=== PATIENT | female | born 1945 | race Two or more races ===

== ENCOUNTER → 2020-08-14 13:11 | Outpatient (BNVA) | payer MEDICARE, SELFPAY | PROVIDERS: PCP Internal Medicine; Referring Provider Internal Medicine; Visit Provider Internal Medicine | DX: I25.10 Atherosclerotic heart disease of native coronary artery without angina pectoris (principal); I10 Essential (primary) hypertension; E78.5 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, unspecified; E11.9 Type 2 diabetes mellitus without complications; Z79.4 Long term (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 | CPT/HCPCS: 99214 ==

== ENCOUNTER → 2020-09-05 10:57 | Outpatient (BNVA) | payer MEDICARE, SELFPAY | PROVIDERS: PCP Internal Medicine; Referring Provider Internal Medicine; Visit Provider Nurse Practitioner Gerontology | DX: E11.42 Type 2 diabetes mellitus with diabetic polyneuropathy (principal); I10 Essential (primary) hypertension; E78.5 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, unspecified; E66.09 Other obesity due to excess calories; Z68.32 Body mass index [BMI] 32.0-32.9, adult; Z71.3 Dietary counseling and surveillance; Z79.4 Long term (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 | CPT/HCPCS: 82947; 99213 ==

== ENCOUNTER 2020-09-21 09:35 | Outpatient (REF) | payer MEDICARE, SELFPAY | END 2020-09-21 09:36 | disposition home or self-care (01) | LOC: HO.LAB 09:35 | PROVIDERS: Visit Provider Internal Medicine | DX: Z20.828 Contact with and (suspected) exposure to other viral communicable diseases (principal) | CPT/HCPCS: C9803; U0003 ==

== ENCOUNTER 2020-09-27 12:44 | Outpatient (REF) | payer MEDICARE, SELFPAY ==
[2020-09-27 14:21] LABS: Estimated Average Glucose 157 mg/dL; Hemoglobin 11.4 g/dl (12.0-16.0); Hemoglobin A1c % 7.1 %
[2020-09-27 14:28] LABS: Anion Gap 11 (12-20); Blood Urea Nitrogen 17 mg/dL (9-16); Calcium 9.3 mg/dL (8.4-10.2); Carbon Dioxide 31 mmol/L (22-29); Chloride 102 mmol/L (96-108); Estimated Glomerular Filt Rate 54; Glucose Random 95 mg/dL (60-115); Potassium 4.5 mmol/l (3.3-5.1); Sodium 139 mmol/L (135-145)
[2020-09-28 08:56] LABS: LDL Cholesterol Direct 64 mg/dL (<100)
== END 2020-09-27 12:45 | disposition home or self-care (01) ==
LOC: HO.HMGCLDS 12:44
PROVIDERS: PCP Internal Medicine; Visit Provider Internal Medicine
DX: E11.42 Type 2 diabetes mellitus with diabetic polyneuropathy (principal); E78.5 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, unspecified; I10 Essential (primary) hypertension; I25.10 Atherosclerotic heart disease of native coronary artery without angina pectoris; Z79.4 Long term (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
CPT/HCPCS: 36415; 80048; 83036; 83721; 85018

== ENCOUNTER → 2020-11-22 13:25 | Outpatient (BNVA) | payer MEDICARE, SELFPAY | PROVIDERS: PCP Internal Medicine; Referring Provider Internal Medicine; Visit Provider Nurse Practitioner Gerontology | DX: E11.42 Type 2 diabetes mellitus with diabetic polyneuropathy (principal); Z79.4 Long term (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; I10 Essential (primary) hypertension; E78.5 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, unspecified | CPT/HCPCS: Q3014 ==

== ENCOUNTER → 2021-02-20 12:37 | Outpatient (BNVA) | payer MEDICARE, MEDICAID, SELFPAY | PROVIDERS: PCP Internal Medicine; Visit Provider Nurse Practitioner Gerontology | DX: E11.65 Type 2 diabetes mellitus with hyperglycemia (principal); Z79.4 Long term (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; E78.5 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, unspecified; I10 Essential (primary) hypertension | CPT/HCPCS: 82947; 99212 ==

== ENCOUNTER → 2021-07-11 07:48 | Outpatient (BNVA) | payer MEDICARE, MEDICAID, SELFPAY | PROVIDERS: PCP Internal Medicine; Visit Provider Nurse Practitioner Gerontology | DX: E11.65 Type 2 diabetes mellitus with hyperglycemia (principal); E78.5 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, unspecified; I10 Essential (primary) hypertension; Z79.4 Long term (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 | CPT/HCPCS: 82947; 99212 ==

== ENCOUNTER 2021-07-13 12:29 | Outpatient (REF) | payer MEDICARE, MEDICAID, SELFPAY ==
[2021-07-13 14:02] LABS: Glucose Urine UA 250 MG/DL (NEG); Leukocyte Esterase Urine NEG (NEG); Nitrite Urine NEG (NEG); PH 5.5 (5.0-8.0); Specific Gravity - Urine >= 1.030 (1.005-1.025); Urine Blood NEG (NEG); Urine Ketones NEG (NEG); Urine Protein NEG (NEG-TRACE)
[2021-07-13 14:03] LABS: Appearance Urine CLEAR; Color Urine YELLOW
[2021-07-13 14:18] LABS: MANUAL DIFF FLAG NO
[2021-07-13 14:24] LABS: Basophils Percent Auto 0.4 % (0-2); Eosinophils Absolute Auto 0.2 X10*3/uL (0.0-0.4); Eosinophils Percent Auto 2.2 % (0-4); Hematocrit 37.5 % (37-47); Hemoglobin 11.1 g/dl (12.0-16.0); Imm Gran Abs Auto 0.03 X10*3/uL (0.00-0.03); Imm Gran Pct Auto 0.4 % (0.0-0.4); Lymphocytes Absolute Auto 1.2 X10*3/uL (1.2-4.9); Mean Corpuscular HGB Conc 29.6 g/dl (31.0-35.0); Mean Corpuscular Hemoglobin 23.9 pg (27.0-33.0); Mean Corpuscular Volume 80.6 fL (80-98); Mean Platelet Volume 11.6 fL (9.4-12.3); Monocytes Absolute Auto 0.4 X10*3/uL (0.1-1.2); Monocytes Percent Auto 5.3 % (2-11); Neutrophils Absolute Auto 5.5 X10*3/uL (2.0-8.3); Neutrophils Percent Auto 75.7 % (45-73); Platelet Count 256 X10*3/uL (160-400); Red Blood Count 4.65 X10*6/uL (4.20-5.50); Red Cell Distribution Width 14.6 % (11.0-16.0); White Blood Count 7.3 X10*3/uL (4.8-10.8)
[2021-07-13 14:35] LABS: Estimated Average Glucose 189 mg/dL; Hemoglobin A1c % 8.2 %
[2021-07-13 14:43] LABS: Creatinine Urine 121.74 mg/dL; Microalbum/Creatinine Ratio Ur 54.2 ug/mg cr
[2021-07-13 14:46] LABS: Alanine Aminotransferase 11 U/L (0-31); Albumin Level 3.8 g/dL (3.5-5.0); Alkaline Phosphatase 104 U/L (39-117); Anion Gap 11 (12-20); Aspartate Amino Transferase 15 U/L (5-31); Bilirubin Total 0.3 mg/dL (0.0-1.0); Blood Urea Nitrogen 16 mg/dL (9-16); Calcium 9.7 mg/dL (8.4-10.2); Carbon Dioxide 30 mmol/L (22-29); Chloride 101 mmol/L (96-108); Cholesterol 140 mg/dL; Estimated Glomerular Filt Rate 56; Glucose Fasting 251 mg/dL (60-99); HDL Cholesterol 50 mg/dL; LDL Cholesterol Calculated 67 mg/dl; Potassium 4.4 mmol/L (3.3-5.1); Sodium 138 mmol/L (135-145); Total Protein 6.4 g/dL (6.5-8.0); Triglycerides 118 mg/dL
[2021-07-14 20:25] LABS: LDL Cholesterol Direct 69 mg/dL (<100)
== END 2021-07-13 12:30 | disposition home or self-care (01) ==
LOC: HO.HMGCLDS 12:29
PROVIDERS: Nurse Practitioner Gerontology; PCP Internal Medicine; Visit Provider Internal Medicine
DX: E11.42 Type 2 diabetes mellitus with diabetic polyneuropathy (principal); E11.65 Type 2 diabetes mellitus with hyperglycemia; I10 Essential (primary) hypertension; E78.5 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, unspecified; R29.6 Repeated falls; R41.3 Other amnesia; R10.2 Pelvic and perineal pain; Z79.4 Long term (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
CPT/HCPCS: 36415; 80053; 80061; 81003; 82043; 83036; 83721; 85025

== ENCOUNTER → 2021-07-23 10:20 | Outpatient (BNVA) | payer MEDICARE, MEDICAID, SELFPAY | PROVIDERS: PCP Internal Medicine; Referring Provider Internal Medicine; Visit Provider Internal Medicine | DX: I25.10 Atherosclerotic heart disease of native coronary artery without angina pectoris (principal); I10 Essential (primary) hypertension; E78.5 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, unspecified; E11.8 Type 2 diabetes mellitus with unspecified complications; Z79.4 Long term (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 | CPT/HCPCS: 93005; 99212 ==

== ENCOUNTER → 2021-08-14 13:31 | Outpatient (BNVA) | payer MEDICARE, MEDICAID, SELFPAY | PROVIDERS: PCP Internal Medicine; Referring Provider Internal Medicine; Visit Provider Nurse Practitioner Family | DX: I25.10 Atherosclerotic heart disease of native coronary artery without angina pectoris (principal); I10 Essential (primary) hypertension; E78.5 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, unspecified; E11.8 Type 2 diabetes mellitus with unspecified complications | CPT/HCPCS: 99212 ==

== ENCOUNTER → 2021-08-22 10:36 | Outpatient (BNVA) | payer MEDICARE, MEDICAID, SELFPAY | PROVIDERS: PCP Internal Medicine; Visit Provider Nurse Practitioner Gerontology | DX: E11.65 Type 2 diabetes mellitus with hyperglycemia (principal); E78.5 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, unspecified; I10 Essential (primary) hypertension; Z79.4 Long term (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 | CPT/HCPCS: Q3014 ==

== ENCOUNTER → 2021-12-17 13:12 | Outpatient (BNVA) | payer MEDICARE, MEDICAID, SELFPAY | PROVIDERS: PCP Internal Medicine; Visit Provider Nurse Practitioner Gerontology | DX: E11.65 Type 2 diabetes mellitus with hyperglycemia (principal); E78.5 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, unspecified; I10 Essential (primary) hypertension; Z79.4 Long term (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 | CPT/HCPCS: Q3014 ==

== ENCOUNTER 2021-12-21 19:34 | Emergency (ER) | payer MEDICARE, MEDICAID, SELFPAY ==
[2021-12-21 19:44] VITALS: BP 142/50; PULSE 92; RESP 20; TEMP 36.5; O2SAT 99; BMI 32.7
[2021-12-21 20:09] LABS: MANUAL DIFF FLAG NO
[2021-12-21 20:12] LABS: Basophils Percent Auto 0.2 % (0-2); Eosinophils Absolute Auto 0.1 X10*3/uL (0.0-0.4); Hematocrit 39.6 % (37.0-47.0); Hemoglobin 12.2 g/dl (12.0-16.0); Imm Gran Abs Auto 0.05 X10*3/uL (0.00-0.03); Imm Gran Pct Auto 0.5 % (0.0-0.4); Lymphocytes Absolute Auto 1.5 X10*3/uL (1.2-4.9); Lymphocytes Percent Auto 14.8 % (20-40); Mean Corpuscular HGB Conc 30.8 g/dl (31.0-35.0); Mean Corpuscular Hemoglobin 24.6 pg (27.0-33.0); Mean Corpuscular Volume 79.8 fL (80.0-98.0); Mean Platelet Volume 10.6 fL (9.4-12.3); Monocytes Absolute Auto 0.5 X10*3/uL (0.1-1.2); Monocytes Percent Auto 5.3 % (2-11); Neutrophils Percent Auto 78.2 % (45-73); Platelet Count 285 X10*3/uL (160-400); Red Blood Count 4.96 X10*6/uL (4.20-5.50); White Blood Count 10.2 X10*3/uL (4.8-10.8)
[2021-12-21 20:25] LABS: Alanine Aminotransferase 11 U/L (0-31); Albumin Level 3.9 g/dL (3.5-5.0); Alkaline Phosphatase 114 U/L (39-117); Anion Gap 17 (12-20); Aspartate Amino Transferase 22 U/L (5-31); Bilirubin Direct 0.2 mg/dL (0.0-0.5); Bilirubin Total 0.3 mg/dL (0.0-1.0); Blood Urea Nitrogen 17 mg/dL (9-16); Calcium 9.8 mg/dL (8.4-10.2); Carbon Dioxide 23 mmol/L (22-29); Chloride 101 mmol/L (96-108); Creatinine Clr Calc Pharmacy 42.3; Estimated Glomerular Filt Rate 46; Glucose Random 296 mg/dL (60-115); Lipase 69 U/L (8-78); Sodium 137 mmol/L (135-145); Total Protein 7.1 g/dL (6.5-8.0)
[2021-12-21 20:26] LABS: COVID-19 Test Negative (Negative); IDNOW Serial# 9DD0AD1C
== END 2021-12-21 22:20 | disposition left against medical advice (07) ==
PROVIDERS: Emergency Provider Emergency Medicine
DX: R11.2 Nausea with vomiting, unspecified (principal); Z20.822 Contact with and (suspected) exposure to COVID-19; I10 Essential (primary) hypertension; E11.9 Type 2 diabetes mellitus without complications; E78.5 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, unspecified; Z79.4 Long term (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
CPT/HCPCS: 80053; 82248; 83690; 85025; 87635; 99282; 99283

== ENCOUNTER 2021-12-22 09:07 | Inpatient (IN) | payer MEDICARE, OTHER, SELFPAY ==
[2021-12-22] VITALS (10 sets, daily range): BP systolic 160–200; BP diastolic 60–82; PULSE 81–100; RESP 16–19; TEMP 36.3–37.4; O2SAT 96–100; BMI 34.0
--- NOTE | ~2021-12-22 | CT_ITS ---
EXAMINATION: CT ABDOMEN AND PELVIS WITH CONTRAST CLINICAL INFORMATION: Abdominal pain. GI bleed. COMPARISON: CT scan of the abdomen and pelvis dated 06/15/2018. TECHNIQUE: Multidetector CT volumetric acquisition of the abdomen and pelvis was performed after the administration of 85 and mL of intravenous Omnipaque 350. The data set was reformatted in the sagittal and coronal planes and reviewed on an independent workstation. This CT examination was performed using dose optimization techniques as appropriate, variously including the following: *Automated exposure control *Adjustment of mA and/or kV according to patient size (this includes techniques or standardized protocols for targeted exams where dose is matched to indication/reason for exam; i.e. extremities or head) *Use of iterative reconstruction technique DLP: 587 mGy-cm. FINDINGS: LOWER CHEST: Included lung bases unremarkable. Moderate atherosclerotic coronary artery calcifications partially included. LIVER, GALLBLADDER, BILIARY TREE: Liver normal size and diffusely mildly lower in attenuation compared to the spleen, consistent with hepatic steatosis. No focal cystic or solid mass. Hepatic and portal veins patent. Gallbladder is surgically absent. There is resultant mild dilatation of the extrahepatic common bile duct, which measures 1.1 cm proximally and tapers to 0.5 cm in the pancreatic head. No obstructing stone or mass is seen. Minimal central intrahepatic ductal dilatation is noted. These findings are similar to the previous exam.. PANCREAS: Diffusely atrophic. No ductal dilatation, mass, or surrounding stranding. SPLEEN: Normal size and appearance. 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 The splenic vein is patent. ADRENAL GLANDS AND KIDNEYS: Adrenal glands normal. Kidneys bilaterally symmetric in size and function. There is a 0.6 cm upper pole right renal low-attenuation mass, too small to characterize but statistically most likely a cyst. This had previously measured 0.4 cm (06/15/2018). No other suspicious focal mass, hydronephrosis, nephrolithiasis or perinephric stranding. URETERS AND BLADDER: Ureters decompressed and within normal limits. Bladder completely decompressed and not adequately assessed. PELVIC ORGANS: The patient is status post hysterectomy and presumably oophorectomy. Several soumya are seen in the pelvis. GASTROINTESTINAL TRACT: The patient is status post sigmoid colon resection with the bowel anastomotic suture line appearing intact and unremarkable. There is bilateral long segment of mid and distal transverse colon, splenic flexure, and proximal descending colon, which is abnormal in appearance, demonstrating marked submucosal edema and mucosal hyperenhancement and prominent surrounding fat infiltration and edema. No pneumatosis is seen and no significant diverticula are noted. The remainder of the colon is decompressed and unremarkable. Small bowel loops are decompressed and unremarkable. The appendix is not visualized but no inflammatory process seen in the right lower quadrant to suspect acute appendicitis LYMPHOVASCULAR STRUCTURES: Abdominal aorta normal in caliber. There is moderate atherosclerotic calcification of the abdominal aorta, including at the origins of the SMA and VADIM. However, all the mesenteric vessels are patent with normal enhancement demonstrated. No thrombus is noted within the mesenteric vessels. No periaortic collections. No abdominal or pelvic adenopathy or free fluid collection. BONES: There is moderate vertebral spondylosis in the lower thoracic spine and in the mid lumbar spine CT/CT abdomen pelvis w con IMPRESSION: 1. Markedly abnormal appearance of the mid and distal transverse colon, splenic flexure and proximal descending colon. As discussed above, these findings are in a watershed region and raise the suspicion of ischemic colitis. No evidence of pneumatosis intestinalis, bowel obstruction or perforation is seen. Other etiologies, including inflammatory bowel disease or less likely infectious colitis can be considered. C. difficile colitis may have a similar appearance but usually extends down to the rectum. Close clinical correlation and follow-up is recommended. Recommend surgical consult. 2. Hepatic steatosis. 3. Chronic mild intrahepatic and moderate extrahepatic ductal dilatation, consistent with the patient's cholecystectomy state and age. 4. Multiple perisplenic varices noted. 5. Probable cyst in the upper pole of the right kidney. 6. Moderate atherosclerotic vascular calcifications. This critical result was discussed with Dr. Fabiola Duke 12/22/2021, 2:12 PM and it was ascertained that the content and urgency of this report was understood at the time of direct communication.
--- NOTE | 2021-12-22 11:01 | ED_ITS ---
HPI - GI Bleed General Chief complaint: GI Bleed Stated complaint: FLU LIKE SX X'S 1 DAY, N/V/D Time Seen by Provider: 12/22/21 10:21 History of Present Illness HPI Narrative: Patient is 76-year-old female presents today with having bright red blood per rectum that is been ongoing for the last 24 hours. Patient not on blood thinners. No history of NSAID use. No history of alcohol. No coughing no congestion respiratory symptoms. Patient from home. No chest pain or shortness of breath. Feels very weak and tired. Has multiple surgery to the abdomen in the past question polyps. Patient claims she had benign tumors that were removed. It was all done in [place]. no diaphoresis. No focal weakness. Patient from home. No history of similar episodes in the past. Unsure she has history of diverticulitis. Related Data Home Medications Medication Instructions Recorded Confirmed aspirin 81 mg tablet,delayed 81 mg PO DAILY 08/14/20 08/22/21 release venlafaxine 150 mg 150 mg PO DAILY 08/14/20 08/22/21 capsule,extended release 24 hr venlafaxine 37.5 mg 37.5 mg PO DAILY 11/22/20 08/22/21 capsule,extended release 24 hr atenolol 100 mg tablet 100 mg PO DAILY 08/15/21 12/17/21 insulin lispro 100 unit/mL See Rx Instructions SUBCUT TID ml 12/17/21 12/17/21 subcutaneous pen Previous Rx's Medication Instructions Recorded nitroglycerin 0.4 mg sublingual 0.4 mg SUBLINGUAL Q5M PRN #30 tab 08/14/20 tablet albuterol sulfate 90 mcg/actuation 2 puff INHALATION Q4H PRN 30 Days 09/19/20 aerosol inhaler (ProAir HFA) #18 g fluticasone propionate 110 1 puff PO BID 30 Days #12 g 10/18/20 mcg/actuation HFA aerosol inhaler (Flovent HFA) montelukast 10 mg tablet 10 mg PO DAILY #90 tab 11/29/20 lancets 33 gauge (TRUEplus Lancets) #400 ea 02/20/21 lisinopril 40 mg tablet 40 mg PO DAILY #90 tab 03/12/21 blood sugar diagnostic (Accu-Chek 1 strip MISCELLANEOUS QID #400 06/08/21 Guide test strips) strip amlodipine 5 mg tablet 5 mg PO DAILY #90 tab 07/23/21 pantoprazole 20 mg tablet,delayed 40 mg PO DAILY #180 tab 08/31/21 release linagliptin 2.5 mg-metformin 1,000 1 tab PO BID #180 tab 09/18/21 mg tablet (Jentadueto) atorvastatin 80 mg tablet 80 mg PO DAILY #90 tab 12/17/21 insulin degludec 200 unit/mL (3 32 unit (0.16 mL) SUBCUT BEDTIME 12/17/21 mL) subcutaneous pen (Tresiba 90 Days #14.4 ml FlexTouch U-200 insulin) Allergies Allergy/AdvReac Type Severity Reaction Status Date / Time Penicillins [PENICILLINS] Allergy Severe ANAPHYLAXIS Verified 12/21/21 19:42 Sulfa (Sulfonamide Allergy Intermediate ANAPHYLAXIS Verified 12/21/21 19:42 Antibiotics) [SULFA (SULFONAMIDE ANTIBIOTICS)] Codeine Allergy Unknown headaches, Uncoded 12/17/21 14:25 mood changes latanoprost Allergy Unknown Eye redness Uncoded 12/17/21 14:25 Trulicity Allergy Unknown nausea, Uncoded 12/17/21 14:25 vomiting Review of Systems Review of Systems: Positive bright red blood per rectum No fever no chills no cough no congestion or upper respiratory symptoms Yes all other systems are reviewed and are negative [facility] Past Medical History Attestation statement: The following information was validated with the patient. 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 Memory change Myocardial infarction Neuropathy Obesity due to excess calories Seizures Type 2 diabetes mellitus with diabetic polyneuropathy Type 2 diabetes mellitus with hyperglycemia Type 2 diabetes mellitus with unspecified complications Surgical History History of bladder surgery History of intestinal surgery History of liver biopsy Hx of cholecystectomy Hx of hysterectomy Family History Family History Father Cardiovascular disease Mother Cardiovascular disease Sister Diabetes Brother Diabetes Other Mental health disorder Social History Social History Household Members: None Housing: Apartment Alcohol intake: never Patient Tobacco Use Status: Never used Tobacco Second Hand Smoke Exposure: No Use of substances other than those prescribed or required for medical reasons: No Advance Directives: No Advance Directives Information Provided: No Current occupational status: retired Physical Exam Vital Signs: Vital Signs: Last Vital Signs Temp 98 F 12/22/21 09:14 Pulse 90 12/22/21 14:40 Resp 16 12/22/21 14:40 BP 160/61 H 12/22/21 14:40 Pulse Ox 99 12/22/21 14:40 BMI result Body Mass Index 34.0 Appearance: Alert. Oriented X3. No acute distress. Eyes: Pupils equal, round and reactive to light. ENT: Pharynx normal. Neck: Normal inspection. Neck supple. No lymph nodes noted. No crepitus CVS: Normal heart rate and rhythm. Pulses normal. Normal S1 and S2 Respiratory: No respiratory distress. Breath sounds normal. No Wheezing. No rales Abdomen: Soft and nontender. No rigidity. No distention. good BS x4 Skin: Skin warm and dry. Normal skin color. Normal skin turgor. Rectal exam done with nurse have any present. Bloody mucus noted. Extremities: No lower extremity edema. Neurovascular intact to all extremities. No Lacerations. No Rash Neuro: Oriented X 3. No motor deficit. No sensory deficit. Moving all extermities. No slurred speech MDM - GI Bleed MDM Narrative Medical decision making narrative: Patient has abdominal pain in the lower abdomen. White count was 16.2. No fever. CT positive for colitis. Will start patient on Levaquin. Will admit for further evaluation and monitoring. Case will be discussed with GI and the hospitalist team. Hemoglobin is 12.8 approximately stable. Rectal exam showed gross blood Lab Data Result diagrams: 12/22/21 11:02 12/22/21 11:02 Labs: Lab Results 12/22/21 12/22/21 12/22/21 Range/Units 11:02 11:02 11:12 WBC 16.2 H (4.8-10.8) X10*3/uL RBC 5.24 (4.20-5.50) X10*6/uL Hgb 12.8 (12.0-16.0) g/dl Hct 41.2 (37.0-47.0) % MCV 78.6 L (80.0-98.0) fL MCH 24.4 L (27.0-33.0) pg MCHC 31.1 (31.0-35.0) g/dl RDW 14.1 (11.0-16.0) % Plt Count 291 (160-400) X10*3/uL MPV 10.3 (9.4-12.3) fL Immature Gran % (Auto) 0.4 (0.0-0.4) % Neut % (Auto) 88.4 H (45-73) % Lymph % (Auto) 6.0 L (20-40) % Emanuel % (Auto) 5.1 (2-11) % Eos % (Auto) 0.0 (0-4) % Baso % (Auto) 0.1 (0-2) % Lymph # (Auto) 1.0 L (1.2-4.9) X10*3/uL Emanuel # (Auto) 0.8 (0.1-1.2) X10*3/uL Eos # (Auto) 0.0 (0.0-0.4) X10*3/uL Baso # (Auto) 0.0 (0.0-0.2) X10*3/uL Abs Immat Gran (auto) 0.07 H (0.00-0.03) X10*3/uL Absolute Neuts (auto) 14.3 H (2.0-8.3) x10*3/uL Absolute Nucleated RBC 0.000 (0.0-0.012) X10*3/uL Nucleated RBC % (auto) 0.0 (0.0-0.2) /100WBC Sodium 135 (135-145) mmol/L Potassium 4.0 (3.3-5.1) mmol/L Chloride 99 (96-108) mmol/L Carbon Dioxide 26 (22-29) mmol/L Anion Gap 14 (12-20) BUN 15 (9-16) mg/dL Creatinine 0.99 (0.5-1.4) mg/dL Estim Creat Clear Calc 44.2 Estimated GFR 54 Random Glucose 288 H (60-115) mg/dL Calcium 9.6 (8.4-10.2) mg/dL Total Bilirubin 0.8 (0.0-1.0) mg/dL AST 19 (5-31) U/L ALT 12 (0-31) U/L Alkaline Phosphatase 115 (39-117) U/L Total Protein 7.1 (6.5-8.0) g/dL Albumin 3.9 (3.5-5.0) g/dL Lipase 37 (8-78) U/L Stool Occult Blood POSITIVE (NEGATIVE) Discharge Plan Discharge Clinical Impression: Colitis Patient Disposition: Admitted As Inpatient
[2021-12-22 11:05] LABS: MANUAL DIFF FLAG NO
[2021-12-22] MEDS: HYDROmorphone HCl 0.5 MG/0.5 ML SYRINGE IVPUSH (11:06)
[2021-12-22] MEDS: 0.9 % Sodium Chloride 1,000 ML 999 ML IV (11:07)
[2021-12-22 11:09] LABS: Basophils Percent Auto 0.1 % (0-2); Hematocrit 41.2 % (37.0-47.0); Hemoglobin 12.8 g/dl (12.0-16.0); Imm Gran Abs Auto 0.07 X10*3/uL (0.00-0.03); Imm Gran Pct Auto 0.4 % (0.0-0.4); Mean Corpuscular HGB Conc 31.1 g/dl (31.0-35.0); Mean Corpuscular Hemoglobin 24.4 pg (27.0-33.0); Mean Corpuscular Volume 78.6 fL (80.0-98.0); Mean Platelet Volume 10.3 fL (9.4-12.3); Monocytes Absolute Auto 0.8 X10*3/uL (0.1-1.2); Monocytes Percent Auto 5.1 % (2-11); Neutrophils Absolute Auto 14.3 x10*3/uL (2.0-8.3); Neutrophils Percent Auto 88.4 % (45-73); Platelet Count 291 X10*3/uL (160-400); Red Blood Count 5.24 X10*6/uL (4.20-5.50); Red Cell Distribution Width 14.1 % (11.0-16.0); White Blood Count 16.2 X10*3/uL (4.8-10.8)
[2021-12-22 11:19] LABS: OBS Int Ctl Valid YES; OBS1 POSITIVE (NEGATIVE)
[2021-12-22 11:28] LABS: Alanine Aminotransferase 12 U/L (0-31); Albumin Level 3.9 g/dL (3.5-5.0); Alkaline Phosphatase 115 U/L (39-117); Anion Gap 14 (12-20); Aspartate Amino Transferase 19 U/L (5-31); Bilirubin Total 0.8 mg/dL (0.0-1.0); Blood Urea Nitrogen 15 mg/dL (9-16); Calcium 9.6 mg/dL (8.4-10.2); Carbon Dioxide 26 mmol/L (22-29); Chloride 99 mmol/L (96-108); Creatinine Clr Calc Pharmacy 44.2; Estimated Glomerular Filt Rate 54; Glucose Random 288 mg/dL (60-115); Lipase 37 U/L (8-78); Sodium 135 mmol/L (135-145); Total Protein 7.1 g/dL (6.5-8.0)
[2021-12-22] MEDS: iohexoL 350 MG/ML 100 ML INFUS..BTL 85 ML IV (12:59)
[2021-12-22] MEDS: 0.9 % Sodium Chloride 500 ML 999 ML IV (14:21)
[2021-12-22 15:21] LABS: Lactic Acid 1.4 mmol/L (0.5-2.0)
[2021-12-22 15:28] LABS: COVID-19 Test Negative (Negative)
[2021-12-22] MEDS: levoFLOXacin/D5W 500 MG/100 ML PIGGYBACK 100 MG IV (15:30)
--- NOTE | 2021-12-22 15:52 | PM.EVENT ---
Event Note Date of Service: 12/23/21 Event Note: patient has on and off funny feeling in stomach form 1-2 weeks, she says that she has intermittent constipation/diarrhea, last night she ate from the restaurant and afterwards she started stomach arm got upset as per the patient and started to having abdominal pain, initially had nausea vomiting then started to having diarrhea, she came to the ED but then decided to leave and when she went home she has noticed to have significant increase in diarrhea and having blood per rectum, and she was also continued to vomit. so decided to come to the hospital. she has pain in the abdomen but most is on the left lower quadrant area. She has history of multiple surgeries: Surgery, bladder surgery, hysterectomy, cholecystectomy she denies any shortness of breath or chest pain or fever or chills or cough or phlegm lab imaging reviewed: CT abdomen shows possible extensive colitis versus ischemic colitis WBC count 16.2 bun: 15, cr: 0.99 lactic acid : 1.4 fobt positive h/h stable physical exam: Appearance: Alert.? Oriented X3.? general weak cvs: rrr, [id number] , no murmur res: clear to auscultation ,no rhonchii or wheezing abd:soft , mutiple scar in abd due to past surgeries, no rebound or guarding ,llq abd pain, bs present. ext pulses present , no cyanosis. neuro: axo3 , nonfocal. Assessment and plan: 1. Possible infectious versus ischemic colitis lactic acid normal patient is not septic stool studies will add Levaquin and Flagyl Gi eval , 2. she has history of seizure disorder: She had self stopped her medications last seizure were on month and a half . she agrees to see the neurologist here so will place Neuro consult meanwhile add IV Ativan p.r.n. for seizure
--- NOTE | 2021-12-22 16:04 | PM.IMHP ---
History of Present Illness Date of Service: 12/22/21 Attending physician on admission: Sid Hess Chief Complaint: abdominal pain, rectal bleeding This is a 76 year old female with history of multiple abdominal surgeries who presents to the ED with abdominal pain and rectal bleeding. Last night she went out to dinner around 6pm She had spinach and artichoke dip and chicken. Following that she went to [facility] where she began feeling ill. She began having episodes of nausea and non-bloody vomiting followed by lower abdominal pain. She was brought to the ED by ambulance. She had diarrhea followed by rectal bleeding the the waiting room but elected to return home when the wait was too long. Overnight she reports persistant lower abdominal pain, vomiting and multiple episodes of rectal bleeding. This morning she returned to the ED with ongoing symptoms. Lab work was significant for leukocytosis of 16.2. H/H was stable, lactive acid within normal limits. Heme occult was positive. CT scan of the abdomen showed markedly abnormal appearance of the colon. She was started on IV levaquin and flagyl and the decision was made to admit her for further management. Review of Systems Review of Systems: Yes all other systems are reviewed and are negative Constitutional: Constitutional: Reports chills and Denies fever(s) Cardiovascular: Cardiovascular: Denies palpitations and Denies dyspnea Respiratory: Respiratory: Denies dyspnea Gastrointestinal: Gastrointestinal: Reports abdominal pain, Reports hematochezia, Reports diarrhea and Reports vomiting Endocrine: Endocrine: Denies palpitations [facility] Medical History (Updated 12/22/21 @ 16:15 by WISAM Coon) Acid reflux Atherosclerotic cardiovascular disease BMI 34.0-34.9,adult Essential hypertension Glaucoma 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 LDL goal <70 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, unspecified 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 Memory change Myocardial infarction Neuropathy Obesity due to excess calories Seizures Stroke Type 2 diabetes mellitus with diabetic polyneuropathy Type 2 diabetes mellitus with hyperglycemia Type 2 diabetes mellitus with unspecified complications Functional capacity: independent ambulation Family History Father Cardiovascular disease Mother Cardiovascular disease Sister Diabetes Brother Diabetes Other Mental health disorder Surgical History (Updated 12/22/21 @ 16:20 by WISAM Coon) History of appendectomy History of bladder surgery History of colon resection History of intestinal surgery History of kidney surgery History of liver biopsy Hx of cholecystectomy Hx of hysterectomy Social History (Updated 12/22/21 @ 16:20 by WISAM Coon) Household Members: None Housing: Apartment Alcohol intake: current Alcohol intake frequency: holidays/special occasions only Patient Tobacco Use Status: Never used Tobacco Second Hand Smoke Exposure: No Use of substances other than those prescribed or required for medical reasons: No Advance Directives: No Advance Directives Information Provided: No Current occupational status: retired Meds Allergies Allergy/AdvReac Type Severity Reaction Status Date / Time Penicillins [PENICILLINS] Allergy Severe ANAPHYLAXIS Verified 12/21/21 19:42 Sulfa (Sulfonamide Allergy Intermediate ANAPHYLAXIS Verified 12/21/21 19:42 Antibiotics) [SULFA (SULFONAMIDE ANTIBIOTICS)] Codeine Allergy Unknown headaches, Uncoded 12/17/21 14:25 mood changes latanoprost Allergy Unknown Eye redness Uncoded 12/17/21 14:25 Trulicity Allergy Unknown nausea, Uncoded 12/17/21 14:25 vomiting Active Medications: Current Medications Acetaminophen (Acetaminophen 325 Mg Tablet) 650 mg PO Q6H PRN PRN Reason: Pain, Mild (Pain Scale 1-3) Dextrose (Dextrose 50 % 25 Gm/50 Ml Syringe) 25 gm IVPUSH Q15M PRN; Protocol PRN Reason: per Hypoglycemia Standing Ord. Docusate Sodium (Docusate Sodium 100 Mg Capsule) 100 mg PO DAILY PRN PRN Reason: Constipation Glucose (Glucose Gel 15 Gm Gel..Gram.) 15 gm PO Q15M PRN; Protocol PRN Reason: per Hypoglycemia Standing Ord. Metronidazole (Flagyl) 500 mg in 100 mls @ 100 mls/hr IV Q8H SUMA Lactated Ringer's (Lr) 1,000 mls @ 125 mls/hr IVCONT .Q8H SUMA Levofloxacin (Levaquin) 500 mg in 100 mls @ 100 mls/hr IV Q24H SUMA Insulin Human Lispro (Insulin Lispro 100 Unit/Ml 3 Ml Vial) 0 unit SUBCUT QIDACHS SUMA; Protocol Ondansetron HCl (Ondansetron Hcl 4 Mg/2 Ml Vial) 4 mg IVPUSH Q8H PRN PRN Reason: Nausea and Vomiting Pharmacy Consult (Consult Rx Perform Med Rec) 1 each MISCELLANE ONCE PRN PRN Reason: Consult order Home Medications Medication Instructions Recorded Confirmed Last Taken Type aspirin 81 mg tablet,delayed 81 mg PO DAILY 08/14/20 12/22/21 12/21/21 History release venlafaxine 150 mg 150 mg PO DAILY 08/14/20 12/22/21 12/21/21 History capsule,extended release 24 hr venlafaxine 37.5 mg 37.5 mg PO DAILY 11/22/20 12/22/21 12/21/21 History capsule,extended release 24 hr atenolol 100 mg tablet 100 mg PO DAILY 08/15/21 12/22/21 12/21/21 History insulin lispro 100 unit/mL See Rx Instructions SUBCUT TID ml 12/17/21 12/22/21 12/21/21 History subcutaneous pen linagliptin 2.5 mg-metformin 1,000 1 tab PO BIDWM 12/22/21 12/22/21 12/21/21 History mg tablet (Jentadueto) venlafaxine 37.5 mg 1 cap PO DAILY 12/22/21 12/22/21 12/21/21 History capsule,extended release 24 hr (Effexor XR) Physical Exam Vital Signs and Narrative: Vital Signs: Last Vital Signs Temp 98.2 F 12/22/21 15:52 Pulse 90 12/22/21 15:52 Resp 16 12/22/21 15:52 BP 170/60 H 12/22/21 15:52 Pulse Ox 98 12/22/21 15:52 BMI result Body Mass Index 34.0 Const: General: cooperative, comfortable, no acute distress, alert and awake Nutritional Appearance: overweight Orientation/consciousness: patient oriented x3 Eyes: Pupils: Equal, round and reactive pupils present Resp: Effort & Inspection: normal respiratory effort and able to speak in complete sentences Cardio: Rate: regular rate Heart sounds: S1 normal heart sound present and S2 normal heart sound present GI: Other: abdomen soft, tender primarily b/l lower quadrants; non-distended; +BS Neuro: General: patient oriented x3 Cranial nerves: Yes Equal, round and reactive pupils present Extrem: Other: no lower extremity edema Results Labs CBC and Chem 7: 12/22/21 11:02 12/22/21 11:02 Labs: Laboratory Results - last 24 hr 12/22/21 12/22/21 12/22/21 11:02 11:02 11:12 MCV 78.6 L MCH 24.4 L MCHC 31.1 RDW 14.1 Plt Count 291 MPV 10.3 Immature Gran % (Auto) 0.4 Neut % (Auto) 88.4 H Lymph % (Auto) 6.0 L Barton % (Auto) 5.1 Eos % (Auto) 0.0 Baso % (Auto) 0.1 Lymph # (Auto) 1.0 L Barton # (Auto) 0.8 Eos # (Auto) 0.0 Baso # (Auto) 0.0 Abs Immat Gran (auto) 0.07 H Absolute Neuts (auto) 14.3 H Absolute Nucleated RBC 0.000 Nucleated RBC % (auto) 0.0 Anion Gap 14 Estim Creat Clear Calc 44.2 Estimated GFR 54 Random Glucose 288 H Lactic Acid Calcium 9.6 Total Bilirubin 0.8 AST 19 ALT 12 Alkaline Phosphatase 115 Total Protein 7.1 Albumin 3.9 Lipase 37 Stool Occult Blood POSITIVE COVID-19 ([facility]) COVID-19 [employer] 12/22/21 12/22/21 15:00 15:00 MCV MCH MCHC RDW Plt Count MPV Immature Gran % (Auto) Neut % (Auto) Lymph % (Auto) Barton % (Auto) Eos % (Auto) Baso % (Auto) Lymph # (Auto) Barton # (Auto) Eos # (Auto) Baso # (Auto) Abs Immat Gran (auto) Absolute Neuts (auto) Absolute Nucleated RBC Nucleated RBC % (auto) Anion Gap Estim Creat Clear Calc Estimated GFR Random Glucose Lactic Acid 1.4 Calcium Total Bilirubin AST ALT Alkaline Phosphatase Total Protein Albumin Lipase Stool Occult Blood COVID-19 ([facility]) Negative COVID-19 Clin Com See Note Imaging Radiologist's Impressions: Impressions Abdomen/Pelvis CT 12/22/21 13:01 IMPRESSION: 1. Markedly abnormal appearance of the mid and distal transverse colon, splenic flexure and proximal descending colon. As discussed above, these findings are in a watershed region and raise the suspicion of ischemic colitis. No evidence of pneumatosis intestinalis, bowel obstruction or perforation is seen. Other etiologies, including inflammatory bowel disease or less likely infectious colitis can be considered. C. difficile colitis may have a similar appearance but usually extends down to the rectum. Close clinical correlation and follow-up is recommended. Recommend surgical consult. 2. Hepatic steatosis. 3. Chronic mild intrahepatic and moderate extrahepatic ductal dilatation, consistent with the patient's cholecystectomy state and age. 4. Multiple perisplenic varices noted. 5. Probable cyst in the upper pole of the right kidney. 6. Moderate atherosclerotic vascular calcifications. This critical result was discussed with Dr. Fabiola Duke 12/22/2021, 2:12 PM and it was ascertained that the content and urgency of this report was understood at the time of direct communication. Assessment and Plan (1) Colitis: Status: Acute Plan This is a 76 year old female with history of DM, CVA, CAD, HTN, HLD, seizures, numerous abdominal surgeries who presents to the ED with abdominal pain, diarrhea and rectal bleeding Colitis Probable infectious vs ischemic lactic acid wnl IV levaquin, flagyl GI consult NPO, IVF pain control Rectal bleeding secondary to above NPO hold asa, avoid AC follow CBC Seizure disorder no longer on meds due to lack of follow up last seizure 6 weeks ago seizure precautions prn ativan neurology consult Mood continue effexor DM Hold home meds SSI, POCs HTN given rectal bleeding will hold norvasc and lisinopril continue atenolol resume other meds as bp allows dvt ppx - chemoprophylaxis contraindicated due to GI bleeding; SCD boots ordered HCP - daughter and niece code status - full code Attending - Dr. Hess Quality Stroke Does the patient have a stroke diagnosis?: No VTE Prior VTE?: No VTE Risk Level:: Medical - moderate - high VTE Device Contraindication: N/A - Device Ordered VTE Drug Contraindication: Treatment Not Indicated
[2021-12-22] MEDS: metroNIDAZOLE/NS 500 MG/100 ML PIGGYBACK 100 MG IV (16:32)
[2021-12-22 16:53] LABS: Glucose, Whole Blood 197 mg/dL (60-115)
[2021-12-22] MEDS: Lactated Ringers 1,000 ML 125 ML IVCONT (17:14)
--- NOTE | 2021-12-22 17:21 | PC.NURSE ---
Pt being admitted and aware/agreeable. Had approx 3-4 episodes of colette blood in toilet, pt continues to feel generally weak but able to ambulate independently but encouraged to ask for help. POC 190s however pt NPO, will hold insulin at this time.
--- NOTE | 2021-12-22 18:20 | PC.NURSE ---
PATIENT WAS ASSISTED TO THE BATHROOM BY THIS PCT .
[2021-12-22] MEDS: Morphine Sulfate 2 MG/ML CARTRIDGE IVPUSH ×2 (18:36→22:26)
[2021-12-22] MEDS: ondansetron HCL 4 MG/2 ML VIAL IVPUSH (18:36)
[2021-12-22 20:52] LABS: Glucose, Whole Blood 201 mg/dL (60-115)
[2021-12-22] MEDS: Insulin Lispro 100 UNIT/ML 3 ML VIAL SUBCUT (21:36)
--- NOTE | 2021-12-22 21:47 | PC.NURSE ---
pt ambulates to restroom w/o difficulty and returns to room. pt denies complaints at this time. pt states the pain is starting to come back after ambulating. BS obtained and covered with insulin as per emar. Pt remains NPO. pt aware.
[2021-12-22 22:47] LABS: Glucose, Whole Blood 185 mg/dL (60-115)
[2021-12-23] VITALS (13 sets, daily range): BP systolic 123–192; BP diastolic 45–63; PULSE 57–99; RESP 16–19; TEMP 36.7–37.3; O2SAT 93–100; BMI 33.6
[2021-12-23] MEDS: metroNIDAZOLE/NS 500 MG/100 ML PIGGYBACK 100 MG IV ×3 (02:11→17:26)
[2021-12-23] MEDS: ondansetron HCL 4 MG/2 ML VIAL IVPUSH (02:22)
[2021-12-23] MEDS: Lactated Ringers 1,000 ML 125 ML IVCONT ×2 (02:23→09:45)
[2021-12-23] MEDS: Morphine Sulfate 2 MG/ML CARTRIDGE IVPUSH ×3 (02:26→23:15)
--- NOTE | 2021-12-23 02:30 | PC.NURSE ---
pt up to restroom and blood dripped to toilet on floor. pt cleaned up and returned to bed w/o incident. pt medicated for pain and nausea along with antibiotics.
--- NOTE | 2021-12-23 06:35 | PC.NURSE ---
pt up to restroom, c/o pain abd and nausea. pt awaiting further orders. pt's rectal bleeding has lessened as per pt. pt remains alert, respirations easy, n/l. LR up and running on pump without difficulty. site intact. will continue to monitor pt.
--- NOTE | 2021-12-23 06:53 | PC.NURSE ---
pt medicated for pain and 6am labs.
[2021-12-23 07:15] LABS: Hematocrit 37.9 % (37.0-47.0); Hemoglobin 11.4 g/dl (12.0-16.0); Mean Corpuscular HGB Conc 30.1 g/dl (31.0-35.0); Mean Corpuscular Hemoglobin 24.2 pg (27.0-33.0); Mean Corpuscular Volume 80.3 fL (80.0-98.0); Platelet Count 266 X10*3/uL (160-400); Red Blood Count 4.72 X10*6/uL (4.20-5.50); Red Cell Distribution Width 14.3 % (11.0-16.0); White Blood Count 16.8 X10*3/uL (4.8-10.8)
[2021-12-23 07:22] LABS: Glucose, Whole Blood 184 mg/dL (60-115)
[2021-12-23] MEDS: Omeprazole 20 MG CAPSULE.DR PO (07:25)
[2021-12-23 07:54] LABS: Anion Gap 11 (12-20); Blood Urea Nitrogen 8 mg/dL (9-16); Calcium 8.8 mg/dL (8.4-10.2); Carbon Dioxide 27 mmol/L (22-29); Chloride 104 mmol/L (96-108); Estimated Glomerular Filt Rate > 60; Glucose Random 196 mg/dL (60-115); Potassium 4.1 mmol/L (3.3-5.1); Sodium 138 mmol/L (135-145)
[2021-12-23] MEDS: Montelukast Sodium 10 MG TABLET PO (09:44)
[2021-12-23] MEDS: Venlafaxine HCl ER 37.5 MG CAP.ER.24H PO (09:44)
[2021-12-23] MEDS: atenoloL 100 MG TABLET PO (09:45)
[2021-12-23] MEDS: Venlafaxine HCl ER 150 MG CAP.ER.24H PO (09:56)
[2021-12-23 12:02] LABS: Glucose, Whole Blood 153 mg/dL (60-115)
--- NOTE | 2021-12-23 12:03 | P.PNIM_ITS ---
Subjective Subjective Date of Service: 12/23/21 Interval History: seen and examined this morning still having some rectal bleeding overnight; no diarrhea, just blood nausea and dry heaving but no vomiting persistent lower abdominal pain, primarily left side Review of Systems Review of Systems: Yes all other systems are reviewed and are negative Constitutional Constitutional: Denies chills and Denies fever(s) Cardiovascular Cardiovascular: Denies palpitations and Denies dyspnea Respiratory Respiratory: Denies dyspnea Gastrointestinal Gastrointestinal: Reports abdominal pain and Reports nausea Endocrine Endocrine: Denies palpitations Physical Exam Vital Signs: Vital Signs: Last Vital Signs Temp 98.1 F 12/23/21 11:58 Pulse 70 12/23/21 11:44 Resp 18 12/23/21 11:44 BP 123/63 12/23/21 11:44 Pulse Ox 96 12/23/21 11:44 BMI result Body Mass Index 34.0 Const: General: cooperative, comfortable, no acute distress, alert and awake Nutritional Appearance: overweight Orientation/consciousness: patient oriented x3 Eyes: Pupils: Equal, round and reactive pupils present Resp: Effort & Inspection: normal respiratory effort and able to speak in complete sentences Cardio: Rate: regular rate Heart sounds: S1 normal heart sound present and S2 normal heart sound present GI: Other: abdomen soft, tender primarily left lower quadrant; non-distended; +BS Neuro: General: patient oriented x3 Cranial nerves: Yes Equal, round and reactive pupils present Extrem: Other: no lower extremity edema Objective Data Active Medications Acetaminophen (Acetaminophen 325 Mg Tablet) 650 mg PO Q6H PRN PRN Reason: Pain, Mild (Pain Scale 1-3) Albuterol Sulfate (Albuterol Sulfate 90 Mcg 8 Gm Inhaler) 2 puff INHALE Q4H PRN PRN Reason: bronchospasm Atenolol (Atenolol 100 Mg Tablet) 100 mg PO DAILY [facility]; Protocol Last Admin: 12/23/21 09:45 Dose: 100 mg Documented by: COOPEB Dextrose (Dextrose 50 % 25 Gm/50 Ml Syringe) 25 gm IVPUSH Q15M PRN; Protocol PRN Reason: per Hypoglycemia Standing Ord. Docusate Sodium (Docusate Sodium 100 Mg Capsule) 100 mg PO DAILY PRN PRN Reason: Constipation Fluticasone Propionate (Fluticasone Propionate 100 Mcg Blst.W.Dev) 1 puff INHALE RBID [facility] Last Admin: 12/23/21 08:37 Dose: Not Given Documented by: LYNETTE Non-Admin Reason: Med Not Available Glucose (Glucose Gel 15 Gm Gel..Gram.) 15 gm PO Q15M PRN; Protocol PRN Reason: per Hypoglycemia Standing Ord. Metronidazole (Flagyl) 500 mg in 100 mls @ 100 mls/hr IV Q8H [facility] Last Infusion: 12/23/21 10:46 Dose: 0 mls/hr Documented by: LYNETTE Lactated Ringer's (Lr) 1,000 mls @ 125 mls/hr IVCONT .Q8H [facility] Last Admin: 12/23/21 09:45 Dose: 125 mls/hr Documented by: LYNETTE Levofloxacin (Levaquin) 500 mg in 100 mls @ 100 mls/hr IV Q24H [facility] Insulin Human Lispro (Insulin Lispro 100 Unit/Ml 3 Ml Vial) 0 unit SUBCUT QIDACHS [facility]; Protocol Last Admin: 12/23/21 07:25 Dose: Not Given Documented by: LYNETTE Non-Admin Reason: NPO Lorazepam (Lorazepam 2 Mg/Ml Vial) 1 mg IVPUSH Q2H PRN PRN Reason: Seizures Montelukast Sodium (Montelukast Sodium 10 Mg Tablet) 10 mg PO DAILY [facility] Last Admin: 12/23/21 09:44 Dose: 10 mg Documented by: LYNETTE Morphine Sulfate (Morphine Sulfate 2 Mg/Ml Cartridge) 2 mg IVPUSH Q4H PRN; Protocol PRN Reason: Pain, Severe (Pain Scale 7-10) Last Admin: 12/23/21 06:47 Dose: 2 mg Documented by: JUAN A Omeprazole (Omeprazole 20 Mg Capsule.) 20 mg PO DAILY@0630 [facility] Last Admin: 12/23/21 07:25 Dose: 20 mg Documented by: LYNETTE Comments: given by previous RN Ondansetron HCl (Ondansetron Hcl 4 Mg/2 Ml Vial) 4 mg IVPUSH Q8H PRN PRN Reason: Nausea and Vomiting Last Admin: 12/23/21 02:22 Dose: 4 mg Documented by: JUAN A Pharmacy Consult (Consult Rx Perform Med Rec) 1 each MISCELLANE ONCE PRN PRN Reason: Consult order Venlafaxine HCl (Venlafaxine Hcl Er 150 Mg Cap.Er.24h) 150 mg PO DAILY [facility] Last Admin: 12/23/21 09:56 Dose: 150 mg Documented by: LYNETTE Venlafaxine HCl (Venlafaxine Hcl Er 37.5 Mg Cap.Er.24h) 37.5 mg PO DAILY [facility] Last Admin: 12/23/21 09:44 Dose: 37.5 mg Documented by: LYNETTE Labs CBC & Chem 7: 12/23/21 06:48 12/23/21 06:48 Labs: Laboratory Results - last 24 hr 12/22/21 12/22/21 12/22/21 15:00 15:00 16:48 MCV MCH MCHC RDW Plt Count MPV Absolute Nucleated RBC Nucleated RBC % (auto) Anion Gap Estim Creat Clear Calc Estimated GFR POC Glucose 197 H Random Glucose Lactic Acid 1.4 Calcium COVID-19 ([facility]) Negative COVID-19 Clin Com See Note 12/22/21 12/22/21 12/23/21 20:46 22:43 06:48 MCV 80.3 MCH 24.2 L MCHC 30.1 L RDW 14.3 Plt Count 266 MPV 11.0 Absolute Nucleated RBC 0.000 Nucleated RBC % (auto) 0.0 Anion Gap Estim Creat Clear Calc Estimated GFR POC Glucose 201 H 185 H Random Glucose Lactic Acid Calcium COVID-19 ([facility]) COVID-19 Clin Com 12/23/21 12/23/21 12/23/21 06:48 07:13 11:43 MCV MCH MCHC RDW Plt Count MPV Absolute Nucleated RBC Nucleated RBC % (auto) Anion Gap 11 L Estim Creat Clear Calc 54.0 Estimated GFR > 60 POC Glucose 184 H 153 H Random Glucose 196 H Lactic Acid Calcium 8.8 D COVID-19 ([facility]) COVID-19 Clin Com Assessment and Plan (1) Colitis: Status: Acute Plan This is a 76 year old female with history of DM, CVA, CAD, HTN, HLD, seizures, numerous abdominal surgeries who presents to the ED with abdominal pain, diarrhea and rectal bleeding Colitis. persistent leukocytosis, and pain Probable infectious vs ischemic lactic acid wnl Continue IV levaquin, flagyl GI consult pending cdif pending NPO, IVF pain control Rectal bleeding secondary to above NPO hold asa, avoid AC H/H stable, follow CBC Seizure disorder no longer on meds due to lack of follow up last seizure 6 weeks ago seizure precautions prn ativan neurology consult to assist in resuming home meds previously on zonegram which is non-formulary Mood continue effexor DM Hold home meds SSI, POCs HTN given rectal bleeding will hold norvasc and lisinopril continue atenolol resume other meds as bp allows CAD with ostial dz being management medically due to anatomy no chest pain asa, statin on hold dvt ppx - chemoprophylaxis contraindicated due to GI bleeding; SCD boots ordered HCP - daughter and niece code status - full code Attending - Dr. Garcia Quality Stroke Does the patient have a stroke diagnosis?: No VTE Prior VTE?: No VTE Risk Level:: Medical - moderate - high VTE Device Contraindication: N/A - Device Ordered VTE Drug Contraindication: Treatment Not Indicated
--- NOTE | 2021-12-23 14:41 | MHC.CM.PN ---
IMM 12/23/21, EMR REVIEWED, PT ADMITTED W/COLITIS/RECTAL BLEEDING, CM MET W/PT WHO IS A&OX4, PT REPORTS SHE LIVES ALONE, DENIES USE OF DME, PT REPORTS HER NIECE ASSISTS HER W/GROCERY SHOPPING AND APPTS, PT REPORTS SHE HAD A [facility] [place] BUYING FROM [facility] HOWEVER SHE STOPPED COMING WHEN PT WENT TO VISIT FAMILY DURING THANKSGIVING, PT WOULD LIKE [facility] [employer] BUYING HRS TO RESUME AND REFERRAL WILL BE PLACED FOR [facility]. PT VERIFIES PCP IS WEST[facility] BEAULIEU, HCP IS [facility] [phone] AND COPY IS ON FILE FROM PREVIOUS ADMIT. D/C PLAN: HOME W/NEW VNA VS HOME W/RESUMP OF FAMILY ASSISTANCE, NIECE FOR TRANSPORT NIECE: [facility] [phone] COVID VACCINE: [employer] W/MODERNA BOOSTER, PT UNSURE OF DATES.
[2021-12-23 15:18] LABS: Glucose, Whole Blood 172 mg/dL (60-115)
[2021-12-23] MEDS: levoFLOXacin/D5W 500 MG/100 ML PIGGYBACK 100 MG IV (15:20)
[2021-12-23 17:13] LABS: Glucose, Whole Blood 160 mg/dL (60-115)
[2021-12-23] MEDS: Acetaminophen 325 MG TABLET 650 MG PO (17:41)
[2021-12-23 20:00] LABS: Glucose, Whole Blood 159 mg/dL (60-115)
[2021-12-23] MEDS: Insulin Lispro 100 UNIT/ML 3 ML VIAL SUBCUT (21:45)
[2021-12-24] VITALS (7 sets, daily range): BP systolic 109–157; BP diastolic 53–67; PULSE 57–63; RESP 16–19; TEMP 36.7–37.2; O2SAT 95–98
[2021-12-24] MEDS: Lactated Ringers 1,000 ML 125 ML IVCONT ×3 (01:21→18:13)
[2021-12-24] MEDS: metroNIDAZOLE/NS 500 MG/100 ML PIGGYBACK 100 MG IV ×2 (01:22→10:03)
--- NOTE | 2021-12-24 06:56 | PM.GICN ---
History of Present Illness Data of Consult Service Date: 12/24/21 Requesting physician: Maryana Al Primary Care Provider: Martine Ding MD HPI Reason for consult: colitis 76 year old female with history of appendectomy, cholecystectomy, hysterectomy, partial colon resection for ?large polyps, cva, cad, DM and obesity who I am seeing for assessment for colitis. Patient had sudden onset lower abdominal pain for last few days with nausea and non bloody emesis. She then developed bloody diarrhea. On day he sx had commenced she had dinner spinach and artichoke dip and chicken, and symptoms seem to have started shortly after eating this. Labs revealed leukocytosis of 16.2. H/H was stable, lactive acid normal. Heme occult was positive. Imaging: CT scan of the abdomen/pelvis with inflammed bowel descending and transverse possibly suggestive of ischemic or infectious/inflammatory colitis, perisplenic varices and atrophic pancreas (never been a heavy drinker) She was started on IV levaquin and flagyl today she feels better and has had no diarrhea Review of Systems Review of Systems: Positive bright red blood per rectum No fever no chills no cough no congestion or upper respiratory symptoms Yes all other systems are reviewed and are negative Constitutional: Constitutional: Denies chills and Denies fever(s) Cardiovascular: Cardiovascular: Denies palpitations and Denies dyspnea Respiratory: Respiratory: Denies dyspnea Gastrointestinal: Gastrointestinal: Reports abdominal pain, Reports hematochezia, Reports diarrhea, Reports nausea and Reports vomiting Neurologic: Reports system reviewed and no additional complaints, except as documented Psychiatric: Psychiatric: Reports no additional psychiatric complaints Endocrine: Endocrine: Denies palpitations Hematologic/Lymphatic: Hematologic/Lymphatic: Reports no additional hematologic/lymphatic complaints Allergic/Immunologic: Allergic/Immunologic: Reports no additional allergic/immunologic complaints [facility] Past Medical History Medical History (Updated 12/22/21 @ 16:15 by WISAM Coon) Acid reflux Atherosclerotic cardiovascular disease BMI 34.0-34.9,adult Essential hypertension Glaucoma 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 LDL goal <70 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, unspecified snf (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 Memory change Myocardial infarction Neuropathy Obesity due to excess calories Seizures Stroke Type 2 diabetes mellitus with diabetic polyneuropathy Type 2 diabetes mellitus with hyperglycemia Type 2 diabetes mellitus with unspecified complications Functional capacity: independent ambulation Family History Family History Father Cardiovascular disease Mother Cardiovascular disease Sister Diabetes Brother Diabetes Other Mental health disorder Surgical History Surgical History (Updated 12/22/21 @ 16:20 by WISAM Coon) History of appendectomy History of bladder surgery History of colon resection History of intestinal surgery History of kidney surgery History of liver biopsy Hx of cholecystectomy Hx of hysterectomy Social History Social History (Updated 12/22/21 @ 16:20 by WISAM Coon) Household Members: None Housing: Apartment Do you presently have visiting nurse or other home services: No Alcohol intake: current Alcohol intake frequency: holidays/special occasions only Patient Tobacco Use Status: Never used Tobacco Second Hand Smoke Exposure: No service: No Current occupational status: retired [employer] Allergies Allergy/AdvReac Type Severity Reaction Status Date / Time Penicillins [PENICILLINS] Allergy Severe ANAPHYLAXIS Verified 12/21/21 19:42 Sulfa (Sulfonamide Allergy Intermediate ANAPHYLAXIS Verified 12/21/21 19:42 Antibiotics) [SULFA (SULFONAMIDE ANTIBIOTICS)] Codeine Allergy Unknown headaches, Uncoded 12/17/21 14:25 mood changes latanoprost Allergy Unknown Eye redness Uncoded 12/17/21 14:25 Trulicity Allergy Unknown nausea, Uncoded 12/17/21 14:25 vomiting Active Medications: Current Medications Acetaminophen (Acetaminophen 325 Mg Tablet) 650 mg PO Q6H PRN PRN Reason: Pain, Mild (Pain Scale 1-3) Last Admin: 12/23/21 17:41 Dose: 650 mg Documented by: Albuterol Sulfate (Albuterol Sulfate 90 Mcg 8 Gm Inhaler) 2 puff INHALE Q4H PRN PRN Reason: bronchospasm Atenolol (Atenolol 100 Mg Tablet) 100 mg PO DAILY [facility]; Protocol Last Admin: 12/23/21 09:45 Dose: 100 mg Documented by: Dextrose (Dextrose 50 % 25 Gm/50 Ml Syringe) 25 gm IVPUSH Q15M PRN; Protocol PRN Reason: per Hypoglycemia Standing Ord. Docusate Sodium (Docusate Sodium 100 Mg Capsule) 100 mg PO DAILY PRN PRN Reason: Constipation Fluticasone Propionate (Fluticasone Propionate 100 Mcg Blst.W.Dev) 1 puff INHALE RBID [facility] Last Admin: 12/23/21 20:25 Dose: Not Given Documented by: Glucose (Glucose Gel 15 Gm Gel..Gram.) 15 gm PO Q15M PRN; Protocol PRN Reason: per Hypoglycemia Standing Ord. Metronidazole (Flagyl) 500 mg in 100 mls @ 100 mls/hr IV Q8H [facility] Last Infusion: 12/24/21 03:05 Dose: Infused Documented by: Lactated Ringer's (Lr) 1,000 mls @ 125 mls/hr IVCONT .Q8H [facility] Last Admin: 12/24/21 01:21 Dose: 125 mls/hr Documented by: Levofloxacin (Levaquin) 500 mg in 100 mls @ 100 mls/hr IV Q24H [facility] Last Infusion: 12/23/21 16:21 Dose: Infused Documented by: Insulin Human Lispro (Insulin Lispro 100 Unit/Ml 3 Ml Vial) 0 unit SUBCUT QIDACHS [facility]; Protocol Last Admin: 12/23/21 21:45 Dose: 2 unit Documented by: Lorazepam (Lorazepam 2 Mg/Ml Vial) 1 mg IVPUSH Q2H PRN PRN Reason: Seizures Montelukast Sodium (Montelukast Sodium 10 Mg Tablet) 10 mg PO DAILY [facility] Last Admin: 12/23/21 09:44 Dose: 10 mg Documented by: Morphine Sulfate (Morphine Sulfate 2 Mg/Ml Cartridge) 2 mg IVPUSH Q4H PRN; Protocol PRN Reason: Pain, Severe (Pain Scale 7-10) Last Admin: 12/23/21 23:15 Dose: 2 mg Documented by: Omeprazole (Omeprazole 20 Mg Capsule.Dr) 20 mg PO DAILY@0630 [facility] Last Admin: 12/24/21 06:01 Dose: Not Given Documented by: Ondansetron HCl (Ondansetron Hcl 4 Mg/2 Ml Vial) 4 mg IVPUSH Q8H PRN PRN Reason: Nausea and Vomiting Last Admin: 12/23/21 02:22 Dose: 4 mg Documented by: Pharmacy Consult (Consult Rx Perform Med Rec) 1 each MISCELLANE ONCE PRN PRN Reason: Consult order Venlafaxine HCl (Venlafaxine Hcl Er 150 Mg Cap.Er.24h) 150 mg PO DAILY [facility] Last Admin: 12/23/21 09:56 Dose: 150 mg Documented by: Venlafaxine HCl (Venlafaxine Hcl Er 37.5 Mg Cap.Er.24h) 37.5 mg PO DAILY [facility] Last Admin: 12/23/21 09:44 Dose: 37.5 mg Documented by: Home Medications Medication Instructions Recorded Confirmed Last Taken Type aspirin 81 mg tablet,delayed 81 mg PO DAILY 08/14/20 12/22/21 12/21/21 History release venlafaxine 150 mg 150 mg PO DAILY 08/14/20 12/22/21 12/21/21 History capsule,extended release 24 hr venlafaxine 37.5 mg 37.5 mg PO DAILY 11/22/20 12/22/21 12/21/21 History capsule,extended release 24 hr atenolol 100 mg tablet 100 mg PO DAILY 08/15/21 12/22/21 12/21/21 History insulin lispro 100 unit/mL See Rx Instructions SUBCUT TID ml 12/17/21 12/22/21 12/21/21 History subcutaneous pen linagliptin 2.5 mg-metformin 1,000 1 tab PO BIDWM 12/22/21 12/22/21 12/21/21 History mg tablet (Jentadueto) venlafaxine 37.5 mg 1 cap PO DAILY 12/22/21 12/22/21 12/21/21 History capsule,extended release 24 hr (Effexor XR) Physical Exam Vital Signs: Vital Signs: Last Vital Signs Temp 99.0 F 12/24/21 03:42 Pulse 61 12/24/21 03:42 Resp 19 12/24/21 03:42 BP 109/53 L 12/24/21 03:42 Pulse Ox 95 12/24/21 03:42 BMI result Body Mass Index 33.6 Const: General: cooperative, comfortable, no acute distress, alert and awake Nutritional Appearance: overweight Orientation/consciousness: patient oriented x3 Eyes: Pupils: Equal, round and reactive pupils present Resp: Effort & Inspection: normal respiratory effort and able to speak in complete sentences Cardio: Jugular venous distension: no JVD Rate: regular rate Heart sounds: S1 normal heart sound present and S2 normal heart sound present GI: Other: abdomen soft, tender primarily left lower quadrant; non-distended; +BS Inspection: Yes incision and Yes obesity Skin: General skin exam: no rashes or lesions noted Neuro: General: patient oriented x3 Cranial nerves: Yes Equal, round and reactive pupils present Extrem: Other: no lower extremity edema General: Yes normal to inspection Psych: Appearance: grossly normal Results Labs CBC & Chem 7: 12/24/21 05:53 12/24/21 05:53 Labs: Short CBC 12/23/21 Range/Units 06:48 WBC 16.8 H (4.8-10.8) X10*3/uL Hgb 11.4 L (12.0-16.0) g/dl Hct 37.9 (37.0-47.0) % Plt Count 266 (160-400) X10*3/uL BMP 12/23/21 06:48 Sodium 138 Potassium 4.1 Chloride 104 Carbon Dioxide 27 BUN 8 L Creatinine 0.81 Calcium 8.8 D Microbiology Microbiology Results: Microbiology 12/22/21 15:06 Blood - Venous Blood Culture - Preliminary No growth after 24 hours. 12/22/21 15:00 Blood - Venous Blood Culture - Preliminary No growth after [address] scan - abdomen: Attestation: I personally reviewed and interpreted this imaging study as follows: My impression: perisplenic varices, atrophic pancrea,s colitis in transverse and descending colon Assessment and Plan (1) Colitis: Status: Acute Plan 1/ Colitis, given temporal relation to food, probably infectious. 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
[2021-12-24 07:00] LABS: Hematocrit 32.1 % (37.0-47.0); Hemoglobin 9.5 g/dl (12.0-16.0); Mean Corpuscular HGB Conc 29.6 g/dl (31.0-35.0); Mean Corpuscular Hemoglobin 24.5 pg (27.0-33.0); Mean Corpuscular Volume 82.7 fL (80.0-98.0); Mean Platelet Volume 11.6 fL (9.4-12.3); Platelet Count 191 X10*3/uL (160-400); Red Blood Count 3.88 X10*6/uL (4.20-5.50); Red Cell Distribution Width 14.4 % (11.0-16.0); White Blood Count 11.5 X10*3/uL (4.8-10.8)
[2021-12-24 07:13] LABS: Anion Gap 9 (12-20); Blood Urea Nitrogen 8 mg/dL (9-16); Calcium 8.3 mg/dL (8.4-10.2); Carbon Dioxide 27 mmol/L (22-29); Chloride 106 mmol/L (96-108); Creatinine Clr Calc Pharmacy 55.8; Estimated Glomerular Filt Rate > 60; Glucose Random 123 mg/dL (60-115); Potassium 3.8 mmol/L (3.3-5.1); Sodium 138 mmol/L (135-145)
[2021-12-24 07:43] LABS: Glucose, Whole Blood 111 mg/dL (60-115)
[2021-12-24] MEDS: Fluticasone Propionate 100 MCG BLST.W.DEV 1 PUFF INHALE (07:48)
[2021-12-24] MEDS: Montelukast Sodium 10 MG TABLET PO (10:05)
[2021-12-24] MEDS: atenoloL 100 MG TABLET PO (10:06)
[2021-12-24] MEDS: Venlafaxine HCl ER 37.5 MG CAP.ER.24H PO (10:06)
[2021-12-24] MEDS: Venlafaxine HCl ER 150 MG CAP.ER.24H PO (10:06)
--- NOTE | 2021-12-24 10:37 | PM.NEUROCN ---
History of Present Illness Data of Consult Service Date: 12/24/21 Primary Care Provider: Martine Ding MD HPI Reason for consult: History of Sz on no meds. last Sz 6 wks ago This is a 76 year old female with history of multiple abdominal surgeries who presented to the ED with lower abdominal pain and rectal bleeding, episodes of nausea and non-bloody vomiting She had diarrhea followed by rectal bleeding the the waiting room but elected to return home when the wait was too long. Overnight she reports persistant lower abdominal pain, vomiting and multiple episodes of rectal bleeding. I Was asked to see her because she has a history of seizure disorder the details of which are not available. She is currently on no seizure medicines because of lack of neural followup. 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 Seizures have always happen in the night when she wakes up on the floor disoriented and incontinent with generalized shaking and involuntary movements. She was initially treated with Dilantin which he took for many years and then stopped it because of side effects and was changed to Keppra 12/30/13 and subsequently to Zonegran she last saw Dr. Meehan in February 2018 at which time she was on Zonegran 100 mg once a day Review of Systems Review of Systems: Positive bright red blood per rectum No fever no chills no cough no congestion or upper respiratory symptoms Yes all other systems are reviewed and are negative Constitutional: Constitutional: Denies chills and Denies fever(s) Cardiovascular: Cardiovascular: Denies palpitations and Denies dyspnea Respiratory: Respiratory: Denies dyspnea Gastrointestinal: Gastrointestinal: Reports abdominal pain, Reports hematochezia, Reports diarrhea, Reports nausea and Reports vomiting Neurologic: Reports system reviewed and no additional complaints, except as documented Psychiatric: Psychiatric: Reports no additional psychiatric complaints Endocrine: Endocrine: Denies palpitations Hematologic/Lymphatic: Hematologic/Lymphatic: Reports no additional hematologic/lymphatic complaints Allergic/Immunologic: Allergic/Immunologic: Reports no additional allergic/immunologic complaints [facility] Past Medical History Medical History (Updated 12/24/21 @ 10:43 by Nan Santillan MD) Acid reflux Atherosclerotic cardiovascular disease BMI 34.0-34.9,adult Essential hypertension Glaucoma 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 LDL goal <70 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, unspecified longterm (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 Memory change Myocardial infarction Neuropathy Obesity due to excess calories Seizures Stroke Type 2 diabetes mellitus with diabetic polyneuropathy Type 2 diabetes mellitus with hyperglycemia Type 2 diabetes mellitus with unspecified complications Functional capacity: independent ambulation Family History Family History Father Cardiovascular disease Mother Cardiovascular disease Sister Diabetes Brother Diabetes Other Mental health disorder Surgical History Surgical History (Updated 12/22/21 @ 16:20 by WISAM Coon) History of appendectomy History of bladder surgery History of colon resection History of intestinal surgery History of kidney surgery History of liver biopsy Hx of cholecystectomy Hx of hysterectomy Social History Social History (Updated 12/22/21 @ 16:20 by WISAM Coon) Household Members: None Housing: Apartment Do you presently have visiting nurse or other home services: No Alcohol intake: current Alcohol intake frequency: holidays/special occasions only Patient Tobacco Use Status: Never used Tobacco Second Hand Smoke Exposure: No service: No Current occupational status: retired [employer] Allergies Allergy/AdvReac Type Severity Reaction Status Date / Time Penicillins [PENICILLINS] Allergy Severe ANAPHYLAXIS Verified 12/21/21 19:42 Sulfa (Sulfonamide Allergy Intermediate ANAPHYLAXIS Verified 12/21/21 19:42 Antibiotics) [SULFA (SULFONAMIDE ANTIBIOTICS)] Codeine Allergy Unknown headaches, Uncoded 12/17/21 14:25 mood changes latanoprost Allergy Unknown Eye redness Uncoded 12/17/21 14:25 Trulicity Allergy Unknown nausea, Uncoded 12/17/21 14:25 vomiting Active Medications: Current Medications Acetaminophen (Acetaminophen 325 Mg Tablet) 650 mg PO Q6H PRN PRN Reason: Pain, Mild (Pain Scale 1-3) Last Admin: 12/23/21 17:41 Dose: 650 mg Documented by: Albuterol Sulfate (Albuterol Sulfate 90 Mcg 8 Gm Inhaler) 2 puff INHALE Q4H PRN PRN Reason: bronchospasm Atenolol (Atenolol 100 Mg Tablet) 100 mg PO DAILY [facility]; Protocol Last Admin: 12/24/21 10:06 Dose: 100 mg Documented by: Dextrose (Dextrose 50 % 25 Gm/50 Ml Syringe) 25 gm IVPUSH Q15M PRN; Protocol PRN Reason: per Hypoglycemia Standing Ord. Docusate Sodium (Docusate Sodium 100 Mg Capsule) 100 mg PO DAILY PRN PRN Reason: Constipation Fluticasone Propionate (Fluticasone Propionate 100 Mcg Blst.W.Dev) 1 puff INHALE RBID [facility] Last Admin: 12/24/21 07:48 Dose: 1 puff Documented by: Glucose (Glucose Gel 15 Gm Gel..Gram.) 15 gm PO Q15M PRN; Protocol PRN Reason: per Hypoglycemia Standing Ord. Metronidazole (Flagyl) 500 mg in 100 mls @ 100 mls/hr IV Q8H [facility] Last Admin: 12/24/21 10:03 Dose: 100 mls/hr Documented by: Lactated Ringer's (Lr) 1,000 mls @ 125 mls/hr IVCONT .Q8H [facility] Last Admin: 12/24/21 10:02 Dose: 125 mls/hr Documented by: Levofloxacin (Levaquin) 500 mg in 100 mls @ 100 mls/hr IV Q24H [facility] Last Infusion: 12/23/21 16:21 Dose: Infused Documented by: Insulin Human Lispro (Insulin Lispro 100 Unit/Ml 3 Ml Vial) 0 unit SUBCUT QIDACHS [facility]; Protocol Last Admin: 12/24/21 09:46 Dose: Not Given Documented by: Lorazepam (Lorazepam 2 Mg/Ml Vial) 1 mg IVPUSH Q2H PRN PRN Reason: Seizures Montelukast Sodium (Montelukast Sodium 10 Mg Tablet) 10 mg PO DAILY [facility] Last Admin: 12/24/21 10:05 Dose: 10 mg Documented by: Morphine Sulfate (Morphine Sulfate 2 Mg/Ml Cartridge) 2 mg IVPUSH Q4H PRN; Protocol PRN Reason: Pain, Severe (Pain Scale 7-10) Last Admin: 12/23/21 23:15 Dose: 2 mg Documented by: Omeprazole (Omeprazole 20 Mg Capsule.Dr) 20 mg PO DAILY@0630 [facility] Last Admin: 12/24/21 06:01 Dose: Not Given Documented by: Ondansetron HCl (Ondansetron Hcl 4 Mg/2 Ml Vial) 4 mg IVPUSH Q8H PRN PRN Reason: Nausea and Vomiting Last Admin: 12/23/21 02:22 Dose: 4 mg Documented by: Pharmacy Consult (Consult Rx Perform Med Rec) 1 each MISCELLANE ONCE PRN PRN Reason: Consult order Venlafaxine HCl (Venlafaxine Hcl Er 150 Mg Cap.Er.24h) 150 mg PO DAILY [facility] Last Admin: 12/24/21 10:06 Dose: 150 mg Documented by: Venlafaxine HCl (Venlafaxine Hcl Er 37.5 Mg Cap.Er.24h) 37.5 mg PO DAILY [facility] Last Admin: 12/24/21 10:06 Dose: 37.5 mg Documented by: Home Medications Medication Instructions Recorded Confirmed Last Taken Type aspirin 81 mg tablet,delayed 81 mg PO DAILY 08/14/20 12/22/21 12/21/21 History release venlafaxine 150 mg 150 mg PO DAILY 08/14/20 12/22/21 12/21/21 History capsule,extended release 24 hr venlafaxine 37.5 mg 37.5 mg PO DAILY 11/22/20 12/22/21 12/21/21 History capsule,extended release 24 hr atenolol 100 mg tablet 100 mg PO DAILY 08/15/21 12/22/21 12/21/21 History insulin lispro 100 unit/mL See Rx Instructions SUBCUT TID ml 12/17/21 12/22/21 12/21/21 History subcutaneous pen linagliptin 2.5 mg-metformin 1,000 1 tab PO BIDWM 12/22/21 12/22/21 12/21/21 History mg tablet (Jentadueto) venlafaxine 37.5 mg 1 cap PO DAILY 12/22/21 12/22/21 12/21/21 History capsule,extended release 24 hr (Effexor XR) Physical Exam Vital Signs: Vital Signs: Last Vital Signs Temp 98.9 F 12/24/21 07:29 Pulse 63 12/24/21 07:53 Resp 18 12/24/21 07:53 BP 157/63 H 12/24/21 07:29 Pulse Ox 96 12/24/21 07:29 BMI result Body Mass Index 33.6 Const: General: cooperative, comfortable, no acute distress, alert and awake Nutritional Appearance: overweight Orientation/consciousness: patient oriented x3 Eyes: Pupils: Equal, round and reactive pupils present Resp: Effort & Inspection: normal respiratory effort and able to speak in complete sentences Cardio: Jugular venous distension: no JVD Rate: regular rate Heart sounds: S1 normal heart sound present and S2 normal heart sound present GI: Other: abdomen soft, tender primarily left lower quadrant; non-distended; +BS Inspection: Yes incision and Yes obesity Skin: General skin exam: no rashes or lesions noted Neuro: Other: Nonffocal examination General: patient oriented x3 Cranial nerves: Yes Equal, round and reactive pupils present Extrem: Other: no lower extremity edema General: Yes normal to inspection Psych: Appearance: grossly normal Results Labs CBC & Chem 7: 12/24/21 05:53 12/24/21 05:53 Labs: Short CBC 12/24/21 Range/Units 05:53 WBC 11.5 H (4.8-10.8) X10*3/uL Hgb 9.5 L (12.0-16.0) g/dl Hct 32.1 L (37.0-47.0) % Plt Count 191 D (160-400) X10*3/uL BMP 12/24/21 05:53 Sodium 138 Potassium 3.8 Chloride 106 Carbon Dioxide 27 BUN 8 L Creatinine 0.78 Calcium 8.3 L Microbiology Microbiology Results: Microbiology 12/22/21 15:06 Blood - Venous Blood Culture - Preliminary No growth after 24 hours. 12/22/21 15:00 Blood - Venous Blood Culture - Preliminary No growth after 24 hours. Assessment and Plan (1) Colitis: Status: Acute (2) Epilepsy: Status: Acute Recommended EEG. Start Zonegran 100 mg daily which was the last seizure medicine she was taking without side effects and with good control. She has previously had side effects with Dilantin and Keppra (3) Major depression, recurrent: Qualifiers: Active/Remission status: in partial remission Qualified Code(s): F33.41 - Major depressive disorder, recurrent, in partial remission Status: Acute Plan 1/ Colitis, given temporal relation to food, probably infectious. 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
[2021-12-24 11:43] LABS: Glucose, Whole Blood 113 mg/dL (60-115)
--- NOTE | 2021-12-24 12:21 | HO.PM.IMPN ---
Subjective Subjective Date of Service: 12/24/21 Review of Systems seen and examined this morning no further rectal bleeding. no diarrhea feeling better today Physical Exam Vital Signs: Vital Signs: Last Vital Signs Temp 98.4 F 12/24/21 11:24 Pulse 60 12/24/21 11:24 Resp 18 12/24/21 11:24 BP 134/61 12/24/21 11:24 Pulse Ox 98 12/24/21 11:24 BMI result Body Mass Index 33.6 Appearing in no acute distress lung sounds are clear to auscultation heart regular rate rhythm, clear S1, S2 positive bowel sounds, abdomen is soft, nontender neuro patient is alert x3, no focal deficits Objective Data Active Medications Acetaminophen (Acetaminophen 325 Mg Tablet) 650 mg PO Q6H PRN PRN Reason: Pain, Mild (Pain Scale 1-3) Last Admin: 12/23/21 17:41 Dose: 650 mg Documented by: GUERRERO Albuterol Sulfate (Albuterol Sulfate 90 Mcg 8 Gm Inhaler) 2 puff INHALE Q4H PRN PRN Reason: bronchospasm Atenolol (Atenolol 100 Mg Tablet) 100 mg PO DAILY [facility]; Protocol Last Admin: 12/24/21 10:06 Dose: 100 mg Documented by: KALPESH Dextrose (Dextrose 50 % 25 Gm/50 Ml Syringe) 25 gm IVPUSH Q15M PRN; Protocol PRN Reason: per Hypoglycemia Standing Ord. Docusate Sodium (Docusate Sodium 100 Mg Capsule) 100 mg PO DAILY PRN PRN Reason: Constipation Fluticasone Propionate (Fluticasone Propionate 100 Mcg Blst.W.Dev) 1 puff INHALE RBID [facility] Last Admin: 12/24/21 07:48 Dose: 1 puff Documented by: BHARTI Glucose (Glucose Gel 15 Gm Gel..Gram.) 15 gm PO Q15M PRN; Protocol PRN Reason: per Hypoglycemia Standing Ord. Lactated Ringer's (Lr) 1,000 mls @ 125 mls/hr IVCONT .Q8H [facility] Last Admin: 12/24/21 10:02 Dose: 125 mls/hr Documented by: KALPESH Levofloxacin (Levaquin) 500 mg in 100 mls @ 100 mls/hr IV Q24H [facility] Last Infusion: 12/23/21 16:21 Dose: 0 mls/hr Documented by: CLIFFORD Insulin Human Lispro (Insulin Lispro 100 Unit/Ml 3 Ml Vial) 0 unit SUBCUT QIDACHS [facility]; Protocol Last Admin: 12/24/21 12:05 Dose: Not Given Documented by: KALPESH Non-Admin Reason: No Insulin Coverage Lorazepam (Lorazepam 2 Mg/Ml Vial) 1 mg IVPUSH Q2H PRN PRN Reason: Seizures Metronidazole (Metronidazole 500 Mg Tablet) 500 mg PO Q8H [facility] Montelukast Sodium (Montelukast Sodium 10 Mg Tablet) 10 mg PO DAILY [facility] Last Admin: 12/24/21 10:05 Dose: 10 mg Documented by: KALPESH Morphine Sulfate (Morphine Sulfate 2 Mg/Ml Cartridge) 2 mg IVPUSH Q4H PRN; Protocol PRN Reason: Pain, Severe (Pain Scale 7-10) Last Admin: 12/23/21 23:15 Dose: 2 mg Documented by: CLARY Omeprazole (Omeprazole 20 Mg Capsule.Dr) 20 mg PO DAILY@0630 [facility] Last Admin: 12/24/21 06:01 Dose: Not Given Documented by: CLARY Non-Admin Reason: NPO Ondansetron HCl (Ondansetron Hcl 4 Mg/2 Ml Vial) 4 mg IVPUSH Q8H PRN PRN Reason: Nausea and Vomiting Last Admin: 12/23/21 02:22 Dose: 4 mg Documented by: JUAN A Pharmacy Consult (Consult Rx Perform Med Rec) 1 each MISCELLANE ONCE PRN PRN Reason: Consult order Venlafaxine HCl (Venlafaxine Hcl Er 150 Mg Cap.Er.24h) 150 mg PO DAILY [facility] Last Admin: 12/24/21 10:06 Dose: 150 mg Documented by: KALPESH Venlafaxine HCl (Venlafaxine Hcl Er 37.5 Mg Cap.Er.24h) 37.5 mg PO DAILY [facility] Last Admin: 12/24/21 10:06 Dose: 37.5 mg Documented by: KALPESH Labs CBC & Chem 7: 12/24/21 05:53 12/24/21 05:53 Labs: Laboratory Results - last 24 hr 12/23/21 12/23/21 12/23/21 15:04 17:10 19:14 MCV MCH MCHC RDW Plt Count MPV Absolute Nucleated RBC Nucleated RBC % (auto) Anion Gap Estim Creat Clear Calc Estimated GFR POC Glucose 172 H 160 H 159 H Random Glucose Calcium 12/24/21 12/24/21 12/24/21 05:53 05:53 07:28 MCV 82.7 MCH 24.5 L MCHC 29.6 L RDW 14.4 Plt Count 191 D MPV 11.6 Absolute Nucleated RBC 0.000 Nucleated RBC % (auto) 0.0 Anion Gap 9 L Estim Creat Clear Calc 55.8 Estimated GFR > 60 POC Glucose 111 Random Glucose 123 H Calcium 8.3 L 12/24/21 11:25 MCV MCH MCHC RDW Plt Count MPV Absolute Nucleated RBC Nucleated RBC % (auto) Anion Gap Estim Creat Clear Calc Estimated GFR POC Glucose 113 Random Glucose Calcium Microbiology Microbiology Results: Microbiology 12/22/21 15:06 Blood Culture - Preliminary Blood - Venous No growth after 24 hours. 12/22/21 15:00 Blood Culture - Preliminary Blood - Venous No growth after 24 hours. Assessment and Plan (1) Colitis: Status: Acute Plan This is a 76 year old female with history of DM, CVA, CAD, HTN, HLD, seizures, numerous abdominal surgeries who presents to the ED with abdominal pain, diarrhea and rectal bleeding Colitis. persistent leukocytosis, and pain, improving Likely infectious vs ischemic lactic acid wnl Continue IV levaquin, flagyl GI following cdiff pending clear liquid diet, advance as tolerated pain control Rectal bleeding. Resolved secondary to above hold asa, avoid AC H/H stable, follow CBC Seizure disorder no longer on meds due to lack of follow up last seizure 6 weeks ago seizure precautions prn ativan neurology consult to assist in resuming home meds Mood continue effexor DM Hold home meds SSI, POCs HTN given rectal bleeding will hold norvasc and lisinopril continue atenolol resume other meds as bp allows CAD with ostial dz being management medically due to anatomy no chest pain asa, statin on hold dvt ppx - chemoprophylaxis contraindicated due to GI bleeding; SCD boots ordered HCP - daughter and niece code status - full code Attending - Dr. Garcia Quality Stroke Does the patient have a stroke diagnosis?: No VTE Prior VTE?: No VTE Risk Level:: Medical - moderate - high VTE Device Contraindication: N/A - Device Ordered VTE Drug Contraindication: Treatment Not Indicated
[2021-12-24] MEDS: levoFLOXacin/D5W 500 MG/100 ML PIGGYBACK 100 MG IV (13:51)
[2021-12-24 16:13] LABS: Glucose, Whole Blood 142 mg/dL (60-115)
[2021-12-24] MEDS: metroNIDAZOLE 500 MG TABLET PO (18:13)
[2021-12-24 20:18] LABS: Glucose, Whole Blood 201 mg/dL (60-115)
[2021-12-24] MEDS: Insulin Lispro 100 UNIT/ML 3 ML VIAL SUBCUT (20:23)
[2021-12-24] MEDS: Acetaminophen 325 MG TABLET 650 MG PO (20:25)
[2021-12-24] MEDS: ondansetron HCL 4 MG/2 ML VIAL IVPUSH (23:41)
[2021-12-25] VITALS (8 sets, daily range): BP systolic 140–166; BP diastolic 62–71; PULSE 55–86; RESP 16–20; TEMP 36.4–37.1; O2SAT 93–98
[2021-12-25] MEDS: Lactated Ringers 1,000 ML 125 ML IVCONT ×2 (00:47→07:36)
[2021-12-25] MEDS: Omeprazole 20 MG CAPSULE.DR PO (05:09)
[2021-12-25] MEDS: metroNIDAZOLE 500 MG TABLET PO ×3 (05:09→17:58)
[2021-12-25] MEDS: Montelukast Sodium 10 MG TABLET PO (07:39)
[2021-12-25] MEDS: Venlafaxine HCl ER 150 MG CAP.ER.24H PO (07:39)
[2021-12-25] MEDS: Venlafaxine HCl ER 37.5 MG CAP.ER.24H PO (07:39)
[2021-12-25] MEDS: atenoloL 100 MG TABLET PO (07:39)
[2021-12-25 07:49] LABS: Glucose, Whole Blood 131 mg/dL (60-115)
--- NOTE | 2021-12-25 08:52 | HO.PM.IMPN ---
Subjective Subjective Date of Service: 12/25/21 Review of Systems seen and examined this morning no further rectal bleeding. no diarrhea feeling better today abd feels bloated but passing gas Physical Exam Vital Signs: Vital Signs: Last Vital Signs Temp 97.5 F 12/25/21 07:35 Pulse 60 12/25/21 07:35 Resp 18 12/25/21 07:35 BP 165/71 H 12/25/21 07:35 Pulse Ox 98 12/25/21 07:35 BMI result Body Mass Index 33.6 Appearing in no acute distress lung sounds are clear to auscultation heart regular rate rhythm, clear S1, S2 positive bowel sounds, abdomen is soft, nontender neuro patient is alert x3, no focal deficits Objective Data Active Medications Acetaminophen (Acetaminophen 325 Mg Tablet) 650 mg PO Q6H PRN PRN Reason: Pain, Mild (Pain Scale 1-3) Last Admin: 12/24/21 20:25 Dose: 650 mg Documented by: CLIFFORD Albuterol Sulfate (Albuterol Sulfate 90 Mcg 8 Gm Inhaler) 2 puff INHALE Q4H PRN PRN Reason: bronchospasm Atenolol (Atenolol 100 Mg Tablet) 100 mg PO DAILY [facility]; Protocol Last Admin: 12/25/21 07:39 Dose: 100 mg Documented by: DEL Dextrose (Dextrose 50 % 25 Gm/50 Ml Syringe) 25 gm IVPUSH Q15M PRN; Protocol PRN Reason: per Hypoglycemia Standing Ord. Docusate Sodium (Docusate Sodium 100 Mg Capsule) 100 mg PO DAILY PRN PRN Reason: Constipation Fluticasone Propionate (Fluticasone Propionate 100 Mcg Blst.W.Dev) 1 puff INHALE RBID [facility] Last Admin: 12/25/21 07:40 Dose: Not Given Documented by: DEL Non-Admin Reason: Patient Refused Glucose (Glucose Gel 15 Gm Gel..Gram.) 15 gm PO Q15M PRN; Protocol PRN Reason: per Hypoglycemia Standing Ord. Lactated Ringer's (Lr) 1,000 mls @ 125 mls/hr IVCONT .Q8H [facility] Last Admin: 12/25/21 07:36 Dose: 125 mls/hr Documented by: DEL Levofloxacin (Levaquin) 500 mg in 100 mls @ 100 mls/hr IV Q24H [facility] Last Infusion: 12/24/21 14:55 Dose: 0 mls/hr Documented by: KALPESH Insulin Human Lispro (Insulin Lispro 100 Unit/Ml 3 Ml Vial) 0 unit SUBCUT QIDACHS [facility]; Protocol Last Admin: 12/25/21 07:39 Dose: Not Given Documented by: DEL Non-Admin Reason: No Insulin Coverage Lorazepam (Lorazepam 2 Mg/Ml Vial) 1 mg IVPUSH Q2H PRN PRN Reason: Seizures Metronidazole (Metronidazole 500 Mg Tablet) 500 mg PO Q8H [facility] Last Admin: 12/25/21 05:09 Dose: 500 mg Documented by: CLIFFORD Montelukast Sodium (Montelukast Sodium 10 Mg Tablet) 10 mg PO DAILY [facility] Last Admin: 12/25/21 07:39 Dose: 10 mg Documented by: DEL Morphine Sulfate (Morphine Sulfate 2 Mg/Ml Cartridge) 2 mg IVPUSH Q4H PRN; Protocol PRN Reason: Pain, Severe (Pain Scale 7-10) Last Admin: 12/23/21 23:15 Dose: 2 mg Documented by: CLARY Omeprazole (Omeprazole 20 Mg Capsule.Dr) 20 mg PO DAILY@0630 [facility] Last Admin: 12/25/21 05:09 Dose: 20 mg Documented by: CLIFFORD Ondansetron HCl (Ondansetron Hcl 4 Mg/2 Ml Vial) 4 mg IVPUSH Q8H PRN PRN Reason: Nausea and Vomiting Last Admin: 12/24/21 23:41 Dose: 4 mg Documented by: CLIFFORD Pharmacy Consult (Consult Rx Perform Med Rec) 1 each MISCELLANE ONCE PRN PRN Reason: Consult order Venlafaxine HCl (Venlafaxine Hcl Er 150 Mg Cap.Er.24h) 150 mg PO DAILY [facility] Last Admin: 12/25/21 07:39 Dose: 150 mg Documented by: DEL Venlafaxine HCl (Venlafaxine Hcl Er 37.5 Mg Cap.Er.24h) 37.5 mg PO DAILY [facility] Last Admin: 12/25/21 07:39 Dose: 37.5 mg Documented by: DEL Labs CBC & Chem 7: 12/24/21 05:53 12/24/21 05:53 Labs: Laboratory Results - last 24 hr 12/24/21 12/24/21 12/24/21 11:25 16:08 20:14 POC Glucose 113 142 H 201 H 12/25/21 07:39 POC Glucose 131 H Microbiology Microbiology Results: Microbiology 12/22/21 15:06 Blood Culture - Preliminary Blood - Venous No growth after 48 hours. 12/22/21 15:00 Blood Culture - Preliminary Blood - Venous No growth after 48 hours. Assessment and Plan (1) Colitis: Status: Acute Plan This is a 76 year old female with history of DM, CVA, CAD, HTN, HLD, seizures, numerous abdominal surgeries who presents to the ED with abdominal pain, diarrhea and rectal bleeding Colitis. persistent leukocytosis, and pain, improving Likely infectious vs ischemic lactic acid wnl Continue IV levaquin, flagyl GI following cdiff pending advance diet to full liquid Add simethicone for bloating pain control Rectal bleeding. Resolved secondary to above hold asa, avoid AC H/H stable, follow CBC Seizure disorder no longer on meds due to lack of follow up last seizure 6 weeks ago seizure precautions prn ativan neurology consult to assist in resuming home meds Mood continue effexor DM Hold home meds SSI, POCs HTN given rectal bleeding will hold norvasc and lisinopril continue atenolol resume other meds as bp allows CAD with ostial dz being management medically due to anatomy no chest pain asa, statin on hold dvt ppx - chemoprophylaxis contraindicated due to GI bleeding; SCD boots ordered HCP - daughter and niece code status - full code Attending - Dr. Garcia Quality Stroke Does the patient have a stroke diagnosis?: No VTE Prior VTE?: No VTE Risk Level:: Medical - moderate - high VTE Device Contraindication: N/A - Device Ordered VTE Drug Contraindication: Treatment Not Indicated
[2021-12-25 11:22] LABS: Glucose, Whole Blood 218 mg/dL (60-115)
[2021-12-25] MEDS: Insulin Lispro 100 UNIT/ML 3 ML VIAL SUBCUT ×3 (12:12→20:39)
[2021-12-25] MEDS: levoFLOXacin/D5W 500 MG/100 ML PIGGYBACK 100 MG IV (15:09)
[2021-12-25 17:03] LABS: Glucose, Whole Blood 160 mg/dL (60-115)
[2021-12-25] MEDS: Fluticasone Propionate 100 MCG BLST.W.DEV 1 PUFF INHALE (19:25)
[2021-12-25 20:04] LABS: Glucose, Whole Blood 187 mg/dL (60-115)
[2021-12-25] MEDS: Acetaminophen 325 MG TABLET 650 MG PO (23:55)
[2021-12-26 03:27] VITALS: BP 151/66; PULSE 59; RESP 18; TEMP 36.1; O2SAT 97
[2021-12-26] MEDS: metroNIDAZOLE 500 MG TABLET PO ×2 (03:58→12:09)
[2021-12-26] MEDS: ondansetron HCL 4 MG/2 ML VIAL IVPUSH (05:32)
[2021-12-26 07:08] LABS: Anion Gap 9 (12-20); Blood Urea Nitrogen 5 mg/dL (9-16); Calcium 8.3 mg/dL (8.4-10.2); Carbon Dioxide 29 mmol/L (22-29); Chloride 104 mmol/L (96-108); Creatinine Clr Calc Pharmacy 55.8; Estimated Glomerular Filt Rate > 60; Glucose Random 183 mg/dL (60-115); Potassium 3.1 mmol/L (3.3-5.1); Sodium 139 mmol/L (135-145)
[2021-12-26 07:22] VITALS: BP 178/76; PULSE 62; RESP 20; TEMP 36.9; O2SAT 96
[2021-12-26 07:24] LABS: Glucose, Whole Blood 171 mg/dL (60-115)
[2021-12-26] MEDS: Fluticasone Propionate 100 MCG BLST.W.DEV 1 PUFF INHALE (07:31)
[2021-12-26 07:33] VITALS: PULSE 62; RESP 20; O2SAT 96
[2021-12-26] MEDS: Montelukast Sodium 10 MG TABLET PO (08:06)
[2021-12-26] MEDS: Venlafaxine HCl ER 150 MG CAP.ER.24H PO (08:06)
[2021-12-26] MEDS: Venlafaxine HCl ER 37.5 MG CAP.ER.24H PO (08:06)
[2021-12-26] MEDS: Insulin Lispro 100 UNIT/ML 3 ML VIAL SUBCUT ×2 (08:06→12:09)
[2021-12-26] MEDS: atenoloL 100 MG TABLET PO (08:06)
[2021-12-26] MEDS: Potassium Chloride ER 20 MEQ TAB.ER.PRT 40 MEQ PO (09:15)
[2021-12-26 10:49] LABS: Hematocrit 35.2 % (37.0-47.0); Hemoglobin 10.7 g/dl (12.0-16.0)
--- NOTE | 2021-12-26 11:24 | P.PNIM_ITS ---
Subjective Subjective Date of Service: 12/29/21 Physical Exam Vital Signs: Vital Signs: Last Vital Signs Temp 98.5 F 12/26/21 07:22 Pulse 62 12/26/21 07:33 Resp 20 12/26/21 07:33 BP 178/76 H 12/26/21 07:22 Pulse Ox 96 12/26/21 07:22 BMI result Body Mass Index 33.6 Objective Data Active Medications Acetaminophen (Acetaminophen 325 Mg Tablet) 650 mg PO Q6H PRN PRN Reason: Pain, Mild (Pain Scale 1-3) Last Admin: 12/25/21 23:55 Dose: 650 mg Documented by: FABIOLA Albuterol Sulfate (Albuterol Sulfate 90 Mcg 8 Gm Inhaler) 2 puff INHALE Q4H PRN PRN Reason: bronchospasm Atenolol (Atenolol 100 Mg Tablet) 100 mg PO DAILY [facility]; Protocol Last Admin: 12/26/21 08:06 Dose: 100 mg Documented by: DEL Dextrose (Dextrose 50 % 25 Gm/50 Ml Syringe) 25 gm IVPUSH Q15M PRN; Protocol PRN Reason: per Hypoglycemia Standing Ord. Docusate Sodium (Docusate Sodium 100 Mg Capsule) 100 mg PO DAILY PRN PRN Reason: Constipation Fluticasone Propionate (Fluticasone Propionate 100 Mcg Blst.W.Dev) 1 puff INHALE RBID [facility] Last Admin: 12/26/21 07:31 Dose: 1 puff Documented by: LEOLA Glucose (Glucose Gel 15 Gm Gel..Gram.) 15 gm PO Q15M PRN; Protocol PRN Reason: per Hypoglycemia Standing Ord. Levofloxacin (Levaquin) 500 mg in 100 mls @ 100 mls/hr IV Q24H [facility] Last Infusion: 12/25/21 16:24 Dose: 0 mls/hr Documented by: DEL Insulin Human Lispro (Insulin Lispro 100 Unit/Ml 3 Ml Vial) 0 unit SUBCUT QIDACHS [facility]; Protocol Last Admin: 12/26/21 08:06 Dose: 2 unit Documented by: DEL Lorazepam (Lorazepam 2 Mg/Ml Vial) 1 mg IVPUSH Q2H PRN PRN Reason: Seizures Metronidazole (Metronidazole 500 Mg Tablet) 500 mg PO Q8H [facility] Last Admin: 12/26/21 03:58 Dose: 500 mg Documented by: FABIOLA Montelukast Sodium (Montelukast Sodium 10 Mg Tablet) 10 mg PO DAILY [facility] Last Admin: 12/26/21 08:06 Dose: 10 mg Documented by: DEL Morphine Sulfate (Morphine Sulfate 2 Mg/Ml Cartridge) 2 mg IVPUSH Q4H PRN; Protocol PRN Reason: Pain, Severe (Pain Scale 7-10) Last Admin: 12/23/21 23:15 Dose: 2 mg Documented by: CLARY Omeprazole (Omeprazole 20 Mg Capsule.Dr) 20 mg PO DAILY@0630 [facility] Last Admin: 12/26/21 05:33 Dose: Not Given Documented by: FABIOLA Non-Admin Reason: Nausea Ondansetron HCl (Ondansetron Hcl 4 Mg/2 Ml Vial) 4 mg IVPUSH Q8H PRN PRN Reason: Nausea and Vomiting Last Admin: 12/26/21 05:32 Dose: 4 mg Documented by: FABIOLA Pharmacy Consult (Consult Rx Perform Med Rec) 1 each MISCELLANE ONCE PRN PRN Reason: Consult order Venlafaxine HCl (Venlafaxine Hcl Er 150 Mg Cap.Er.24h) 150 mg PO DAILY [facility] Last Admin: 12/26/21 08:06 Dose: 150 mg Documented by: DEL Venlafaxine HCl (Venlafaxine Hcl Er 37.5 Mg Cap.Er.24h) 37.5 mg PO DAILY [facility] Last Admin: 12/26/21 08:06 Dose: 37.5 mg Documented by: DEL Labs CBC & Chem 7: 12/26/21 10:37 12/26/21 06:12 Labs: Laboratory Results - last 24 hr 12/25/21 12/25/21 12/26/21 16:45 19:55 06:12 Anion Gap 9 L Estim Creat Clear Calc 55.8 Estimated GFR > 60 POC Glucose 160 H 187 H Random Glucose 183 H Calcium 8.3 L 12/26/21 07:20 Anion Gap Estim Creat Clear Calc Estimated GFR POC Glucose 171 H Random Glucose Calcium Assessment and Plan (1) Epilepsy: Plan This is a 76 year old female with history of DM, CVA, CAD, HTN, HLD, seizures, numerous abdominal surgeries who presents to the ED with abdominal pain, diarrhea and rectal bleeding Colitis. persistent leukocytosis, and pain, improving Likely infectious vs ischemic lactic acid wnl Continue IV levaquin, flagyl GI following cdiff pending advance diet to full liquid Add simethicone for bloating pain control Rectal bleeding. Resolved secondary to above hold asa, avoid AC H/H stable, follow CBC Seizure disorder no longer on meds due to lack of follow up last seizure 6 weeks ago seizure precautions prn ativan neurology rec EEG and starting of zonegran 100mg daily (last medication she was taking without side effects) Mood continue effexor DM Hold home meds SSI, POCs HTN given rectal bleeding will hold norvasc and lisinopril continue atenolol resume other meds as bp allows CAD with ostial dz being management medically due to anatomy no chest pain asa, statin on hold dvt ppx - chemoprophylaxis contraindicated due to GI bleeding; SCD boots ordered HCP - daughter and niece code status - full code Attending - Dr. Garcia Quality Stroke Does the patient have a stroke diagnosis?: No VTE Prior VTE?: No VTE Risk Level:: Medical - moderate - high VTE Device Contraindication: N/A - Device Ordered VTE Drug Contraindication: Treatment Not Indicated
[2021-12-26 11:36] VITALS: BP 158/70; PULSE 57; RESP 18; TEMP 36.6; O2SAT 97
[2021-12-26 11:37] LABS: Glucose, Whole Blood 202 mg/dL (60-115)
--- NOTE | 2021-12-26 12:00 | PM.DS ---
DS: Providers Provider Date of Service: 12/26/21 Date of admission: 12/22/21 15:48 Primary care physician: Martine Ding MD Consults: 12/22/21 15:53 Consult to Gastroenterology Routine Consulting Provider: Noemi Posey Reason for consultation: colitis Has provider been notified: No Consult to Neurology Routine Consulting Provider: [facility] Reason for consultation: h/o seizure; not currently on meds; ?resume antiepileptics Has provider been notified: No DS: Diagnosis Discharge Diagnosis (1) Infectious colitis: Status: Acute (2) Acute blood loss anemia: Status: Acute (3) Lower GI bleed: Status: Acute (4) Epilepsy: Status: Acute (5) Type 2 diabetes mellitus with hyperglycemia: Status: Acute DS: Summary Hospital Course Hospital Course: HPI From Admission H&P: This is a 76 year old female with history of multiple abdominal surgeries who presents to the ED with abdominal pain and rectal bleeding. Last night she went out to dinner around 6pm She had spinach and artichoke dip and chicken. Following that she went to [facility] where she began feeling ill. She began having episodes of nausea and non-bloody vomiting followed by lower abdominal pain. She was brought to the ED by ambulance. She had diarrhea followed by rectal bleeding the the waiting room but elected to return home when the wait was too long. Overnight she reports persistant lower abdominal pain, vomiting and multiple episodes of rectal bleeding. This morning she returned to the ED with ongoing symptoms. Lab work was significant for leukocytosis of 16.2. H/H was stable, lactive acid within normal limits. Heme occult was positive. CT scan of the abdomen showed markedly abnormal appearance of the colon. She was started on IV levaquin and flagyl and the decision was made to admit her for further management. Hosiptal Course: Patient presented with abdominal pain and rectal bleeding. CT scan showed coliits. SHe was started on IV Levaquin and Flagyl. She was evalauted by GI who felt her symptoms likely secondary to infectious colitis and recommended completion of antibiotic course. With these measures, her rectal bleeding and abdominal pain resolved. She is tolerating solids at the time of d/c. Her course was complicated by Acute blood loss anemia due to lower GI bleed from her colitis. H/H Dropped from 12.2/39.6 to 9.5/32.1. It has stablized to 10.7/35.2. She was treated with IVF for this. Her BP meds were initially held but now her BP has rebounded and they will be resumed. She is to hold her aspirin and may restart in 1 week after check repeat CBC. Furthermore, the patient has a history of epilepsy. She took herself off her own meds. She did not have any seizures while in the hospital. Neurology was consulted and recommended restart Zonegran (the last seizure med she was able to tolerate). She will have oupatient EEG and has been advised to call Dr. Meehan's office -- whom she was following, but has not seen in the clinic since 2018. Time Spent with Patient Time attestation: Total time spent providing and/or coordinating discharge services: Discharge coordination time: Greater than 30 minutes Quality: Stroke Does the patient have a stroke diagnosis?: No Physical Exam Vital Signs: Vital Signs: Last Vital Signs Temp 97.9 F 12/26/21 11:36 Pulse 57 12/26/21 11:36 Resp 18 12/26/21 11:36 BP 158/70 H 12/26/21 11:36 Pulse Ox 97 12/26/21 11:36 BMI result Body Mass Index 33.6 Const: Other: General - no acute distress, appears comfortable Cardiovascular - regular rate and rhythm, S1-S2 Lungs - normal respiratory effort, clear to auscultation bilaterally, no wheezing Abdomen - soft, nontender, no rebound or guarding Extremities - no edema bilaterally Neuro - awake and alert, no focal deficits DS: Data Data Completed and Pending Labs on day of discharge: Laboratory Results - last 24 hr 12/25/21 12/25/21 12/26/21 16:45 19:55 06:12 Hgb Hct Sodium 139 Potassium 3.1 L Chloride 104 Carbon Dioxide 29 Anion Gap 9 L BUN 5 L Creatinine 0.78 Estim Creat Clear Calc 55.8 Estimated GFR > 60 POC Glucose 160 H 187 H Random Glucose 183 H Calcium 8.3 L 12/26/21 12/26/21 12/26/21 07:20 10:37 11:34 Hgb 10.7 L Hct 35.2 L Sodium Potassium Chloride Carbon Dioxide Anion Gap BUN Creatinine Estim Creat Clear Calc Estimated GFR POC Glucose 171 H 202 H Random Glucose Calcium Preliminary micro results at discharge 12/22/21 15:06 Blood Culture - Preliminary Blood - Venous No growth after 48 hours. 12/22/21 15:00 Blood Culture - Preliminary Blood - Venous No growth after 48 hours. Discharge Plan Discharge Patient Disposition: Home Health Service Discharge Diagnosis: Colitis Referrals: Jaylen Meehan MD [Physician] - 1 Month Martine Davila MD [Primary Care Provider] - 1 Week Discharge Medications: New zonisamide 100 mg Capsule 100 mg PO DAILY Qty: 30 0RF levofloxacin 500 mg tablet 500 mg PO DAILY Qty: 3 0RF metronidazole 500 mg tablet 500 mg PO Q8H Qty: 9 0RF Continued albuterol sulfate [ProAir HFA] 90 mcg/actuation HFA aerosol inhaler 2 puff inhalation Q4H PRN (Reason: bronchospasm) 30 Days Qty: 18 0RF fluticasone propionate [Flovent HFA] 110 mcg/actuation HFA aerosol inhaler 1 puff PO BID 30 Days Qty: 12 5RF montelukast 10 mg tablet 10 mg PO DAILY Qty: 90 3RF lisinopril 40 mg tablet 40 mg PO DAILY Qty: 90 3RF Accu-Chek Guide test strips Strip 1 strip miscellaneous QID Qty: 400 3RF pantoprazole 20 mg tablet,delayed release (DR/EC) 40 mg PO DAILY Qty: 180 0RF venlafaxine [Effexor XR] 37.5 mg capsule,extended release 24hr 1 cap PO DAILY 0RF Jentadueto 2.5-1,000 mg tablet 1 tab PO BIDWM 0RF venlafaxine 150 mg capsule,extended release 24hr 150 mg PO DAILY 0RF nitroglycerin 0.4 mg tablet, sublingual 0.4 mg sublingual Q5M PRN (Reason: chest pain) Qty: 30 6RF Rx Instructions: do not exceed 3 doses per episode venlafaxine 37.5 mg capsule,extended release 24hr 37.5 mg PO DAILY 0RF (DME) lancets [TRUEplus Lancets] 33 gauge misc See Rx Instructions .ROUTE .MEDSUPPLY Qty: 400 3RF Rx Instructions: four times a day amlodipine 5 mg tablet 5 mg PO DAILY Qty: 90 4RF atenolol 100 mg tablet 100 mg PO DAILY 0RF insulin lispro 100 unit/mL insulin pen See Rx Instructions subcut TID 0RF Rx Instructions: 10 units am, 12 units afternoon, 10 units night subcut 3 times a day; Tresiba FlexTouch U-200 200 unit/mL (3 mL) insulin pen 32 unit subcut BEDTIME 90 Days Qty: 14.4 3RF atorvastatin 80 mg tablet 80 mg PO DAILY Qty: 90 4RF Held aspirin 81 mg tablet,delayed release (DR/EC) 81 mg PO DAILY 0RF Hold Instructions: Resume on 01/02/22. restart after repeating blood work in 1 week Discharge Orders: Discharge Order (Routine); Ordered 12/26/21 Ordered By: Frankie Norris Diet: advance to usual diet Activity on Discharge: As tolerated Stand Alone Forms: Patient Portal Discharge page Other Ambulatory Orders: Complete Blood Count no Diff (Routine) Timeframe: 1 Week Facility: [facility] - Location: Laboratory Ordered By: Frankie Norris Care Plan Goals: To stay healthy and out of the hospital. Health Concerns: Colitis Take Levaquin and Flagyl for 2 more days Check your blood counts in 1 week Seizures Restart taking Zonegran Complete EEG as an outpatient -- you must call Dr. Pollard office to schedule appointment. F/u with your neurologist Plan of Treatment: See health concerns Assessment: see d/c summary
--- NOTE | 2021-12-26 13:12 | MHC.CM.PN ---
Patient has been medically cleared for dc to home today, self care. Patient's initial visit with her PCP is not until February of this year so VNA is not an option at this time. MD has been made aware.IMM addressed with Patient at bedside and original has been given to her and a copy has been placed on the chart.Patient is very pleased to be going home today.
[2021-12-26] MEDS: levoFLOXacin/D5W 500 MG/100 ML PIGGYBACK 100 MG IV (14:13)
== END 2021-12-26 16:30 | disposition home or self-care (01) | DRG 392 ==
LOC: HO.ED 14:24 → HO.EDOVER 16:04 → HO.IMC 12-23 15:20
PROVIDERS: Family Medicine; Admitting Provider Physician Assistant Medical; Emergency Provider Emergency Medicine Emergency Medical Services; PCP Internal Medicine; Visit Provider Nurse Practitioner Acute Care
DX: A09 Infectious gastroenteritis and colitis, unspecified (principal); K62.5 Hemorrhage of anus and rectum; D62 Acute posthemorrhagic anemia; E11.42 Type 2 diabetes mellitus with diabetic polyneuropathy; Z20.822 Contact with and (suspected) exposure to COVID-19; I10 Essential (primary) hypertension; D72.829 Elevated white blood cell count, unspecified; I25.10 Atherosclerotic heart disease of native coronary artery without angina pectoris; Z91.14 Patient's other noncompliance with medication regimen; Z88.0 Allergy status to penicillin; Z88.2 Allergy status to sulfonamides; Z88.5 Allergy status to narcotic agent; Z79.4 Long term (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; Z79.51 Long term (current) use of inhaled steroids; Z79.82 Long term (current) use of aspirin; Z79.899 Other long term (current) drug therapy
CPT/HCPCS: 36415; 74177; 80048; 80053; 82248; 82272; 82947; 83605; 83690; 85014; 85018; 85025; 85027; 87040; 87635; 94640; 96361; 96365; 96375; 99283; 99285; J1170; J1956; J2270; J2405; Q9967

== ENCOUNTER 2022-01-02 10:43 | Outpatient (REF) | payer MEDICARE, MEDICAID, SELFPAY ==
[2022-01-02 11:18] LABS: MANUAL DIFF FLAG NO
[2022-01-02 11:46] LABS: Basophils Percent Auto 0.4 % (0-2); Eosinophils Absolute Auto 0.1 X10*3/uL (0.0-0.4); Hematocrit 34.3 % (37.0-47.0); Hemoglobin 10.4 g/dl (12.0-16.0); Imm Gran Abs Auto 0.02 X10*3/uL (0.00-0.03); Imm Gran Pct Auto 0.3 % (0.0-0.4); Lymphocytes Percent Auto 14.1 % (20-40); Mean Corpuscular HGB Conc 30.3 g/dl (31.0-35.0); Mean Corpuscular Hemoglobin 24.4 pg (27.0-33.0); Mean Corpuscular Volume 80.3 fL (80.0-98.0); Mean Platelet Volume 10.4 fL (9.4-12.3); Monocytes Absolute Auto 0.4 X10*3/uL (0.1-1.2); Monocytes Percent Auto 5.3 % (2-11); Neutrophils Absolute Auto 5.5 x10*3/uL (2.0-8.3); Neutrophils Percent Auto 77.9 % (45-73); Platelet Count 321 X10*3/uL (160-400); Red Blood Count 4.27 X10*6/uL (4.20-5.50); Red Cell Distribution Width 14.6 % (11.0-16.0)
[2022-01-02 12:14] LABS: Estimated Average Glucose 209 mg/dL; Hemoglobin A1c % 8.9 %
[2022-01-02 12:22] LABS: Alanine Aminotransferase 9 U/L (0-31); Albumin Level 3.3 g/dL (3.5-5.0); Alkaline Phosphatase 74 U/L (39-117); Anion Gap 11 (12-20); Aspartate Amino Transferase 19 U/L (5-31); Bilirubin Total 0.4 mg/dL (0.0-1.0); Blood Urea Nitrogen 8 mg/dL (9-16); Calcium 8.7 mg/dL (8.4-10.2); Carbon Dioxide 29 mmol/L (22-29); Chloride 103 mmol/L (96-108); Cholesterol 143 mg/dL; Estimated Glomerular Filt Rate > 60; Glucose Random 172 mg/dL (60-115); HDL Cholesterol 43 mg/dL; Iron 35 mcg/dL (30-160); LDL Cholesterol Calculated 83 mg/dl; Potassium 3.4 mmol/L (3.3-5.1); Sodium 140 mmol/L (135-145); Total Protein 5.7 g/dL (6.5-8.0); Triglycerides 89 mg/dL
[2022-01-02 12:22] LABS: Creatinine Urine 267.56 mg/dL; Microalbum/Creatinine Ratio Ur 32.8 ug/mg cr
[2022-01-02 12:27] LABS: Ferritin 45 ng/mL (10-250)
[2022-01-02 12:37] LABS: Percent Iron Saturation 15 % (15-50); Total Iron Binding Capacity 240 mcg/dL (228-428); Unsaturated Iron Binding 205 ug/dL
== END 2022-01-02 10:44 | disposition home or self-care (01) ==
LOC: HO.LAB 10:43
PROVIDERS: Absent Provider Internal Medicine Gastroenterology; PCP Internal Medicine; Referring Provider Family Medicine; Visit Provider Nurse Practitioner Gerontology
DX: D62 Acute posthemorrhagic anemia (principal); K75.81 Nonalcoholic steatohepatitis (NASH); K92.2 Gastrointestinal hemorrhage, unspecified; E11.65 Type 2 diabetes mellitus with hyperglycemia; Z79.4 Long term (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
CPT/HCPCS: 36415; 80053; 80061; 82043; 82728; 83036; 83540; 85025

== ENCOUNTER 2022-01-07 06:08 | Outpatient (REF) | payer MEDICARE, MEDICAID, SELFPAY ==
--- NOTE | ~2022-01-07 | CT_ITS ---
EXAMINATION: CT ABDOMEN AND PELVIS WITH CONTRAST CLINICAL INFORMATION: Infectious gastroenteritis and colitis, nonspecified COMPARISON: CT abdomen 12/22/2021 TECHNIQUE: Multidetector volumetric images were obtained from the superior aspect of the liver through the pubic symphysis following administration 85 mL of Omnipaque 350 intravenous contrast. Oral contrast used. Sagittal and coronal reformatted images were obtained on the technologist's workstation. This CT examination was performed using dose optimization techniques as appropriate, variously including the following: *Automated exposure control *Adjustment of mA and/or kV according to patient size (this includes techniques or standardized protocols for targeted exams where dose is matched to indication/reason for exam; i.e. extremities or head) *Use of iterative reconstruction technique DLP: 661 mGy-cm FINDINGS: LUNG BASES: The visualized lung bases are unremarkable. Atherosclerotic coronary artery calcifications, partially imaged. LIVER, GALLBLADDER, AND BILIARY TREE: The liver is normal in size, shape . In today's study, the liver attenuation is similar to the spleen.. No focal hepatic lesion or biliary ductal dilatation is present. Status postcholecystectomy. Mild dilatation of the extrahepatic bile duct, proximally measuring 1.1 cm, distally tapering to 0.5 cm. No radiodense stone or mass is seen. Findings similar to previous. PANCREAS: Diffusely atrophic. No acute inflammatory changes. No ductal dilatation present. SPLEEN: Unremarkable. ADRENAL GLANDS: Unremarkable. KIDNEYS AND URETERS: Stable right renal upper pole 0.6 cm hypodense lesion, statistically likely to be a cyst. No suspicious masses otherwise seen. No renal or ureteral calculi. No hydronephrosis.. BLADDER: Nondistended, and evaluated. GASTROINTESTINAL TRACT: Redemonstrated is evidence of surgery in the sigmoid colon region, with bowel anastomotic suture line appearing intact. There is moderate to large stool diffusely in the large colon. There is oral contrast extending into the large colon to the level of the splenic flexure. The previously seen submucosal edema and wall thickening of the transverse colon, splenic flexure, descending colon is no longer visualized. In today's study, no definite colonic wall thickening is identified. The rectum is nondistended.. No significant pericolonic inflammatory changes seen. The stomach is nondistended. No dilated small bowel loops is seen. The appendix is not visualized but no inflammatory process is identified in the pericecal region or right lower quadrant. No free fluid. No free air. ABDOMINAL WALL: No significant hernia is appreciated. Postsurgical changes/soumya along the anterior abdominal wall redemonstrated. LYMPH NODES: No adenopathy is identified in the abdomen or pelvis. VASCULAR: Moderate to severe atherosclerotic vascular calcification. Celiac, SMA, VADIM are enhancing. No aneurysmal dilatation is seen of the abdominal aorta. Perisplenic varices seen. PELVIC VISCERA: Uterus is not visualized. No adnexal masses seen. OSSEOUS STRUCTURES: Multilevel degeneration in the spine. CT/CT abdomen pelvis w con IMPRESSION: 1. Interval improvement/resolution of the previously noted abnormality of the transverse and descending colon. In today's study, no definite colonic wall thickening or pericolonic inflammatory changes are evident. Moderate to large volume stool diffusely in the large colon. Close clinical correlation and follow-up is recommended. Follow-up CT for reassessment as clinically warranted. 2. Status postcholecystectomy. Stable prominence of the extra hepatic bile duct, probably related to prior cholecystectomy. 3. Redemonstrated multiple perisplenic varices noted. 4. Additional findings and details as above. Fleischner guidelines were followed.
[2022-01-07] MEDS: iohexoL 350 MG/ML 100 ML INFUS..BTL 85 ML IV (09:20)
== END 2022-01-07 06:09 | disposition home or self-care (01) ==
LOC: HO.CT 06:08
PROVIDERS: Visit Provider Internal Medicine Gastroenterology
DX: A09 Infectious gastroenteritis and colitis, unspecified (principal)
CPT/HCPCS: 74177; Q9967

== ENCOUNTER 2022-01-14 12:07 | Outpatient (REF) | payer MEDICARE, MEDICAID, SELFPAY ==
[2022-01-14 13:22] LABS: Basophils Percent Auto 0.5 % (0-2); Eosinophils Absolute Auto 0.1 X10*3/uL (0.0-0.4); Eosinophils Percent Auto 1.4 % (0-4); Hematocrit 33.9 % (37.0-47.0); Hemoglobin 10.2 g/dl (12.0-16.0); Imm Gran Abs Auto 0.01 X10*3/uL (0.00-0.03); Imm Gran Pct Auto 0.2 % (0.0-0.4); Lymphocytes Absolute Auto 1.3 X10*3/uL (1.2-4.9); Lymphocytes Percent Auto 20.6 % (20-40); MANUAL DIFF FLAG NO; Mean Corpuscular HGB Conc 30.1 g/dl (31.0-35.0); Mean Corpuscular Volume 79.8 fL (80.0-98.0); Mean Platelet Volume 10.6 fL (9.4-12.3); Monocytes Absolute Auto 0.5 X10*3/uL (0.1-1.2); Monocytes Percent Auto 7.5 % (2-11); Neutrophils Absolute Auto 4.4 x10*3/uL (2.0-8.3); Neutrophils Percent Auto 69.8 % (45-73); Platelet Count 281 X10*3/uL (160-400); Red Blood Count 4.25 X10*6/uL (4.20-5.50); Red Cell Distribution Width 14.4 % (11.0-16.0); White Blood Count 6.3 X10*3/uL (4.8-10.8)
[2022-01-14 14:28] LABS: Alanine Aminotransferase 10 U/L (0-31); Albumin Level 3.6 g/dL (3.5-5.0); Alkaline Phosphatase 79 U/L (39-117); Anion Gap 10 (12-20); Aspartate Amino Transferase 17 U/L (5-31); Bilirubin Total 0.3 mg/dL (0.0-1.0); Blood Urea Nitrogen 13 mg/dL (9-16); C Reactive Protein 0.16 mg/dL (< or = 0.50); Calcium 9.5 mg/dL (8.4-10.2); Carbon Dioxide 26 mmol/L (22-29); Chloride 104 mmol/L (96-108); Estimated Glomerular Filt Rate 53; Glucose Random 141 mg/dL (60-115); Potassium 4.4 mmol/L (3.3-5.1); Sodium 136 mmol/L (135-145); Total Protein 6.3 g/dL (6.5-8.0)
[2022-01-14 14:49] LABS: Vitamin D 25-OH Total 32.1 ng/mL (>30)
[2022-01-14 15:21] LABS: Folate 13.4 ng/mL (> or = 4.0); Vitamin B12 195 pg/mL (200-900)
[2022-01-15 05:26] LABS: HBc Num1 0.15 S/CO (0.00-0.79); Hepatitis B Core Antibody Nonreactive (Nonreactive); ~HepC Num1 0.12 S/CO (0.00-0.79); ~Hepatitis B Surface Antibody NONREACTIVE (Nonreactive); ~Hepatitis C Antibody Nonreactive (Nonreactive)
[2022-01-15 05:38] LABS: Hepatitis B Surface Antigen Negative (Negative)
[2022-01-15 21:52] LABS: IgA 280 mg/dL (70-320); IgG 1054 mg/dL (600-1540); IgM 109 mg/dL (50-300)
[2022-01-16 14:46] LABS: Immunoglobulin G Subclass 1 582 mg/dL (382-929); Immunoglobulin G Subclass 2 269 mg/dL (241-700); Immunoglobulin G Subclass 3 35 mg/dL (22-178); Immunoglobulin G Subclass 4 43.8 mg/dL (4-86); Immunoglobulin G Total 995 mg/dL (600-1540)
[2022-01-16 20:37] LABS: Gliadin Deamidated IgA Ab <1.0 U/mL; Gliadin Deamidated IgG Ab <1.0 U/mL; Transglutaminase Ab IgG <1.0 U/mL; Transglutaminase IgA <1.0 U/mL
[2022-01-17 03:52] LABS: Zinc 77 mcg/dL (60-130)
[2022-01-17 11:28] LABS: Vitamin C 0.7 mg/dL (0.3-2.7)
[2022-01-18 08:59] LABS: Hepatitis A Antibody IgM 0.19 Index (0-0.79); ~Hepatitis A Antibody IgM Nonreactive (Nonreactive)
[2022-01-18 11:17] LABS: Vitamin B6 6.1 ng/mL (2.1-21.7)
[2022-01-18 19:07] LABS: Vitamin B5 (Pantothenic Acid) <40 ng/mL (<275)
[2022-01-18 19:57] LABS: Trypsin 466.1 ng/mL (180.5-885.3)
[2022-01-19 18:06] LABS: Nicotinamide <20 ng/mL; Vit B3 - Nicotinic Acid <20 ng/mL
[2022-01-19 21:13] LABS: Vitamin A 46 mcg/dL (38-98)
[2022-01-19 21:21] LABS: Alpha-Tocopherol 13.8 mg/L (5.7-19.9)
== END 2022-01-14 12:08 | disposition home or self-care (01) ==
LOC: HO.LAB 12:07
PROVIDERS: Absent Provider Nurse Practitioner Family; PCP Internal Medicine; Visit Provider Internal Medicine Gastroenterology
DX: A09 Infectious gastroenteritis and colitis, unspecified (principal); K86.1 Other chronic pancreatitis; K75.81 Nonalcoholic steatohepatitis (NASH); G89.29 Other chronic pain; R10.33 Periumbilical pain
CPT/HCPCS: 36415; 80053; 82180; 82306; 82607; 82746; 82784; 83519; 84207; 84446; 84590; 84591; 84630; 85025; 86140; 86258; 86364; 86704; 86706; 86709; 86803; 87340; 99212

== ENCOUNTER 2022-01-21 08:53 | Outpatient (REF) | payer MEDICARE, MEDICAID, SELFPAY ==
[2022-01-21 10:22] LABS: Cholesterol 145 mg/dL; HDL Cholesterol 50 mg/dL; LDL Cholesterol Calculated 73 mg/dl; Triglycerides 111 mg/dL
[2022-01-21 11:47] LABS: CDiff Gene PCR NEGATIVE (Negative)
[2022-01-26 11:27] LABS: Fecal Fat Qualitative NORMAL (NORMAL)
[2022-01-26 21:32] LABS: Calprotectin, Fecal 187 mcg/g
[2022-01-28 23:11] LABS: Pancreatic Elastase-1 >500 mcg/g
== END 2022-01-21 08:54 | disposition home or self-care (01) ==
LOC: HO.LAB 08:53
PROVIDERS: Absent Provider Nurse Practitioner Family; PCP Internal Medicine; Visit Provider Internal Medicine Gastroenterology
DX: A09 Infectious gastroenteritis and colitis, unspecified (principal); K86.1 Other chronic pancreatitis; D62 Acute posthemorrhagic anemia; K92.2 Gastrointestinal hemorrhage, unspecified
CPT/HCPCS: 36415; 80061; 82656; 82705; 83993; 87493

== ENCOUNTER → 2022-02-20 12:31 | Outpatient (BNVA) | payer MEDICARE, MEDICAID, SELFPAY | PROVIDERS: PCP Internal Medicine; Referring Provider Internal Medicine; Visit Provider Internal Medicine | DX: I25.10 Atherosclerotic heart disease of native coronary artery without angina pectoris (principal); E11.9 Type 2 diabetes mellitus without complications; I10 Essential (primary) hypertension; E78.5 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, unspecified; Z79.82 Long term (current) use of aspirin; Z79.899 Other long term (current) drug therapy | CPT/HCPCS: 99212 ==

== ENCOUNTER 2022-02-21 08:22 | Outpatient (REF) | payer MEDICARE, MEDICAID, SELFPAY ==
[2022-02-21 09:23] LABS: Hematocrit 39.4 % (37.0-47.0); Hemoglobin 11.7 g/dl (12.0-16.0); Mean Corpuscular HGB Conc 29.7 g/dl (31.0-35.0); Mean Corpuscular Hemoglobin 23.9 pg (27.0-33.0); Mean Corpuscular Volume 80.6 fL (80.0-98.0); Mean Platelet Volume 10.7 fL (9.4-12.3); Platelet Count 356 X10*3/uL (160-400); Red Blood Count 4.89 X10*6/uL (4.20-5.50); Red Cell Distribution Width 14.6 % (11.0-16.0); White Blood Count 9.6 X10*3/uL (4.8-10.8)
[2022-02-21 09:55] LABS: Alanine Aminotransferase 10 U/L (0-31); Albumin Level 4.1 g/dL (3.5-5.0); Alkaline Phosphatase 108 U/L (39-117); Anion Gap 10 (12-20); Aspartate Amino Transferase 15 U/L (5-31); Bilirubin Total 0.6 mg/dL (0.0-1.0); Blood Urea Nitrogen 18 mg/dL (9-16); Calcium 10.1 mg/dL (8.4-10.2); Carbon Dioxide 27 mmol/L (22-29); Chloride 107 mmol/L (96-108); Estimated Glomerular Filt Rate 58; Glucose Random 113 mg/dL (60-115); Potassium 4.4 mmol/L (3.3-5.1); Sodium 140 mmol/L (135-145); Total Protein 7.4 g/dL (6.5-8.0)
[2022-02-21 10:23] LABS: Folate 8.5 ng/mL (> or = 4.0); Vitamin B12 379 pg/mL (200-900)
[2022-02-26 14:35] LABS: Intrinsic Factor Antibodies Negative (Negative)
[2022-02-28 23:56] LABS: Parietal Cell Antibody <=20.0 Unit (<=20.0)
== END 2022-02-21 08:23 | disposition home or self-care (01) ==
LOC: HO.LAB 08:22
PROVIDERS: Internal Medicine; Nurse Practitioner Family; PCP Internal Medicine; Visit Provider Internal Medicine Gastroenterology
DX: D51.9 Vitamin B12 deficiency anemia, unspecified (principal); E78.5 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, unspecified; I10 Essential (primary) hypertension; D62 Acute posthemorrhagic anemia; K92.2 Gastrointestinal hemorrhage, unspecified; E11.42 Type 2 diabetes mellitus with diabetic polyneuropathy
CPT/HCPCS: 36415; 80053; 82607; 82746; 83516; 85027; 86340

== ENCOUNTER → 2022-02-26 14:57 | Outpatient (BNVA) | payer MEDICARE, MEDICAID, SELFPAY | PROVIDERS: PCP Internal Medicine; Visit Provider Internal Medicine Endocrinology, Diabetes & Metabolism | DX: E11.42 Type 2 diabetes mellitus with diabetic polyneuropathy (principal); Z79.4 Long term (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 | CPT/HCPCS: 82947; 99212 ==

== ENCOUNTER → 2022-03-28 12:15 | Day surgery (SDC) | payer MEDICARE, MEDICAID, SELFPAY ==
[2022-03-25 11:39] VITALS: BMI 31.4
--- NOTE | 2022-03-27 09:42 | P.CONAN_ITS ---
HPI - Anesthesia Eval Consult details Narrative: CX'd DOS for poor prep 77yo F for Upper Endoscopy and Colonoscopy Stable at 02/2022 routine cardiology office visit [facility] Active Problems Active Problems: All Active Problems (Updated 02/21/22 @ 08:12 by Martine Ding MD) Dizziness (Acute) B12 deficiency anemia (Acute) Chronic pancreatitis (Acute) Mild recurrent major depression (Acute) Hospital discharge follow-up (Acute) Rash (Acute) Left shoulder pain (Acute) Epilepsy (Acute) Lower GI bleed (Acute) Acute blood loss anemia (Acute) Infectious colitis (Acute) Pelvic pain (Acute) Uncontrolled hypertension (Acute) Memory change (Acute) Type 2 diabetes mellitus with diabetic polyneuropathy (Acute) Type 2 diabetes mellitus with hyperglycemia (Acute) Essential hypertension (Acute) 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 LDL goal <70 (Acute) BMI 34.0-34.9,adult (Acute) Falls frequently (Acute) 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, unspecified (Acute) 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) Type 2 diabetes mellitus with unspecified complications (Acute) Atherosclerotic cardiovascular disease (Acute) Past Medical History Medical History (Updated 02/21/22 @ 08:12 by Martine Ding MD) Acid reflux Atherosclerotic cardiovascular disease BMI 34.0-34.9,adult Colitis Dizziness Epilepsy Essential hypertension Glaucoma 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 LDL goal <70 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, unspecified 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 Major depression, recurrent Memory change Mild recurrent major depression Myocardial infarction Neuropathy Obesity due to excess calories Seizures Stroke Type 2 diabetes mellitus with diabetic polyneuropathy Type 2 diabetes mellitus with hyperglycemia Type 2 diabetes mellitus with unspecified complications Family History Family History Father Cardiovascular disease Mother Cardiovascular disease Sister Diabetes Brother Diabetes Other Mental health disorder Surgical History Surgical History History of appendectomy History of bladder surgery History of colon resection History of intestinal surgery History of kidney surgery History of liver biopsy Hx of cholecystectomy Hx of hysterectomy Social History Social History Household Members: None Housing: Apartment Do you presently have visiting nurse or other home services: No Alcohol intake: current Alcohol intake frequency: holidays/special occasions only Patient Tobacco Use Status: Never used Tobacco e-Cigarette/Vaping Use: Never Used Second Hand Smoke Exposure: No service: No Current occupational status: retired Cognitive needs: Yes Hearing needs: No Vision needs: Yes Meds Allergies Allergy/AdvReac Type Severity Reaction Status Date / Time Penicillins [PENICILLINS] Allergy Severe ANAPHYLAXIS Verified 02/26/22 15:10 Sulfa (Sulfonamide Allergy Severe ANAPHYLAXIS Verified 03/25/22 11:29 Antibiotics) [SULFA (SULFONAMIDE ANTIBIOTICS)] Codeine Allergy Intermediate headaches, Uncoded 03/25/22 11:29 mood changes latanoprost Allergy Intermediate Eye redness Uncoded 03/25/22 11:29 Trulicity Allergy Intermediate nausea, Uncoded 03/25/22 11:29 vomiting Home Medications Medication Instructions Recorded Confirmed Last Taken Type aspirin 81 mg tablet,delayed 81 mg PO DAILY 08/14/20 03/25/22 12/21/21 History release venlafaxine 150 mg 150 mg PO DAILY 08/14/20 02/26/22 12/21/21 History capsule,extended release 24 hr venlafaxine 37.5 mg 1 cap PO DAILY 12/22/21 03/25/22 12/21/21 History capsule,extended release 24 hr (Effexor XR) insulin degludec 200 unit/mL (3 32 unit SUBCUT BEDTIME 03/25/22 03/25/22 Unknown History mL) subcutaneous pen (Tresiba FlexTouch U-200 insulin) Exam Exam Date and Time: March 27, 2022 0942 Height,Weight and Vital Signs: Height 5 ft Weight 73.028 kg Pertinent Lab Results Pertinent Lab Results: Laboratory Tests 02/21/22 02/21/22 08:44 08:44 WBC 9.6 Hgb 11.7 L Hct 39.4 Plt Count 356 D Sodium 140 Potassium 4.4 Chloride 107 Carbon Dioxide 27 BUN 18 H Creatinine 0.94 Narrative Narrative: EKG 07/2021 sinus rhythm at 68/Min; mild ST depression in inferior and lateral leads; changed from prior EKG Echocardiogram with LVEF>70%; mild diastolic dysfunction; no significant valvular pathology. ? Myocardial perfusion imaging study from 2018 shows small area of mild intensity distal anterolateral ischemia.? Cardiac catheterization in 2013 from [place] shows 65% ostial diagonal disease but mild disease elsewhere. Assessment and Plan Assessment Anesthesia Assessment: Chart Reviewed
--- NOTE | 2022-03-28 12:29 | PC.NURSE ---
Patient arrived and stated prep returns where liquid, brown with solid feces, followed colon prep instructions with inadequate results. Discussed this with Dr Posey. Patient prefers to have upper endoscopy at the same time as colonoscopy so both procedures have been cancelled for today. Patient will call the MD office to reschedule with 2 day prep. I will call office to explain the cancellation and plans for rescheduling with a 2 day prep.
--- NOTE | 2022-03-28 13:01 | PC.NURSE ---
I spoke with Maia in Dr Posey's office about rescheduling patient with a 2 day colon prep. She will contact patient tomorrow and hopes to reschedule her for next week ( Friday).
== END ==
PROVIDERS: PCP Internal Medicine; Visit Provider Internal Medicine Gastroenterology
DX: A09 Infectious gastroenteritis and colitis, unspecified (principal); Z53.8 Procedure and treatment not carried out for other reasons; K86.1 Other chronic pancreatitis; E11.42 Type 2 diabetes mellitus with diabetic polyneuropathy; Z79.4 Long term (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

== ENCOUNTER → 2022-05-28 10:27 | Outpatient (BNVA) | payer MEDICARE, OTHER, SELFPAY | PROVIDERS: PCP Internal Medicine; Visit Provider Internal Medicine Endocrinology, Diabetes & Metabolism | DX: E11.42 Type 2 diabetes mellitus with diabetic polyneuropathy (principal); Z79.4 Long term (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 | CPT/HCPCS: 82947; 99212 ==

== ENCOUNTER → 2022-06-03 15:56 | Outpatient (REF) | payer MEDICARE, SELFPAY | LOC: HO.SL 15:56 | PROVIDERS: PCP Internal Medicine; Visit Provider Psychiatry & Neurology Neurology | DX: Z13.89 Encounter for screening for other disorder (principal) ==

== ENCOUNTER → 2022-06-19 13:05 | Outpatient (BNVA) | payer MEDICARE, MEDICAID, SELFPAY | PROVIDERS: PCP Internal Medicine; Visit Provider Registered Nurse Diabetes Educator | DX: E11.42 Type 2 diabetes mellitus with diabetic polyneuropathy (principal); Z79.4 Long term (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 | CPT/HCPCS: 99211 ==

== ENCOUNTER 2022-06-27 10:40 | Outpatient (REF) | payer MEDICARE, SELFPAY ==
[2022-06-27 12:12] LABS: Alanine Aminotransferase 10 U/L (0-31); Albumin Level 3.8 g/dL (3.5-5.0); Alkaline Phosphatase 107 U/L (39-117); Anion Gap 14 (12-20); Aspartate Amino Transferase 13 U/L (5-31); Bilirubin Total < 0.2 mg/dL (0.0-1.0); Blood Urea Nitrogen 19 mg/dL (9-16); Calcium 9.3 mg/dL (8.4-10.2); Carbon Dioxide 26 mmol/L (22-29); Chloride 105 mmol/L (96-108); Cholesterol 159 mg/dL; Estimated Glomerular Filt Rate 46; Glucose Fasting 162 mg/dL (60-99); HDL Cholesterol 56 mg/dL; LDL Cholesterol Calculated 82 mg/dl; Potassium 4.5 mmol/L (3.3-5.1); Sodium 140 mmol/L (135-145); Total Protein 6.8 g/dL (6.5-8.0); Triglycerides 106 mg/dL
[2022-06-27 12:31] LABS: Thyroid Stimulating Hormone 2.78 uIU/mL (0.32-4.0)
[2022-06-27 14:08] LABS: Microalbum/Creatinine Ratio Ur 13.4 ug/mg cr
== END 2022-06-27 10:41 | disposition home or self-care (01) ==
LOC: HO.LAB 10:40
PROVIDERS: PCP Internal Medicine; Visit Provider Internal Medicine
DX: E11.42 Type 2 diabetes mellitus with diabetic polyneuropathy (principal); R41.3 Other amnesia; E78.5 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, unspecified; Z79.4 Long term (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
CPT/HCPCS: 36415; 80053; 80061; 82043; 84443

== ENCOUNTER → 2022-07-04 14:00 | Outpatient (REF) | payer MEDICARE, SELFPAY | LOC: HO.SL 14:00 | PROVIDERS: PCP Internal Medicine; Visit Provider Psychiatry & Neurology Neurology | DX: G47.33 Obstructive sleep apnea (adult) (pediatric) (principal) | CPT/HCPCS: 95806 ==

== ENCOUNTER → 2022-07-17 13:59 | Outpatient (BNVA) | payer MEDICARE, SELFPAY | PROVIDERS: PCP Internal Medicine; Visit Provider Registered Nurse Diabetes Educator | DX: E11.42 Type 2 diabetes mellitus with diabetic polyneuropathy (principal); Z79.4 Long term (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 | CPT/HCPCS: 99211 ==

== ENCOUNTER → 2022-08-26 11:56 | Outpatient (BNVA) | payer MEDICARE, SELFPAY | PROVIDERS: PCP Internal Medicine; Referring Provider Internal Medicine; Visit Provider Internal Medicine Gastroenterology | DX: R13.19 Other dysphagia (principal); K63.89 Other specified diseases of intestine | CPT/HCPCS: 99212 ==

== ENCOUNTER → 2022-10-23 12:38 | Outpatient (BNVA) | payer MEDICARE, SELFPAY | PROVIDERS: PCP Internal Medicine; Visit Provider Internal Medicine Endocrinology, Diabetes & Metabolism | DX: E11.42 Type 2 diabetes mellitus with diabetic polyneuropathy (principal); Z79.4 Long term (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 | CPT/HCPCS: 82947; 83036; 99212 ==

== ENCOUNTER 2022-11-13 12:48 | Outpatient (REF) | payer MEDICARE, SELFPAY ==
--- NOTE | ~2022-11-13 | MM_ITS ---
EXAMINATION: BONE DENSITOMETRY CLINICAL INDICATION: Unspecified menopausal and perimenopausal disorder. COMPARISON: None (current study represents initial baseline exam). TECHNIQUE: Using a [employer] DXA System (software version: 13.1) manufactured by [email or web address], dual-energy x-ray absorptiometry was performed of the lumbar spine and left hip. The images are of good technical quality. Summary results are attached. FINDINGS: AP SPINE L1-L4: BMD 1.280 g/cm2, Z-score 2.3, T-score 0.8, normal. LEFT FEMUR, NECK: BMD 0.791 g/cm2, Z-score 0.1, T-score -1.8, osteopenia. LEFT FEMUR, TOTAL: BMD 0.995 g/cm2, Z-score 1.6, T-score -0.1, normal. IDENTIFIED RISK FACTORS: Recurrent falls. Secondary osteoporosis (type 1 diabetes, early menopause). Anticonvulsants. Hysterectomy. Bilateral oophorectomy. HISTORY OF FRACTURE: None listed. MEDICATIONS: Vitamin D. MM/XR DEXA axial skeleton IMPRESSION: 1. DIAGNOSIS: Osteopenia based on the lowest T-score value of -1.8 in the femoral neck applying World Health Organization criteria. 2. 10-YEAR FRACTURE RISK PREDICTION, FRAX: Major osteoporotic fracture (clinical spine, forearm, hip or shoulder) 7.9%. Hip fracture 1.9%. 3. Treatment Recommendations: NOF guidelines recommend consideration for treatment in postmenopausal women and men age 50 and older presenting with the following: -A hip or vertebral (clinical or morphometric) fracture. -T-score less than or equal to -2.5 at the femoral neck or spine after appropriate evaluation to exclude secondary causes. -Low bone mass at the hip or spine and a 10-year fracture probability by FRAX of greater than or equal to 3% for hip fracture or greater than or equal to 20% for major osteoporotic fracture based on the [place] adapted WHO algorithm. 4. Other Recommendations: All treatment decisions require clinical judgment and consideration of individual patient factors, including patient preferences, comorbidities, previous drug use, risk factors not captured in the FRAX model (e.g. frailty, falls, vitamin D deficiency, increased bone turnover, interval significant decline in bone density) and possible under or overestimation of fracture risk by FRAX. Additional medical evaluation for secondary cause of low bone mineral density may be appropriate. FUTURE SCAN RECOMMENDATION: People with diagnosed cases of osteoporosis or at high risk for fracture should have regular bone mineral density tests. For patients eligible for Medicare, routine testing is allowed once every 2 years. The testing frequency can be increased to one year for patients who have rapidly progressing disease, those who are receiving or discontinuing medical therapy to restore bone mass, or have additional risk factors.
== END 2022-11-13 12:49 | disposition home or self-care (01) ==
LOC: HO.MAMMO 12:48
PROVIDERS: PCP Internal Medicine; Visit Provider Internal Medicine
DX: Z13.820 Encounter for screening for osteoporosis (principal); Z78.0 Asymptomatic menopausal state
CPT/HCPCS: 77080

== ENCOUNTER 2022-11-14 10:28 | Outpatient (REF) | payer MEDICARE, SELFPAY ==
--- NOTE | ~2022-11-14 | MM_ITS ---
EXAMINATION: MM DIAGNOSTIC DIGITAL BREAST TOMOSYNTHESIS, BILATERAL US DIAGNOSTIC ULTRASOUND BREAST, LEFT CLINICAL INFORMATION: 77-year-old with left-sided breast pain for several weeks. No palpable mass or discharge. Prior remote outside mammography from [place] over 10 years ago and no longer available. No known family history breast cancer. The lifetime risk of breast cancer based on the Tyrer-Cuzick Model is 2%. COMPARISON: None (current study represents new baseline exam). TECHNIQUE: Digital breast tomosynthesis is performed in both the craniocaudal and mediolateral oblique views along with computer-aided detection (CAD). Synthesized 2D images are generated from the tomosynthesis. Ultrasound left breast is targeted to the areas of clinical concern using grayscale imaging and color Doppler without and with harmonics. Patient is able to point to area at time of imaging. FINDINGS: There are scattered areas of fibroglandular density (ACR BI-RADS breast composition Category b). There is no significant mass or architectural abnormality. Scattered fibroglandular densities appear normal. There is no skin thickening or coarsening of the Gaetano's ligaments. Scattered bilateral benign round and rim and some grouped coarse benign calcifications are present on each side. The axilla are unremarkable. Ultrasound demonstrates no cystic or solid mass or architectural abnormality. No focal duct ectasia. No skin thickening or edema tracking in soft tissue planes. No hyperemia on color Doppler. Results are discussed with the patient at time of visit. MM/MM tomosynthesis diagnostic BI IMPRESSION: 1. No mammographic evidence of malignancy or inflammatory changes. 2. Unremarkable targeted left breast ultrasound. ASSESSMENT: BI-RADS 2: Benign RECOMMENDATION: 1. Patient's left mastodynia should be managed based on the clinical impression. 2. Otherwise, routine annual screening mammography. This patient's information was entered into a reminder system with a target due date for their next mammogram.
== END 2022-11-14 10:29 | disposition home or self-care (01) ==
LOC: HO.MAMMO 10:28
PROVIDERS: PCP Internal Medicine; Visit Provider Internal Medicine
DX: N64.4 Mastodynia (principal)
CPT/HCPCS: 76641; 77062; 77066

== ENCOUNTER 2022-12-10 09:20 | Day surgery (SDC) | payer MEDICARE, SELFPAY ==
[2022-12-03 15:45] VITALS: BMI 31.9
[2022-12-10 09:59] VITALS: BP 92/46; PULSE 74; RESP 17; TEMP 36.4; O2SAT 95
[2022-12-10 09:59] LABS: Glucose, Whole Blood 121 mg/dL (60-115)
[2022-12-10] MEDS: Lactated Ringers 1,000 ML 50 ML IVCONT (10:10)
--- NOTE | 2022-12-10 10:24 | MHC.SHP ---
Pre-Procedural Eval Section A Date of Service: 12/10/22 Section B Chief Complaint: Other chronic pancreatitis,infectious gastroenteri Relevant Family History (Specify if Yes): No Relevant Social History: None Present Medications: see Short Stay Collaborative assessment Medical History: Significant History (Acid reflux Atherosclerotic cardiovascular disease BMI 34.0-34.9,adult Colitis Dizziness Epilepsy Essential hypertension Glaucoma 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 LDL goal <70 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, unspecified assisted (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 Major depression, recurrent Memory change Mild recurrent major depression Myoca) History of Previous Operations: Relevant previous surgery/procedure and date(s) (History of appendectomy History of bladder surgery History of colon resection History of intestinal surgery History of kidney surgery History of liver biopsy Hx of cholecystectomy Hx of hysterectomy) Allergies: Allergies Allergy/AdvReac Type Severity Reaction Status Date / Time Penicillins [PENICILLINS] Allergy Severe ANAPHYLAXIS Verified 12/10/22 09:43 Sulfa (Sulfonamide Allergy Severe ANAPHYLAXIS Verified 12/10/22 09:43 Antibiotics) [SULFA (SULFONAMIDE ANTIBIOTICS)] codeine Allergy Intermediate headache/mood Verified 12/10/22 09:43 changes dulaglutide [From Trulicity] Allergy Intermediate Nausea and Verified 12/10/22 09:43 Vomiting latanoprost AdvReac Intermediate eye redness Verified 12/10/22 09:43 Review of Systems Sugical H&P ROS: Negative: Constitution, Cardiovascular, Respiratory, Neurological, Psychiatric, Hem-Onc, Allergic/Immunologic, Gastrointestinal, Genitourinary, Musculoskeletal, Integumentary, Endocrine and Eyes/Ears/Nose/Throat Exam Surgical H&P Exam: Normal: HEENT, Normal: Heart, Normal: Lungs, Normal: Extremities, Normal: Abdomen, Normal: Skin and Normal: Neurological Plan Diagnosis/Plan: Unchanged I have reviewed the history and physical and performed a pertinent physical examination on my patient. No changes have occurred unless specified. Time Spent With Patient Time: Total time managing care of this patient today ____ minutes.
--- NOTE | 2022-12-10 10:25 | W.PM.OPN ---
Operative Note Operative Note Date of Service: 12/10/22 Narrative: Operative Information Procedure Description: EGD, Colonoscopy Indication: dysphagia, altered bowel habits Anesthesia: MAC FLEXIBLE TRANSORAL UPPER GASTROINTESTINAL ENDOSCOPY AND COLONOSCOPY PROCEDURE NOTE UPPER ENDOSCOPY Consent: Indications for the procedure and potential complications of bleeding, perforation, reaction to medications and missed diagnosis were discussed with the patient and informed consent was obtained. Instrument: Olympus GIF H 190 J mid size upper endoscope Monitoring: Vital signs and clinical assessment, continuous EKG monitoring, Pulse oximetry, Carbon Dioxide monitoring and blood pressure monitoring were done throughout the procedure. Procedure: The patient was placed in the left lateral decubitis position and pre-procedure medications were administered and a bite block was placed. The endoscope was inserted into the mouth and advanced under direct vision to the third part of duodenum. A careful inspection was made as the upper endoscope was withdrawn including a retroflexed examination of the proximal stomach; Findings and interventions are described below. Findings: Larynx:normal Esophagus: GE junction at 34 cm, diaphragm hiatus at 34 cm, furrowing and ridging of esophagus noted, bx taken from proximal, distal esophagus and GEJ. Dilation doen with balloon to 20 mm at LES and UES, small tear seen at GEJ. Stomach: Patchy erythema. Biopsies were obtained. Grade 2 flap valve on retroflexed examination of the cardia. Reduced gastric motility. Duodenum: Normal bulb and descending duodenum, Intervention: Biopsies as noted above COLONOSCOPY Instrument: Olympus variable stiffness pediatric scope 190L Colonoscopy Monitoring: Vital signs and clinical assessment, continuous EKG monitoring, Pulse oximetry, Carbon Dioxide monitoring and blood pressure monitoring were done throughout the procedure. Colon withdrawal time was 12 minutes. Procedure: The patient was placed in the left lateral decubitis position and pre-procedure medications were administered. After a digital rectal examination of the ano-rectum, the video colonoscope was inserted into the rectum and advanced through the colon to the cecum/TI. The colonoscope was slowly withdrawn in a retrograde panoramic fashion and the colon mucosa was carefully examined including a retroflexed view of the rectum. Findings and interventions are described below. Procedure Difficulty:moderate due to tortuous colon Findings: Terminal Ileum-normal, bx taken random colon bx taken Cecum:normal Ascending Colon: normal Transverse Colon -normal Descending Colon:normal Sigmoid Colon:mild diverticulosis Rectum: Retroflexion with small internal hemorrhoids, grade I Anorectum - normal Colon preparation: [place] Bowel Preparation Scale Right colon; 2 Transverse colon: 2 Left colon; 2 (0 = Unprepared colon segment with mucosa not seen due to solid stool that cannot be cleared. 1 = Portion of mucosa of the colon segment seen, but other areas of the colon segment not well seen due to staining, residual stool and/or opaque liquid. 2 = Minor amount of residual staining, small fragments of stool and/or opaque liquid, but mucosa of colon segment seen well. 3 = Entire mucosa of colon segment seen well with no residual staining, small fragments of stool or opaque liquid) Impression and Post Procedure Diagnosis: Endoscopy Findings: gastritis Colonoscopy Findings: internal hemorrhoids diverticular disease Plan: Await Pathology results Repeat Colonoscopy in 10 years if health allows for screening or earlier if clinically indicated High fiber diet leaflet avoid straining at stool, epsom salts and sitz bath, anusol supps or cream if sx persist after dilation then GES to r/o gastroparesis, ensure compliance with PPI Above findings were reviewed with the patient and relevant handouts were provided if indicated.
--- NOTE | 2022-12-10 11:21 | P.CONAN_ITS ---
HPI - Anesthesia Eval Consult details Narrative: 77 yo female patient for EGD, Colonoscopy [facility] Active Problems Active Problems: All Active Problems (Updated 12/04/22 @ 11:11 by Tjea Lyn MD) Low back pain (Acute) Falls frequently (Acute) Uncontrolled hypertension (Acute) Pelvic pain (Acute) Infectious colitis (Acute) Acute blood loss anemia (Acute) Lower GI bleed (Acute) Left shoulder pain (Acute) Rash (Acute) Hospital discharge follow-up (Acute) Chronic pancreatitis (Acute) B12 deficiency anemia (Acute) Physical exam (Acute) Breast pain, left (Acute) Dizziness (Acute) Mild recurrent major depression (Acute) Epilepsy (Acute) Memory change (Acute) Type 2 diabetes mellitus with diabetic polyneuropathy (Acute) Type 2 diabetes mellitus with hyperglycemia (Acute) Essential hypertension (Acute) 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 LDL goal <70 (Acute) BMI 34.0-34.9,adult (Acute) 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, unspecified (Acute) supervisor 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 (Acute) Type 2 diabetes mellitus with unspecified complications (Acute) Atherosclerotic cardiovascular disease (Acute) Past Medical History Medical History Acid reflux Atherosclerotic cardiovascular disease BMI 34.0-34.9,adult Colitis Dizziness Epilepsy Essential hypertension Glaucoma 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 LDL goal <70 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, unspecified supervisor 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 Major depression, recurrent Memory change Mild recurrent major depression Myocardial infarction Neuropathy Obesity due to excess calories Seizures Stroke Type 2 diabetes mellitus with diabetic polyneuropathy Type 2 diabetes mellitus with hyperglycemia Type 2 diabetes mellitus with unspecified complications Family History Family History Father Cardiovascular disease Mother Cardiovascular disease Sister Diabetes Brother Diabetes Other Mental health disorder Family history of problems with anesthesia: No Surgical History Surgical History History of appendectomy History of bladder surgery History of colon resection History of intestinal surgery History of kidney surgery History of liver biopsy Hx of cholecystectomy Hx of hysterectomy History of Problems with Anesthesia: No Social History Social History Household Members: None Housing: Apartment Are you a primary youth career specialist to a significant other at home: No Do you presently have visiting nurse or other home services: No Alcohol intake: current Alcohol intake frequency: does not drink Patient Tobacco Use Status: Never used Tobacco e-Cigarette/Vaping Use: Never Used Second Hand Smoke Exposure: No Use of substances other than those prescribed or required for medical reasons: No Have you been hit, kicked, punched, or otherwise hurt by someone within the past year? If so, by whom?: No Are you DNR?: No Advance Directives: No Advance Directives Information Provided: Yes (brochure mailed) Advance Directives on File: No Recently lost weight without trying: No Eating poorly because of decreased appetite: No Nutrition Risks: Surgical patient >75years Poor oral hygiene: Yes (missing & broken teeth) service: No Current occupational status: retired Cognitive needs: Yes Hearing needs: No Vision needs: Yes Meds Allergies Allergy/AdvReac Type Severity Reaction Status Date / Time Penicillins [PENICILLINS] Allergy Severe ANAPHYLAXIS Verified 12/10/22 09:43 Sulfa (Sulfonamide Allergy Severe ANAPHYLAXIS Verified 12/10/22 09:43 Antibiotics) [SULFA (SULFONAMIDE ANTIBIOTICS)] codeine Allergy Intermediate headache/mood Verified 12/10/22 09:43 changes dulaglutide [From Trulicity] Allergy Intermediate Nausea and Verified 12/10/22 09:43 Vomiting latanoprost AdvReac Intermediate eye redness Verified 12/10/22 09:43 Active Medications: Current Medications Lactated Ringer's (Lr) 1,000 mls @ 50 mls/hr IVCONT .Q20H SUMA Last Admin: 12/10/22 10:10 Dose: 50 mls/hr Home Medications Medication Instructions Recorded Confirmed Last Taken Type aspirin 81 mg tablet,delayed 81 mg PO DAILY 08/14/20 12/03/22 12/21/21 History release venlafaxine 150 mg 150 mg PO BEDTIME 08/14/20 12/03/22 12/21/21 History capsule,extended release 24 hr venlafaxine 37.5 mg 37.5 mg PO BEDTIME 12/22/21 12/03/22 12/21/21 History capsule,extended release 24 hr (Effexor XR) mecobalamin (vitamin B12) 1,000 1,000 mcg sublingual DAILY 04/26/22 12/03/22 Unknown History mcg disintegrating tablet,sublingual cholecalciferol (vitamin D3) 50 50 mcg PO DAILY 05/28/22 12/03/22 Unknown History mcg (2,000 unit) capsule zonisamide 100 mg capsule 100 mg PO BEDTIME 08/26/22 12/03/22 Unknown History insulin degludec 200 unit/mL (3 26 unit subcut BEDTIME 10/28/22 12/03/22 Unknown History mL) subcutaneous pen (Tresiba FlexTouch U-200 insulin) insulin lispro 100 unit/mL 12 unit subcut TID 12/03/22 12/03/22 Unknown History subcutaneous pen (Humalog KwikPen (U-100) Insulin) Exam Exam Date and Time: December 10, 2022 1121 Height,Weight and Vital Signs: Height 5 ft Weight 74.162 kg Last Vital Signs Temp 97.6 F 12/10/22 09:59 Pulse 74 12/10/22 09:59 Resp 17 12/10/22 09:59 BP 92/46 L 12/10/22 09:59 Pulse Ox 95 12/10/22 09:59 O2 Del Method 12/10/22 09:59 Pertinent Lab Results Pertinent Lab Results: Laboratory Tests 12/10/22 09:50 POC Glucose 121 H Airway Mallampati Class: II TM Dist: >3cm Neck ROM: Full Loose/Missing/Broken Teeth: Yes (Many missing. Denies loose) Heart: RRR Lungs: CTAB Assessment and Plan Assessment Anesthesia Assessment: Anesthesia Plan Discussed and Chart Reviewed Final Anesthetic Review Family History of Problems with Anesthesia: No History of Problems with Anesthesia: No NPO: Yes ASA Class: III Final Preanesthetic Review: No Changes in Pt Med Stat, Meds/Allgs Chart Reviewed, Consent Obtained/Reviewed and Anes Risks/Benef Reviewed Patient Risk: Intermediate Procedure Risk: Low Assessment/Block/Sedation in SS: Assess/Block/Sedation-SS Anesthetic Plan Anesthetic Plan: MAC: Disposition: Standard PACU
[2022-12-10 11:28] VITALS: BP 108/35; PULSE 74; RESP 16; TEMP 36.5; O2SAT 98
[2022-12-10 11:43] VITALS: BP 124/44; PULSE 70; RESP 16; TEMP 36.5; O2SAT 98
== END 2022-12-10 12:47 | disposition home or self-care (01) ==
PROVIDERS: PCP Internal Medicine; Visit Provider Internal Medicine Gastroenterology
PROC: (CPT 45380; principal; 2022-12-10 11:10)
DX: R19.4 Change in bowel habit (principal); K57.30 Diverticulosis of large intestine without perforation or abscess without bleeding; K64.0 First degree hemorrhoids; K56.2 Volvulus; K86.1 Other chronic pancreatitis; A09 Infectious gastroenteritis and colitis, unspecified; R13.10 Dysphagia, unspecified; K29.50 Unspecified chronic gastritis without bleeding; K21.9 Gastro-esophageal reflux disease without esophagitis; K44.9 Diaphragmatic hernia without obstruction or gangrene; G40.909 Epilepsy, unspecified, not intractable, without status epilepticus; F33.0 Major depressive disorder, recurrent, mild; I10 Essential (primary) hypertension; E78.5 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, unspecified; E11.42 Type 2 diabetes mellitus with diabetic polyneuropathy; E11.65 Type 2 diabetes mellitus with hyperglycemia; Z79.4 Long term (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; Z79.82 Long term (current) use of aspirin; Z79.899 Other long term (current) drug therapy; Z88.0 Allergy status to penicillin; Z88.2 Allergy status to sulfonamides; Z88.8 Allergy status to other drugs, medicaments and biological substances; Z90.49 Acquired absence of other specified parts of digestive tract
CPT/HCPCS: 45380; 43249; 43239; 82947; 88305; 88342; C1726

== ENCOUNTER 2022-12-19 11:35 | Outpatient (REF) | payer MEDICARE, SELFPAY ==
--- NOTE | ~2022-12-19 | XR_ITS ---
EXAMINATION: XR HIP, RIGHT CLINICAL INFORMATION: Pain. COMPARISON: None TECHNIQUE: AP and frog-leg lateral views of the right hip. FINDINGS: Bony alignment and mineralization are normal. The right acetabular joint space is well-maintained. There is mild irregularity of the upper articular surface of the right acetabulum. The right femoral head appears smooth. There is no fracture or dislocation. No foreign body is seen. Pelvic surgical clips and anastomotic staple lines are noted. XR/XR hip RT min 2V IMPRESSION: There is very mild osteoarthritic change of the right hip. No fracture or dislocation is seen. EXAMINATION: XR HIP, LEFT CLINICAL INFORMATION: Pain. COMPARISON: None TECHNIQUE: AP and frog-leg lateral views of the left hip. FINDINGS: Bones and soft tissues are normal. No fracture. Alignment is anatomic. Hip joint space is maintained. A small osteophyte arises from the greater trochanter of the proximal left femur. Pelvic surgical clips and anastomotic soumya are noted, as above. IMPRESSION: Normal left hip.
--- NOTE | ~2022-12-19 | XR_ITS ---
EXAMINATION: XR LUMBOSACRAL SPINE CLINICAL INFORMATION: Lower back pain. COMPARISON: None TECHNIQUE: AP and lateral views of the lumbar spine and lateral view of the lumbosacral junction. FINDINGS: There is bony demineralization. Vertebral body heights and alignment are normal. The lumbar disc spaces are well-maintained. No acute fracture or spondylolisthesis is seen. There is multi-level mild lumbar spondylosis. The posterior elements are intact. There is facet arthropathy at L5-S1. The paravertebral soft tissues are unremarkable. Abdominal and pelvic surgical clips are seen. There are aortoiliac atherosclerotic calcifications. XR/XR lumbar spine 2-3V IMPRESSION: 1. No acute fracture or spondylolisthesis is seen. 2. The lumbar disc spaces are well-maintained. 3. There is multi-level lumbar spondylosis. 4. There is facet arthropathy at L5-S1.
--- NOTE | ~2022-12-19 | XR_ITS ---
EXAMINATION: XR HIP, RIGHT CLINICAL INFORMATION: Pain. COMPARISON: None TECHNIQUE: AP and frog-leg lateral views of the right hip. FINDINGS: Bony alignment and mineralization are normal. The right acetabular joint space is well-maintained. There is mild irregularity of the upper articular surface of the right acetabulum. The right femoral head appears smooth. There is no fracture or dislocation. No foreign body is seen. Pelvic surgical clips and anastomotic staple lines are noted. XR/XR hip LT min 2V IMPRESSION: There is very mild osteoarthritic change of the right hip. No fracture or dislocation is seen. EXAMINATION: XR HIP, LEFT CLINICAL INFORMATION: Pain. COMPARISON: None TECHNIQUE: AP and frog-leg lateral views of the left hip. FINDINGS: Bones and soft tissues are normal. No fracture. Alignment is anatomic. Hip joint space is maintained. A small osteophyte arises from the greater trochanter of the proximal left femur. Pelvic surgical clips and anastomotic soumya are noted, as above. IMPRESSION: Normal left hip.
== END 2022-12-19 11:36 | disposition home or self-care (01) ==
LOC: HO.XRAY 11:35
PROVIDERS: PCP Internal Medicine; Visit Provider Internal Medicine
DX: M54.50 Low back pain, unspecified (principal); M25.551 Pain in right hip; M25.552 Pain in left hip; E53.8 Deficiency of other specified B group vitamins
CPT/HCPCS: 72100; 73502

== ENCOUNTER → 2022-12-23 11:25 | Outpatient (BNVA) | payer MEDICARE, SELFPAY | PROVIDERS: PCP Internal Medicine; Visit Provider Internal Medicine Gastroenterology | DX: A09 Infectious gastroenteritis and colitis, unspecified (principal) | CPT/HCPCS: 99212 ==

== ENCOUNTER → 2023-01-22 12:33 | Outpatient (BNVA) | payer MEDICARE, OTHER, SELFPAY | PROVIDERS: PCP Internal Medicine; Visit Provider Internal Medicine Endocrinology, Diabetes & Metabolism | DX: E11.42 Type 2 diabetes mellitus with diabetic polyneuropathy (principal); Z79.4 Long term (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 | CPT/HCPCS: 82947; 83036; 99212 ==

== ENCOUNTER → 2023-02-20 12:04 | Outpatient (BNVA) | payer MEDICARE, SELFPAY | PROVIDERS: PCP Internal Medicine; Referring Provider Internal Medicine; Visit Provider Internal Medicine | DX: I25.10 Atherosclerotic heart disease of native coronary artery without angina pectoris (principal); I10 Essential (primary) hypertension; E11.65 Type 2 diabetes mellitus with hyperglycemia; E11.40 Type 2 diabetes mellitus with diabetic neuropathy, unspecified; E78.5 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, unspecified; Z79.4 Long term (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 | CPT/HCPCS: 93005; 99212 ==

== ENCOUNTER → 2023-03-18 10:11 | Outpatient (BNVA) | payer MEDICARE, SELFPAY | PROVIDERS: PCP Internal Medicine; Visit Provider Registered Nurse Diabetes Educator | DX: E11.65 Type 2 diabetes mellitus with hyperglycemia (principal); Z79.4 Long term (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 | CPT/HCPCS: 99211 ==

== ENCOUNTER 2023-05-05 11:10 | Outpatient (REF) | payer MEDICARE, SELFPAY ==
[2023-05-05 11:33] LABS: MANUAL DIFF FLAG NO
[2023-05-05 11:51] LABS: Basophils Percent Auto 0.5 % (0-2); Eosinophils Absolute Auto 0.2 X10*3/uL (0.0-0.4); Eosinophils Percent Auto 2.6 % (0-4); Hematocrit 35.5 % (37.0-47.0); Hemoglobin 10.6 g/dl (12.0-16.0); Imm Gran Abs Auto 0.02 X10*3/uL (0.00-0.03); Imm Gran Pct Auto 0.3 % (0.0-0.4); Lymphocytes Absolute Auto 1.6 X10*3/uL (1.2-4.9); Lymphocytes Percent Auto 21.9 % (20-40); Mean Corpuscular HGB Conc 29.9 g/dl (31.0-35.0); Mean Corpuscular Volume 80.5 fL (80.0-98.0); Mean Platelet Volume 10.5 fL (9.4-12.3); Monocytes Absolute Auto 0.5 X10*3/uL (0.1-1.2); Neutrophils Percent Auto 67.7 % (45-73); Platelet Count 288 X10*3/uL (160-400); Red Blood Count 4.41 X10*6/uL (4.20-5.50); White Blood Count 7.4 X10*3/uL (4.8-10.8)
[2023-05-05 12:51] LABS: Alanine Aminotransferase 13 U/L (0-31); Albumin Level 3.7 g/dL (3.5-5.0); Alkaline Phosphatase 78 U/L (39-117); Anion Gap 13 (12-20); Aspartate Amino Transferase 16 U/L (5-31); Bilirubin Total 0.3 mg/dL (0.0-1.0); Blood Urea Nitrogen 15 mg/dL (9-16); Calcium 9.7 mg/dL (8.4-10.2); Carbon Dioxide 24 mmol/L (22-29); Chloride 109 mmol/L (96-108); Cholesterol 117 mg/dL; Estimated Glomerular Filt Rate > 60; Glucose Fasting 151 mg/dL (60-99); HDL Cholesterol 54 mg/dL; LDL Cholesterol Calculated 47 mg/dl; Potassium 4.5 mmol/L (3.3-5.1); Sodium 141 mmol/L (135-145); Total Protein 6.7 g/dL (6.5-8.0); Triglycerides 81 mg/dL
[2023-05-05 13:07] LABS: Thyroid Stimulating Hormone 2.54 uIU/mL (0.32-4.0); Vitamin D 25-OH Total 49.6 ng/mL (>30)
[2023-05-05 13:13] LABS: Creatinine Urine 171.98 mg/dL; Microalbum/Creatinine Ratio Ur 26.7 ug/mg cr
[2023-05-05 13:36] LABS: Folate 14.4 ng/mL (> or = 4.0); Vitamin B12 603 pg/mL (200-900)
== END 2023-05-05 11:11 | disposition home or self-care (01) ==
LOC: HO.LAB 11:10
PROVIDERS: PCP Internal Medicine; Visit Provider Internal Medicine
DX: D51.9 Vitamin B12 deficiency anemia, unspecified (principal); E55.9 Vitamin D deficiency, unspecified; L65.9 Nonscarring hair loss, unspecified; E78.5 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, unspecified; E11.42 Type 2 diabetes mellitus with diabetic polyneuropathy; Z79.4 Long term (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
CPT/HCPCS: 36415; 80053; 80061; 82043; 82306; 82607; 82746; 84443; 85025

== ENCOUNTER 2023-05-26 10:49 | Outpatient (AMB) | payer MEDICARE, SELFPAY ==
--- NOTE | 2023-05-26 10:50 | MHC.OFFVIS ---
Intake Vital Signs 05/26/23 10:52 Height 5 ft Weight 158 lb 11.725 oz BMI 31.0 BP 147/67 H Blood Pressure Location Lt brachial Position Sitting Pulse 63 Intake Visit Reasons: 4-6 month fu Intake Note: Jennifer presents in the office as a 4-6 month follow up. CC: She states that she is depressed. She cannot leave her house because of the diarrhea. It comes and goes but having diarrhea 15 times takes a lot out of her. The medication was working before but now it is happening alot and there is a lot of things that she is unable to eat because she has diarrhea. She is losing weight because everything she eats makes her sick. She feels like she is worried it will become into cancer. She also has nausea and sometimes she has vomiting at times. Pals Specialist Required: No Allergies Penicillins [PENICILLINS] Allergy (Severe, Verified 05/26/23 10:59) ANAPHYLAXIS Sulfa (Sulfonamide Antibiotics) [SULFA (SULFONAMIDE ANTIBIOTICS)] Allergy (Severe, Verified 05/26/23 10:59) ANAPHYLAXIS codeine Allergy (Intermediate, Verified 05/26/23 10:59) headache/mood changes dulaglutide [From Trulicity] Allergy (Intermediate, Verified 05/26/23 10:59) Nausea and Vomiting latanoprost Adverse Reaction (Intermediate, Verified 05/26/23 10:59) eye redness HPI 4-6 month fu HPI Details 78 yr old f here for follow up RECAP: seen initially as in patient 12/2021 Patient had sudden onset lower abdominal pain for few days with nausea and non bloody emesis. She then developed bloody diarrhea. On day he sx had commenced she had dinner spinach and artichoke dip and chicken, and symptoms seem to have started shortly after eating this. she has never been a heavy drinker ?Labs revealed leukocytosis of 16.2. H/H was stable, lactive acid normal. Heme occult was positive. Imaging: CT scan of the abdomen/pelvis with inflammed bowel descending and transverse possibly suggestive of ischemic or infectious/inflammatory colitis, perisplenic varices and atrophic pancreas (never been a heavy drinker) ?She was started on IV levaquin and flagyl and symptoms improved I ordered repeat CT due to some ongoing sx 01/07/22 Multiple tyshawn splenic varices large vol stool in the large post cholecystectomy LABS: 2021--- neg celiac, neg intrinsic and parietal Ab EGD/colo: 11/2022 Endoscopy Findings: gastritis had dilation of esophagus as well Colonoscopy Findings: internal hemorrhoids diverticular disease bx with focal colitis and gastritis INTERIM: She has issues with unexpected diarrhea anything she eats can give her diarrhea she feels she is losing weight no swallowing or choking with food she has a lot of nausea denies acid reflux she is still taking mesalamine daily but she feels is not helping as much as before still taking pantoprazole LABS: 04/2023-- mild anemia -chronic, nml CMP, EXAM: GENERAL: The patient is well developed and nontoxic. VITAL SIGNS:see workflow HEENT: Nonicteric sclerae, PERRLA, EOMI. Oropharynx clear. Moist mucous membranes. Conjunctivae appear well perfused. No thyroid mass. CHEST: Chest wall is nontender. HEART: Regular rate and rhythm without murmurs. LUNGS: Clear to auscultation bilaterally. ABDOMEN: Soft, positive bowel sounds, tender upper abdomen, no organomegaly.no flank tenderness SKIN: No rash, no excessive bruising, petechiae, or purpura. NEUROLOGIC: Cranial nerves II-XII intact without motor/sensory deficit. 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 with partial improvement with mesalamine ddx: medication related Se, microscopic colitis 2/ dysphagia, resolved 3/ upper abdo tenderness PLAN: 1/ trial of cholestyramine with the mesalamine 2/ xcheck stool studies incl panc elastase and c diff 3/ if ongoing then maybe repeat colonoscopy 4/ also US for upper abdominal tenderness r/o retained stones, liver lesion [facility] Medical History Acid reflux Atherosclerotic cardiovascular disease BMI 34.0-34.9,adult Colitis Dizziness Epilepsy Essential hypertension Glaucoma 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 LDL goal <70 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, unspecified [employer] (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 Major depression, recurrent Memory change Mild recurrent major depression Myocardial infarction Neuropathy Obesity due to excess calories Seizures Stroke Type 2 diabetes mellitus with diabetic polyneuropathy Type 2 diabetes mellitus with hyperglycemia Type 2 diabetes mellitus with unspecified complications Surgical History History of appendectomy History of bladder surgery History of colon resection History of esophagogastroduodenoscopy (EGD) History of intestinal surgery History of kidney surgery History of liver biopsy Hx of cholecystectomy Hx of colonoscopy Hx of hysterectomy Family History Father Cardiovascular disease Mother Cardiovascular disease Sister Diabetes Brother Diabetes Other Mental health disorder Social History Household Members: None Housing: Apartment Are you a primary daycare provider to a significant other at home: No Do you presently have visiting nurse or other home services: No Alcohol intake: never Patient Tobacco Use Status: Never used Tobacco e-Cigarette/Vaping Use: Never Used Second Hand Smoke Exposure: No service: No Current occupational status: retired Cognitive needs: Yes Hearing needs: No Vision needs: Yes Physical Exam Vital Signs: Last Vital Signs Pulse 63 05/26/23 10:52 BP 147/67 H 05/26/23 10:52 BMI result Body Mass Index 31.0 Assessment & Plan Assessment & Plan (1) Infectious colitis: Code(s): A09 - Infectious gastroenteritis and colitis, unspecified (2) Chronic pancreatitis: Code(s): K86.1 - Other chronic pancreatitis Orders: Orders CDiff Gene PCR Today A09 - Infectious gastroenteritis and colitis, unspecified GI Panel Today A09 - Infectious gastroenteritis and colitis, unspecified, R19.7 - Diarrhea, unspecified Lactoferrin, Fecal, Quant. Today A09 - Infectious gastroenteritis and colitis, unspecified, K51.50 - Left sided colitis without complications US abdomen complete Today K86.1 - Other chronic pancreatitis Pancreatic Elastase-1 Today A09 - Infectious gastroenteritis and colitis, unspecified, K86.1 - Other chronic pancreatitis Medications: New cholestyramine-aspartame 4 gram (Cholestyramine Light) administer w/meal; avoid other meds within 1hr before or 4-6hr after dose 4 grams PO BID 60 ea 1RF Coding Level of Care Code Est Pt Level 3 (31928) Diagnoses Infectious colitis A09 Chronic pancreatitis K86.1
[2023-05-26 10:52] VITALS: BP 147/67; PULSE 63; BMI 31.0
== END 2023-05-26 13:04 | disposition home or self-care (01) ==
PROVIDERS: Visit Provider Internal Medicine Gastroenterology
DX: A09 Infectious gastroenteritis and colitis, unspecified (principal); K86.1 Other chronic pancreatitis
CPT/HCPCS: 99213

== ENCOUNTER → 2023-05-26 10:49 | Outpatient (BNVA) | payer MEDICARE, SELFPAY | PROVIDERS: Visit Provider Internal Medicine Gastroenterology | DX: A09 Infectious gastroenteritis and colitis, unspecified (principal); K86.1 Other chronic pancreatitis | CPT/HCPCS: 99212 ==

== ENCOUNTER 2023-05-28 11:54 | Outpatient (AMB) | payer MEDICARE, SELFPAY ==
[2023-05-28 11:59] VITALS: BP 136/78; PULSE 68; O2SAT 100; BMI 31.6
--- NOTE | 2023-05-28 11:59 | A.OFFPC_ITS ---
Vital Signs 05/28/23 11:59 Height 5 ft Weight 162 lb BMI 31.6 BP 136/78 Blood Pressure Location Lt brachial Position Sitting Pulse 68 Pulse Source Pulse Oximeter Temp Source Skin Pulse Oximetry (%) 100 Oxygen Delivery Method Room Air Intake Visit Reasons: cataract surgery/ 06/18/23 Intake Note: Patient is here for a Pre-op for Cataract Surgery scheduled with Dr. 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: No Allergies Penicillins [PENICILLINS] Allergy (Severe, Verified 05/28/23 12:11) ANAPHYLAXIS Sulfa (Sulfonamide Antibiotics) [SULFA (SULFONAMIDE ANTIBIOTICS)] Allergy (Severe, Verified 05/28/23 12:11) ANAPHYLAXIS codeine Allergy (Intermediate, Verified 05/28/23 12:11) headache/mood changes dulaglutide [From Trulicity] Allergy (Intermediate, Verified 05/28/23 12:11) Nausea and Vomiting latanoprost Adverse Reaction (Intermediate, Verified 05/28/23 12:11) eye redness Medication List - Last Reconciled 05/28/23 by DAVID Naranjo albuterol sulfate 90 mcg/actuation (ProAir HFA) 2 puffs inhalation Q4H PRN 30 days amlodipine 5 mg PO DAILY aspirin 81 mg PO DAILY atenolol 100 mg PO DAILY atorvastatin 80 mg PO DAILY blood sugar diagnostic (Accu-Chek Guide test strips) USE 1 STRIP 4 TIMES DAILY DIRECTED blood-glucose meter (Accu-Chek Guide Glucose Meter) As directed cholecalciferol (vitamin D3) 50 mcg PO DAILY cholestyramine-aspartame 4 gram (Cholestyramine Light) 1 ea PO BID docusate sodium (Colace) 100 mg PO DAILY PRN 90 days flash glucose sensor (FreeStyle Jessica 2 Sensor kit) As directed change every 14 days insulin degludec (Tresiba FlexTouch U-200 insulin) 26 units (0.13 mL) subcut BEDTIME insulin lispro (Humalog KwikPen (U-100) Insulin) 12 units (0.12 mL) subcut TID lancets (TRUEplus Lancets) four times a day lidocaine 4% (Aspercreme (lidocaine)) 1 patch topical DAILY PRN linagliptin-metformin 2.5-1,000 mg (Jentadueto) 1 tab PO BID lisinopril 40 mg PO DAILY mecobalamin (vitamin B12) 1,000 mcg sublingual DAILY mesalamine ER (Apriso) 1.5 grams (4 x 0.375 gram) PO QAM montelukast 10 mg PO DAILY PRN nitroglycerin 0.4 mg sublingual Q5M PRN pantoprazole 40 mg PO DAILY 90 days pen needle, diabetic (BD Ultra-Fine Pam Pen Needle) As directed five times a day venlafaxine ER (Effexor XR) 37.5 mg PO BEDTIME venlafaxine ER 150 mg PO BEDTIME zonisamide 100 mg PO BEDTIME Tobacco use date assessed: 05/28/23 Fall risk assessment: No Falls in past year Last assessed Fall Risk: 05/28/23 HPI cataract surgery/ 06/18/23 HPI Details Patient is a 78-year-old female who presents today for preop clearance. Pt of Dr. Villagomez. Surgery/Date: Right eye cataract 06/18/23 Surgeon: Dr. Hansen Location: [place], [place] Anaesthesia: Local/MAC. Patient reports history of general anesthesia in the past that she tolerated well. Patient denies history of perioperative hypothermia or blood clotting disorders. Patient is on aspirin 81 mg daily. Medical history significant for atherosclerotic cardiovascular disease -followed by Dr. Carmen, diabetes type 2 - on insulin, hyperlipidemia, hypertension, memory change, epilepsy-followed by Dr. Santillan, depression, chronic pancreatitis-followed by [facility], low back pain among others. Patient denies shortness of breath or chest pain in the office today, although she reports intermittent chest pain with shortness of breath with activity with prolonged walking after myocardial infarction in 2013. Patient reports multiple moles on her lower abdomen and would like referral to Dermatology. [facility] Medical History Acid reflux Atherosclerotic cardiovascular disease BMI 34.0-34.9,adult Colitis Dizziness Epilepsy Essential hypertension Glaucoma 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 LDL goal <70 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, unspecified prison (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 Major depression, recurrent Memory change Mild recurrent major depression Myocardial infarction Neuropathy Obesity due to excess calories Seizures Stroke Type 2 diabetes mellitus with diabetic polyneuropathy Type 2 diabetes mellitus with hyperglycemia Type 2 diabetes mellitus with unspecified complications Surgical History History of appendectomy History of bladder surgery History of colon resection History of esophagogastroduodenoscopy (EGD) History of intestinal surgery History of kidney surgery History of liver biopsy Hx of cholecystectomy Hx of colonoscopy Hx of hysterectomy Family History Father Cardiovascular disease Mother Cardiovascular disease Sister Diabetes Brother Diabetes Other Mental health disorder Social History Household Members: None Housing: Apartment Are you a primary emergency care tech to a significant other at home: No Do you presently have visiting nurse or other home services: No Alcohol intake: never Patient Tobacco Use Status: Never used Tobacco e-Cigarette/Vaping Use: Never Used Second Hand Smoke Exposure: No service: No Current occupational status: retired Cognitive needs: Yes Hearing needs: No Vision needs: Yes Questionnaire Thrive Questionnaire Date Thrive assessed: 12/19/22 AUDIT C Alcohol Use Questionnaire (AUDIT-C) 1. How often do you have a drink containing alcohol?: Monthly or less 2. How many drinks containing alcohol do you have on a typical day when you are drinking?: 1 or 2 3. How often do you have six or more drinks on one occasion?: Never Total Score: 1 Score Reviewed/Action Taken: No PARVEEN-7 AMB Questionnaire PARVEEN-7 Date PARVEEN - 7 assessed: 12/19/22 Source: Developed by Drs. Osmar Hoyt, Jsesie Vanessa, Gurmeet Frey and colleagues, with an educational pippa from [employer]. Review of Systems Const Denies body aches, Denies chills, Denies fever(s) and Denies headache(s) Eyes Reports blurry vision ENT Denies dizziness, Denies otalgia, Denies headache(s), Denies nasal discharge, Denies sinus pain and Denies sore throat Card Denies chest pain, Reports chest pain with activity (Intermittent), Denies edema, Denies lightheadedness, Denies dyspnea and Reports dyspnea on exertion (Intermittent) Resp Denies cough, Denies dyspnea and Reports dyspnea on exertion (Intermittent) GI Denies abdominal pain Denies dysuria Musc Denies myalgias Skin/Breast Reports as per HPI and Denies rash Neuro Denies dizziness and Denies headache(s) Physical exam (Primary Care) Vital Signs: Last Vital Signs Pulse 68 05/28/23 11:59 BP 136/78 05/28/23 11:59 Pulse Ox 100 05/28/23 11:59 Oxygen Delivery Method Room Air 05/28/23 11:59 BMI result Body Mass Index 31.6 Tobacco/Smoking Status: Tobacco use Status Tobacco use date assessed 05/28/23 05/28/23 12:06 Patient Tobacco Use Status Never used Tobacco 05/28/23 12:01 e-Cigarette/Vaping Use Never Used 05/28/23 12:01 Thrive Assessment: Date of Thrive Assessment Date Thrive assessed 12/19/22 05/28/23 12:01 Const General: cooperative and no acute distress Orientation/consciousness: patient oriented x3 HENMT Head: Yes normocephalic and Yes atraumatic Ears: TM's normal bilaterally Face and sinus: Yes sinuses nontender Mouth: oropharynx normal and moist mucous membranes Throat: Yes posterior oropharynx normal Eyes General: appearance normal, both eyes and all related structures Pupils: Equal, round and reactive pupils present EOM: EOMs intact bilaterally Neck Neck: Yes normal visual inspection, Yes full ROM and Yes no lymphadenopathy Thyroid: Thyroid normal Resp Effort & Inspection: normal respiratory effort and able to speak in complete sentences Auscultation: clear to auscultation bilaterally, no crackles, no rales, no rhonchi and no wheezes Cardio Rate: regular rate Rhythm: regular rhythm Heart sounds: S1 normal heart sound present, S2 normal heart sound present and no murmurs GI Palpation (GI): Soft to palpation, not firm, nontender, no guarding, not rigid and no hepatosplenomegaly Auscultation: normal bowel sounds General: No CVA tenderness Back/Spine/Pelvis Back: No CVA tenderness Skin Other: Multiple intact moles noted to lower abdomen, no signs of infection noted Neuro General: patient oriented x3 Cranial nerves: Yes Equal, round and reactive pupils present Gait exam (Neuro): Normal gait present Extrem General: Yes full ROM and No edema Results Reviewed Results Reviewed: Laboratory Tests 05/28/23 05/28/23 05/28/23 13:17 13:17 13:17 WBC 7.7 RBC 4.34 Hgb 10.7 L Hct 35.9 L MCV 82.7 MCH 24.7 L MCHC 29.8 L RDW 14.6 Plt Count 298 MPV 11.5 Absolute Nucleated RBC 0.000 Nucleated RBC % (auto) 0.0 PT 10.3 INR 0.9 Sodium 137 Potassium 4.2 Chloride 104 Carbon Dioxide 25 Anion Gap 12 BUN 20 H Creatinine 0.94 Estim Creat Clear Calc TNP Estimated GFR 57 Random Glucose 205 H Estimat Average Glucose Hemoglobin A1c % Calcium 9.4 TSH 1.36 05/28/23 13:17 WBC RBC Hgb Hct MCV MCH MCHC RDW Plt Count MPV Absolute Nucleated RBC Nucleated RBC % (auto) PT INR Sodium Potassium Chloride Carbon Dioxide Anion Gap BUN Creatinine Estim Creat Clear Calc Estimated GFR Random Glucose Estimat Average Glucose 160 Hemoglobin A1c % 7.2 Calcium TSH Assessment and Plan Assessment & Plan (1) Numerous skin moles: Code(s): D22.9 - Melanocytic nevi, unspecified Plan: Dermatology referral for an evaluation and treatment (2) Preoperative clearance: Code(s): Z01.818 - Encounter for other preprocedural examination Plan: METs <4; RCRI Class 4 cardiovascular risk 11% for a low risk surgery (recent blood work 05/2023) Patient is not cleared for cataract surgery due to report of intermittent chest pain with shortness of breath with activity with prolonged walking since having myocardial infarction in 2013, pending Cardiology clearance for surgery. Ordering Physician: Emy Lebron Date of Service: 05/28/23 Procedure(s): ECG 12 lead EKG Accession Number(s): [id number] cc: Emy Lebron~ Test Reason : cp Blood Pressure : / mmHG Vent. Rate : 062 BPM ? ? Atrial Rate : 062 BPM ?? P-R Int : 162 ms? QRS Dur : 088 ms ? ? QT Int : 422 ms ? ? ? P-R-T Axes : 017 041 084 degrees ?? QTc Int : 428 ms ? Normal sinus rhythm Normal ECG When compared with ECG of 13-AUG-2018 06:41, No significant change was found ? Referred By: Emy Lebron ? Electronically Signed By:Yan Souza (3) Cataract: Code(s): H26.9 - Unspecified cataract Plan: Surgery/Date: Right eye cataract 06/18/23 Surgeon: Dr. Hansen Location: [place], [place] (4) Obesity (BMI 30.0-34.9): Code(s): E66.9 - Obesity, unspecified Plan: BMI 31.6 Orders: Orders Basic Metabolic Panel 05/28/23 Z818 - Encounter for other preprocedural examination Hemoglobin A1c 05/28/23 Z.818 - Encounter for other preprocedural examination TSH reflex Free T4 05/28/23 Z - Encounter for other preprocedural examination Prothrombin Time INR 05/28/23.818 - Encounter for other preprocedural examination ECG 12 lead EKG 05/28/23 - Encounter for other preprocedural examination Complete Blood Count no Diff 05/28/23 - Encounter for other preprocedural examination Referrals Dermatology Referral D22.9 - Melanocytic nevi, unspecified Coding Level of Care Code Est Pt Level 3 (96274) Diagnoses Numerous skin moles D22.9 Preoperative clearance Z.818 Cataract H26.9 Obesity (BMI 30.0-34.9) E66.9
== END 2023-05-28 12:41 | disposition home or self-care (01) ==
PROVIDERS: PCP Internal Medicine; Visit Provider Nurse Practitioner Family
DX: H26.9 Unspecified cataract (principal); D22.9 Melanocytic nevi, unspecified; E66.9 Obesity, unspecified; Z68.31 Body mass index [BMI] 31.0-31.9, adult; Z01.818 Encounter for other preprocedural examination
CPT/HCPCS: 99213

== ENCOUNTER 2023-05-28 12:53 | Outpatient (REF) | payer MEDICARE, OTHER, SELFPAY ==
--- NOTE | 2023-05-28 13:18 | ECG_ITS ---
Test Reason : cp Blood Pressure : / mmHG Vent. Rate : 062 BPM Atrial Rate : 062 BPM P-R Int : 162 ms QRS Dur : 088 ms QT Int : 422 ms P-R-T Axes : 017 041 084 degrees QTc Int : 428 ms Normal sinus rhythm Normal ECG When compared with ECG of 13-AUG-2018 06:41, No significant change was found Referred By: Emy Lebron Electronically Signed By:Yan Souza
[2023-05-28 14:38] LABS: Hematocrit 35.9 % (37.0-47.0); Hemoglobin 10.7 g/dl (12.0-16.0); Mean Corpuscular HGB Conc 29.8 g/dl (31.0-35.0); Mean Corpuscular Hemoglobin 24.7 pg (27.0-33.0); Mean Corpuscular Volume 82.7 fL (80.0-98.0); Mean Platelet Volume 11.5 fL (9.4-12.3); Platelet Count 298 X10*3/uL (160-400); Red Blood Count 4.34 X10*6/uL (4.20-5.50); Red Cell Distribution Width 14.6 % (11.0-16.0); White Blood Count 7.7 X10*3/uL (4.8-10.8)
[2023-05-28 14:43] LABS: INTERNATIONAL NORM RATIO 0.9 (0.9-1.1); Prothrombin Time 10.3 SEC (10.0-13.1)
[2023-05-28 15:28] LABS: Estimated Average Glucose 160 mg/dL; Hemoglobin A1C 151.1496 umol/L; Hemoglobin A1c % 7.2 %
[2023-05-29 02:30] LABS: TSH reflex Free T4 1.36 uIU/mL (0.32-4.0)
[2023-05-29 02:34] LABS: Anion Gap 12 (12-20)
[2023-05-29 02:36] LABS: Blood Urea Nitrogen 20 mg/dL (9-16); Calcium 9.4 mg/dL (8.4-10.2); Carbon Dioxide 25 mmol/L (22-29); Chloride 104 mmol/L (96-108); Estimated Glomerular Filt Rate 57; Glucose Random 205 mg/dL (60-115); Potassium 4.2 mmol/L (3.3-5.1); Sodium 137 mmol/L (135-145)
== END 2023-05-28 12:54 | disposition home or self-care (01) ==
LOC: HO.LAB 12:53
PROVIDERS: Absent Provider Internal Medicine Gastroenterology; PCP Internal Medicine; Visit Provider Nurse Practitioner Family
DX: Z01.818 Encounter for other preprocedural examination (principal); E66.9 Obesity, unspecified; I10 Essential (primary) hypertension; R42 Dizziness and giddiness
CPT/HCPCS: 36415; 80048; 83036; 84443; 85027; 85610; 93005

== ENCOUNTER → 2023-05-28 13:18 | Outpatient (BNV) | payer MEDICARE, SELFPAY | PROVIDERS: Absent Provider Internal Medicine Gastroenterology; PCP Internal Medicine; Visit Provider Internal Medicine Cardiovascular Disease | DX: R07.9 Chest pain, unspecified (principal) | CPT/HCPCS: 93010 ==

== ENCOUNTER 2023-06-03 14:42 | Outpatient (REF) | payer MEDICARE, SELFPAY ==
[2023-06-03 16:35] LABS: CDiff Gene PCR NEGATIVE (Negative)
[2023-06-10 20:33] LABS: Pancreatic Elastase-1 >500 mcg/g
[2023-06-11 17:48] LABS: Lactoferrin, Fecal, Quant. <6.25 mcg/mL (<7.25)
== END 2023-06-03 14:43 | disposition home or self-care (01) ==
LOC: HO.LNP 14:42
PROVIDERS: Visit Provider Internal Medicine Gastroenterology
DX: A09 Infectious gastroenteritis and colitis, unspecified (principal); K51.50 Left sided colitis without complications; K86.1 Other chronic pancreatitis
CPT/HCPCS: 82656; 83631; 87493; 87507

== ENCOUNTER 2023-06-04 07:48 | Outpatient (REF) | payer MEDICARE, OTHER, SELFPAY ==
--- NOTE | ~2023-06-04 | US_ITS ---
EXAMINATION: US ABDOMEN COMPLETE CLINICAL INFORMATION: Chronic pancreatitis, abdominal pain, status post cholecystectomy. COMPARISON: CT abdomen and pelvis with contrast dated 01/07/2022. TECHNIQUE: Real-time imaging of the abdominal viscera. FINDINGS: PANCREAS: Obscured secondary to shadowing from overlying bowel gas. ABDOMINAL AORTA: Atherosclerotic disease. Normal caliber. INFERIOR VENA CAVA: Visualized portions are normal. LIVER: The liver is normal in size. The liver contour is normal. Increased echogenicity. No focal hepatic lesion. There is no intrahepatic biliary duct dilatation seen. GALLBLADDER: Surgically absent. COMMON BILE DUCT: Mildly dilated measuring 0.9 cm, which could be seen with a chronic post cholecystectomy state. RIGHT KIDNEY: Normal. No hydronephrosis. No renal calculi or focal parenchymal lesions. The kidney measures 9.7 cm in maximum dimension. LEFT KIDNEY: Normal. No hydronephrosis. No renal calculi or focal parenchymal lesions. The kidney measures 9.9 cm in maximum dimension. SPLEEN: Normal. The spleen measures 8.2 cm in maximum dimension. FREE FLUID: None. US/US abdomen complete IMPRESSION: Limited examination secondary to patient body habitus and shadowing from overlying bowel gas. 1. Increased echogenicity of the liver is nonspecific but most commonly on the basis of diffuse hepatocellular disease such as hepatic steatosis. 2. Status post cholecystectomy with mild dilatation of the common bile duct which could be seen with a chronic post cholecystectomy state.
== END 2023-06-04 07:49 | disposition home or self-care (01) ==
LOC: HO.US 07:48
PROVIDERS: PCP Internal Medicine; Visit Provider Internal Medicine Gastroenterology
DX: K86.1 Other chronic pancreatitis (principal)
CPT/HCPCS: 76700

== ENCOUNTER 2023-08-21 19:01 | Observation (INO) | payer MEDICARE, SELFPAY ==
--- NOTE | ~2023-08-21 | CT_ITS ---
EXAMINATION: CT ABDOMEN AND PELVIS WITHOUT CONTRAST CLINICAL INFORMATION: Abdominal pain tenderness to palpation. History of ulcerative colitis. COMPARISON: 01/07/2022 TECHNIQUE: Multidetector volumetric imaging was performed from the superior aspect of the liver through the pubic symphysis. Sagittal and coronal reformatted images were obtained on the technologist's workstation. This CT examination was performed using dose optimization techniques as appropriate, variously including the following: *Automated exposure control *Adjustment of mA and/or kV according to patient size (this includes techniques or standardized protocols for targeted exams where dose is matched to indication/reason for exam; i.e. extremities or head) *Use of iterative reconstruction technique DLP: 590 mGy-cm FINDINGS: LUNG BASES: The visualized lung bases are unremarkable. LIVER, GALLBLADDER, AND BILIARY TREE: The liver is normal in size, shape, and attenuation. No focal hepatic lesion or biliary ductal dilatation is present. Cholecystectomy. PANCREAS: Unremarkable. SPLEEN: Unremarkable. ADRENAL GLANDS: Unremarkable. KIDNEYS AND URETERS: The kidneys are normal in size, shape, and attenuation. No hydronephrosis, hydroureter, or calculi seen. No perinephric stranding. BLADDER: Unremarkable. GASTROINTESTINAL TRACT: Small sliding-type hiatal hernia. Stomach otherwise unremarkable. Sigmoid colectomy with intact colorectal anastomosis in the pelvis. No colonic wall thickening or pericolic fat stranding. Normal small bowel. No evidence of appendicitis. ABDOMINAL WALL: No significant hernia is appreciated. LYMPH NODES: Normal. VASCULAR: Aorta is atherosclerotic but normal caliber. PELVIC VISCERA: Hysterectomy. No adnexal abnormalities. OSSEOUS STRUCTURES: Unremarkable. CT/CT abdomen pelvis wo IV con IMPRESSION: * No acute findings within the abdomen or pelvis to explain the patient's symptomatology. * Sigmoid colectomy with intact colorectal anastomosis in the pelvis. * Cholecystectomy and hysterectomy.
--- NOTE | 2023-08-21 19:14 | ED_ITS ---
HPI - General Adult General Chief complaint: Abdominal Pain Stated complaint: abdominal pain for 1wk, low blood sugar Time Seen by Provider: 08/21/23 23:10 Source: patient and family (daughter) Mode of arrival: ambulatory Limitations: no limitations History of Present Illness HPI narrative: 78 year old female with pmhx significant for DMT2, HTN, NC, and ulcerative colitis s/p colon resection, presents to the ED today with abdominal pain and diarrhea x7 days. Patient reports longstanding history of UC managed with mesalamine. She reports recently refilling this prescription a few weeks ago and noticed that the pills looked and smelled different. She believes she may be taking the generic version. She reports loose stools over the last week exacerbated with eating. She states that her blood sugar has been running low as she has not been able to eat much. Endorses bright red blood in her stool last night. Admits to lower abdominal pain and cramping. Rates her abdominal pain 9/10. She denies fever, chills, N/V, dysuria, hematuria. Denies recent sick contacts. Related Data Home Medications Medication Instructions Recorded Confirmed aspirin 81 mg tablet,delayed 81 mg PO DAILY 08/14/20 05/28/23 release venlafaxine 150 mg 150 mg PO BEDTIME 08/14/20 05/28/23 capsule,extended release 24 hr venlafaxine 37.5 mg 37.5 mg PO BEDTIME 12/22/21 05/28/23 capsule,extended release 24 hr (Effexor XR) mecobalamin (vitamin B12) 1,000 1,000 mcg sublingual DAILY 04/26/22 05/28/23 mcg disintegrating tablet,sublingual cholecalciferol (vitamin D3) 50 50 mcg PO DAILY 05/28/22 05/28/23 mcg (2,000 unit) capsule zonisamide 100 mg capsule 100 mg PO BEDTIME 08/26/22 05/28/23 linagliptin 2.5 mg-metformin 1,000 1 tab PO BID 02/20/23 05/28/23 mg tablet (Jentadueto) Previous Rx's Medication Instructions Recorded albuterol sulfate 90 mcg/actuation 2 puff inhalation Q4H PRN 09/19/20 aerosol inhaler (ProAir HFA) bronchospasm 30 days #18 grams lancets 33 gauge (TRUEplus Lancets) #400 ea 02/20/21 lidocaine 4 % topical patch 1 patch topical DAILY PRN pain #10 01/08/22 (Aspercreme (lidocaine)) ea docusate sodium 100 mg capsule 100 mg PO DAILY PRN constipation 06/05/22 (Colace) 90 days #90 caps blood-glucose meter (Accu-Chek #1 ea 07/21/22 Guide Glucose Meter) flash glucose sensor (FreeStyle #7 ea 01/23/23 Jessica 2 Sensor kit) nitroglycerin 0.4 mg sublingual 0.4 mg sublingual Q5M PRN chest 02/20/23 tablet pain #30 tabs mesalamine 0.375 gram 1.5 g (4 x 0.375 gram) PO QAM #240 02/26/23 capsule,extended release 24 hr caps (Apriso) pen needle, diabetic 32 gauge x #450 ea 03/31/23 (BD Ultra-Fine Pam Pen Needle) insulin lispro 100 unit/mL 12 unit (0.12 mL) subcut TID #30 mL 04/18/23 subcutaneous pen (Humalog KwikPen (U-100) Insulin) amlodipine 5 mg tablet 5 mg PO DAILY #30 tabs 04/25/23 atenolol 100 mg tablet 100 mg PO DAILY #30 tabs 04/25/23 blood sugar diagnostic (Accu-Chek #400 strips 04/28/23 Guide test strips) cholestyramine-aspartame 4 gram 1 ea PO BID #270 ea 05/27/23 oral powder for susp in a packet (Cholestyramine Light) pantoprazole 40 mg tablet,delayed 40 mg PO DAILY 90 days #90 tabs 06/11/23 release montelukast 10 mg tablet 10 mg PO DAILY PRN for allergies 06/20/23 #90 tabs insulin degludec 200 unit/mL (3 26 unit (0.13 mL) subcut BEDTIME 06/24/23 mL) subcutaneous pen (Tresiba #9 mL FlexTouch U-200 insulin) atorvastatin 80 mg tablet 80 mg PO DAILY #30 tabs 08/15/23 lisinopril 40 mg tablet 40 mg PO DAILY #90 tabs 08/15/23 Allergies Allergy/AdvReac Type Severity Reaction Status Date / Time Penicillins [PENICILLINS] Allergy Severe ANAPHYLAXIS Verified 05/28/23 12:11 Sulfa (Sulfonamide Allergy Severe ANAPHYLAXIS Verified 05/28/23 12:11 Antibiotics) [SULFA (SULFONAMIDE ANTIBIOTICS)] codeine Allergy Intermediate headache/mood Verified 05/28/23 12:11 changes dulaglutide [From Trulicity] Allergy Intermediate Nausea and Verified 05/28/23 12:11 Vomiting latanoprost AdvReac Intermediate eye redness Verified 05/28/23 12:11 Review of Systems 2 Review of Systems: Constitutional: No fever, chills, fatigue, night sweats, weight changes ENT/Mouth: No ear pain, hearing loss, nasal congestion, sinus pain, rhinorrhea, sore throat Eyes: No eye pain, swelling, redness, vision changes, discharge Cardio: No chest pain, palpitations, PEÑA, orthopnea, peripheral edema Pulm: No SOB, cough, sputum, wheezing, dyspnea, hemoptysis GI: No nausea, vomiting, hematemesis, +abdominal pain, +diarrhea, No constipation, +hematochezia, No melena : No irregular bleeding, dysuria, frequency, urgency, hesitancy, hematuria, flank pain, urinary flow changes, urinary incontinence or retention MSK: No back pain, neck pain, joint pain, myalgias Skin: No lesions, rashes Neuro: No weakness, numbness, paresthesias, LOC, dizziness, headache All other systems reviewed and are negative. [facility] Past Medical History Attestation statement: The following information was validated with the patient. 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 Type 2 diabetes mellitus with unspecified complications Atherosclerotic cardiovascular disease Surgical History Hx of colonoscopy History of esophagogastroduodenoscopy (EGD) History of colon resection History of appendectomy History of kidney surgery History of intestinal surgery Hx of cholecystectomy History of liver biopsy History of bladder surgery Hx of hysterectomy Family History Family History Father Cardiovascular disease Mother Cardiovascular disease Sister Diabetes Brother Diabetes Other Mental health disorder Social History Social History Household Members: None Housing: Apartment Are you a primary pharmacy care coordinator to a significant other at home: No Do you presently have visiting nurse or other home services: No Alcohol intake: never Patient Tobacco Use Status: Never used Tobacco e-Cigarette/Vaping Use: Never Used Second Hand Smoke Exposure: No service: No Current occupational status: retired Cognitive needs: Yes Hearing needs: No Vision needs: Yes Physical Exam ED Vital Signs: Vital Signs - 24 hr 08/21/23 19:19 08/22/23 00:29 Temperature 97 F 97.8 F Pulse Rate 68 69 Respiratory Rate 16 16 Blood Pressure 146/48 H 145/61 H Pulse Oximetry 98 100 Oxygen Delivery Method Room Air Room Air BMI result Body Mass Index 28.9 Vital signs are stable Const General: cooperative, no acute distress, alert and awake Nutritional Appearance: obese Orientation/consciousness: patient oriented x3 Limitations: no limitations HENMT Head: Yes normal to inspection Ears: hearing grossly normal bilaterally General nose exam: Normal external nose present Mouth: Normal oral and palatal mucosa present Eyes General: appearance normal, both eyes and all related structures Conjunctivae: conjunctivae normal Sclerae: sclerae normal Pupils: Equal, round and reactive pupils present EOM: EOMs intact bilaterally Neck Neck: Yes normal visual inspection and Yes no lymphadenopathy Chest Chest palpation & inspection: normal inspection of the chest Resp Effort & Inspection: normal respiratory effort Auscultation: clear to auscultation bilaterally, no rales, no rhonchi and no wheezes Cardio Rate: regular rate Rhythm: regular rhythm Heart sounds: S1 normal heart sound present and S2 normal heart sound present Peripheral pulses: Peripheral pulses 2+ throughout GI Other: + Abdomen soft, nondistended, tender to palpation of the right lower and left lower quadrants. No rebound tenderness or guarding. 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 Normal rectal sphincter tone. No external masses or lesions. Stool is normal in appearance. Guac pending. Inspection: Yes normal to inspection and Yes obesity Skin General skin exam: no rashes or lesions noted and turgor normal Neuro General: patient oriented x3, gait normal and moves all extremities Cranial nerves: Yes CN's II-XII intact bilaterally and Yes Equal, round and reactive pupils present Extrem General: Yes normal to inspection, Yes full ROM and Yes capillary refill normal Course Course Course Narrative: RME- 78 year old female presents for evaluation of abdominal pain and diarrhea. Symptoms started one week ago. Plan for labs and a stool sample. Reevaluation(s) Reevaluation #1: 0130-- CBC without leukocytosis. Mildly anemic which appears to be patient's baseline when compared to priors. BUN 18 > patient receiving IV fluids. POC noted to be 56 > patient given orange juice. Will repeat. Lipase WNL. ESR elevated to 44. No acute electrolyte abnormalities requiring intervention. Urine negative for infection > no UTI. Stool occult pending. Stool culture pending. COVID pending. 0140-- Discussed case with hospitalist, Dr. Ch, who agrees to admit patient to floor. Dr. Ch to put in admission orders. > discussed disposition with the patient. She is agreeable to being admitted to the hospital for acute exacerbation of UC and inability to tolerate PO. Medications Administered Generic Name Dose Route Start Last Admin Trade Name Freq PRN Reason Stop Dose Admin Insulin Human Lispro 0 unit 08/22/23 01:45 08/22/23 02:02 Insulin Lispro 100 Unit/Ml 3 Ml Vial SUBCUT Not Given Q4H [facility] Protocol Methylprednisolone Sodium Succinate 20 mg 08/22/23 02:30 08/22/23 02:45 Methylprednisolone Sod Succ 40 Mg/Ml Vial IVPUSH 20 mg Q8H SUMA Administration Discontinued Medications Generic Name Dose Route Start Last Admin Trade Name Freq PRN Reason Stop Dose Admin Sodium Chloride 1,000 mls @ 999 mls/hr 08/21/23 23:45 08/22/23 01:52 Ns IV 08/22/23 00:45 Infused .Q1H1M SUMA Infusion Medical Decision Making Medical Decision Making [facility] Narrative: 78 year old female with pmhx significant for DMT2, HTN, NC, ulcerative colitis, presents to the ED today with abdominal pain and diarrhea x7 days. Vital signs stable. Patient is nontoxic appearing, in NAD. Abdomen is soft, non distended, tender to palpation of the right lower and left lower quadrants without rebound tenderness or guarding. There are normoactive bs throughout. Clinical concern for ulcerative colitis exacerbation vs diverticulitis vs colitis vs viral syndrome vs gastroenteritis. Concern for dehydration vs hypoglycemia. Unlikely gastroparesis or DKA. Unlikely acute abdomen, small bowel obstruction, or ischemic bowel. Basic labs and stool culture ordered in triage. Will order CT abd/pelvis and OBS. Differential Diagnosis Differential Diagnoses: The differential diagnosis associated with the presentation includes As above. Admission/Observation Consideration of admission/observation: Escalation of care including admission/observation considered 78 yo patient with acute ulcerative colitis exacerbation and inability to tolerate PO intake will be admitted. Consult Healthcare Provider Management of the patient was discussed with: Hospitalist (Dr. Ch) Lab Data MDM Lab Attestation statement: I reviewed the patient's lab results. As above 08/21/23 19:33 08/21/23 19:33 Labs: Lab Results 08/21/23 08/22/23 08/22/23 Range/Units 19:33 00:47 01:19 WBC 8.1 (4.8-10.8) X10*3/uL RBC 4.43 (4.20-5.50) X10*6/uL Hgb 10.8 L (12.0-16.0) g/dl Hct 35.6 L (37.0-47.0) % MCV 80.4 (80.0-98.0) fL MCH 24.4 L (27.0-33.0) pg MCHC 30.3 L (31.0-35.0) g/dl RDW 15.1 (11.0-16.0) % Plt Count 293 (160-400) X10*3/uL MPV 10.4 (9.4-12.3) fL Immature Gran % (Auto) 0.2 (0.0-0.4) % Neut % (Auto) 68.5 (45-73) % Lymph % (Auto) 22.6 (20-40) % [place] % (Auto) 6.7 (2-11) % Eos % (Auto) 1.6 (0-4) % Baso % (Auto) 0.4 (0-2) % Lymph # (Auto) 1.8 (1.2-4.9) X10*3/uL [place] # (Auto) 0.5 (0.1-1.2) X10*3/uL Eos # (Auto) 0.1 (0.0-0.4) X10*3/uL Baso # (Auto) 0.0 (0.0-0.2) X10*3/uL Abs Immat Gran (auto) 0.02 (0.00-0.03) X10*3/uL Absolute Neuts (auto) 5.5 (2.0-8.3) x10*3/uL Absolute Nucleated RBC 0.000 (0.0-0.012) X10*3/uL Nucleated RBC % (auto) 0.0 (0.0-0.2) /100WBC ESR 44 H (0-20) MM/HR Sodium 137 (135-145) mmol/L Potassium 4.4 (3.3-5.1) mmol/L Chloride 108 (96-108) mmol/L Carbon Dioxide 21 L (22-29) mmol/L Anion Gap 12 (12-20) BUN 18 H (9-16) mg/dL Creatinine 0.85 (0.5-1.4) mg/dL Estim Creat Clear Calc 49.7 Estimated GFR > 60 POC Glucose 56 L* (60-115) mg/dL Random Glucose 189 H (60-115) mg/dL Calcium 9.7 (8.4-10.2) mg/dL Total Bilirubin 0.3 (0.0-1.0) mg/dL AST 32 H (5-31) U/L ALT 25 (0-31) U/L Alkaline Phosphatase 173 H (39-117) U/L C-Reactive Protein 0.24 (< or = 0.50) mg/dL Total Protein 7.4 (6.5-8.0) g/dL Albumin 4.0 (3.5-5.0) g/dL Lipase 47 (8-78) U/L Urine Color Yellow Urine Appearance Clear Urine pH 5.0 (5.0-9.0) Ur Specific [place] 1.020 (1.005-1.025) Urine Protein Negative (Neg-Trace) mg/dL Urine Glucose (UA) Negative (Negative) mg/dL Urine Ketones Trace (Negative) mg/dL Urine Blood Negative (Negative) Urine Nitrite Negative (Negative) Ur Leukocyte Esterase Negative (Negative) Urine RBC 0-2 (0-2) /HPF Urine WBC 0-5 (0-5) /HPF Ur Squamous Epith Cells 0-2 (0-2) /HPF Urine Bacteria None Seen (None Seen) Hyaline Casts 0-2 (0-2) /LPF Stool Occult Blood (NEGATIVE) COVID-19 (WILLOW) Negative (Negative) COVID-19 Clin Com See Note 08/22/23 Range/Units 01:25 WBC (4.8-10.8) X10*3/uL RBC (4.20-5.50) X10*6/uL Hgb (12.0-16.0) g/dl Hct (37.0-47.0) % MCV (80.0-98.0) fL MCH (27.0-33.0) pg MCHC (31.0-35.0) g/dl RDW (11.0-16.0) % Plt Count (160-400) X10*3/uL MPV (9.4-12.3) fL Immature Gran % (Auto) (0.0-0.4) % Neut % (Auto) (45-73) % Lymph % (Auto) (20-40) % [place] % (Auto) (2-11) % Eos % (Auto) (0-4) % Baso % (Auto) (0-2) % Lymph # (Auto) (1.2-4.9) X10*3/uL [place] # (Auto) (0.1-1.2) X10*3/uL Eos # (Auto) (0.0-0.4) X10*3/uL Baso # (Auto) (0.0-0.2) X10*3/uL Abs Immat Gran (auto) (0.00-0.03) X10*3/uL Absolute Neuts (auto) (2.0-8.3) x10*3/uL Absolute Nucleated RBC (0.0-0.012) X10*3/uL Nucleated RBC % (auto) (0.0-0.2) /100WBC ESR (0-20) MM/HR Sodium (135-145) mmol/L Potassium (3.3-5.1) mmol/L Chloride (96-108) mmol/L Carbon Dioxide (22-29) mmol/L Anion Gap (12-20) BUN (9-16) mg/dL Creatinine (0.5-1.4) mg/dL Estim Creat Clear Calc Estimated GFR POC Glucose (60-115) mg/dL Random Glucose (60-115) mg/dL Calcium (8.4-10.2) mg/dL Total Bilirubin (0.0-1.0) mg/dL AST (5-31) U/L ALT (0-31) U/L Alkaline Phosphatase (39-117) U/L C-Reactive Protein (< or = 0.50) mg/dL Total Protein (6.5-8.0) g/dL Albumin (3.5-5.0) g/dL Lipase (8-78) U/L Urine Color Urine Appearance Urine pH (5.0-9.0) Ur Specific [place] (1.005-1.025) Urine Protein (Neg-Trace) mg/dL Urine Glucose (UA) (Negative) mg/dL Urine Ketones (Negative) mg/dL Urine Blood (Negative) Urine Nitrite (Negative) Ur Leukocyte Esterase (Negative) Urine RBC (0-2) /HPF Urine WBC (0-5) /HPF Ur Squamous Epith Cells (0-2) /HPF Urine Bacteria (None Seen) Hyaline Casts (0-2) /LPF Stool Occult Blood NEGATIVE (NEGATIVE) COVID-19 (WILLOW) (Negative) COVID-19 Clin Com Independent Interpretation I performed an independent interpretation of an: CT Scan Interpretation: CT abd/pelvis without acute intrabdominal pathology, agree with radiologist's interpretation. Radiology Impression Discussion of test interpretation with radiology: I have reviewed the radiologist's reading. Radiologist Impression: CT abdomen pelvis wo IV con IMPRESSION: No acute findings within the abdomen or pelvis to explain the patient's symptomatology. Sigmoid colectomy with intact colorectal anastomosis in the pelvis. Cholecystectomy and hysterectomy. Independent Historian Clinical information obtained from an independent historian. History obtained from or confirmed by: Other (daughter) External Record Review External record reviewed: Inpatient record Chronic Conditions Patient?s care impacted by: Diabetes, Hypertension and Other (ulcerative colitis ) Critical Care Time Critical Care Time Critical Care Time: Yes Total Critical Care Time: 50 Attestation: Critical care time in the amount of 50 minutes has been provided to the patient in terms of direct patient care, frequent reevaluation, consultation with hospitalist, review and interpretation of medical data and results, and management of potentially life-threatening conditions. This is all outside of any medical procedures. Discharge Plan Discharge Clinical Impression: Ulcerative colitis, acute Patient Disposition: Admitted As Inpatient Interventions: Admission Worksheet (ED) Last Done: 08/22/23 02:47 Discharge Date/Time: 08/22/23 02:51
[2023-08-21 19:19] VITALS: BP 146/48; PULSE 68; RESP 16; TEMP 36.1; O2SAT 98; BMI 28.9
[2023-08-21 19:44] LABS: MANUAL DIFF FLAG NO
[2023-08-21 19:49] LABS: Appearance Urine Clear; Color Urine Yellow; Glucose Urine UA Negative (Negative); Leukocyte Esterase Urine Negative (Negative); Nitrite Urine Negative (Negative); Urine Blood Negative (Negative); Urine Ketones Trace mg/dL (Negative); Urine Protein Negative (Neg-Trace)
[2023-08-21 19:50] LABS: Basophils Percent Auto 0.4 % (0-2); Eosinophils Absolute Auto 0.1 X10*3/uL (0.0-0.4); Eosinophils Percent Auto 1.6 % (0-4); Hematocrit 35.6 % (37.0-47.0); Hemoglobin 10.8 g/dl (12.0-16.0); Imm Gran Abs Auto 0.02 X10*3/uL (0.00-0.03); Imm Gran Pct Auto 0.2 % (0.0-0.4); Lymphocytes Absolute Auto 1.8 X10*3/uL (1.2-4.9); Lymphocytes Percent Auto 22.6 % (20-40); Mean Corpuscular HGB Conc 30.3 g/dl (31.0-35.0); Mean Corpuscular Hemoglobin 24.4 pg (27.0-33.0); Mean Corpuscular Volume 80.4 fL (80.0-98.0); Mean Platelet Volume 10.4 fL (9.4-12.3); Monocytes Absolute Auto 0.5 X10*3/uL (0.1-1.2); Monocytes Percent Auto 6.7 % (2-11); Neutrophils Absolute Auto 5.5 x10*3/uL (2.0-8.3); Neutrophils Percent Auto 68.5 % (45-73); Platelet Count 293 X10*3/uL (160-400); Red Blood Count 4.43 X10*6/uL (4.20-5.50); Red Cell Distribution Width 15.1 % (11.0-16.0); White Blood Count 8.1 X10*3/uL (4.8-10.8)
[2023-08-21 19:51] LABS: Bacteria Urine None Seen (None Seen); Hyaline Casts Urine 0-2 /LPF (0-2); RBC Urine 0-2 /HPF (0-2); Squamous Epithelial Cell Urine 0-2 /HPF (0-2); WBC Urine 0-5 /HPF (0-5)
[2023-08-21 20:01] LABS: Alanine Aminotransferase 25 U/L (0-31); Alkaline Phosphatase 173 U/L (39-117); Anion Gap 12 (12-20); Aspartate Amino Transferase 32 U/L (5-31); Bilirubin Total 0.3 mg/dL (0.0-1.0); Blood Urea Nitrogen 18 mg/dL (9-16); C Reactive Protein 0.24 mg/dL (< or = 0.50); Calcium 9.7 mg/dL (8.4-10.2); Carbon Dioxide 21 mmol/L (22-29); Chloride 108 mmol/L (96-108); Creatinine Clr Calc Pharmacy 49.7; Estimated Glomerular Filt Rate > 60; Glucose Random 189 mg/dL (60-115); Lipase 47 U/L (8-78); Potassium 4.4 mmol/L (3.3-5.1); Sodium 137 mmol/L (135-145); Total Protein 7.4 g/dL (6.5-8.0)
[2023-08-21 20:37] LABS: Erythrocyte Sedimentation Rate 44 MM/HR (0-20)
[2023-08-22 00:29] VITALS: BP 145/61; PULSE 69; RESP 16; TEMP 36.6; O2SAT 100
[2023-08-22] MEDS: 0.9 % Sodium Chloride 1,000 ML 999 ML IV (00:40)
[2023-08-22 00:51] LABS: Glucose, Whole Blood 56 mg/dL (60-115)
--- NOTE | 2023-08-22 00:59 | PC.NURSE ---
pt rpts to this nurse that her blood sugar is 68 per her monitor. pt checked w/ hospital glucose monitor. sugar noted to be 56. provider notified. instructed to give patient orange juice and to re-eval. orange juice provided to patient. will continue to monitor.
[2023-08-22 01:32] LABS: OBS Int Ctl Valid YES; OBS1 NEGATIVE (NEGATIVE)
--- NOTE | 2023-08-22 01:42 | PM.IMHP ---
History of Present Illness Date of Service: 08/22/23 Chief Complaint: Abdominal Pain This is a 78-year-old female with pertinent history of insulin-dependent diabetes mellitus, ulcerative colitis, essential hypertension, mixed hyperlipidemia, mood disorder who presents to the emergency department for evaluation of abdominal pain and diarrhea. Patient states her symptoms started 1 week prior to presentation. She has been having generalized abdominal discomfort, nonradiating without any relieving factors. It is associated with multiple episodes of diarrhea. About 2 days prior to presentation, she has been having bloody bowel movements, about 6-7 per day. Patient states her mesalamine was changed to the generic form about a month ago and she believes this is the reason for her ulcerative colitis flare-up. She also complains of low blood sugar when she woke up this morning. Patient states she has been having reduced p.o. intake due to diarrhea but continue taking her insulin. No fever, chills, nausea, vomiting. No chest discomfort, palpitations, shortness of breath, changes in urinary habits. In the emergency department, ESR found to be elevated. Patient also found to be hypoglycemic Review of Systems Constitutional: Constitutional: Reports fatigue, Reports lethargy and Reports poor appetite Cardiovascular: Cardiovascular: Reports no additional cardiovascular complaints Respiratory: Respiratory: Reports no additional respiratory complaints Gastrointestinal: Gastrointestinal: Reports abdominal pain, Reports hematochezia, Reports diarrhea and Reports loose stools Endocrine: Endocrine: Reports fatigue PMFSH Medical History Dizziness Mild recurrent major depression Epilepsy Stroke Colitis Major depression, recurrent Memory change Neuropathy Seizures Glaucoma Myocardial infarction Acid reflux Type 2 diabetes mellitus with diabetic polyneuropathy Type 2 diabetes mellitus with hyperglycemia 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 LDL goal <70 Obesity due to excess calories BMI 34.0-34.9,adult 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, unspecified Essential hypertension custodial (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 Type 2 diabetes mellitus with unspecified complications Atherosclerotic cardiovascular disease Family History Father Cardiovascular disease Mother Cardiovascular disease Sister Diabetes Brother Diabetes Other Mental health disorder Surgical History Hx of colonoscopy History of esophagogastroduodenoscopy (EGD) History of colon resection History of appendectomy History of kidney surgery History of intestinal surgery Hx of cholecystectomy History of liver biopsy History of bladder surgery Hx of hysterectomy Social History Household Members: None Housing: Apartment Are you a primary overnight caregiver to a significant other at home: No Do you presently have visiting nurse or other home services: No Alcohol intake: never Patient Tobacco Use Status: Never used Tobacco e-Cigarette/Vaping Use: Never Used Second Hand Smoke Exposure: No service: No Current occupational status: retired Cognitive needs: Yes Hearing needs: No Vision needs: Yes Meds Allergies Allergy/AdvReac Type Severity Reaction Status Date / Time Penicillins [PENICILLINS] Allergy Severe ANAPHYLAXIS Verified 05/28/23 12:11 Sulfa (Sulfonamide Allergy Severe ANAPHYLAXIS Verified 05/28/23 12:11 Antibiotics) [SULFA (SULFONAMIDE ANTIBIOTICS)] codeine Allergy Intermediate headache/mood Verified 05/28/23 12:11 changes dulaglutide [From Trulicity] Allergy Intermediate Nausea and Verified 05/28/23 12:11 Vomiting latanoprost AdvReac Intermediate eye redness Verified 05/28/23 12:11 Home Medications Medication Instructions Recorded Confirmed Last Taken Type aspirin 81 mg tablet,delayed 81 mg PO DAILY 08/14/20 05/28/23 12/21/21 History release venlafaxine 150 mg 150 mg PO BEDTIME 08/14/20 05/28/23 12/21/21 History capsule,extended release 24 hr venlafaxine 37.5 mg 37.5 mg PO BEDTIME 12/22/21 05/28/23 12/21/21 History capsule,extended release 24 hr (Effexor XR) mecobalamin (vitamin B12) 1,000 1,000 mcg sublingual DAILY 04/26/22 05/28/23 Unknown History mcg disintegrating tablet,sublingual cholecalciferol (vitamin D3) 50 50 mcg PO DAILY 05/28/22 05/28/23 Unknown History mcg (2,000 unit) capsule zonisamide 100 mg capsule 100 mg PO BEDTIME 08/26/22 05/28/23 Unknown History linagliptin 2.5 mg-metformin 1,000 1 tab PO BID 02/20/23 05/28/23 Unknown History mg tablet (Jentadueto) Physical Exam Vital Signs and Narrative: Vital Signs: Last Vital Signs Temp 97.8 F 08/22/23 00:29 Pulse 69 08/22/23 00:29 Resp 16 08/22/23 00:29 BP 145/61 H 08/22/23 00:29 Pulse Ox 100 08/22/23 00:29 O2 Del Method Room Air 08/22/23 00:29 BMI result Body Mass Index 28.9 Elderly female lying in bed in no distress Neck supple, no JVD Regular rate and rhythm, S1-S2 heard Regular breath sounds bilaterally, no wheezing or crackles appreciated Abdomen with generalized pain, no guarding, no rigidity, no rebound tenderness Patient is awake, alert and oriented to self, place, time and person ; no focal motor deficit Psych: Normal mood No pedal edema Results Labs 08/21/23 19:33 08/21/23 19:33 Labs: Laboratory Results - last 24 hr 08/21/23 08/22/23 08/22/23 19:33 00:47 01:25 MCV 80.4 MCH 24.4 L MCHC 30.3 L RDW 15.1 Plt Count 293 MPV 10.4 Immature Gran % (Auto) 0.2 Neut % (Auto) 68.5 Lymph % (Auto) 22.6 Morrison % (Auto) 6.7 Eos % (Auto) 1.6 Baso % (Auto) 0.4 Lymph # (Auto) 1.8 Morrison # (Auto) 0.5 Eos # (Auto) 0.1 Baso # (Auto) 0.0 Abs Immat Gran (auto) 0.02 Absolute Neuts (auto) 5.5 Absolute Nucleated RBC 0.000 Nucleated RBC % (auto) 0.0 ESR 44 H Anion Gap 12 Estim Creat Clear Calc 49.7 Estimated GFR > 60 POC Glucose 56 L* Random Glucose 189 H Calcium 9.7 Total Bilirubin 0.3 AST 32 H ALT 25 Alkaline Phosphatase 173 H C-Reactive Protein 0.24 Total Protein 7.4 Albumin 4.0 Lipase 47 Urine Color Yellow Urine Appearance Clear Urine pH 5.0 Ur Specific [place] 1.020 Urine Protein Negative Urine Glucose (UA) Negative Urine Ketones Trace Urine Blood Negative Urine Nitrite Negative Ur Leukocyte Esterase Negative Urine RBC 0-2 Urine WBC 0-5 Ur Squamous Epith Cells 0-2 Urine Bacteria None Seen Hyaline Casts 0-2 Stool Occult Blood NEGATIVE Imaging Radiologist's Impressions: Impressions Abdomen/Pelvis CT 08/22/23 00:15 IMPRESSION: * No acute findings within the abdomen or pelvis to explain the patient's symptomatology. * Sigmoid colectomy with intact colorectal anastomosis in the pelvis. * Cholecystectomy and hysterectomy. Assessment and Plan (1) Ulcerative colitis: Status: Acute Plan This is a 78-year-old female with pertinent history of insulin-dependent diabetes mellitus, ulcerative colitis, essential hypertension, mixed hyperlipidemia, mood disorder who presents to the emergency department for evaluation of abdominal pain and diarrhea. #. Abdominal pain and bloody diarrhea concerning for severe ulcerative colitis. Patient resuscitated with IV crystalloids. Initiating systemic steroids. Consulting Gastroenterology, appreciate assistance. GI panel and C diff pending. #. Hypoglycemia in a patient with insulin-dependent diabetes mellitus. Closely monitor blood glucose levels. Glucose improved with orange juice in the ER. Hold basal insulin till appetite improves #. Mixed hyperlipidemia: On statin #. Mood disorder: Continue home mood stabilizers Med rec pending DVT prophylaxis: Mechanical Full code Time Spent With Patient Time: Total time managing care of this patient today ____ minutes. Quality Stroke Does the patient have a stroke diagnosis?: No VTE Prior VTE?: No VTE Risk Level:: Medical - moderate - high VTE Device Contraindication: N/A - Device Ordered VTE Drug Contraindication: Treatment Not Indicated
[2023-08-22 01:43] LABS: COVID-19 Test Negative (Negative); IDNOW Serial# BCCEAD1C
[2023-08-22 01:56] LABS: Glucose, Whole Blood 97 mg/dL (60-115)
--- NOTE | 2023-08-22 02:39 | PC.NURSE ---
Report to floor RN.
[2023-08-22] MEDS: methylPREDNISolone Sod Succ 40 MG/ML VIAL 20 MG IVPUSH ×3 (02:45→18:12)
[2023-08-22 03:15] VITALS: BMI 30.8
[2023-08-22 03:25] VITALS: BP 142/62; PULSE 72; RESP 16; TEMP 36.2; O2SAT 99
[2023-08-22 04:55] LABS: Glucose, Whole Blood 154 mg/dL (60-115)
[2023-08-22 06:06] LABS: MANUAL DIFF FLAG NO
[2023-08-22 06:22] LABS: Basophils Percent Auto 0.3 % (0-2); Eosinophils Percent Auto 0.2 % (0-4); Hemoglobin 10.4 g/dl (12.0-16.0); Imm Gran Abs Auto 0.03 X10*3/uL (0.00-0.03); Imm Gran Pct Auto 0.3 % (0.0-0.4); Lymphocytes Percent Auto 11.1 % (20-40); Mean Corpuscular HGB Conc 30.6 g/dl (31.0-35.0); Mean Corpuscular Hemoglobin 24.3 pg (27.0-33.0); Mean Corpuscular Volume 79.4 fL (80.0-98.0); Mean Platelet Volume 11.2 fL (9.4-12.3); Monocytes Absolute Auto 0.2 X10*3/uL (0.1-1.2); Monocytes Percent Auto 1.7 % (2-11); Neutrophils Absolute Auto 7.6 x10*3/uL (2.0-8.3); Neutrophils Percent Auto 86.4 % (45-73); Platelet Count 271 X10*3/uL (160-400); Red Blood Count 4.28 X10*6/uL (4.20-5.50); Red Cell Distribution Width 15.1 % (11.0-16.0); White Blood Count 8.8 X10*3/uL (4.8-10.8)
[2023-08-22 06:26] LABS: Anion Gap 13 (12-20); Blood Urea Nitrogen 14 mg/dL (9-16); Calcium 9.7 mg/dL (8.4-10.2); Carbon Dioxide 22 mmol/L (22-29); Chloride 113 mmol/L (96-108); Creatinine Clr Calc Pharmacy 52.3; Estimated Glomerular Filt Rate > 60; Glucose Random 155 mg/dL (60-115); Potassium 4.8 mmol/L (3.3-5.1); Sodium 143 mmol/L (135-145)
--- NOTE | 2023-08-22 07:08 | P.CNGI_ITS ---
History of Present Illness Data of Consult Service Date: 08/22/23 Requesting physician: Rubio Ch Primary Care Provider: Martine Ding MD HPI Reason for consult: Abdominal pain and bloody diarrhea; UC 78 YF with insulin-dependent diabetes mellitus, ulcerative colitis, essential hypertension, mixed hyperlipidemia, mood disorder admitted to [facility] on 08/21/23 with abdominal pain and diarrhea. Pt reports compliance with mesalamine and cholestyramine and denies recent use of antibiotics. She noted worsening diarrhea symptoms with 12 to 15 bloody BMs a day. Pt was admitted and started on IV methyl prednisone. Stool for C Diff toxin was ordered and not collected yet. Pt notes improvement in abdominal pain and denies having any BMs today. Pt is followed by Dr Posey for suspected post infectious IBS vs focal colitis. Pt noted partial improvement in diarhea with with mesalamine and cholestyramine Stool studies revealed elevated fecal calprotectin of 187 and panc elastase of > 500 08/22/[address] SCAN SHOWED: GASTROINTESTINAL TRACT: Small sliding-type hiatal hernia. Stomach otherwise unremarkable. Sigmoid colectomy with intact colorectal anastomosis in the pelvis. No colonic wall thickening or pericolic fat stranding. Normal small bowel. No evidence of appendicitis. IMPRESSION: * No acute findings within the abdomen or pelvis to explain the patient's symptomatology. * Sigmoid colectomy with intact colorectal anastomosis in the pelvis. * Cholecystectomy and hysterectomy. Review of Systems 2 Constitutional: Constitutional: Reports fatigue, Reports lethargy and Reports poor appetite Cardiovascular: Cardiovascular: Reports no additional cardiovascular complaints Respiratory: Respiratory: Reports no additional respiratory complaints Gastrointestinal: Gastrointestinal: Reports abdominal pain, Reports hematochezia, Reports diarrhea and Reports loose stools Endocrine: Endocrine: Reports fatigue PMFSH Past Medical History Medical History (Updated 08/30/23 @ 00:03 by Background Dory) Dizziness Mild recurrent major depression Epilepsy Stroke Colitis Major depression, recurrent Memory change Neuropathy Seizures Glaucoma Myocardial infarction Acid reflux Type 2 diabetes mellitus with diabetic polyneuropathy Type 2 diabetes mellitus with hyperglycemia 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 LDL goal <70 Obesity due to excess calories BMI 34.0-34.9,adult 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, unspecified Essential hypertension alf (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 Type 2 diabetes mellitus with unspecified complications Atherosclerotic cardiovascular disease Family History Family History Father Cardiovascular disease Mother Cardiovascular disease Sister Diabetes Brother Diabetes Other Mental health disorder Surgical History Surgical History Hx of eye surgery Hx of colonoscopy History of esophagogastroduodenoscopy (EGD) History of colon resection History of appendectomy History of kidney surgery History of intestinal surgery Hx of cholecystectomy History of liver biopsy History of bladder surgery Hx of hysterectomy Social History Social History Household Members: None Housing: Apartment Are you a primary rental boats caretaker to a significant other at home: No Do you presently have visiting nurse or other home services: No Alcohol intake: never Patient Tobacco Use Status: Never used Tobacco e-Cigarette/Vaping Use: Never Used Second Hand Smoke Exposure: No service: No Current occupational status: retired Cognitive needs: Yes Hearing needs: No Vision needs: Yes Meds Allergies Allergy/AdvReac Type Severity Reaction Status Date / Time Penicillins [PENICILLINS] Allergy Severe ANAPHYLAXIS Verified 09/03/23 09:58 Sulfa (Sulfonamide Allergy Severe ANAPHYLAXIS Verified 09/03/23 09:58 Antibiotics) [SULFA (SULFONAMIDE ANTIBIOTICS)] codeine Allergy Intermediate headache/mood Verified 09/03/23 09:58 changes dulaglutide [From Trulicity] Allergy Intermediate Nausea and Verified 09/03/23 09:58 Vomiting latanoprost AdvReac Intermediate eye redness Verified 09/03/23 09:58 Active Medications: Current Medications Acetaminophen (Acetaminophen 325 Mg Tablet) 650 mg PO Q6H PRN PRN Reason: Pain, Mild (Pain Scale 1-3) Acetaminophen (Acetaminophen Supp 650 Mg Supp.Rect) 650 mg MO Q6H PRN PRN Reason: Pain, Mild (Pain Scale 1-3) Dextrose (Dextrose 50 % 25 Gm/50 Ml Syringe) 25 gm IVPUSH Q15M PRN; Protocol PRN Reason: per Hypoglycemia Standing Ord. Glucose (Glucose Gel 15 Gm Gel..Gram.) 15 gm PO Q15M PRN; Protocol PRN Reason: per Hypoglycemia Standing Ord. Insulin Human Lispro (Insulin Lispro 100 Unit/Ml 3 Ml Vial) 0 unit SUBCUT Q4H [facility]; Protocol Last Admin: 08/22/23 04:52 Dose: Not Given Melatonin (Melatonin 3 Mg Tablet) 6 mg PO BEDTIME PRN PRN Reason: Insomnia Methylprednisolone Sodium Succinate (Methylprednisolone Sod Succ 40 Mg/Ml Vial) 20 mg IVPUSH Q8H [facility] Last Admin: 08/22/23 02:45 Dose: 20 mg Ondansetron HCl (Ondansetron Hcl 4 Mg/2 Ml Vial) 4 mg IVPUSH Q8H PRN PRN Reason: Nausea and Vomiting Sodium Chloride (0.9 % Sodium Chloride Flush 3 Ml Syringe) 3 ml IVFLUSH QSHIFT [facility] Home Medications Medication Instructions Recorded Confirmed Last Taken Type aspirin 81 mg tablet,delayed 81 mg PO DAILY 08/14/20 08/22/23 12/21/21 History release venlafaxine 150 mg 150 mg PO DAILY@1400 08/14/20 08/22/23 12/21/21 History capsule,extended release 24 hr venlafaxine 37.5 mg 37.5 mg PO DAILY@1400 12/22/21 08/22/23 12/21/21 History capsule,extended release 24 hr (Effexor XR) mecobalamin (vitamin B12) 1,000 1,000 mcg sublingual DAILY@1400 04/26/22 08/22/23 Unknown History mcg disintegrating tablet,sublingual cholecalciferol (vitamin D3) 50 50 mcg PO DAILY 05/28/22 08/22/23 Unknown History mcg (2,000 unit) capsule zonisamide 100 mg capsule 100 mg PO BEDTIME 08/26/22 08/22/23 Unknown History linagliptin 2.5 mg-metformin 1,000 1 tab PO BID 02/20/23 08/22/23 Unknown History mg tablet (Jentadueto) folic acid 1 mg tablet 1 mg PO DAILY@1400 08/22/23 08/22/23 Unknown History insulin lispro 100 unit/mL 12 unit subcut DAILY@1130 08/22/23 08/22/23 Unknown History subcutaneous pen insulin lispro 100 unit/mL 10 unit subcut BID@0730,1630 08/22/23 08/22/23 Unknown History subcutaneous pen (Humalog KwikPen (U-100) Insulin) mesalamine 0.375 gram 1.5 g PO DAILY@0600 08/22/23 08/22/23 Unknown History capsule,extended release 24 hr (Apriso) montelukast 10 mg tablet 10 mg PO DAILY 08/22/23 08/22/23 Unknown History ofloxacin 0.3 % eye drops 1 drp ophthalmic-Right BID 08/22/23 08/22/23 Unknown History pantoprazole 40 mg tablet,delayed 40 mg PO DAILY@0630 08/22/23 08/22/23 Unknown History release prednisolone acetate 1 % eye 1 drp ophthalmic-Right TID 08/22/23 08/22/23 Unknown History drops,suspension insulin degludec 200 unit/mL (3 24 unit subcut BEDTIME 09/03/23 Unknown History mL) subcutaneous pen (Tresiba FlexTouch U-200 insulin) Physical Exam 2 Vital Signs: Vital Signs: Last Vital Signs Temp 97.1 F 08/22/23 03:25 Pulse 72 08/22/23 03:25 Resp 16 08/22/23 03:25 BP 142/62 H 08/22/23 03:25 Pulse Ox 99 08/22/23 03:25 O2 Del Method Room Air 08/22/23 03:25 BMI result Body Mass Index 30.8 Const: General: no acute distress Nutritional Appearance: obese O rientation/consciousness: patient oriented x3 HEENT: Head: Yes normal to inspection Ears: hearing grossly normal bilaterally Mouth: Normal oral and palatal mucosa present Eyes: Sclerae: sclerae normal Pupils: Equal, round and reactive pupils present Neck: Neck: Yes normal visual inspection Chest: Chest palpation & inspection: normal inspection of the chest Resp: Effort & Inspection: normal respiratory effort Auscultation: clear to auscultation bilaterally Cardio: Palpation: normal PMI Rate: regular rate Rhythm: regular rhythm Heart sounds: S1 normal heart sound present, S2 normal heart sound present and no murmurs GI: Palpation (GI): Soft to palpation, nontender and No hepatosplenomegaly present Auscultation: normal bowel sounds Rectal Exam - Female: deferred Skin: General skin exam: no rashes or lesions noted Neuro: General: patient oriented x3, gait normal and moves all extremities Cranial nerves: Yes Equal, round and reactive pupils present Psych: Appearance: grossly normal Mental Status: mental status grossly normal Results Labs 08/22/23 05:52 08/22/23 05:52 Labs: Short CBC 08/21/23 08/22/23 Range/Units 19:33 05:52 WBC 8.1 8.8 (4.8-10.8) X10*3/uL Hgb 10.8 L 10.4 L (12.0-16.0) g/dl Hct 35.6 L 34.0 L (37.0-47.0) % Plt Count 293 271 (160-400) X10*3/uL BMP 08/21/23 08/22/23 19:33 05:52 Sodium 137 143 Potassium 4.4 4.8 Chloride 108 113 H Carbon Dioxide 21 L 22 BUN 18 H 14 Creatinine 0.85 0.77 Calcium 9.7 9.7 Liver Function 08/21/23 Range/Units 19:33 Total Bilirubin 0.3 (0.0-1.0) mg/dL AST 32 H (5-31) U/L ALT 25 (0-31) U/L Alkaline Phosphatase 173 H (39-117) U/L Albumin 4.0 (3.5-5.0) g/dL Urine 08/21/23 Range/Units 19:33 Urine Color Yellow Urine Appearance Clear Urine pH 5.0 (5.0-9.0) Ur Specific [place] 1.020 (1.005-1.025) Urine Protein Negative (Neg-Trace) mg/dL Urine Glucose (UA) Negative (Negative) mg/dL Assessment and Plan (1) Ulcerative colitis: Status: Acute (2) B12 deficiency anemia: Status: Acute Plan 78 YF with insulin-dependent diabetes mellitus, ulcerative colitis, essential hypertension, mixed hyperlipidemia, mood disorder admitted to [facility] on 08/21/23 with abdominal pain and diarrhea. Pt reports compliance with mesalamine and cholestyramine and denies recent use of antibiotics. She noted worsening diarrhea symptoms for the past few days with 12 to 15 bloody BMs a day. Pt was admitted and started on IV methyl prednisone. Pt notes improvement in abdominal pain and denies having any BMs today. Stool for C Diff toxin was ordered and not collected yet. Increase in diarrhea likely due to flare of colitis versus C Diff infection RECOMMENDATIONS: 1. Agree with checking C Diff toxin in case of recurrent diarrhea. 2. OK to switch to PO prednisone 40 mg daily in the morning and taper by 10 mg every week over 4 weeks 3. If pt has recurrent diarrhea/rectal bleeding further evaluation with Flex sig or colonoscopy can be performed. 4. Pt has a FU appt with Dr Posey on 09/22/23 Time Spent With Patient Time: Total time managing care of this patient today ____ minutes. Procedures Date of Service Date of Service: 09/13/23
[2023-08-22 07:18] LABS: Glucose, Whole Blood 144 mg/dL (60-115)
[2023-08-22 07:40] VITALS: BP 169/74; PULSE 64; RESP 16; TEMP 36.2; O2SAT 99
[2023-08-22] MEDS: Acetaminophen 325 MG TABLET 650 MG PO ×2 (08:10→19:38)
[2023-08-22] MEDS: 0.9 % Sodium Chloride Flush 3 ML SYRINGE IVFLUSH ×3 (08:10→19:43)
--- NOTE | 2023-08-22 08:25 | PM.EVENT ---
Event Note Date of Service: 08/22/23 Event Note: Patient early this morning with ulcerative colitis flare with copious bloody diarrhea started on IV steroids. She denies any recurrent diarrhea since admission, no bright red blood per rectum noted. Reports improvement in abdominal pain, currently 7/10 diffuse pain. On exam, she is diffusely tender to palpation of the abdomen without any rebound or guarding with positive bowel sounds in all quadrants, abdomen is nondistended. Recommend continuing IV steroids, Gastroenterology consult. Stool occult blood negative. Stool studies pending. Patient is eating breakfast, hypoglycemia resolved. Will add sliding scale, POC glucose, diabetic diet. Agree with plan per H&P Time Spent With Patient Time: Total time managing care of this patient today ____ minutes.
--- NOTE | 2023-08-22 08:31 | PHA.MEDREC ---
Pharmacy Consult ? Medication Reconciliation Pharmacy has completed the medication reconciliation.Med rec completed by talking with patient and looking at pharmacy history. 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 She has not filled zonisamide and has run out of this, but believes she should still be taking this and has experienced a seizure since she ran out.
[2023-08-22 10:37] VITALS: BP 146/66
--- NOTE | 2023-08-22 11:27 | MHC.CLN ---
NUTRITION CONSULT FOR DECREASED APPETITE AND WEIGHT LOSS. REVIEW OF WEIGHT HX SHOWS WEIGHT ESSENTIALLY STABLE X 3 MONTHS. WEIGHT LOSS X 6 MONTHS, NOT SIGNIFICANT, -5.5%. ADMITTED WITH ULCERATIVE COLITIS WITH DIARRHEA. NO ADDITIONAL NUTRITION INTERVENTIONS AT THIS TIME. RD TO FOLLOW UP WEEKLY.
[2023-08-22 11:36] LABS: Glucose, Whole Blood 258 mg/dL (60-115)
[2023-08-22] MEDS: Insulin Lispro 100 UNIT/ML 3 ML VIAL SUBCUT ×3 (12:05→20:42)
--- NOTE | 2023-08-22 12:26 | MHC.CM.PN ---
PT REPORTS SHE LIVES ALONE AND HAS A ANNEALING FURNACE TENDER THREE TIMES PER WEEK FROM [id number] SHE REPORTS SHE USES A WALKER AND HAS NO OTHER DME PT REPORTS HER NIECE OR NEIGHBOR TAKE HER TO APPTS/SHOPPING, OR SHE USES THE [employer] [facility] SHE SAYS WHEN SHE IS FEELING WELL ENOUGH SHE MAY TAKE THE BUS PT HAS A HCP ON FILE HER PCP IS [facility] OBSERVATION NOTICE DELIVERED PT STATES SHE HAS [place] MEDICARE ADVANTAGE DCP: HOME, RESUME ANNEALING FURNACE TENDER SERVICES NIECE OR NEIGHBOR TO TRANSPORT
[2023-08-22] MEDS: amLODIPine Besylate 5 MG TABLET PO (12:48)
[2023-08-22] MEDS: lisinopriL 40 MG TABLET PO (12:48)
[2023-08-22] MEDS: atenoloL 100 MG TABLET PO (12:48)
[2023-08-22] MEDS: Montelukast Sodium 10 MG TABLET PO (12:49)
[2023-08-22] MEDS: prednisoLONE Acetate 1 % Oph Susp 5 ML DRPBTL 1 DROP EYE-RIGHT ×2 (14:18→20:40)
[2023-08-22] MEDS: Folic Acid 1 MG TABLET PO (14:18)
[2023-08-22] MEDS: Venlafaxine HCl ER 150 MG CAP.ER.24H PO (14:18)
[2023-08-22] MEDS: Venlafaxine HCl ER 37.5 MG CAP.ER.24H PO (14:18)
[2023-08-22 15:24] VITALS: BP 172/72; PULSE 78; RESP 18; TEMP 36.5; O2SAT 97
[2023-08-22 16:17] LABS: Glucose, Whole Blood 282 mg/dL (60-115)
[2023-08-22 19:39] VITALS: BP 142/63; PULSE 70; RESP 20; TEMP 36.7; O2SAT 97
[2023-08-22 20:12] LABS: Glucose, Whole Blood 330 mg/dL (60-115)
[2023-08-22] MEDS: Zonisamide 100 MG CAPSULE PO (20:40)
[2023-08-23] MEDS: methylPREDNISolone Sod Succ 40 MG/ML VIAL 20 MG IVPUSH (02:34)
[2023-08-23 03:23] VITALS: BP 129/59; PULSE 71; RESP 20; TEMP 36.9; O2SAT 96
[2023-08-23] MEDS: Omeprazole 20 MG CAPSULE.DR PO (05:34)
[2023-08-23 08:00] VITALS: BP 143/65; PULSE 66; RESP 18; TEMP 36.6; O2SAT 97
[2023-08-23 08:14] LABS: Glucose, Whole Blood 261 mg/dL (60-115)
[2023-08-23] MEDS: predniSONE 20 MG TABLET 40 MG PO (08:43)
[2023-08-23] MEDS: Aspirin Enteric Coated 81 MG TABLET.DR PO (08:43)
[2023-08-23] MEDS: atenoloL 100 MG TABLET PO (08:44)
[2023-08-23] MEDS: Cholecalciferol (Vitamin D3) 25 MCG TABLET 50 MCG PO (08:44)
[2023-08-23] MEDS: amLODIPine Besylate 5 MG TABLET PO (08:44)
[2023-08-23] MEDS: Montelukast Sodium 10 MG TABLET PO (08:44)
[2023-08-23] MEDS: Atorvastatin Calcium 80 MG TABLET PO (08:44)
[2023-08-23] MEDS: lisinopriL 40 MG TABLET PO (08:44)
[2023-08-23] MEDS: 0.9 % Sodium Chloride Flush 3 ML SYRINGE IVFLUSH (08:45)
[2023-08-23] MEDS: prednisoLONE Acetate 1 % Oph Susp 5 ML DRPBTL 1 DROP EYE-RIGHT (08:50)
[2023-08-23] MEDS: Insulin Lispro 100 UNIT/ML 3 ML VIAL SUBCUT ×2 (08:56→12:11)
--- NOTE | 2023-08-23 10:17 | P.DS_ITS ---
DS: Providers Provider Date of Service: 08/23/23 Date of admission: 08/22/23 01:40 Primary care physician: Martine Ding MD Consults: 08/22/23 02:26 Consult to Gastroenterology Routine Consulting Provider: Trevor Burgess Reason for consultation: Abdominal pain and bloody diarrhea; UC DS: Diagnosis Discharge Diagnosis (1) Ulcerative colitis: Status: Acute (2) B12 deficiency anemia: Status: Acute DS: Summary Hospital Course Hospital Course: Chief Complaint: Abdominal Pain This is a 78-year-old female with pertinent history of insulin-dependent di abetes mellitus, ulcerative colitis, essential hypertension, mixed hyperlipidemia, mood disorder who presents to the emergency department for evaluation of abdominal pain and diarrhea. Patient states her symptoms started 1 week prior to presentation. She has been having generalized abdominal discomfort, nonradiating without any relieving factors. It is associated with multiple episodes of diarrhea. About 2 days prior to presentation, she has been having bloody bowel movements, about 6-7 per day. Patient states her mesalamine was changed to the generic form about a month ago and she believes this is the reason for her ulcerative colitis flare-up. She also complains of low blood sugar when she woke up this morning. Patient states she has been having reduced p.o. intake due to diarrhea but continue taking her insulin. No fever, chills, nausea, vomiting. No chest discomfort, palpitations, shortness of breath, changes in urinary habits. In the emergency department, ESR found to be elevated. Patient also found to be hypoglycemic Hospital course:Patient was admitted for flare of ulcerative colitis and initiated on IV antibiotics, diarrhea resoved quickly C dif was negaive. Upon evaluation by the gastroenteroligist Dr Burgess , the antibiotics were discontinued and Prednisone 40 mg daily added and to be tappered of by 10 mg weekly over 5 weeks. She is tolerating regular diet Final diagnosis: Flare of ulcerative colitis Time Spent with Patient Time attestation: Total time managing care of this patient today ____ minutes. Discharge coordination time: Greater than 30 minutes Quality: Safe Use of Opioids Does Pt have an Active Cancer Diagnosis on the Problem List?: No Quality: Stroke Does the patient have a stroke diagnosis?: No Physical Exam Vital Signs: Vital Signs: Last Vital Signs Temp 97.8 F 08/23/23 08:00 Pulse 66 08/23/23 08:00 Resp 18 08/23/23 08:00 BP 143/65 H 08/23/23 08:00 Pulse Ox 97 08/23/23 08:00 O2 Del Method Room Air 08/23/23 08:00 BMI result Body Mass Index 30.8 DS: Data Data Completed and Pending Labs on day of discharge: Laboratory Results - last 24 hr 08/22/23 08/22/23 08/22/23 01:19 11:29 16:10 POC Glucose 258 H 282 H Stl C. cayetanensis PCR Cancelled Stool Rotavirus A PCR Cancelled Stl Adenov F 40/41 PCR Cancelled Stool Astrovirus (PCR) Cancelled Stool Campylobacter PCR Cancelled Stool Cryptosporidium PCR Cancelled Stl Sh Tox Pr E STEC PCR Cancelled Stool E coli O157 PCR Cancelled Stl Enterotoxigenic E PCR Cancelled Stool EPEC (PCR) Cancelled Stool EAEC (PCR) Cancelled Stl E. histolytica PCR Cancelled Stool Giardia Lamblia PCR Cancelled Stl P. shigelloides PCR Cancelled Stool Salmonella PCR Cancelled Stool Sapovirus (PCR) Cancelled Stl Shigella/EIEC PCR Cancelled St Y.enterocolitica PCR Cancelled Stool Vibrio (PCR) Cancelled Stl Vibrio cholerae PCR Cancelled Stl Norovirus GI/GII PCR Cancelled 08/22/23 08/23/23 19:56 08:03 POC Glucose 330 H 261 H Stl C. cayetanensis PCR Stool Rotavirus A PCR Stl Adenov F 40/41 PCR Stool Astrovirus (PCR) Stool Campylobacter PCR Stool Cryptosporidium PCR Stl Sh Tox Pr E STEC PCR Stool E coli O157 PCR Stl Enterotoxigenic E PCR Stool EPEC (PCR) Stool EAEC (PCR) Stl E. histolytica PCR Stool Giardia Lamblia PCR Stl P. shigelloides PCR Stool Salmonella PCR Stool Sapovirus (PCR) Stl Shigella/EIEC PCR St Y.enterocolitica PCR Stool Vibrio (PCR) Stl Vibrio cholerae PCR Stl Norovirus GI/GII PCR Discharge Plan Discharge Anticipated Discharge Date/Time: 08/23/23 09:39 Patient Disposition: Home, Self-Care Discharge Diagnosis: Flare of ulcerative colitis Referrals: Martine Davila MD [Primary Care Provider] - 1 Week Discharge Medications: New prednisone 10 mg tablet See Taper PO DAILY Qty: 70 0RF Taper: Prednisone 40 mg daily for 7 Days and 0 Hour 30 mg daily for 7 Days and 0 Hour 20 mg daily for 7 Days and 0 Hour 10 mg daily for 7 Days and 0 Hour Rx Instructions: Week 1: 4 pills per day for 7 days (4 pills x 7 days = 28 pills) Week 2: 3 pills per day for 7 days (3 pills x 7 days = 21 pills) Week 3: 2 pills per day for 7 days (2 pills x 7 days = 14 pills) Week 4: 1 pill per day for 7 days (1 pill x 7 days = 7 pills) Continued albuterol sulfate [ProAir HFA] 90 mcg/actuation HFA aerosol inhaler 2 puff inhalation Q4H PRN (Reason: bronchospasm) 30 Days Qty: 18 0RF docusate sodium [Colace] 100 mg capsule 100 mg PO DAILY PRN (Reason: constipation) 90 Days Qty: 90 1RF (DME) blood-glucose meter [Accu-Chek Guide Glucose Meter] Misc See Rx Instructions .Route Qty: 1 0RF Rx Instructions: As directed (DME) FreeStyle Jessica 2 Sensor Kit See Rx Instructions .Route Qty: 7 5RF Rx Instructions: As directed change every 14 days (DME) pen needle, diabetic [BD Ultra-Fine Pam Pen Needle] 32 gauge x 5/32 needle See Rx Instructions .ROUTE .MEDSUPPLY Qty: 450 3RF Rx Instructions: As directed five times a day atenolol 100 mg tablet 100 mg PO DAILY Qty: 30 11RF amlodipine 5 mg tablet 5 mg PO DAILY Qty: 30 11RF (DME) Accu-Chek Guide test strips Strip See Rx Instructions .ROUTE .COMPLEX Qty: 400 2RF Dose Instruction: USE 1 STRIP 4 TIMES DAILY DIRECTED Rx Instructions: USE 1 STRIP 4 TIMES DAILY DIRECTED cholestyramine-aspartame [Cholestyramine Light] 4 gram powder in packet 1 ea PO BID Qty: 270 0RF atorvastatin 80 mg tablet 80 mg PO DAILY Qty: 30 11RF lisinopril 40 mg tablet 40 mg PO DAILY Qty: 90 3RF venlafaxine [Effexor XR] 37.5 mg capsule,extended release 24hr 37.5 mg PO DAILY@1400 insulin degludec [Tresiba FlexTouch U-200] 200 unit/mL (3 mL) insulin pen 20 unit subcut BEDTIME pantoprazole 40 mg tablet,delayed release (DR/EC) 40 mg PO DAILY@0630 montelukast 10 mg tablet 10 mg PO DAILY prednisolone acetate 1 % drops,suspension 1 drp ophthalmic-Right TID mesalamine [Apriso] 0.375 gram capsule,extended release 24hr 1.5 g PO DAILY@0600 ofloxacin 0.3 % Drops 1 drp ophthalmic-Right BID insulin lispro [Humalog KwikPen Insulin] 100 unit/mL insulin pen 10 unit subcut BID@0730,1630 Rx Instructions: 10 units in AM before breakfast, 12 units before lunch and 10 units before dinner insulin lispro 100 unit/mL Insulin Pen 12 unit SUBCUT DAILY@1130 folic acid 1 mg Tablet 1 mg PO DAILY@1400 venlafaxine 150 mg capsule,extended release 24hr 150 mg PO DAILY@1400 aspirin 81 mg tablet,delayed release (DR/EC) 81 mg PO DAILY Hold Instructions: Resume on 01/02/22. restart after repeating blood work in 1 week (DME) lancets [TRUEplus Lancets] 33 gauge misc See Rx Instructions .ROUTE .MEDSUPPLY Qty: 400 3RF Rx Instructions: four times a day zonisamide 100 mg capsule 100 mg PO BEDTIME mecobalamin (vitamin B12) 1,000 mcg tablet,disintegrating 1,000 mcg sublingual DAILY@1400 Jentadueto 2.5-1,000 mg tablet 1 tab PO BID nitroglycerin 0.4 mg tablet, sublingual 0.4 mg sublingual Q5M PRN (Reason: chest pain) Qty: 30 6RF Rx Instructions: do not exceed 3 doses per episode cholecalciferol (vitamin D3) 50 mcg (2,000 unit) capsule 50 mcg PO DAILY Discharge Orders: Discharge Order (Routine); Ordered 08/23/23 Ordered By: Sujit Garcia Diet: Diabetic diet Activity on Discharge: As tolerated Stand Alone Forms: Patient Portal Discharge page Care Plan Goals: recovery from ulcerative colitis flare Health Concerns: ulcerative colitis Plan of Treatment: take prednisone as directed below * Week 1: 4 pills per day for 7 days (4 pills x 7 days = 28 pills) * Week 2: 3 pills per day for 7 days (3 pills x 7 days = 21 pills) * Week 3: 2 pills per day for 7 days (2 pills x 7 days = 14 pills) * Week 4: 1 pill per day for 7 days (1 pill x 7 days = 7 pills) Follow up with your doctor in a week, call for appointment Be aware that your sugars maybe higher than usual while you are taking prednisone Assessment: See above
--- NOTE | 2023-08-23 10:48 | MHC.CM.PN ---
PT TO [facility] HOME TODAY WITH [facility] TO TRANSPORT
[2023-08-23 11:23] LABS: Glucose, Whole Blood 325 mg/dL (60-115)
[2023-08-23] MEDS: Venlafaxine HCl ER 37.5 MG CAP.ER.24H PO (12:08)
[2023-08-23] MEDS: Venlafaxine HCl ER 150 MG CAP.ER.24H PO (12:08)
[2023-08-23] MEDS: Folic Acid 1 MG TABLET PO (12:08)
[2023-08-23] MEDS: Insulin Lispro 100 UNIT/ML 3 ML VIAL 12 UNIT SUBCUT (12:12)
[2023-08-23] MEDS: Acetaminophen 325 MG TABLET 650 MG PO (13:26)
== END 2023-08-22 13:30 | disposition home or self-care (01) ==
LOC: HO.ED 08-22 00:35 → HO.EDOVER 08-22 01:52 → HO.S3 08-22 02:16
PROVIDERS: Physician Assistant; Physician Assistant Medical; Admitting Provider Student in an Organized Health Care Education/Training Program; Emergency Provider Internal Medicine; PCP Internal Medicine; Visit Provider Internal Medicine
DX: K51.90 Ulcerative colitis, unspecified, without complications (principal); R10.9 Unspecified abdominal pain; D51.9 Vitamin B12 deficiency anemia, unspecified; E11.649 Type 2 diabetes mellitus with hypoglycemia without coma; I25.2 Old myocardial infarction; I10 Essential (primary) hypertension; R19.7 Diarrhea, unspecified; R10.32 Left lower quadrant pain; R10.31 Right lower quadrant pain; E78.2 Mixed hyperlipidemia; Z79.4 Long term (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; Z79.899 Other long term (current) drug therapy; Z23 Encounter for immunization; Z11.52 Encounter for screening for COVID-19
CPT/HCPCS: 36415; 74176; 80048; 80053; 81001; 82272; 82947; 83690; 85025; 85652; 86140; 87635; 90471; 90686; 96361; 96372; 96374; 96376; 99221; 99285; J2920

== ENCOUNTER → 2023-08-22 01:40 | Outpatient (BNV) | payer MEDICARE, SELFPAY | PROVIDERS: Admitting Provider Student in an Organized Health Care Education/Training Program; Emergency Provider Internal Medicine; PCP Internal Medicine; Visit Provider Student in an Organized Health Care Education/Training Program | DX: K51.90 Ulcerative colitis, unspecified, without complications (principal); D51.9 Vitamin B12 deficiency anemia, unspecified | CPT/HCPCS: 99222; 99239; 99499 ==

== ENCOUNTER → 2023-08-22 01:40 | Outpatient (BNV) | payer MEDICARE, SELFPAY | PROVIDERS: Admitting Provider Student in an Organized Health Care Education/Training Program; Emergency Provider Internal Medicine; PCP Internal Medicine; Visit Provider Internal Medicine Gastroenterology | DX: K51.90 Ulcerative colitis, unspecified, without complications (principal); D51.9 Vitamin B12 deficiency anemia, unspecified | CPT/HCPCS: 99232 ==

== ENCOUNTER 2023-09-03 09:31 | Outpatient (AMB) | payer MEDICARE, SELFPAY ==
--- NOTE | 2023-09-03 09:48 | MHC.OFFVIS ---
Intake Vital Signs 09/03/23 09:52 Height 4 ft 11.33 in Weight 164 lb 3.91 oz BMI 32.8 BP 140/58 H Blood Pressure Location Lt brachial Position Sitting Pulse 71 Pulse Source Pulse Oximeter Intake Visit Reasons: DM2 with sensor Intake Note: Patient presents today to follow up on Type 2 Diabetes Mellitus. Patient receives DME supplies through: [employer], needs clinical notes to continue receiving supplies. 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 Accompanied by: Self / Same As Patient Allergies Penicillins [PENICILLINS] Allergy (Severe, Verified 09/03/23 09:58) ANAPHYLAXIS Sulfa (Sulfonamide Antibiotics) [SULFA (SULFONAMIDE ANTIBIOTICS)] Allergy (Severe, Verified 09/03/23 09:58) ANAPHYLAXIS codeine Allergy (Intermediate, Verified 09/03/23 09:58) headache/mood changes dulaglutide [From Trulicity] Allergy (Intermediate, Verified 09/03/23 09:58) Nausea and Vomiting latanoprost Adverse Reaction (Intermediate, Verified 09/03/23 09:58) eye redness Medication List - Last Reconciled 09/03/23 by Osmar Salter MD albuterol sulfate 90 mcg/actuation (ProAir HFA) 2 puffs inhalation Q4H PRN 30 days amlodipine 5 mg PO DAILY aspirin 81 mg PO DAILY atenolol 100 mg PO DAILY atorvastatin 80 mg PO DAILY blood sugar diagnostic (Accu-Chek Guide test strips) USE 1 STRIP 4 TIMES DAILY DIRECTED blood-glucose meter (Accu-Chek Guide Glucose Meter) As directed cholecalciferol (vitamin D3) 50 mcg PO DAILY cholestyramine-aspartame 4 gram (Cholestyramine Light) 1 ea PO BID docusate sodium (Colace) 100 mg PO DAILY PRN 90 days flash glucose sensor (FreeStyle Jessica 2 Sensor kit) As directed change every 14 days folic acid 1 mg PO DAILY@1400 insulin degludec (Tresiba FlexTouch U-200 insulin) 24 units subcut BEDTIME insulin lispro (Humalog KwikPen (U-100) Insulin) 10 units subcut BID@0730,1630 insulin lispro 12 units subcut DAILY@1130 lancets (TRUEplus Lancets) four times a day linagliptin-metformin 2.5-1,000 mg (Jentadueto) 1 tab PO BID lisinopril 40 mg PO DAILY mecobalamin (vitamin B12) 1,000 mcg sublingual DAILY@1400 mesalamine ER (Apriso) 1.5 grams PO DAILY@0600 montelukast 10 mg PO DAILY nitroglycerin 0.4 mg sublingual Q5M PRN ofloxacin 0.3% 1 drp ophthalmic-Right BID pantoprazole 40 mg PO DAILY@0630 pen needle, diabetic (BD Ultra-Fine Pam Pen Needle) As directed five times a day prednisolone acetate 1% 1 drp ophthalmic-Right TID prednisone See Taper mg PO DAILY venlafaxine ER (Effexor XR) 37.5 mg PO DAILY@1400 venlafaxine ER 150 mg PO DAILY@1400 zonisamide 100 mg PO BEDTIME HPI HPI Comments History of Present Illness Details ? Patient is a 77 yo female with DM type 2 diagnosed at 34 years of age, who presents for continued management of her diabetes.? ? Jessica download shows she is using the Jessica 91% of the time. Average glucose is 172 with G mi of 7.4% and variability of 45.2%. 60% of is range with19% hyperglycemia and 18% very hyperglycemic and 3%o hypoglycemia. Patent shows increased point care post-meals particularly breakfast and lunch with wide variability and some hypoglycemia occurring overnight and post breakfast. Jessica sensor not available for last wk Past medical history includes :? DM2 seizures, HTN, HLD,reflux, [place], intolerant of trulicity due to nausea and vomiting Micro and macrovascular complications:+ retinopathy? + neuropathy, + CAD, Diabetes medications: Tresiba u200 24 units Humalog?10 units breakfast, 12 units lunch, 10 units dinner.?Jentadueto 2.03/1000 BID. On Predisone 20 mg taper for 3 wks Symptoms:? + numbness and tingling in toes, see estate attorney regularly Hypoglycemia has 2-3 X wk overnight Eye exam:? needs to make appt hx of? mild retinopathy Exercise:? minimum after hospital Tried Trulicity but couldn't tolerate No diarrhea Laboratory Tests 07/11/21 08:24 Hgb A1c (Clinic) 8.4 H 07/11/21 07/13/21 07/13/21 08:24 12:14 12:38 Creatinine Estimated GFR Hgb A1c (Clinic) 8.4 H Hemoglobin A1c % 8.2 Triglycerides Cholesterol LDL Cholesterol Di rect LDL Cholesterol, C alc HDL Cholesterol Microalb/Creat Rat io 54.2 07/13/21 07/13/21 12:38 12:38 Creatinine 0.97 Estimated GFR 56 Hgb A1c (Clinic) Hemoglobin A1c % Triglycerides 118 Cholesterol 140 LDL Cholesterol Di rect 69 LDL Cholesterol, C alc 67 HDL Cholesterol 50 Microalb/Creat Rat io [facility] Medical History (Updated 08/30/23 @ 00:03 by Joel Connors) Dizziness Mild recurrent major depression Epilepsy Stroke Colitis Major depression, recurrent Memory change Neuropathy Seizures Glaucoma Myocardial infarction Acid reflux Type 2 diabetes mellitus with diabetic polyneuropathy Type 2 diabetes mellitus with hyperglycemia 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 LDL goal <70 Obesity due to excess calories BMI 34.0-34.9,adult 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, unspecified 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 Type 2 diabetes mellitus with unspecified complications Atherosclerotic cardiovascular disease Surgical History Hx of eye surgery Hx of colonoscopy History of esophagogastroduodenoscopy (EGD) History of colon resection History of appendectomy History of kidney surgery History of intestinal surgery Hx of cholecystectomy History of liver biopsy History of bladder surgery Hx of hysterectomy Family History Father Cardiovascular disease Mother Cardiovascular disease Sister Diabetes Brother Diabetes Other Mental health disorder Social History Household Members: None Housing: Apartment Are you a primary healthcare architect to a significant other at home: No Do you presently have visiting nurse or other home services: No Alcohol intake: never Patient Tobacco Use Status: Never used Tobacco e-Cigarette/Vaping Use: Never Used Second Hand Smoke Exposure: No service: No Current occupational status: retired Cognitive needs: Yes Hearing needs: No Vision needs: Yes Physical Exam Vital Signs: Last Vital Signs Pulse 71 09/03/23 09:52 BP 140/58 H 09/03/23 09:52 BMI result Body Mass Index 32.8 Absence of Cushingoid features. Absence of acromegalic features. Neck exam reveals nl size thyroid about 15 gms. No thyroid nodules palpable. No carotid bruits present. Lungs CTA. Heart S1 S2, Reg R/R. No M/R/ G. Skin exam reveals absence of vitiligo or acanthosis nigricans. Abdominal exam reveals Soft NT/ND with NA BS. No organomegaly present. Neck Other: . Extrem Other: Visual exam of foot performed. No ulcerations or open lesions. No onchomycosis, no callouses.Pulses 2 + distally Sensation intact to monofilament exam. Vibratory sensation sensed is decreased with 128 Hz tuning fork Results AMB Hemoglobin A1c AMB Hemoglobin A1c 7.7 % Last Edit by PURNIMA Melendez on 09/03/23 10:22 Results Reviewed Results Reviewed: 09/03/23 10:03 Glucose, Whole Blood Routine Laboratory Last Values Glucose (Clinic) 253 mg/dL (60-115) H 09/03/23 10:03 Assessment & Plan Assessment & Plan (1) Type 2 diabetes mellitus with diabetic polyneuropathy: Code(s): E11.42 - Type 2 diabetes mellitus with diabetic polyneuropathy Qualifiers: Diabetes mellitus director long term care insulin use: with retirement use Qualified Code(s): E11.42 - Type 2 diabetes mellitus with diabetic polyneuropathy; Z79.4 - correction (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 Plan: This is a 77-year-old female with a history of type 2 diabetes being treated with basal-bolus insulin, metformin and Tradjenta with adequate glycemic control considering age and comorbidities and known microvascular complications namely neuropathy and retinopathy. She is having overnight hypoglycemia Plan is decrease the Tresiba to 20 units. Would increase Humalog to 14 units before breakfast, 16 units before lunch and 14 units before dinner while patient is taking prednisone. Long-term Goal HbA1c would be 8% . Orders: Orders AMB Hemoglobin A1c Today E11.42 - Type 2 diabetes mellitus with diabetic polyneuropathy Medications: New blood sugar diagnostic (FreeStyle Precision Vu Strips) As directed tests 4 X/day 50 ea 4RF Coding Level of Care Code Est Pt Level 4 (00540) Diagnoses Type 2 diabetes mellitus with diabetic polyneuropathy, with long-term current use of insulin E11.42; Z79.4 Diabetes mellitus director long term care insulin use: with director long term care use
[2023-09-03 09:52] VITALS: BP 140/58; PULSE 71; BMI 32.8
[2023-09-03 10:09] LABS: Glucose, Whole Blood 253 mg/dL (60-115)
== END 2023-09-03 10:23 | disposition home or self-care (01) ==
PROVIDERS: PCP Internal Medicine; Visit Provider Internal Medicine Endocrinology, Diabetes & Metabolism
DX: E11.42 Type 2 diabetes mellitus with diabetic polyneuropathy (principal); Z79.4 Long term (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
CPT/HCPCS: 99214

== ENCOUNTER → 2023-09-03 09:31 | Outpatient (BNVA) | payer MEDICARE, SELFPAY | PROVIDERS: PCP Internal Medicine; Visit Provider Internal Medicine Endocrinology, Diabetes & Metabolism | DX: E11.42 Type 2 diabetes mellitus with diabetic polyneuropathy (principal); Z79.4 Long term (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 | CPT/HCPCS: 82947; 83036; 99212 ==

== ENCOUNTER → 2023-09-23 09:06 | Outpatient (BNVA) | payer MEDICARE, SELFPAY | PROVIDERS: PCP Internal Medicine; Visit Provider Registered Nurse Diabetes Educator | DX: E11.8 Type 2 diabetes mellitus with unspecified complications (principal) | CPT/HCPCS: 99211 ==

== ENCOUNTER 2023-09-23 09:07 | Outpatient (AMB) | payer MEDICARE, SELFPAY ==
--- NOTE | 2023-09-23 09:50 | MHC.AMDMED ---
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: No Accompanied by: Self / Same As Patient Allergies Penicillins [PENICILLINS] Allergy (Severe, Verified 09/03/23 09:58) ANAPHYLAXIS Sulfa (Sulfonamide Antibiotics) [SULFA (SULFONAMIDE ANTIBIOTICS)] Allergy (Severe, Verified 09/03/23 09:58) ANAPHYLAXIS codeine Allergy (Intermediate, Verified 09/03/23 09:58) headache/mood changes dulaglutide [From Trulicity] Allergy (Intermediate, Verified 09/03/23 09:58) Nausea and Vomiting latanoprost Adverse Reaction (Intermediate, Verified 09/03/23 09:58) eye redness HPI Comprehensive Diabetes Asmnt Most Recent Diabetes Results: Microalb/Creat Ratio 26.7 ug/mg cr 05/05/23 Cholesterol 117 mg/dL 05/05/23 HDL Cholesterol 54 mg/dL 05/05/23 Triglycerides 81 mg/dL 05/05/23 Creatinine 0.77 mg/dL (0.5-1.4) 08/22/23 Blood Urea Nitrogen 14 mg/dL (9-16) 08/22/23 Sodium 143 mmol/L (135-145) 08/22/23 Potassium 4.8 mmol/L (3.3-5.1) 08/22/23 Chloride 113 mmol/L (96-108) H 08/22/23 Carbon Dioxide 22 mmol/L (22-29) 08/22/23 Calcium 9.7 mg/dL (8.4-10.2) 08/22/23 AST 32 U/L (5-31) H 08/21/23 ALT 25 U/L (0-31) 08/21/23 Total Protein 7.4 g/dL (6.5-8.0) 08/21/23 Albumin 4.0 g/dL (3.5-5.0) 08/21/23 [facility] Medical History (Updated 08/30/23 @ 00:03 by Background Dory) Dizziness Mild recurrent major depression Epilepsy Stroke Colitis Major depression, recurrent Memory change Neuropathy Seizures Glaucoma Myocardial infarction Acid reflux Type 2 diabetes mellitus with diabetic polyneuropathy Type 2 diabetes mellitus with hyperglycemia 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 LDL goal <70 Obesity due to excess calories BMI 34.0-34.9,adult 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, unspecified Essential hypertension 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 Type 2 diabetes mellitus with unspecified complications Atherosclerotic cardiovascular disease Surgical History Hx of eye surgery Hx of colonoscopy History of esophagogastroduodenoscopy (EGD) History of colon resection History of appendectomy History of kidney surgery History of intestinal surgery Hx of cholecystectomy History of liver biopsy History of bladder surgery Hx of hysterectomy Family History Father Cardiovascular disease Mother Cardiovascular disease Sister Diabetes Brother Diabetes Other Mental health disorder Social History Household Members: None Housing: Apartment Are you a primary restorative care technician to a significant other at home: No Do you presently have visiting nurse or other home services: No Alcohol intake: never Patient Tobacco Use Status: Never used Tobacco e-Cigarette/Vaping Use: Never Used Second Hand Smoke Exposure: No service: No Current occupational status: retired Cognitive needs: Yes Hearing needs: No Vision needs: Yes Assessment & Plan Assessment & Plan (1) Type 2 diabetes mellitus with unspecified complications: Code(s): E11.8 - Type 2 diabetes mellitus with unspecified complications Plan: Learning objectives: The patient was provided with verbal and written education on the following topics as outlined below. Assess patient education level/literacy/barriers Patient questions/concerns, patient is out of Jessica 2 sensors and does not currently have a working meter. She has been unable to test her blood sugars since 09/01/2023 Patient's DME company is [employer], called [employer] Jessica division was not open yet. Gave patient customer service number to call after 08:00 he specific time Set Dexcom G7 reader, inserted Dexcom G7 sensor in back of left arm patient left visit with sensor in warmup. Patient given the additional Dexcom G7 sample sensor, request prescription for patient's new blood glucose meter sent to pharmacy The patient met all learning objectives and was able to verbalize understanding and provide teach back of education topics discussed . The patient was provided with the opportunity to ask questions and all questions were answered. Topics covered in today?s session included: Hypoglycemia and Hyperglycemia ? Signs and symptoms? Causes? Treatment? Preventing hypoglycemia? When to seek medical attention ?Blood glucose targets and how you feel when your blood glucose is in and out of your target ranges. ?Monitoring and knowing your A1C. ?What can make blood glucose go up and down and preventing high and low blood glucose. ?Review of blood sugar targets in expected goal range and outside of expected goal range. ?Problem solving and preventing hyper/hypoglycemia. ?Sick day management of diabetes. ?Using blood sugar results in decision making process in managing diabetes. ?Patient was receptive to information provided and participated in the discussion. Asked?appropriate questions and demonstrated good understanding of the topics discussed.? ? Patient Instructions: Patient contact Diabetes Education questions or concerns Patient will follow-up with Diabetes Education nurse in 1 month Coding Level of Care Code Est Pt Level 1 (86661) Diagnoses Type 2 diabetes mellitus with unspecified complications E11.8
== END 2023-09-23 09:53 | disposition home or self-care (01) ==
PROVIDERS: PCP Internal Medicine; Visit Provider Registered Nurse Diabetes Educator
DX: E11.8 Type 2 diabetes mellitus with unspecified complications (principal)

== ENCOUNTER 2023-10-23 09:08 | Outpatient (AMB) | payer MEDICARE, SELFPAY ==
--- NOTE | 2023-10-23 09:37 | A.OFFVIS_ITS ---
Intake Intake Visit Reasons: DM-CONFIRMED Mushroom Cutter Required: No Accompanied by: Self / Same As Patient Allergies Penicillins [PENICILLINS] Allergy (Severe, Verified 09/03/23 09:58) ANAPHYLAXIS Sulfa (Sulfonamide Antibiotics) [SULFA (SULFONAMIDE ANTIBIOTICS)] Allergy (Severe, Verified 09/03/23 09:58) ANAPHYLAXIS codeine Allergy (Intermediate, Verified 09/03/23 09:58) headache/mood changes dulaglutide [From Trulicity] Allergy (Intermediate, Verified 09/03/23 09:58) Nausea and Vomiting latanoprost Adverse Reaction (Intermediate, Verified 09/03/23 09:58) eye redness HPI Comprehensive Diabetes Asmnt Most Recent Diabetes Results: Creatinine 0.77 mg/dL (0.5-1.4) 08/22/23 Blood Urea Nitrogen 14 mg/dL (9-16) 08/22/23 Sodium 143 mmol/L (135-145) 08/22/23 Potassium 4.8 mmol/L (3.3-5.1) 08/22/23 Chloride 113 mmol/L (96-108) H 08/22/23 Carbon Dioxide 22 mmol/L (22-29) 08/22/23 Calcium 9.7 mg/dL (8.4-10.2) 08/22/23 AST 32 U/L (5-31) H 08/21/23 ALT 25 U/L (0-31) 08/21/23 Total Protein 7.4 g/dL (6.5-8.0) 08/21/23 Albumin 4.0 g/dL (3.5-5.0) 08/21/23 [facility] Medical History (Updated 08/30/23 @ 00:03 by Joel Connors) Dizziness Mild recurrent major depression Epilepsy Stroke Colitis Major depression, recurrent Memory change Neuropathy Seizures Glaucoma Myocardial infarction Acid reflux Type 2 diabetes mellitus with diabetic polyneuropathy Type 2 diabetes mellitus with hyperglycemia 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 LDL goal <70 Obesity due to excess calories BMI 34.0-34.9,adult 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, unspecified Essential hypertension residential (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 Type 2 diabetes mellitus with unspecified complications Atherosclerotic cardiovascular disease Surgical History Hx of eye surgery Hx of colonoscopy History of esophagogastroduodenoscopy (EGD) History of colon resection History of appendectomy History of kidney surgery History of intestinal surgery Hx of cholecystectomy History of liver biopsy History of bladder surgery Hx of hysterectomy Family History Father Cardiovascular disease Mother Cardiovascular disease Sister Diabetes Brother Diabetes Other Mental health disorder Social History Household Members: None Housing: Apartment Are you a primary career and guidance counselor to a significant other at home: No Do you presently have visiting nurse or other home services: No Alcohol intake: never Patient Tobacco Use Status: Never used Tobacco e-Cigarette/Vaping Use: Never Used Second Hand Smoke Exposure: No service: No Current occupational status: retired Cognitive needs: Yes Hearing needs: No Vision needs: Yes Assessment & Plan Assessment & Plan (1) Type 2 diabetes mellitus with diabetic polyneuropathy: Code(s): E11.42 - Type 2 diabetes mellitus with diabetic polyneuropathy Qualifiers: Diabetes mellitus intermediate insulin use: with intermediate use Qualified Code(s): E11.42 - Type 2 diabetes mellitus with diabetic polyneuropathy; Z79.4 - residential (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 Plan: Personal Continuous Glucose Monitor: sensor information from August 2023, patient has been without sensors are meter. Called patient's pharmacy today, patient will be able to molded goods spot picker blood glucose meter, with strips today. patient still waiting on advanced diabetes supply to provide Jessica 2 glucose sensors Patients CGM information reviewed Reviewed patient's sensor data: Hypoglycemia: ? 3% Hyperglycemia:? 37 % Time in Range:? 60% Average glucose 172mg/dL instructed patient to call in diabetes supply to find out when she will be receiving glucose sensor a list of meal delivery services sent to patient through portal, and she requested some alternatives to Meals on wheels.? 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
== END 2023-10-23 09:44 | disposition home or self-care (01) ==
PROVIDERS: PCP Internal Medicine; Visit Provider Registered Nurse Diabetes Educator
DX: E11.42 Type 2 diabetes mellitus with diabetic polyneuropathy (principal); Z79.4 Long term (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

== ENCOUNTER → 2023-10-23 09:08 | Outpatient (BNVA) | payer MEDICARE, SELFPAY | PROVIDERS: PCP Internal Medicine; Visit Provider Registered Nurse Diabetes Educator | DX: E11.42 Type 2 diabetes mellitus with diabetic polyneuropathy (principal); Z79.4 Long term (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 | CPT/HCPCS: 99211 ==

== ENCOUNTER 2024-01-07 16:16 | Outpatient (AMB) | payer MEDICARE, SELFPAY ==
[2024-01-07 16:18] VITALS: BP 166/70; BMI 30.7
--- NOTE | 2024-01-07 16:18 | MHC.PC.OV ---
Vital Signs 01/07/24 16:18 01/07/24 19:23 Height 4 ft 11 in Weight 152 lb BMI 30.7 BP 166/70 H 160/70 H Blood Pressure Location Lt brachial Lt brachial Position Sitting Sitting Intake Visit Reasons: physical exam Intake Note: Patient here for a physical exam, c/o passing out for 4 hours 01/03 Hvac Controls Technician Required: No Accompanied by: Self / Same As Patient Allergies Penicillins [PENICILLINS] Allergy (Severe, Verified 01/07/24 16:33) ANAPHYLAXIS Sulfa (Sulfonamide Antibiotics) [SULFA (SULFONAMIDE ANTIBIOTICS)] Allergy (Severe, Verified 01/07/24 16:33) ANAPHYLAXIS codeine Allergy (Intermediate, Verified 01/07/24 16:33) headache/mood changes dulaglutide [From Trulicity] Allergy (Intermediate, Verified 01/07/24 16:33) Nausea and Vomiting latanoprost Adverse Reaction (Intermediate, Verified 01/07/24 16:33) eye redness Medication List - Last Reconciled 01/07/24 by Martine Ding MD albuterol sulfate 90 mcg/actuation (ProAir HFA) 2 puffs inhalation Q4H PRN 30 days amlodipine 5 mg PO DAILY aspirin 81 mg PO DAILY atenolol 100 mg PO DAILY atorvastatin 80 mg PO DAILY blood pressure monitor As directed blood sugar diagnostic (Accu-Chek Guide test strips) USE 1 STRIP 4 TIMES DAILY DIRECTED blood sugar diagnostic (FreeStyle Precision Vu Strips) As directed tests 4 X/day blood-glucose meter (Accu-Chek Guide Glucose Meter) As directed cholecalciferol (vitamin D3) 50 mcg PO DAILY cholestyramine-aspartame 4 gram (Cholestyramine Light) 1 ea PO BID docusate sodium (Colace) 100 mg PO DAILY PRN 90 days flash glucose sensor (FreeStyle Jessica 2 Sensor kit) As directed change every 14 days folic acid 1 mg PO DAILY@1400 insulin degludec (Tresiba FlexTouch U-200 insulin) 20 units subcut BEDTIME insulin lispro (Humalog KwikPen (U-100) Insulin) 10 units subcut BID@0730,1630 insulin lispro 12 units subcut DAILY@1130 lancets (TRUEplus Lancets) four times a day linagliptin-metformin 2.5-1,000 mg (Jentadueto) 1 tab PO BID lisinopril 40 mg PO DAILY mecobalamin (vitamin B12) 1,000 mcg sublingual DAILY@1400 montelukast 10 mg PO DAILY PRN 30 days nitroglycerin 0.4 mg sublingual Q5M PRN pantoprazole 40 mg PO DAILY pen needle, diabetic (BD Ultra-Fine Pam Pen Needle) As directed five times a day venlafaxine ER (Effexor XR) 37.5 mg PO DAILY@1400 venlafaxine ER 150 mg PO DAILY@1400 zonisamide 100 mg PO BEDTIME Tobacco use date assessed: 01/07/24 Fall risk assessment: 1 Fall in past year Last assessed Fall Risk: 01/07/24 Dental Screening Dental Screen Date: 01/07/24 Did you have a dental visit in the last 12 months?: No Did you have a dental problem in the last 6 months where you did not have access to dental care?: No Was dental information given to patient?: Patient has dentist HPI HPI Comments History of Present Illness Details This is a 78-year-old female with diabetes mellitus type 2 on long-term current use of insulin, mild major depression, ulcerative colitis and epilepsy that comes for her physical exam. Last A1c was last month and as per patient it was 7% through a visiting nurse at home. Depression stable with venlafaxine. Ulcerative colitis is follow by Gastroenterology and she discontinue mesalamine because as per patient gave her more diarrhea. Epilepsy is follow by Neurology and would like a 2nd opinion. Mammogram done 2022. Colonoscopy done 2022. No need for Pap smears due to age. Had a syncopal episode 3 days ago and lose consciousness for 4 hours. She was having vomiting and diarrhea and passed out sitting in the toilet. Still has diarrhea but no vomiting. 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 Type 2 diabetes mellitus with unspecified complications Atherosclerotic cardiovascular disease Surgical History Hx of eye surgery Hx of colonoscopy History of esophagogastroduodenoscopy (EGD) History of colon resection History of appendectomy History of kidney surgery History of intestinal surgery Hx of cholecystectomy History of liver biopsy History of bladder surgery Hx of hysterectomy Family History (Updated 01/07/24 @ 16:39 by Martine Ding MD) Father Cardiovascular disease Cancer Mother Cardiovascular disease Sister Diabetes Brother Diabetes Other Mental health disorder Social History Household Members: None Housing: Apartment Are you a primary career and guidance counselor to a significant other at home: No Do you presently have visiting nurse or other home services: No Alcohol intake: never Patient Tobacco Use Status: Never used Tobacco e-Cigarette/Vaping Use: Never Used Second Hand Smoke Exposure: No service: No Current occupational status: retired Cognitive needs: Yes Hearing needs: No Vision needs: Yes Questionnaire PHQ-9 Over the last 2 weeks, how often have you been bothered by any of the following problems? 1. Little interest or pleasure in doing things: not at all 2. Feeling down, depressed, or hopeless: several days 3. Trouble falling or staying asleep, or sleeping too much: several days 4. Feeling tired or having little energy: nearly every day 5. Poor appetite or overeating: not at all 6. Feeling bad about yourself - or that you are a failure or have let yourself or your family down: not at all 7. Trouble concentrating on things, such as reading the newspaper or watching television: not at all 8. Moving or speaking so slowly that other people could have noticed. Or the opposite - being so fidgety or restless that you have been moving around a lot more than usual: not at all 9. Thoughts that you would be better off or of hurting yourself in some way: not at all Total score: 5 Depression Screening Interpretation: Positive Depression Screening Follow-up: Existing condition, In treatment and Community Mental Health Worker F/U Depression Screening Done: Yes 83079 - PHQ-9 Billing: Yes Source: Developed by Drs. Osmar Hoyt, Jessie Vanessa, Gurmeet Frey and colleagues, with an educational pippa from [employer]. Thrive Questionnaire Date Thrive assessed: 08/22/23 PARVEEN-7 AMB Questionnaire PARVEEN-7 Date PARVEEN - 7 assessed: 01/07/24 Feeling nervous, anxious, or on edge: 1 = Several days Not being able to stop or control worryin = Not at all Worrying too much about different things: 1 = Several days Trouble relaxin = Not at all Being so restless that it is hard to sit still: 0 = Not at all Becoming easily annoyed or irritable: 0 = Not at all Feeling afraid as if something awful might happen: 1 = Several days Total PARVEEN-7 score (0-4 normal; 5-9 mild; 10-14 moderate; 15-21 severe): 3 Source: Developed by Drs. Osmar Hoyt, Jessie Vanessa, Gurmeet Frey and colleagues, with an educational pippa from [employer]. PARVEEN-7 Assessment Billing PARVEEN-7 Assessment Tool: PARVEEN-7 Assessment 68179 Review of Systems Const All systems reviewed & are unremarkable except as noted in HPI and below Eyes Reports no additional complaints, Denies change in vision and Denies other visual disturbances Card Denies chest pain at rest, Denies chest pain with activity, Denies edema, Denies irregular heart rhythm, Denies claudication, Denies dyspnea, Denies dyspnea on exertion, Denies orthopnea, Denies paroxysmal nocturnal dyspnea and Denies slow heart rate Resp Denies cough, Denies dyspnea and Denies dyspnea on exertion GI Denies abdominal pain, Denies change in bowel habits, Denies excessive flatus, Denies nausea and Denies vomiting Denies urinary incontinence, Denies urinary hesitancy and Denies urinary urgency Musc Denies abnormal gait, Denies atrophy, Denies deformity and Denies limited range of motion Skin/Breast Denies bleeding lesions, Denies changing lesions and Denies rash Neuro Denies abnormal gait, Denies behavioral changes, Denies confusion and Denies lack of coordination Psych Denies behavioral changes and Denies confusion Physical exam (Primary Care) Vital Signs: Last Vital Signs BP 166/70 H 01/07/24 16:18 BMI result Body Mass Index 30.7 Tobacco/Smoking Status: Tobacco use Status Tobacco use date assessed 01/07/24 01/07/24 16:28 Patient Tobacco Use Status Never used Tobacco 01/07/24 16:28 e-Cigarette/Vaping Use Never Used 01/07/24 16:28 PHQ-9: PHQ-9 Score PHQ-9: Total score 5 01/07/24 16:40 Depression Screening Interpretation: Positive Depression Screening Follow-up: Existing condition, In treatment and Community Mental Health Worker F/U Thrive Assessment: Date of Thrive Assessment Date Thrive assessed 08/22/23 01/07/24 16:28 Const General: No confusion Orientation/consciousness: patient oriented x3 and No confusion HENMT Head: Yes normal to inspection, Yes normocephalic and Yes atraumatic Ears: external ears normal General nose exam: Normal external nose present and No nasal discharge present Eyes General: appearance normal, both eyes and all related structures Eyelids: Yes eyelids normal Conjunctivae: conjunctivae normal Neck Neck: Yes normal visual inspection and Yes supple Resp Effort & Inspection: normal respiratory effort Auscultation: clear to auscultation bilaterally Cardio Jugular venous distension: no JVD Rate: regular rate Rhythm: regular rhythm Heart sounds: S1 normal heart sound present and S2 normal heart sound present GI Inspection: Yes normal to inspection Palpation (GI): Soft to palpation and nontender Auscultation: normal bowel sounds Skin General skin exam: no rashes or lesions noted Neuro General: patient oriented x3, no focal motor deficits and No confusion Extrem General: Yes full ROM Assessment and Plan Assessment & Plan (1) Physical exam: Code(s): Z00.00 - Encounter for general adult medical examination without abnormal findings Plan: Repeat in a year (2) Ulcerative colitis: Code(s): K51.90 - Ulcerative colitis, unspecified, without complications Plan: Follow-up with gastroenterology (3) Mild recurrent major depression: Code(s): F33.0 - Major depressive disorder, recurrent, mild Plan: Continue venlafaxine (4) Epilepsy: Code(s): G40.909 - Epilepsy, unspecified, not intractable, without status epilepticus Plan: Continue zonisamide. Referred to [facility] neurology for 2nd opinion. (5) Diabetes mellitus, with long-term current use of insulin: Code(s): E11.9 - Type 2 diabetes mellitus without complications; Z79.4 - [facility] (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 Plan: Continue Jentadueto and insulin. A1c goal is equal or less than 7%. Orders: Orders ECG 12 lead EKG Today R55 - Syncope and collapse Complete Blood Count Auto Diff Today D64.9 - Anemia, unspecified IRON PROFILE Today D64.9 - Anemia, unspecified Microalbumin, Random (w Creat) Today E11.9 - Type 2 diabetes mellitus without complications Vitamin D 25-OH Total Today E55.9 - Vitamin D deficiency, unspecified CA echo transthoracic complete Today R01.1 - Cardiac murmur, unspecified CT head for stroke Today R55 - Syncope and collapse Lipid Panel Today E78.5 - 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, unspecified Vitamin B12 and Folate Today E53.8 - Deficiency of other specified B group vitamins Comprehensive [place]. Panel Fast Today R55 - Syncope and collapse Referrals Neurology Referral G40.909 - Epilepsy, unspecified, not intractable, without status epilepticus, R55 - Syncope and collapse Dermatology Referral L98.9 - Disorder of the skin and subcutaneous tissue, unspecified Medications: Changed From insulin degludec (Tresiba FlexTouch U-200 insulin) 26 units (0.13 mL) subcut BEDTIME 9 mL 11RF To insulin degludec (Tresiba FlexTouch U-200 insulin) 20 units subcut BEDTIME Refilled albuterol sulfate 90 mcg/actuation (ProAir HFA) 2 puffs inhalation Q4H 30 days PRN 18 grams 0RF bronchospasm nitroglycerin do not exceed 3 doses per episode 0.4 mg sublingual Q5M PRN 30 tabs 6RF chest pain I25.10 - Atherosclerotic heart disease of [place] coronary artery without angina pectoris Coding Level of Care Code Est Pt Prev Care >65y(65494) Diagnoses Physical exam Z00.00 Ulcerative colitis K51.90 Mild recurrent major depression F33.0 Epilepsy G40.909 Diabetes mellitus, with long-term current use of insulin E11.9; Z79.4 Additional Codes PARVEEN-7 Assessment Billing - PARVEEN-7 Assessment Tool: PARVEEN-7 Assessment [id number] ([id number]) Time Spent (min) 36
[2024-01-07 19:23] VITALS: BP 160/70
== END 2024-01-07 16:57 | disposition home or self-care (01) ==
PROVIDERS: PCP Internal Medicine; Visit Provider Internal Medicine
DX: Z00.00 Encounter for general adult medical examination without abnormal findings (principal); K51.90 Ulcerative colitis, unspecified, without complications; F33.0 Major depressive disorder, recurrent, mild; G40.909 Epilepsy, unspecified, not intractable, without status epilepticus; E11.9 Type 2 diabetes mellitus without complications; Z79.4 Long term (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
CPT/HCPCS: 99397

== ENCOUNTER → 2024-01-15 14:03 | Outpatient (REF) | payer MEDICARE, SELFPAY ==
--- NOTE | 2024-01-15 14:09 | CA_ITS ---
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 Normal LV ejection fraction of 60 65% with impaired relaxation filling pattern with asymmetric septal hypertrophy of the basal septum without clear obstructive physiology noted by gradients 2. Normal cardiac valvular Doppler 3. No gross pericardial effusion Findings Left Ventricle Normal left ventricular size, thickness, and systolic function. The visually estimated ejection fraction is between 60-65%. Spectral Doppler is indicative of an impaired relaxation filling pattern. E/E prime ratio is between 8 and 15 consistent with indeterminate filling pressures. There is mild septal asymmetric hypertrophy. There is evidence of flow acceleration in the LVOT by color Doppler although there is no significantly increased gradient noted. Right Ventricle Normal right ventricular cavity size and systolic function. Atria The left atrium is normal in size. There is no evidence of interatrial shunt. The right atrium is normal in size. Aortic Valve The aortic valve structure and function is likely normal. There is no aortic valve stenosis. There is no aortic valve regurgitation. Mitral Valve Normal mitral valve structure and function. There is trace mitral valve regurgitation. There is no mitral valve stenosis. Pulmonic Valve The pulmonic valve was not well visualized. Tricuspid Valve Likely normal tricuspid valve structure and function. Tricuspid regurgitation envelope is inadequate for calculation of right ventricular systolic pressure. Normal right atrial pressure. Great Vessels The pulmonary artery was not well visualized. Venous The inferior vena cava is normal in size and collapses greater than 50% with inspiration. Pericardium/Pleural There is no evidence of pericardial effusion. Measurements 2D Linear Measurements IVSd: 1.17 0.6-0.9/0.6-1.0 cm LVIDd: 3.97 3.9-5.3/4.2-5.9 cm LVIDd Index: 2.44 2.4-3.2/2.2-3.1 cm/m2 LVIDs: 2.75 2.0-3.6 cm LVPWd: 1.13 0.7-1.1 cm LA Diam: 3.30 2.7-3.8/3.0-4.0 cm LAIDs Index: 2.02 1.5-2.3 cm/m2 LV Mass: 191.28 67-162/88-224 g LV Mass Index: 117.35 43-95/49-115 g/m2 LVOT Diam: 1.90 3.0+(-)1.3 cm Mitral Valve MV Pk E: 0.69 MV PK A: 0.88 MV Decel Time: 268.00 E/A: 0.80 E'Lateral: 8.05 E'Medial: 4.03 E/E' Med: 17.10 E/E' Lat: 8.60 PHT: 79.00 MVA PHT: 2.78 [place]: 2.57 Aortic Valve AoV Pk Wiliam: 1.33 AoV Mn Wiliam: 1.10 AoV VTI: 0.36 AoV Pk Grad: 7.00 Aov Mn Grad: 5.00 IGOR Cont.VTI: 2.71 LVOT LVOT Pk Wiliam: 1.26 LVOT Mn [place]iliam: 0.96 LVOT VTI: 0.34 LVOT Pk Grad: 6.00 LVOT Mn Grad: 4.00 LVOT Diam: 1.90 LVOT Area: 2.84 Diastolic Function MV Pk E: 0.69 MV Pk A: 0.88 E/A: 0.80 E'Medial: 4.03 E/E' Med: 17.10 E' Laterial: 8.05 E/E' Lat: 8.60 Right Ventricle TAPSE (mm): 23.00 TVS' Wiliam: 10.00 Tricuspid Valve RA Press: 3.00 Great Vessels Aorta Sinus of Valsalva: 3.36 2.0-3.[address] [place]: 2.71 1.7-3.4 cm Ao Asc: 3.50 2.1-3.4 cm Updated in Other Vendor System with Status of Final Jason Vaughan MD electronically signed on 01/16/2024 4:01:47 PM with status of Final
== END ==
LOC: HO.CARD 14:03
PROVIDERS: PCP Internal Medicine; Visit Provider Internal Medicine
DX: R01.1 Cardiac murmur, unspecified (principal)
CPT/HCPCS: 93306

== ENCOUNTER → 2024-01-15 14:09 | Outpatient (BNV) | payer MEDICARE, SELFPAY | PROVIDERS: PCP Internal Medicine; Visit Provider Internal Medicine Cardiovascular Disease | DX: R01.1 Cardiac murmur, unspecified (principal) | CPT/HCPCS: 93306 ==

== ENCOUNTER 2024-01-30 11:57 | Outpatient (REF) | payer MEDICARE, OTHER, SELFPAY ==
--- NOTE | 2024-01-30 12:09 | ECG_ITS ---
Test Reason : fainted Blood Pressure : / mmHG Vent. Rate : 059 BPM Atrial Rate : 059 BPM P-R Int : 156 ms QRS Dur : 086 ms QT Int : 442 ms P-R-T Axes : 058 036 088 degrees QTc Int : 437 ms Sinus bradycardia Septal infarct , age undetermined Abnormal ECG When compared with ECG of 28-MAY-2023 13:20, No significant change was found Referred By: Martine iDng Electronically Signed By:TIMBO BARRETO
[2024-01-30 12:12] LABS: MANUAL DIFF FLAG NO
[2024-01-30 12:48] LABS: Basophils Percent Auto 0.3 % (0-2); Eosinophils Absolute Auto 0.2 X10*3/uL (0.0-0.4); Eosinophils Percent Auto 2.1 % (0-4); Hematocrit 38.8 % (37.0-47.0); Hemoglobin 11.9 g/dl (12.0-16.0); Imm Gran Abs Auto 0.04 X10*3/uL (0.00-0.03); Imm Gran Pct Auto 0.4 % (0.0-0.4); Lymphocytes Absolute Auto 1.9 X10*3/uL (1.2-4.9); Lymphocytes Percent Auto 20.9 % (20-40); Mean Corpuscular HGB Conc 30.7 g/dl (31.0-35.0); Mean Corpuscular Volume 78.4 fL (80.0-98.0); Mean Platelet Volume 10.7 fL (9.4-12.3); Monocytes Absolute Auto 0.7 X10*3/uL (0.1-1.2); Monocytes Percent Auto 7.4 % (2-11); Neutrophils Absolute Auto 6.2 x10*3/uL (2.0-8.3); Neutrophils Percent Auto 68.9 % (45-73); Platelet Count 293 X10*3/uL (160-400); Red Blood Count 4.95 X10*6/uL (4.20-5.50); Red Cell Distribution Width 15.7 % (11.0-16.0)
[2024-01-30 13:45] LABS: Alanine Aminotransferase 17 U/L (0-31); Albumin Level 3.8 g/dL (3.5-5.0); Alkaline Phosphatase 120 U/L (39-117); Anion Gap 13 (12-20); Aspartate Amino Transferase 19 U/L (5-31); Bilirubin Total 0.3 mg/dL (0.0-1.0); Blood Urea Nitrogen 14 mg/dL (9-16); Calcium 9.8 mg/dL (8.4-10.2); Carbon Dioxide 26 mmol/L (22-29); Chloride 106 mmol/L (96-108); Cholesterol 153 mg/dL (<200); Estimated Glomerular Filt Rate 59; Glucose Fasting 131 mg/dL (60-99); HDL Cholesterol 59 mg/dL (>40); Iron 39 mcg/dL (30-160); LDL Cholesterol Calculated 80 mg/dL (<100); Percent Iron Saturation 14 % (15-50); Potassium 4.4 mmol/L (3.3-5.1); Sodium 141 mmol/L (135-145); Total Iron Binding Capacity 287 mcg/dL (228-428); Total Protein 7.2 g/dL (6.5-8.0); Triglycerides 74 mg/dL (<150); Unsaturated Iron Binding 248 ug/dL
[2024-01-30 13:48] LABS: Vitamin D 25-OH Total 44.8 ng/mL (>30)
[2024-01-30 14:05] LABS: Folate 11.8 ng/mL (> or = 4.0); Vitamin B12 559 pg/mL (200-900)
[2024-01-30 16:01] LABS: Creatinine Urine 248.61 mg/dL; Microalbum/Creatinine Ratio Ur 53.8 ug/mg cr (<30)
== END 2024-01-30 11:58 | disposition home or self-care (01) ==
LOC: HO.LAB 11:57
PROVIDERS: PCP Internal Medicine; Visit Provider Internal Medicine
DX: R55 Syncope and collapse (principal); E11.9 Type 2 diabetes mellitus without complications; D64.9 Anemia, unspecified; E78.5 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, unspecified; E53.8 Deficiency of other specified B group vitamins; E55.9 Vitamin D deficiency, unspecified
CPT/HCPCS: 36415; 80053; 80061; 82043; 82306; 82570; 82607; 82746; 83540; 85025; 93005

== ENCOUNTER → 2024-01-30 12:09 | Outpatient (BNV) | payer MEDICARE, SELFPAY | PROVIDERS: PCP Internal Medicine; Visit Provider Internal Medicine | DX: R94.31 Abnormal electrocardiogram [ECG] [EKG] (principal) | CPT/HCPCS: 93010 ==

== ENCOUNTER 2024-02-19 15:26 | Outpatient (AMB) | payer MEDICARE, SELFPAY ==
[2024-02-19 15:27] VITALS: BP 132/64
--- NOTE | 2024-02-19 15:27 | A.OFFVIS_ITS ---
Intake Vital Signs 02/19/24 15:27 BP 132/64 Blood Pressure Location Rt brachial Position Sitting Intake Visit Reasons: DM2 -CONFIRMED Hearing Aid Repairer Required: No Accompanied by: Self / Same As Patient Allergies Penicillins [PENICILLINS] Allergy (Severe, Verified 01/07/24 16:33) ANAPHYLAXIS Sulfa (Sulfonamide Antibiotics) [SULFA (SULFONAMIDE ANTIBIOTICS)] Allergy (Severe, Verified 01/07/24 16:33) ANAPHYLAXIS codeine Allergy (Intermediate, Verified 01/07/24 16:33) headache/mood changes dulaglutide [From Trulicity] Allergy (Intermediate, Verified 01/07/24 16:33) Nausea and Vomiting latanoprost Adverse Reaction (Intermediate, Verified 01/07/24 16:33) eye redness HPI Comprehensive Diabetes Asmnt Most Recent Diabetes Results: Microalb/Creat Ratio 53.8 ug/mg cr (<30) H 01/30/24 Cholesterol 153 mg/dL (<200) 01/30/24 HDL Cholesterol 59 mg/dL (>40) 01/30/24 Triglycerides 74 mg/dL (<150) 01/30/24 Creatinine 0.92 mg/dL (0.5-1.4) 01/30/24 Blood Urea Nitrogen 14 mg/dL (9-16) 01/30/24 Sodium 141 mmol/L (135-145) 01/30/24 Potassium 4.4 mmol/L (3.3-5.1) 01/30/24 Chloride 106 mmol/L (96-108) 01/30/24 Carbon Dioxide 26 mmol/L (22-29) 01/30/24 Calcium 9.8 mg/dL (8.4-10.2) 01/30/24 AST 19 U/L (5-31) 01/30/24 ALT 17 U/L (0-31) 01/30/24 Total Protein 7.2 g/dL (6.5-8.0) 01/30/24 Albumin 3.8 g/dL (3.5-5.0) 01/30/24 [facility] Medical History Dizziness Mild recurrent major depression Epilepsy Stroke Colitis Major depression, recurrent Memory change Neuropathy Seizures Glaucoma Myocardial infarction Acid reflux Type 2 diabetes mellitus with diabetic polyneuropathy Type 2 diabetes mellitus with hyperglycemia 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 LDL goal <70 Obesity due to excess calories BMI 34.0-34.9,adult 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, unspecified Essential hypertension halfway (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 Type 2 diabetes mellitus with unspecified complications Atherosclerotic cardiovascular disease Surgical History Hx of eye surgery Hx of colonoscopy History of esophagogastroduodenoscopy (EGD) History of colon resection History of appendectomy History of kidney surgery History of intestinal surgery Hx of cholecystectomy History of liver biopsy History of bladder surgery Hx of hysterectomy Family History (Updated 01/07/24 @ 16:39 by Martine Ding MD) Father Cardiovascular disease Cancer Mother Cardiovascular disease Sister Diabetes Brother Diabetes Other Mental health disorder Social History Household Members: None Housing: Apartment Are you a primary dog daycare provider to a significant other at home: No Do you presently have visiting nurse or other home services: No Alcohol intake: never Patient Tobacco Use Status: Never used Tobacco e-Cigarette/Vaping Use: Never Used Second Hand Smoke Exposure: No service: No Current occupational status: retired Cognitive needs: Yes Hearing needs: No Vision needs: Yes Physical Exam Vital Signs: Last Vital Signs BP 132/64 02/19/24 15:27 Assessment & Plan Assessment & Plan (1) Diabetes mellitus, with long-term current use of insulin: Code(s): E11.9 - Type 2 diabetes mellitus without complications; 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 0% Hyperglycemia:? 35% Time in Range:? 65% Average glucose for the last 2 weeks? 167 mg/dL Patient reports last A1c approximately 7% done by [facility]. Patient reports feeling dizzy at appointment, glucose 158 mg/dL, checked patient blood pressure 132/64. Patient reports she frequently has dizzy spells, and has fallen at home. Patient also reports her feet have been swelling in the evenings. Instructed patient she needs to report symptoms to PCP Glucose levels are stable, considering patient's age average glucose of 167 without hypoglycemia is appropriate. Patient does have postprandial hyperglycemia after supper, she denies missing any doses of mealtime insulin Takes Lantus 18-20 units in the evening Reviewed how to interpret trend arrows Reminded patient that to check finger sticks if symptoms do not match sensor reading. Discussed lag time between finger stick and sensor data.? Patient able to insert sensor independently at home without issue.? Patient Instructions: Call Dr. Villagomez to report symptoms, of dizziness and swelling of the feet. Contact [facility] on [facility] to see if they can provide you with free blood pressure cuff Follow-up with Dr. Salter on 03/10/2024 Follow-up with inclusion paraeducator is needed Coding Level of Care Code Est Pt Level 1 (76334) Diagnoses Diabetes mellitus, with long-term current use of insulin E11.9; Z79.4
== END 2024-02-19 16:05 | disposition home or self-care (01) ==
PROVIDERS: PCP Internal Medicine; Visit Provider Registered Nurse Diabetes Educator
DX: E11.9 Type 2 diabetes mellitus without complications (principal); Z79.4 Long term (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

== ENCOUNTER → 2024-02-19 15:26 | Outpatient (BNVA) | payer MEDICARE, SELFPAY | PROVIDERS: PCP Internal Medicine; Visit Provider Registered Nurse Diabetes Educator | DX: E11.9 Type 2 diabetes mellitus without complications (principal); Z79.4 Long term (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 | CPT/HCPCS: 99211 ==

== ENCOUNTER 2024-02-24 12:34 | Outpatient (AMB) | payer MEDICARE, SELFPAY ==
[2024-02-24 12:39] VITALS: BP 130/62; PULSE 66; BMI 31.7
--- NOTE | 2024-02-24 12:39 | MHC.OFFVIS ---
Intake Vital Signs 02/24/24 12:39 Height 4 ft 11 in Weight 156 lb 15.506 oz BMI 31.7 BP 130/62 Blood Pressure Location Rt brachial Position Sitting Pulse 66 Intake Visit Reasons: 1 year follow-up with ekg Quality Assurance Monitor Required: No Accompanied by: Self / Same As Patient Allergies Penicillins [PENICILLINS] Allergy (Severe, Verified 01/07/24 16:33) ANAPHYLAXIS Sulfa (Sulfonamide Antibiotics) [SULFA (SULFONAMIDE ANTIBIOTICS)] Allergy (Severe, Verified 01/07/24 16:33) ANAPHYLAXIS codeine Allergy (Intermediate, Verified 01/07/24 16:33) headache/mood changes dulaglutide [From Trulicity] Allergy (Intermediate, Verified 01/07/24 16:33) Nausea and Vomiting latanoprost Adverse Reaction (Intermediate, Verified 01/07/24 16:33) eye redness Medication List - Last Reconciled 02/24/24 by Fredis Carmen MD albuterol sulfate 90 mcg/actuation (ProAir HFA) 2 puffs inhalation Q4H PRN 30 days amlodipine 5 mg PO DAILY aspirin 81 mg PO DAILY atenolol 100 mg PO DAILY atorvastatin 80 mg PO DAILY blood pressure monitor As directed blood pressure monitor As directed blood sugar diagnostic (Accu-Chek Guide test strips) USE 1 STRIP 4 TIMES DAILY DIRECTED blood sugar diagnostic (FreeStyle Precision Vu Strips) As directed tests 4 X/day blood-glucose meter (Accu-Chek Guide Glucose Meter) As directed cholecalciferol (vitamin D3) 50 mcg PO DAILY cholestyramine-aspartame 4 gram (Cholestyramine Light) 1 ea PO BID docusate sodium (Colace) 100 mg PO DAILY PRN 90 days flash glucose sensor (FreeStyle Jessica 2 Sensor kit) As directed change every 14 days folic acid 1 mg PO DAILY@1400 insulin degludec (Tresiba FlexTouch U-200 insulin) 20 units subcut BEDTIME insulin lispro (Humalog KwikPen (U-100) Insulin) 10 units subcut BID@0730,1630 insulin lispro 12 units subcut DAILY@1130 lancets (TRUEplus Lancets) four times a day linagliptin-metformin 2.5-1,000 mg (Jentadueto) 1 tab PO BID lisinopril 40 mg PO DAILY mecobalamin (vitamin B12) 1,000 mcg sublingual DAILY@1400 montelukast 10 mg PO DAILY PRN 30 days nitroglycerin 0.4 mg sublingual Q5M PRN pantoprazole 40 mg PO DAILY pen needle, diabetic (BD Ultra-Fine Pam Pen Needle) Use as directed 5 times daily venlafaxine ER (Effexor XR) 37.5 mg PO DAILY@1400 venlafaxine ER 150 mg PO DAILY@1400 zonisamide 100 mg PO BEDTIME HPI HPI Comments History of Present Illness Details Jennifer returns for follow-up regarding coronary artery disease. She used to be living in [place]. Around 2013, she underwent cardiac testing due to chest pain. She had ostial diagonal disease for which she was recommended medical management. Otherwise, she has multiple comorbidities including diabetes on insulin, hypertension, dyslipidemia. She has also had a prior stroke. Recently, she states she had an episode of diarrhea and vomiting and in that setting, she believes she passed out. Otherwise, no cardiac symptoms like angina or anything else. On numerous medications. 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 Type 2 diabetes mellitus with unspecified complications Atherosclerotic cardiovascular disease Surgical History Hx of eye surgery Hx of colonoscopy History of esophagogastroduodenoscopy (EGD) History of colon resection History of appendectomy History of kidney surgery History of intestinal surgery Hx of cholecystectomy History of liver biopsy History of bladder surgery Hx of hysterectomy Family History Father Cardiovascular disease Cancer Mother Cardiovascular disease Sister Diabetes Brother Diabetes Other Mental health disorder Social History Household Members: None Housing: Apartment Are you a primary career discovery teacher to a significant other at home: No Do you presently have visiting nurse or other home services: No Alcohol intake: never Patient Tobacco Use Status: Never used Tobacco e-Cigarette/Vaping Use: Never Used Second Hand Smoke Exposure: No service: No Current occupational status: retired Cognitive needs: Yes Hearing needs: No Vision needs: Yes Review of Systems Const Denies chills, Denies fatigue, Denies fever(s), Reports frequent falls, Denies weakness, Denies weight gain and Denies weight loss ENT Denies dizziness Card Denies chest pain, Reports leg edema, Denies lightheadedness, Denies palpitations, Denies dyspnea and Denies dyspnea on exertion Resp Denies cough, Denies dyspnea and Denies dyspnea on exertion GI Denies hematochezia Musc Denies abnormal gait, Denies muscle weakness, Reports numbness, Denies radiating pain into limb and Denies tingling Neuro Denies abnormal gait, Denies dizziness, Reports frequent falls, Reports numbness, Denies tingling and Denies weakness Endo Denies fatigue and Denies palpitations Physical Exam Vital Signs: Last Vital Signs Pulse 66 02/24/24 12:39 BP 130/62 02/24/24 12:39 BMI result Body Mass Index 31.7 Const General: comfortable and no acute distress Orientation/consciousness: patient oriented x3 HEENT Other: Unremarkable Head: Yes normal to inspection Neck Neck: Yes normal visual inspection Chest Chest palpation & inspection: normal inspection of the chest Resp Auscultation: clear to auscultation bilaterally Cardio Palpation: normal PMI Heart sounds: S1 normal heart sound present, S2 normal heart sound present, no gallops, no murmurs and no rubs GI Palpation (GI): Soft to palpation Back/Spine/Pelvis Other: unremarkable Skin General skin exam: no rashes or lesions noted Neuro General: patient oriented x3 Extrem General: Yes normal to inspection Psych Mental Status: mental status grossly normal Assessment & Plan Assessment & Plan (1) Atherosclerotic cardiovascular disease: Code(s): I25.10 - Atherosclerotic heart disease of [place] coronary artery without angina pectoris (2) Type 2 diabetes mellitus with unspecified complications: Code(s): E11.8 - Type 2 diabetes mellitus with unspecified complications (3) Essential hypertension: Code(s): I10 - Essential (primary) hypertension (4) 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, unspecified: Code(s): E78.5 - 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, unspecified Plan Cardiac studies reviewed. Recent echocardiogram from last month with LVEF of 60-60%; asymmetric septal hypertrophy but otherwise unremarkable. Myocardial perfusion imaging study from 2018 shows small area of mild intensity distal anterolateral ischemia. Cardiac catheterization in 2014 from [place] shows 65% ostial diagonal disease but mild disease elsewhere. Clinically, she is fairly stable from cardiac standpoint. No changes the current regimen which includes aspirin, beta-blockers and statins. In the past, intolerance long-acting nitrates. LDL most recently is 80 but prior to that 47. Blood pressure stable on the current regimen of lisinopril and amlodipine. For diabetes, she remains on lisinopril and oral medications. Hemoglobin A1c is 7.7%. The episode of syncope that happened in the setting of vomiting/diarrhea is most likely from dehydration. As she is otherwise fully recovered will hold off any further workup at this time. Follow-up in 1 year. In the interim, she will call with concerns. Medications: Refilled nitroglycerin do not exceed 3 doses per episode 0.4 mg sublingual Q5M PRN 30 tabs 6RF chest pain I25.10 - Atherosclerotic heart disease of [place] coronary artery without angina pectoris Coding Level of Care Code Est Pt Level 4 (30714) Diagnoses Atherosclerotic cardiovascular disease I25.10 Type 2 diabetes mellitus with unspecified complications E11.8 Essential hypertension I10 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, unspecified E78.5
== END 2024-02-24 13:01 | disposition home or self-care (01) ==
PROVIDERS: Visit Provider Internal Medicine
DX: I25.10 Atherosclerotic heart disease of native coronary artery without angina pectoris (principal); E11.8 Type 2 diabetes mellitus with unspecified complications; I10 Essential (primary) hypertension; E78.5 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, unspecified
CPT/HCPCS: 99214

== ENCOUNTER → 2024-02-24 12:34 | Outpatient (BNVA) | payer MEDICARE, SELFPAY | PROVIDERS: Visit Provider Internal Medicine | DX: I25.10 Atherosclerotic heart disease of native coronary artery without angina pectoris (principal); I10 Essential (primary) hypertension; E11.8 Type 2 diabetes mellitus with unspecified complications; E78.5 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, unspecified | CPT/HCPCS: 99212 ==

== ENCOUNTER 2024-03-05 11:31 | Outpatient (AMB) | payer MEDICARE, SELFPAY ==
--- NOTE | 2024-03-05 11:33 | MHC.OFFVIS ---
Vital Signs 03/05/24 11:35 Height 4 ft 11 in Weight 156 lb 8.451 oz BMI 31.6 Blood Pressure Location Lt brachial Intake Visit Reasons: pt req follow up Intake Note: Jennifer presents in the office as a requested follow up. CC: She states that she is not having any concerns just has a follow up with Kalpesh. She was having an issue last month - she passed out for 4 hours because she was throwing up and having diarrhea at the same time. Pain was unbearable. Teacher Visually Impaired Required: No Allergies Penicillins [PENICILLINS] Allergy (Severe, Verified 03/05/24 11:35) ANAPHYLAXIS Sulfa (Sulfonamide Antibiotics) [SULFA (SULFONAMIDE ANTIBIOTICS)] Allergy (Severe, Verified 03/05/24 11:35) ANAPHYLAXIS codeine Allergy (Intermediate, Verified 03/05/24 11:35) headache/mood changes dulaglutide [From Trulicity] Allergy (Intermediate, Verified 03/05/24 11:35) Nausea and Vomiting latanoprost Adverse Reaction (Intermediate, Verified 03/05/24 11:35) eye redness HPI HPI pt req follow up: Details: 79 yr old f here for follow up RECAP: seen initially as in patient 12/2021 Patient had sudden onset lower abdominal pain for few days with nausea and non bloody emesis. She then developed bloody diarrhea. On day he sx had commenced she had dinner spinach and artichoke dip and chicken, and symptoms seem to have started shortly after eating this. she has never been a heavy drinker Labs revealed leukocytosis of 16.2. H/H was stable, lactive acid normal. Heme occult was positive. Imaging: CT scan of the abdomen/pelvis with inflammed bowel descending and transverse possibly suggestive of ischemic or infectious/inflammatory colitis, perisplenic varices and atrophic pancreas (never been a heavy drinker) She was started on IV levaquin and flagyl and symptoms improved I ordered repeat CT due to some ongoing sx 01/07/22 Multiple tyshawn splenic varices large vol stool in the large post cholecystectomy LABS: 2021--- neg celiac, neg intrinsic and parietal Ab EGD/colo: 11/2022 Endoscopy Findings: gastritis had dilation of esophagus as well Colonoscopy Findings: internal hemorrhoids diverticular disease bx with focal colitis and gastritis INTERIM: she was placed on mesalamine and cholestyramine she felt these were too powerful so stopped now using protein shakes whcih has been better for her bowels she is still taking PPI she denies nausea now occ cramps LUQ since she had surgery long time ago , EXAM: GENERAL: The patient is well developed and nontoxic. VITAL SIGNS:see workflow HEENT: Nonicteric sclerae, PERRLA, EOMI. Oropharynx clear. Moist mucous membranes. Conjunctivae appear well perfused. No thyroid mass. CHEST: Chest wall is nontender. HEART: Regular rate and rhythm without murmurs. LUNGS: Clear to auscultation bilaterally. ABDOMEN: Soft, positive bowel sounds, mild tender upper abdomen, no organomegaly.no flank tenderness SKIN: No rash, no excessive bruising, petechiae, or purpura. NEUROLOGIC: Cranial nerves II-XII intact without motor/sensory deficit. A/P; 1/ Altered bowel habits, better with smoothies and protein drinks 2/ upper abdo tenderness PLAN: 1/ can try IBgard and see if helps, otherwise bentyl vs pain mx referral for trigger inj 2/ cont with her diet changes can add fiber to smoothie as well like metamucil PFSH Medical History Dizziness Mild recurrent major depression Epilepsy Stroke Colitis Major depression, recurrent Memory change Neuropathy Seizures Glaucoma Myocardial infarction Acid reflux Type 2 diabetes mellitus with diabetic polyneuropathy Type 2 diabetes mellitus with hyperglycemia 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 LDL goal <70 Obesity due to excess calories BMI 34.0-34.9,adult 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, unspecified Essential hypertension emt intermediate (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 Type 2 diabetes mellitus with unspecified complications Atherosclerotic cardiovascular disease Surgical History Hx of eye surgery Hx of colonoscopy History of esophagogastroduodenoscopy (EGD) History of colon resection History of appendectomy History of kidney surgery History of intestinal surgery Hx of cholecystectomy History of liver biopsy History of bladder surgery Hx of hysterectomy Family History Father Cardiovascular disease Cancer Mother Cardiovascular disease Sister Diabetes Brother Diabetes Other Mental health disorder Social History Household Members: None Housing: Apartment Are you a primary tire care manager to a significant other at home: No Do you presently have visiting nurse or other home services: No Alcohol intake: never Patient Tobacco Use Status: Never used Tobacco e-Cigarette/Vaping Use: Never Used Second Hand Smoke Exposure: No service: No Current occupational status: retired Cognitive needs: Yes Hearing needs: No Vision needs: Yes Physical Exam Vital Signs: BMI result Body Mass Index 31.6 Assessment & Plan Assessment & Plan (1) Altered bowel habits: Code(s): R19.4 - Change in bowel habit Category: Medical Plan: see above Coding Level of Care Code Est Pt Level 3 (90543) Diagnoses Altered bowel habits R19.4
[2024-03-05 11:35] VITALS: BMI 31.6
== END 2024-03-05 12:12 | disposition home or self-care (01) ==
PROVIDERS: PCP Internal Medicine; Referring Provider Internal Medicine; Visit Provider Internal Medicine Gastroenterology
DX: R19.4 Change in bowel habit (principal)
CPT/HCPCS: 99213

== ENCOUNTER → 2024-03-05 11:31 | Outpatient (BNVA) | payer MEDICARE, SELFPAY | PROVIDERS: PCP Internal Medicine; Visit Provider Internal Medicine Gastroenterology | DX: R19.4 Change in bowel habit (principal) | CPT/HCPCS: 99212 ==

== ENCOUNTER 2024-03-10 15:18 | Outpatient (AMB) | payer MEDICARE, SELFPAY ==
[2024-03-10 15:20] VITALS: BP 124/48; PULSE 92; BMI 31.5
--- NOTE | 2024-03-10 15:20 | MHC.OFFVIS ---
Vital Signs 03/10/24 15:20 Height 4 ft 11 in Weight 155 lb 13.869 oz BMI 31.5 BP 124/48 L Blood Pressure Location Lt brachial Position Sitting Pulse 92 Pulse Source Pulse Oximeter Intake Visit Reasons: dm2 Intake Note: Patient presents today to follow up on D2MT. Last Diabetic Eye exam: 10/2023 Last Podiatry Visit: 01/2024 Random Glucose: 116 mg/dl HgA1c: 7.6% Schedule Maker Required: No Accompanied by: Self / Same As Patient Allergies Penicillins [PENICILLINS] Allergy (Severe, Verified 03/10/24 15:26) ANAPHYLAXIS Sulfa (Sulfonamide Antibiotics) [SULFA (SULFONAMIDE ANTIBIOTICS)] Allergy (Severe, Verified 03/10/24 15:26) ANAPHYLAXIS codeine Allergy (Intermediate, Verified 03/10/24 15:26) headache/mood changes dulaglutide [From Trulicity] Allergy (Intermediate, Verified 03/10/24 15:26) Nausea and Vomiting latanoprost Adverse Reaction (Intermediate, Verified 03/10/24 15:26) eye redness Medication List - Last Reconciled 03/10/24 by Osmar Salter MD albuterol sulfate 90 mcg/actuation (ProAir HFA) 2 puffs inhalation Q4H PRN 30 days amlodipine 5 mg PO DAILY aspirin 81 mg PO DAILY atenolol 100 mg PO DAILY atorvastatin 80 mg PO DAILY blood pressure monitor As directed blood pressure monitor As directed blood sugar diagnostic (Accu-Chek Guide test strips) USE 1 STRIP 4 TIMES DAILY DIRECTED blood sugar diagnostic (FreeStyle Precision Vu Strips) As directed tests 4 X/day blood-glucose meter (Accu-Chek Guide Glucose Meter) As directed cholecalciferol (vitamin D3) 50 mcg PO DAILY docusate sodium (Colace) 100 mg PO DAILY PRN 90 days flash glucose sensor (FreeStyle Jessica 2 Sensor kit) As directed change every 14 days folic acid 1 mg PO DAILY@1400 insulin degludec (Tresiba FlexTouch U-200 insulin) 20 units subcut BEDTIME insulin lispro 12 units (0.12 mL) subcut DAILY@1130 insulin lispro (Humalog KwikPen (U-100) Insulin) 10 units (0.1 mL) subcut BID@0730,1630 lancets (TRUEplus Lancets) four times a day linagliptin-metformin 2.5-1,000 mg (Jentadueto) 1 tab PO BID lisinopril 40 mg PO DAILY mecobalamin (vitamin B12) 1,000 mcg sublingual DAILY@1400 montelukast 10 mg PO DAILY PRN 30 days nitroglycerin 0.4 mg sublingual Q5M PRN pantoprazole 40 mg PO DAILY pen needle, diabetic (BD Ultra-Fine Pam Pen Needle) Use as directed 5 times daily venlafaxine ER (Effexor XR) 37.5 mg PO DAILY@1400 HPI Comments Details: ? Patient is a 77 yo female with DM type 2 diagnosed at 34 years of age, who presents for continued management of her diabetes.? ? Jessica download shows she is using the Jessica 59% of the time. Average glucose is 157 with G mi of 7.1% and variability of 26.8%. 73% of is range with24% hyperglycemia and 3% very hyperglycemic and 0%o hypoglycemia. Past medical history includes :? DM2 seizures, HTN, HLD,reflux, [place], intolerant of trulicity due to nausea and vomiting Micro and macrovascular complications:+ retinopathy? + neuropathy, + CAD, Diabetes medications: Tresiba u200 20 units Humalog?10 units breakfast, 12 units lunch, 10 units dinner.?Jentadueto 2.03/1000 BID. Symptoms:? + numbness and tingling in toes, see material planning analyst regularly Hypoglycemia no Eye exam:? needs to make appt 2022 hx of? mild retinopathy Exercise:? minimum after hospital Tried Trulicity but couldn't tolerate No diarrhea Laboratory Tests 07/11/21 08:24 Hgb A1c (Clinic) 8.4 H 07/11/21 07/13/21 07/13/21 08:24 12:14 12:38 Creatinine Estimated GFR Hgb A1c (Clinic) 8.4 H Hemoglobin A1c % 8.2 Triglycerides Cholesterol LDL Cholesterol Direct LDL Cholesterol, Calc HDL Cholesterol Microalb/Creat Ratio 54.2 07/13/21 07/13/21 12:38 12:38 Creatinine 0.97 Estimated GFR 56 Hgb A1c (Clinic) Hemoglobin A1c % Triglycerides 118 Cholesterol 140 LDL Cholesterol Direct 69 LDL Cholesterol, Calc 67 HDL Cholesterol 50 Microalb/Creat Ratio [facility] Medical History Dizziness Mild recurrent major depression Epilepsy Stroke Colitis Major depression, recurrent Memory change Neuropathy Seizures Glaucoma Myocardial infarction Acid reflux Type 2 diabetes mellitus with diabetic polyneuropathy Type 2 diabetes mellitus with hyperglycemia 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 LDL goal <70 Obesity due to excess calories BMI 34.0-34.9,adult 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, unspecified 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 Type 2 diabetes mellitus with unspecified complications Atherosclerotic cardiovascular disease Surgical History Hx of eye surgery Hx of colonoscopy History of esophagogastroduodenoscopy (EGD) History of colon resection History of appendectomy History of kidney surgery History of intestinal surgery Hx of cholecystectomy History of liver biopsy History of bladder surgery Hx of hysterectomy Family History Father Cardiovascular disease Cancer Mother Cardiovascular disease Sister Diabetes Brother Diabetes Other Mental health disorder Social History Household Members: None Housing: Apartment Are you a primary critical care registered nurse to a significant other at home: No Do you presently have visiting nurse or other home services: No Alcohol intake: never Patient Tobacco Use Status: Never used Tobacco e-Cigarette/Vaping Use: Never Used Second Hand Smoke Exposure: No service: No Current occupational status: retired Cognitive needs: Yes Hearing needs: No Vision needs: Yes Physical Exam Vital Signs: Last Vital Signs Pulse 92 03/10/24 15:20 BP 124/48 L 03/10/24 15:20 BMI result Body Mass Index 31.5 Absence of Cushingoid features. Absence of acromegalic features. Neck exam reveals nl size thyroid about 15 gms. No thyroid nodules palpable. No carotid bruits present. Lungs CTA. Heart S1 S2, Reg R/R. No M/R/ G. Skin exam reveals absence of vitiligo or acanthosis nigricans. Abdominal exam reveals Soft NT/ND with NA BS. No organomegaly present. Neck Other: . Extrem Other: Visual exam of foot performed. No ulcerations or open lesions. No onchomycosis, no callouses.Pulses 2 + distally Sensation intact to monofilament exam. 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 She is having overnight hypoglycemia Plan is continue the current regimen . 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
[2024-03-10 15:35] LABS: Glucose, Whole Blood 116 mg/dL (60-115)
== END 2024-03-10 15:47 | disposition home or self-care (01) ==
PROVIDERS: PCP Internal Medicine; Visit Provider Internal Medicine Endocrinology, Diabetes & Metabolism
DX: E11.42 Type 2 diabetes mellitus with diabetic polyneuropathy (principal); Z79.4 Long term (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; Z13.9 Encounter for screening, unspecified; E11.8 Type 2 diabetes mellitus with unspecified complications
CPT/HCPCS: 99214

== ENCOUNTER → 2024-03-10 15:18 | Outpatient (BNVA) | payer MEDICARE, SELFPAY | PROVIDERS: PCP Internal Medicine; Visit Provider Internal Medicine Endocrinology, Diabetes & Metabolism | DX: E11.319 Type 2 diabetes mellitus with unspecified diabetic retinopathy without macular edema (principal); E11.42 Type 2 diabetes mellitus with diabetic polyneuropathy; Z79.4 Long term (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 | CPT/HCPCS: 82947; 83036; 99212 ==

== ENCOUNTER 2024-04-24 12:01 | Emergency (ER) | payer MEDICARE, SELFPAY ==
[2024-04-24] VITALS (7 sets, daily range): BP systolic 108–139; BP diastolic 43–73; PULSE 70–81; RESP 16–18; TEMP 36.3–37; O2SAT 94–98; BMI 35.4
--- NOTE | ~2024-04-24 | CT_ITS ---
EXAMINATION: CT ABDOMEN AND PELVIS WITH CONTRAST CLINICAL INFORMATION: Right-sided abdominal pain. Ulcerative colitis. COMPARISON: Multiple priors, most recent CT abdomen/pelvis dated 08/22/2023. TECHNIQUE: Multidetector volumetric images were obtained from the superior aspect of the liver through the pubic symphysis following administration 85 mL of Omnipaque 350 intravenous contrast. Sagittal and coronal reformatted images were obtained on the technologist's workstation. Oral contrast: No This CT examination was performed using dose optimization techniques as appropriate, variously including the following: *Automated exposure control *Adjustment of mA and/or kV according to patient size (this includes techniques or standardized protocols for targeted exams where dose is matched to indication/reason for exam; i.e. extremities or head) *Use of iterative reconstruction technique DLP: 519 mGy-cm FINDINGS: LUNG BASES: The visualized lung bases are unremarkable. LIVER, GALLBLADDER, AND BILIARY TREE: The liver is normal in size, shape, and attenuation. No focal hepatic lesion or biliary ductal dilatation is present. Status post cholecystectomy. Mild prominence of the common bile duct, which can be seen following cholecystectomy. Right upper quadrant surgical clips. PANCREAS: Atrophic. No ductal dilatation or inflammatory change. SPLEEN: Unremarkable. ADRENAL GLANDS: Unremarkable. KIDNEYS AND URETERS: The kidneys are normal in size, shape, and attenuation. No hydronephrosis, hydroureter, or calculi seen. No perinephric stranding. Subcentimeter right upper pole hypodensity, too small to characterize, and statistically likely representing a cyst. No enhancing renal parenchymal lesion. BLADDER: Unremarkable. GASTROINTESTINAL TRACT: Redemonstration of an unremarkable rectosigmoid anastomosis. Adjacent sigmoid diverticulosis without evidence of acute diverticulitis. No significant bowel wall thickening or inflammatory change to suggest acute colitis. Appendix not identified, however, no right lower quadrant contour change to suggest acute appendicitis. No small or large bowel obstruction. Mild stool burden within the right colon. PERITONEAL CAVITY: No intra-abdominal free air or free fluid. No intra-abdominal mass or organized fluid collection. ABDOMINAL WALL: Anterior abdominal wall postsurgical change. No abdominal wall hernia. LYMPH NODES: No significant lymphadenopathy. VASCULAR: No abdominal aortic dilatation or dissection. Atherosclerotic calcifications. PELVIC VISCERA: Status post hysterectomy. OSSEOUS STRUCTURES: Unremarkable. CT/CT abdomen pelvis w IV con IMPRESSION: 1. Unremarkable rectosigmoid anastomosis. Sigmoid diverticulosis without evidence of acute diverticulitis. No bowel wall thickening or inflammatory change to suggest acute colitis. No small or large bowel obstruction. Mild stool burden within the right colon. 2. No intra-abdominal mass, lymphadenopathy, or ascites. 3. Additional chronic findings are unchanged. Fleischner guidelines were followed.
--- NOTE | 2024-04-24 12:04 | ED.ABDPAIN ---
HPI - Abdominal Pain General Chief Complaint: Abdominal Pain Stated Complaint: abdominal pain, vomiting Time Seen by Provider: 04/24/24 16:02 Source: patient, RN notes reviewed and old records reviewed Mode of arrival: ambulatory Limitations: no limitations History of Present Illness ED Provider: Elena MCCURDY narrative: 79-year-old female with past medical history significant for ulcerative colitis, diabetes, obesity, anemia, chronic pancreatitis, hypertension, hyperlipidemia presents for evaluation of abdominal pain. Patient reports abdominal pain for the last 4 days. She reports both black stool and bright red blood per rectum after bowel movements She states that she follows with Dr. Posey for Gastroenterology Patient reports that about 1 month ago she discontinued 1 of her ulcerative colitis meds because that she had been doing quite well for some time and did not think she needed it She does not know the name of this medication She reports numerous previous abdominal surgeries including previous cholecystectomy Patient rates her pain as 5/10 She is associated nausea Denies any fevers, chills Denies any burning with urination Related Data Home Medications ?Medication ?Instructions ?Recorded ?Confirmed aspirin 81 mg tablet,delayed 81 mg PO DAILY 08/14/20 03/10/24 release venlafaxine 37.5 mg 37.5 mg PO DAILY@1400 12/22/21 03/10/24 capsule,extended release 24 hr (Effexor XR) mecobalamin (vitamin B12) 1,000 1,000 mcg sublingual DAILY@1400 04/26/22 03/10/24 mcg disintegrating tablet,sublingual cholecalciferol (vitamin D3) 50 50 mcg PO DAILY 05/28/22 03/10/24 mcg (2,000 unit) capsule folic acid 1 mg tablet 1 mg PO DAILY@1400 08/22/23 03/10/24 insulin degludec 200 unit/mL (3 20 unit subcut BEDTIME 01/07/24 03/10/24 mL) subcutaneous pen (Tresiba FlexTouch U-200 insulin) Previous Rx's ?Medication ?Instructions ?Recorded lancets 33 gauge (TRUEplus Lancets) #400 ea 02/20/21 docusate sodium 100 mg capsule 100 mg PO DAILY PRN constipation 06/05/22 (Colace) 90 days #90 caps flash glucose sensor (FreeStyle #7 ea 01/23/23 Jessica 2 Sensor kit) blood sugar diagnostic (Accu-Chek #400 strips 04/28/23 Guide test strips) atorvastatin 80 mg tablet 80 mg PO DAILY #30 tabs 08/15/23 lisinopril 40 mg tablet 40 mg PO DAILY #90 tabs 08/15/23 blood sugar diagnostic (FreeStyle #50 ea 09/03/23 Precision Vu Strips) blood pressure monitor #1 ea 09/13/23 blood-glucose meter (Accu-Chek #1 ea 09/23/23 Guide Glucose Meter) montelukast 10 mg tablet 10 mg PO DAILY PRN for allergies 10/09/23 30 days #30 tabs linagliptin 2.5 mg-metformin 1,000 1 tab PO BID #60 tabs 11/03/23 mg tablet (Jentadueto) pantoprazole 40 mg tablet,delayed 40 mg PO DAILY #30 tabs 12/08/23 release albuterol sulfate 90 mcg/actuation 2 puff inhalation Q4H PRN 01/07/24 aerosol inhaler (ProAir HFA) bronchospasm 30 days #18 grams pen needle, diabetic 32 gauge x #400 ea 01/31/24 (BD Ultra-Fine Pam Pen Needle) blood pressure monitor #1 ea 02/02/24 nitroglycerin 0.4 mg sublingual 0.4 mg sublingual Q5M PRN chest 02/24/24 tablet pain #30 tabs amlodipine 5 mg tablet 5 mg PO DAILY #30 tabs 02/25/24 atenolol 100 mg tablet 100 mg PO DAILY #30 tabs 02/25/24 insulin lispro 100 unit/mL 12 unit (0.12 mL) subcut 03/08/24 subcutaneous pen DAILY@1130 #15 mL insulin lispro 100 unit/mL 10 unit (0.1 mL) subcut 03/08/24 subcutaneous pen (Humalog KwikPen BID@0730,1630 #15 mL (U-100) Insulin) prednisone 20 mg tablet 40 mg (2 x 20 mg) PO DAILY #10 tabs 04/24/24 Allergies Allergy/AdvReac Type Severity Reaction Status Date / Time Penicillins [PENICILLINS] Allergy Severe ANAPHYLAXIS Verified 04/24/24 12:07 Sulfa (Sulfonamide Allergy Severe ANAPHYLAXIS Verified 04/24/24 12:07 Antibiotics) [SULFA (SULFONAMIDE ANTIBIOTICS)] codeine Allergy Intermediate headache/mood Verified 04/24/24 12:07 changes [facility]aglutide [[facility] Allergy Intermediate Nausea and Verified 04/24/24 12:07 Vomiting latanoprost AdvReac Intermediate eye redness Verified 04/24/24 12:07 Review of Systems Constitutional: Denies body ache(s), Denies chills, Denies fever(s) and Reports headache(s) Eyes: Denies blurry vision Reports vertigo and Reports headache(s) Cardiovascular: Denies chest pain and Denies dyspnea Respiratory: Denies cough and Denies dyspnea Gastrointestinal: Denies abdominal pain, Reports melena, Reports hematochezia, Reports nausea and Denies vomiting Musculoskeletal: Denies back pain Skin/Breast: Denies rash Reports vertigo and Reports headache(s) [facility] Past Medical History Medical History Dizziness Mild recurrent major depression Epilepsy Stroke Colitis Major depression, recurrent Memory change Neuropathy Seizures Glaucoma Myocardial infarction Acid reflux Type 2 diabetes mellitus with diabetic polyneuropathy Type 2 diabetes mellitus with hyperglycemia 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 LDL goal <70 Obesity due to excess calories BMI 34.0-34.9,adult 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, unspecified 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 Type 2 diabetes mellitus with unspecified complications Atherosclerotic cardiovascular disease Surgical History Hx of eye surgery Hx of colonoscopy History of esophagogastroduodenoscopy (EGD) History of colon resection History of appendectomy History of kidney surgery History of intestinal surgery Hx of cholecystectomy History of liver biopsy History of bladder surgery Hx of hysterectomy Family History Family History Father Cardiovascular disease Cancer Mother Cardiovascular disease Sister Diabetes Brother Diabetes Other Mental health disorder Social History Social History Household Members: None Housing: Apartment Are you a primary hospice care transitions coordinator to a significant other at home: No Do you presently have visiting nurse or other home services: No Alcohol intake: never Patient Tobacco Use Status: Never used Tobacco Smoked in Last 30 Days: No e-Cigarette/Vaping Use: Never Used Second Hand Smoke Exposure: No Use of substances other than those prescribed or required for medical reasons: No Advance Directives: No Advance Directives Information Provided: Yes Do you have a plan to hurt others: No Plan service: No Current occupational status: retired Cognitive needs: Yes Hearing needs: No Vision needs: Yes Physical Exam ED Vital Signs: Vital Signs - 24 hr 04/24/24 12:04 04/24/24 12:53 04/24/24 12:56 Temperature 97.3 F 98.6 F Pulse Rate 81 77 76 Respiratory Rate 18 18 Blood Pressure 139/53 L 132/49 L 136/55 L Pulse Oximetry 97 96 Oxygen Delivery Method Room Air Room Air 04/24/24 12:56 04/24/24 12:58 04/24/24 14:54 Temperature Pulse Rate 76 80 75 Respiratory Rate 18 Blood Pressure 137/55 L 108/48 L 129/43 L Pulse Oximetry 94 Oxygen Delivery Method Room Air 04/24/24 17:03 Temperature 98.4 F Pulse Rate 70 Respiratory Rate 18 Blood Pressure 120/52 L Pulse Oximetry 98 Oxygen Delivery Method Room Air BMI result Body Mass Index 35.4 Const General: healthy appearing, comfortable, no acute distress, alert and awake Nutritional Appearance: well nourished Orientation/consciousness: patient oriented x3 HENMT Head: Yes normocephalic and Yes atraumatic Throat: Yes posterior oropharynx normal Eyes Eyelids: Yes eyelids normal Conjunctivae: conjunctivae normal Sclerae: sclerae normal Corneas: corneas normal Pupils: Equal, round and reactive pupils present EOM: EOMs intact bilaterally Neck Neck: Yes full ROM Resp Effort & Inspection: normal respiratory effort, able to speak in complete sentences, no audible wheezes and not labored Auscultation: clear to auscultation bilaterally Cardio Rate: regular rate Rhythm: regular rhythm GI Inspection: No distended Palpation (GI): Soft to palpation, not firm, Tenderness to palpation present (GI) in the RLQ and in the RUQ, no guarding and not rigid Rectal Exam - Female: visual inspection normal, normal sphincter tone, No External hemorrhoid(s) present, No fecal impaction and heme negative stool Skin General skin exam: elasticity normal Neuro General: patient oriented x3 Cranial nerves: Yes Equal, round and reactive pupils present and Yes Bilaterally intact EOM present Cognition (Neuro): normal cognition Extrem Other: Moving all extremities well without any obvious deformities Course Course Course Narrative: This is a Rapid Medical Examination (RME) performed by Sarita Santoro PA-C in triage. Full HPI, ROS, assessment and treatment plan per primary provider in the Main ED. 79 y/o female with history of ulcerative colitis, DM2, HTN, epilepsy, depression, HLD, hx LGIB in the past who presents to the ER for evaluation of flare of ulcertive colitis with right sided abdominal pain, N/V, & diarrhea w/ black stools mixed with blood for the last 5 days. Had been refusing to come to the hospital. Not on anticoagulation. Last colonoscopy was 1 year ago - follows /w GI here. Endorses lightheadedness, dizziness, weakness along w/ chest pain as she has not been able to take her home meds. On arrival to the ER patient is awake, alert, no apparent distress. She reports her pain is 10/10. She has ambulating with a slow but steady gait with her walker. She has significant pallor of her conjunctiva. Abd is soft but diffusely tender. Plan: lab workup, EKG, orthostatics. defer imaging to primary provider Medical Decision Making Medical Decision Making MDM Narrative: 79-year-old female with past medical history as documented above presents for evaluation abdominal pain, bloody stool. She has a history of ulcerative colitis and this feels like a flare of hers. The patient's workup is significant for a mild anemia consistent with her baseline. She has no leukocytosis. She does have a mild left shift which may be related to an ulcer colitis flare. Patient's electrolytes are significant for normal sodium, potassium, chloride. Magnesium is low at 1.4 and this was repleted. Renal functions within normal limits with a creatinine of 0.95. Patient is a diabetic and her glucose is elevated to 216. Patient has a elevated T bili predominantly direct bilirubin. She is status post cholecystectomy. Patient also has a mild transaminitis with an AST of 92, ALT of 135 and alk-phos of 291. Troponin is 12.4. Patient's EKG shows a normal sinus rhythm with a rate of [address] segment elevation DE. She is ruled out for ACS with a negative troponin and a nonischemic EKG despite 4 days of symptoms. Patient's CT scan ordered from triage shows an unremarkable rectosigmoid anastomosis. No evidence of diverticulitis, no obvious bowel wall thickening inflammatories changes. The patient is guaiac negative on exam. Her vital signs have remained stable, labs are reassuring, CT scan does not show any acute findings. Plan to discharge with a short course of prednisone and she will follow-up with GI Differential Diagnosis Differential Diagnoses: The differential diagnosis associated with the presentation includes Ulcerative colitis IBS IBD Diverticulitis Infectious colitis Chronic abdominal pain Pancreatitis Admission/Observation Consideration of admission/observation: Escalation of care including admission/observation considered Patient's workup largely reassuring and she is able to tolerate p.o.. Ultimately does not require admission Lab Data MDM Lab Attestation statement: I reviewed the patient's lab results. Please see medical decision-making above 04/24/24 12:24 04/24/24 12:24 Labs: Lab Results 04/24/24 04/24/24 Range/Units 12:24 17:06 WBC 9.7 (4.8-10.8) X10*3/uL RBC 4.18 L (4.20-5.50) X10*6/uL Hgb 10.5 L (12.0-16.0) g/dl Hct 32.1 L (37.0-47.0) % MCV 76.8 L (80.0-98.0) fL MCH 25.1 L (27.0-33.0) pg MCHC 32.7 (31.0-35.0) g/dl RDW 15.4 (11.0-16.0) % Plt Count 188 D (160-400) X10*3/uL MPV 10.5 (9.4-12.3) fL Immature Gran % (Auto) 0.8 H (0.0-0.4) % Neut % (Auto) 93.5 H (45-73) % Lymph % (Auto) 2.7 L (20-40) % [place] % (Auto) 2.6 (2-11) % Eos % (Auto) 0.1 (0-4) % Baso % (Auto) 0.3 (0-2) % Lymph # (Auto) 0.3 L (1.2-4.9) X10*3/uL [place] # (Auto) 0.3 (0.1-1.2) X10*3/uL Eos # (Auto) 0.0 (0.0-0.4) X10*3/uL Baso # (Auto) 0.0 (0.0-0.2) X10*3/uL Abs Immat Gran (auto) 0.08 H (0.00-0.03) X10*3/uL Absolute Neuts (auto) 9.1 H (2.0-8.3) x10*3/uL Absolute Nucleated RBC 0.000 (0.0-0.012) X10*3/uL Nucleated RBC % (auto) 0.0 (0.0-0.2) /100WBC Smear Tech's Comments VERIFIED Sodium 135 (135-145) mmol/L Potassium 3.8 (3.3-5.1) mmol/L Chloride 103 (96-108) mmol/L Carbon Dioxide 21 L (22-29) mmol/L Anion Gap 15 (12-20) BUN 20 H (9-16) mg/dL Creatinine 0.95 (0.5-1.4) mg/dL Estim Creat Clear Calc 42.9 Estimated GFR 57 Random Glucose 216 H (60-115) mg/dL Calcium 9.6 (8.4-10.2) mg/dL Magnesium 1.4 L* (1.6-2.6) mg/dL Total Bilirubin 1.8 H (0.0-1.0) mg/dL Direct Bilirubin 1.2 H (0.0-0.5) mg/dL AST 92 H (5-31) U/L ALT 135 H (0-31) U/L Alkaline Phosphatase 291 H (39-117) U/L Troponin I High Sens 12.4 (<3.5-17.0) ng/L Total Protein 6.8 (6.5-8.0) g/dL Albumin 3.5 (3.5-5.0) g/dL Lipase 32 (8-78) U/L Urine Color Yellow Urine Appearance Clear Urine pH 6.5 (5.0-9.0) Ur Specific [place] >= 1.030 H (1.005-1.025) Urine Protein 30 (1+) H (Neg-Trace) mg/dL Urine Glucose (UA) Negative (Negative) mg/dL Urine Ketones Negative (Negative) mg/dL Urine Blood Negative (Negative) Urine Nitrite Negative (Negative) Ur Leukocyte Esterase Negative (Negative) Urine RBC 0-2 (0-2) /HPF Urine WBC 0-5 (0-5) /HPF Ur Squamous Epith Cells 3-5 (0-2) /HPF Urine Bacteria Trace (None Seen) Hyaline Casts 0-2 (0-2) /LPF Stool Occult Blood NEGATIVE (NEGATIVE) Blood Type A Positive Antibody Screen NEGATIVE Independent Interpretation I performed an independent interpretation of an: EKG (Normal sinus rhythm with a rate of 76 beats per minute. No ST segment changes) Radiology Impression Discussion of test interpretation with radiology: I have reviewed the radiologist's reading. Radiologist Impression: CT/CT abdomen pelvis w IV con IMPRESSION: 1. Unremarkable rectosigmoid anastomosis. Sigmoid diverticulosis without evidence of acute diverticulitis. No bowel wall thickening or inflammatory change to suggest acute colitis. No small or large bowel obstruction. Mild stool burden within the right colon. 2. No intra-abdominal mass, lymphadenopathy, or ascites. 3. Additional chronic findings are unchanged. Fleischner guidelines were followed. Medications Administered Generic Name Dose Route Start Last Admin Trade Name Freq PRN Reason Stop Dose Admin Magnesium Sulfate 2 gm in 50 mls @ 25 mls/hr 04/24/24 17:02 04/24/24 17:10 Magnesium Sulfate/H2o IV 04/24/24 19:01 25 mls/hr ONCE ONE Administration Discontinued Medications Generic Name Dose Route Start Last Admin Trade Name Freq PRN Reason Stop Dose Admin Sodium Chloride 1,000 mls @ 999 mls/hr 04/24/24 13:45 04/24/24 14:55 Ns IVCONT 04/24/24 14:45 Infused .Q1H1M SUMA Infusion Iohexol 100 ml 04/24/24 14:32 04/24/24 14:33 Iohexol 350 Mg/Ml 100 Ml Infus..Btl IV 04/24/24 14:33 85 ml ONCE ONE Administration Morphine Sulfate 4 mg 04/24/24 13:37 04/24/24 13:50 Morphine Sulfate 4 Mg/Ml Cartridge IVPUSH 04/24/24 13:38 4 mg ONCE ONE Administration Protocol Ondansetron HCl 4 mg 04/24/24 13:37 04/24/24 13:51 Ondansetron Hcl 4 Mg/2 Ml Vial IVPUSH 04/24/24 13:38 4 mg ONCE ONE Administration Pantoprazole Sodium 40 mg 04/24/24 16:49 04/24/24 17:01 Pantoprazole Sodium 40 Mg/10 Ml Vial IVPUSH 04/24/24 16:50 40 mg ONCE ONE Administration Discharge Plan Discharge Clinical Impression: Abdominal pain, Hypomagnesemia Patient Disposition: Home, Self-Care Instructions: Ulcerative Colitis (ED), Abdominal Pain (ED) Additional Instructions: Your workup in the ER today was reassuring. Your CT scan did not show any concerning findings. I recommend taking prednisone 40 mg daily for the next 5 days and following up with your GI specialist, call as soon as possible to schedule an appointment Return for new or worsening symptoms Prescriptions: New prednisone 20 mg tablet 40 mg PO DAILY Qty: 10 0RF No Action docusate sodium [Colace] 100 mg capsule 100 mg PO DAILY PRN (Reason: constipation) 90 Days Qty: 90 1RF (DME) FreeStyle Jessica 2 Sensor Kit See Rx Instructions .Route Qty: 7 5RF Rx Instructions: As directed change every 14 days (DME) Accu-Chek Guide test strips Strip See Rx Instructions .ROUTE .COMPLEX Qty: 400 2RF Dose Instruction: USE 1 STRIP 4 TIMES DAILY DIRECTED Rx Instructions: USE 1 STRIP 4 TIMES DAILY DIRECTED atorvastatin 80 mg tablet 80 mg PO DAILY Qty: 30 11RF lisinopril 40 mg tablet 40 mg PO DAILY Qty: 90 3RF (DME) blood pressure monitor Kit See Rx Instructions .Route Qty: 1 0RF Rx Instructions: As directed (DME) blood-glucose meter [Accu-Chek Guide Glucose Meter] [facility] See Rx Instructions .Route Qty: 1 0RF Rx Instructions: As directed montelukast 10 mg tablet 10 mg PO DAILY PRN (Reason: for allergies) 30 Days Qty: 30 11RF Jentadueto 2.5-1,000 mg tablet 1 tab PO BID Qty: 60 11RF pantoprazole 40 mg tablet,delayed release (DR/EC) 40 mg PO DAILY Qty: 30 0RF (DME) pen needle, diabetic [BD Ultra-Fine Pam Pen Needle] 32 gauge x 5/32 needle See Rx Instructions .ROUTE .COMPLEX Qty: 400 11RF Dose Instruction: Use as directed 5 times daily Rx Instructions: Use as directed 5 times daily (DME) blood pressure monitor Kit See Rx Instructions .Route Qty: 1 0RF Rx Instructions: As directed atenolol 100 mg tablet 100 mg PO DAILY Qty: 30 11RF amlodipine 5 mg tablet 5 mg PO DAILY Qty: 30 11RF insulin lispro 100 unit/mL insulin pen 12 unit SUBCUT DAILY@1130 Qty: 15 3RF insulin lispro [Humalog KwikPen Insulin] 100 unit/mL insulin pen 10 unit subcut BID@0730,1630 Qty: 15 3RF Rx Instructions: 10 units in AM before breakfast, 12 units before lunch and 10 units before dinner venlafaxine [Effexor XR] 37.5 mg capsule,extended release 24hr 37.5 mg PO DAILY@1400 folic acid 1 mg Tablet 1 mg PO DAILY@1400 albuterol sulfate [ProAir HFA] 90 mcg/actuation HFA aerosol inhaler 2 puff inhalation Q4H PRN (Reason: bronchospasm) 30 Days Qty: 18 0RF insulin degludec [Tresiba FlexTouch U-200] 200 unit/mL (3 mL) insulin pen 20 unit subcut BEDTIME aspirin 81 mg tablet,delayed release (DR/EC) 81 mg PO DAILY Hold Instructions: Resume on 01/02/22. restart after repeating blood work in 1 week (DME) lancets [TRUEplus Lancets] 33 gauge misc See Rx Instructions .ROUTE .MEDSUPPLY Qty: 400 3RF Rx Instructions: four times a day mecobalamin (vitamin B12) 1,000 mcg tablet,disintegrating 1,000 mcg sublingual DAILY@1400 cholecalciferol (vitamin D3) 50 mcg (2,000 unit) capsule 50 mcg PO DAILY nitroglycerin 0.4 mg tablet, sublingual 0.4 mg sublingual Q5M PRN (Reason: chest pain) Qty: 30 6RF Rx Instructions: do not exceed 3 doses per episode (DME) FreeStyle Precision Vu Strips Strip See Rx Instructions .Route Qty: 50 4RF Rx Instructions: As directed tests 4 X/day Referrals: Noemi Posey MD [Physician] - (abdominal pain, history of UC) Print Language: Divehi
--- NOTE | 2024-04-24 12:08 | ECG_ITS ---
Test Reason : CP Blood Pressure : / mmHG Vent. Rate : 076 BPM Atrial Rate : 076 BPM P-R Int : 172 ms QRS Dur : 090 ms QT Int : 372 ms P-R-T Axes : 007 023 040 degrees QTc Int : 418 ms Normal sinus rhythm Normal ECG When compared with ECG of 30-JAN-2024 12:21, No significant change was found Referred By: Catie Santoro Electronically Signed By:TIMBO BARRETO
[2024-04-24 12:33] LABS: Basophils Percent Auto 0.3 % (0-2); Eosinophils Percent Auto 0.1 % (0-4); Hematocrit 32.1 % (37.0-47.0); Hemoglobin 10.5 g/dl (12.0-16.0); Imm Gran Abs Auto 0.08 X10*3/uL (0.00-0.03); Imm Gran Pct Auto 0.8 % (0.0-0.4); Lymphocytes Absolute Auto 0.3 X10*3/uL (1.2-4.9); Lymphocytes Percent Auto 2.7 % (20-40); MANUAL DIFF FLAG SCAN; Mean Corpuscular HGB Conc 32.7 g/dl (31.0-35.0); Mean Corpuscular Hemoglobin 25.1 pg (27.0-33.0); Mean Corpuscular Volume 76.8 fL (80.0-98.0); Mean Platelet Volume 10.5 fL (9.4-12.3); Monocytes Absolute Auto 0.3 X10*3/uL (0.1-1.2); Monocytes Percent Auto 2.6 % (2-11); Neutrophils Absolute Auto 9.1 x10*3/uL (2.0-8.3); Neutrophils Percent Auto 93.5 % (45-73); Platelet Count 188 X10*3/uL (160-400); Red Blood Count 4.18 X10*6/uL (4.20-5.50); Red Cell Distribution Width 15.4 % (11.0-16.0); SCAN SMEAR FLAG 1; White Blood Count 9.7 X10*3/uL (4.8-10.8)
[2024-04-24 12:52] LABS: Troponin-I High Sensitivity 12.4 ng/L (<3.5-17.0)
[2024-04-24 12:58] LABS: Alanine Aminotransferase 135 U/L (0-31); Albumin Level 3.5 g/dL (3.5-5.0); Alkaline Phosphatase 291 U/L (39-117); Anion Gap 15 (12-20); Aspartate Amino Transferase 92 U/L (5-31); Bilirubin Direct 1.2 mg/dL (0.0-0.5); Bilirubin Total 1.8 mg/dL (0.0-1.0); Blood Urea Nitrogen 20 mg/dL (9-16); Calcium 9.6 mg/dL (8.4-10.2); Carbon Dioxide 21 mmol/L (22-29); Chloride 103 mmol/L (96-108); Creatinine Clr Calc Pharmacy 42.9; Estimated Glomerular Filt Rate 57; Glucose Random 216 mg/dL (60-115); Potassium 3.8 mmol/L (3.3-5.1); Sodium 135 mmol/L (135-145); Total Protein 6.8 g/dL (6.5-8.0)
--- NOTE | 2024-04-24 13:00 | PC.NURSE ---
pt is alert and oriented, skin pale/with jaundice appearance at the same time, but when the eye lid is pulled down its pale, respirations even and unlabored, pt reports since Friday having right sided abd pain and diarrhea/vomiting, diarrhea varies in color from black to red blood per patient, pt does take asa, also reports feeling dizzy-swaying. vs stable at this time
[2024-04-24 13:01] LABS: Magnesium 1.4 mg/dL (1.6-2.6)
[2024-04-24 13:11] LABS: SLIDE REVIEW VERIFIED
[2024-04-24] MEDS: Morphine Sulfate 4 MG/ML CARTRIDGE IVPUSH (13:50)
[2024-04-24] MEDS: 0.9 % Sodium Chloride 1,000 ML 999 ML IVCONT (13:50)
[2024-04-24] MEDS: ondansetron HCL 4 MG/2 ML VIAL IVPUSH (13:51)
[2024-04-24] MEDS: iohexoL 350 MG/ML 100 ML INFUS..BTL IV (14:33)
[2024-04-24] MEDS: Pantoprazole Sodium 40 MG/10 ML VIAL IVPUSH (17:01)
[2024-04-24] MEDS: Magnesium Sulfate/H2O 2 GM/50 ML PIGGYBACK IV (17:10)
[2024-04-24 17:13] LABS: Appearance Urine Clear; Color Urine Yellow; Glucose Urine UA Negative (Negative); Leukocyte Esterase Urine Negative (Negative); Nitrite Urine Negative (Negative); PH 6.5 (5.0-9.0); Specific Gravity - Urine >= 1.030 (1.005-1.025); UMIC TRIGGER UACC YES; Urine Blood Negative (Negative); Urine Ketones Negative (Negative); Urine Protein 30 (1+) mg/dL (Neg-Trace)
[2024-04-24 17:15] LABS: Bacteria Urine Trace (None Seen); Hyaline Casts Urine 0-2 /LPF (0-2); OBS1 NEGATIVE (NEGATIVE); RBC Urine 0-2 /HPF (0-2); WBC Urine 0-5 /HPF (0-5)
[2024-04-24 17:16] LABS: OBS Int Ctl Valid YES
[2024-04-24 18:31] LABS: Lipase 32 U/L (8-78)
== END 2024-04-24 20:00 | disposition home or self-care (01) ==
PROVIDERS: Physician Assistant; Emergency Provider Emergency Medicine; PCP Internal Medicine
DX: R10.9 Unspecified abdominal pain (principal); E83.42 Hypomagnesemia; E11.9 Type 2 diabetes mellitus without complications; I10 Essential (primary) hypertension; E78.5 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, unspecified; Z79.4 Long term (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; Z79.02 Long term (current) use of antithrombotics/antiplatelets; Z79.899 Other long term (current) drug therapy; Z79.82 Long term (current) use of aspirin
CPT/HCPCS: 36415; 74177; 80048; 80076; 81001; 82272; 83690; 83735; 84484; 85025; 86850; 86900; 86901; 93005; 96361; 96365; 96366; 96375; 99284; 99285; C9113; J2270; J2405; J3475; Q9967

== ENCOUNTER → 2024-04-24 12:08 | Outpatient (BNV) | payer MEDICARE, SELFPAY | PROVIDERS: Emergency Provider Emergency Medicine; PCP Internal Medicine; Visit Provider Internal Medicine | DX: R07.9 Chest pain, unspecified (principal) | CPT/HCPCS: 93010 ==

== ENCOUNTER 2024-05-07 17:12 | Inpatient (IN) | payer MEDICARE, SELFPAY ==
--- NOTE | ~2024-05-07 | FL_ITS ---
EXAMINATION: XR FLUOROSCOPY WITH IMAGES CLINICAL INFORMATION: ERCP COMPARISON MRCP: from 05/08/2024 TECHNIQUE: Fluoroscopy Supervised By: Dr. Noemi Posey. Fluoroscopy Time: 0.9 minutes. Cumulative Dose: 29.4 mGy. DAP: 8.01 Gycm2. Images: 10. FINDINGS: ERCP performed with placement of wire in CBD and injection of contrast. 2 filling defects possibly stones seen . Stones been removed by physician during procedure.. FL/FL guidance in OR IMPRESSION: Removal of 2 stones in CBD
--- NOTE | ~2024-05-07 | MR_ITS ---
EXAMINATION: MR ABDOMEN WITHOUT CONTRAST.MRCP CLINICAL INFORMATION: Right upper quadrant pain, elevated LFTs, cholestasis COMPARISON: Ultrasound abdomen 04/29/2024 TECHNIQUE: Noncontrast multiplanar multisequence MRI of the abdomen including MRCP sequences FINDINGS: LUNG BASES: No significant pleural effusions. LIVER, GALLBLADDER, AND BILIARY TREE: Liver demonstrates normal size, surface contour and signal intensity. No hepatic steatosis. No focal hepatic lesion in the visualized liver. Status post cholecystectomy. There is mild intrahepatic biliary ductal dilatation. The common bile duct is mildly dilated measuring up to 1 cm. 2 well-circumscribed T2 hypointense filling defects measuring 0.5 cm are noted in the distal CBD likely representing choledocholithiasis. PANCREAS: Mild diffuse atrophy of the pancreas. No focal lesion or ductal dilatation. SPLEEN: Unremarkable. ADRENAL GLANDS: Unremarkable. KIDNEYS AND URETERS: The kidneys are normal in size shape and signal intensity. There is a 0.9 cm simple cyst in the upper pole of the right kidney, for which no dedicated follow-up imaging is required. No hydronephrosis. GASTROINTESTINAL TRACT: Stomach is decompressed. Mild gaseous distention of the colon. There is no evidence of bowel obstruction. ABDOMINAL WALL: Susceptibility artifacts related to postsurgical changes along the midline and right anterior abdominal wall. LYMPH NODES: No enlarged abdominal lymph nodes. VASCULAR: The abdominal aorta is nonaneurysmal with atherosclerotic changes. OSSEOUS STRUCTURES: Degenerative changes of the visualized spine. MR/MR MRCP IMPRESSION: Status post cholecystectomy. Mild intra and extrahepatic biliary ductal dilatation. Two well-circumscribed T2 hypointense filling defects within the distal CBD measuring up to 0.5 cm, likely representing choledocholithiasis.
--- NOTE | ~2024-05-07 | US_ITS ---
EXAMINATION: US ABDOMEN LIMITED CLINICAL INFORMATION: Right upper quadrant pain and elevated LFTs. COMPARISON: 04/24/2024 CT scan TECHNIQUE: Real-time imaging of the right upper quadrant abdominal viscera. FINDINGS: PANCREAS: Portions of the pancreas are obscured overlying gas. The visualized body the pancreas is grossly unremarkable LIVER: Normal. The liver is normal in size. The liver contour is normal. Parenchymal echogenicity is normal. No focal hepatic lesion. There is mild intrahepatic biliary duct dilatation seen. GALLBLADDER: Surgically absent COMMON BILE DUCT: The common bile duct measures up to 1.1 cm maximally although does have a relatively bulbous course measuring 0.3 cm distally where seen. The duct is not able to be visualized in its entirety however due to overlying gas. RIGHT KIDNEY: 0.7 cm upper pole cyst. No hydronephrosis. No renal calculi or focal parenchymal lesions. The kidney measures 7.3 cm in maximum dimension. FREE FLUID: None. US/US abdomen limited IMPRESSION: Mild intrahepatic biliary duct dilatation and a somewhat bulbous course of the common bile duct. The distal common bile duct is not able to be visualized in its entirety however. The patient is status post cholecystectomy.
[2024-05-07 17:17] VITALS: BP 118/53; PULSE 73; RESP 18; TEMP 36.4; O2SAT 100; BMI 28.7
--- NOTE | 2024-05-07 17:21 | ED.GENADULT ---
HPI - General Adult General Chief complaint: Abdominal Pain Stated complaint: N/V/D x2 weeks Time Seen by Provider: 05/07/24 18:50 Source: patient and family Mode of arrival: ambulatory Limitations: no limitations History of Present Illness ED Provider: Dr. Vibha Spain HPI narrative: Patient comes to the emergency room complaining of nausea vomiting and diarrhea. Patient states that she was seen here 2 weeks ago, states that after she just she was initially feeling better for a day, then started having right upper quadrant pain, worsening nausea vomiting and diarrhea periods patient denies fever chills. Patient states that overall she feels very unwell, all of her symptoms have been going for at least a month now but over the last 2 days, symptoms became much worse, now she can not tolerate any p.o. fluids. Last week, patient has been only drinking synthetic chicken broth, but vomits primary anything that she tries to eat Or has diarrhea. Related Data Home Medications ?Medication ?Instructions ?Recorded ?Confirmed aspirin 81 mg tablet,delayed 81 mg PO DAILY 08/14/20 03/10/24 release venlafaxine 37.5 mg 37.5 mg PO DAILY@1400 12/22/21 03/10/24 capsule,extended release 24 hr (Effexor XR) mecobalamin (vitamin B12) 1,000 1,000 mcg sublingual DAILY@1400 04/26/22 03/10/24 mcg disintegrating tablet,sublingual cholecalciferol (vitamin D3) 50 50 mcg PO DAILY 05/28/22 03/10/24 mcg (2,000 unit) capsule folic acid 1 mg tablet 1 mg PO DAILY@1400 08/22/23 03/10/24 insulin degludec 200 unit/mL (3 20 unit subcut BEDTIME 01/07/24 03/10/24 mL) subcutaneous pen (Tresiba FlexTouch U-200 insulin) Previous Rx's ?Medication ?Instructions ?Recorded lancets 33 gauge (TRUEplus Lancets) #400 ea 02/20/21 docusate sodium 100 mg capsule 100 mg PO DAILY PRN constipation 06/05/22 (Colace) 90 days #90 caps flash glucose sensor (FreeStyle #7 ea 01/23/23 Jessica 2 Sensor kit) blood sugar diagnostic (Accu-Chek #400 strips 04/28/23 Guide test strips) atorvastatin 80 mg tablet 80 mg PO DAILY #30 tabs 08/15/23 lisinopril 40 mg tablet 40 mg PO DAILY #90 tabs 08/15/23 blood sugar diagnostic (FreeStyle #50 ea 09/03/23 Precision Vu Strips) blood pressure monitor #1 ea 09/13/23 blood-glucose meter (Accu-Chek #1 ea 09/23/23 Guide Glucose Meter) montelukast 10 mg tablet 10 mg PO DAILY PRN for allergies 10/09/23 30 days #30 tabs linagliptin 2.5 mg-metformin 1,000 1 tab PO BID #60 tabs 11/03/23 mg tablet (Jentadueto) pantoprazole 40 mg tablet,delayed 40 mg PO DAILY #30 tabs 12/08/23 release albuterol sulfate 90 mcg/actuation 2 puff inhalation Q4H PRN 01/07/24 aerosol inhaler (ProAir HFA) bronchospasm 30 days #18 grams pen needle, diabetic 32 gauge x #400 ea 01/31/24 (BD Ultra-Fine Pam Pen Needle) blood pressure monitor #1 ea 02/02/24 nitroglycerin 0.4 mg sublingual 0.4 mg sublingual Q5M PRN chest 02/24/24 tablet pain #30 tabs amlodipine 5 mg tablet 5 mg PO DAILY #30 tabs 02/25/24 atenolol 100 mg tablet 100 mg PO DAILY #30 tabs 02/25/24 insulin lispro 100 unit/mL 12 unit (0.12 mL) subcut 03/08/24 subcutaneous pen DAILY@1130 #15 mL insulin lispro 100 unit/mL 10 unit (0.1 mL) subcut 03/08/24 subcutaneous pen (Humalog KwikPen BID@0730,1630 #15 mL (U-100) Insulin) prednisone 20 mg tablet 40 mg (2 x 20 mg) PO DAILY #10 tabs 04/24/24 Allergies Allergy/AdvReac Type Severity Reaction Status Date / Time Penicillins [PENICILLINS] Allergy Severe ANAPHYLAXIS Verified 05/07/24 17:23 Sulfa (Sulfonamide Allergy Severe ANAPHYLAXIS Verified 05/07/24 17:23 Antibiotics) [SULFA (SULFONAMIDE ANTIBIOTICS)] codeine Allergy Intermediate headache/mood Verified 05/07/24 17:23 changes dulaglutide [From Trulicity] Allergy Intermediate Nausea and Verified 05/07/24 17:23 Vomiting latanoprost AdvReac Intermediate eye redness Verified 05/07/24 17:23 Review of Systems Review of Systems: Constitutional : No Weight loss, No Fever, No Chills, No Night Sweats, No Fatigue, No Malaise ENT/Mouth : No Hearing loss, No Ear Pain, No Nasal Congestion, No Sinus Pain, No Hoarseness, No sore throat, No Rhinorrhea, No Swallowing Difficulty Eyes: No Eye Pain, No Swelling, No Redness, No Foreign Body, No Discharge, No Vision Changes Cardiovascular : No Chest Pain, No SOB, No Dyspnea on Exertion, No Orthopnea, No Edema, No Palpitations Respiratory : No Cough, No Sputum, No Wheezing, No Smoke Exposure, No Dyspnea Gastrointestinal : Complaining of nausea vomiting and diarrhea, No Constipation, complaining of epigastric and right upper quadrant pain radiating towards the back Genitourinary : no irregular bleeding, No Dysuria, No Urinary Frequency, No Hematuria, No Urinary Incontinence, No Urgency, No Flank Pain, No Urinary Flow Changes, No Hesitancy Musculoskeletal : No joint pain, No Myalgias, No Joint Swelling Skin : No Skin Lesions, No rash Neuro : No Weakness, No Numbness, No Paresthesias, No Loss of Consciousness, No Dizziness, No Headache Psych : No Anxiety/Panic, No Depression, No SI/HI/AH/VH, No Social Issues, Heme/Lymph: No Bruising, No Bleeding,No Lymphadenopathy Endocrine : No Polyuria, No Polydipsia, No Temperature Intolerance PMFSH Past Medical History Medical History Dizziness Mild recurrent major depression Epilepsy Stroke Colitis Major depression, recurrent Memory change Neuropathy Seizures Glaucoma Myocardial infarction Acid reflux Type 2 diabetes mellitus with diabetic polyneuropathy Type 2 diabetes mellitus with hyperglycemia 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 LDL goal <70 Obesity due to excess calories BMI 34.0-34.9,adult 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, unspecified 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 Type 2 diabetes mellitus with unspecified complications Atherosclerotic cardiovascular disease Surgical History Hx of eye surgery Hx of colonoscopy History of esophagogastroduodenoscopy (EGD) History of colon resection History of appendectomy History of kidney surgery History of intestinal surgery Hx of cholecystectomy History of liver biopsy History of bladder surgery Hx of hysterectomy Family History Family History Father Cardiovascular disease Cancer Mother Cardiovascular disease Sister Diabetes Brother Diabetes Other Mental health disorder Social History Social History Household Members: None Housing: Apartment Are you a primary career transition specialist to a significant other at home: No Do you presently have visiting nurse or other home services: No Alcohol intake: never Patient Tobacco Use Status: Never used Tobacco Smoked in Last 30 Days: No e-Cigarette/Vaping Use: Never Used Second Hand Smoke Exposure: No Use of substances other than those prescribed or required for medical reasons: No Advance Directives: Yes Advance Directives Information Provided: No Advance Directives on File: Yes Advance Directives Date on File: 08/25/23 Do you have a plan to hurt others: No Plan service: No Current occupational status: retired Cognitive needs: Yes Hearing needs: No Vision needs: Yes Physical Exam ED Vital Signs: Vital Signs - 24 hr 05/07/24 17:17 05/07/24 19:07 Temperature 97.6 F 97.7 F Pulse Rate 73 68 Respiratory Rate 18 15 Blood Pressure 118/53 L 193/62 H Pulse Oximetry 100 99 Oxygen Delivery Method Room Air Room Air BMI result Body Mass Index 28.7 Const Other: Appearance: Alert. Oriented X3. No acute distress. Eyes: Pupils equal, round and reactive to light. icteric sclera bilaterally ENT: Pharynx normal. Neck: Normal inspection. Neck supple. No lymph nodes noted. No crepitus CVS: Normal heart rate and rhythm. Pulses normal. Normal S1 and S2 Respiratory: No respiratory distress. Breath sounds normal. No Wheezing. No rales Abdomen: soft, tenderness to palpation in the epigastric and right upper quadrant Skin: Skin warm and dry. patient diffusely jaundiced Extremities: No lower extremity edema. No Lacerations. No Rash Neuro: Oriented X 3. No motor deficit. No sensory deficit. Moving all extremities. No slurred speech. CN 2 through 12 grossly intact Psych: calm, cooperative, normal affect Course Course Course Narrative: RME performed by Kaya Hart PA-C. Patient is an 79 year old assigned female at presenting to the emergency department with abdominal pain and a headache. Patient states that she has not been able to eat or drink for 2 weeks. Detailed physical exam and review of systems are deferred to the primary class teacher. Labs ordered. Patient placed back in the waiting room pending room availability and results. Medications Administered Generic Name Dose Route Start Last Admin Trade Name Freq PRN Reason Stop Dose Admin Sodium Chloride 2,000 mls @ 999 mls/hr 05/07/24 19:12 05/07/24 20:22 Ns IVCONT 05/07/24 21:12 999 mls/hr .Q2H1M ONE Administration Discontinued Medications Generic Name Dose Route Start Last Admin Trade Name Freq PRN Reason Stop Dose Admin Levofloxacin 750 mg in 150 mls @ 100 mls/hr 05/07/24 19:26 05/07/24 20:22 Levaquin IV 05/07/24 20:55 100 mls/hr ONCE ONE Administration Metronidazole 500 mg in 100 mls @ 100 mls/hr 05/07/24 19:26 05/07/24 20:06 Flagyl IV 05/07/24 20:25 100 mls/hr ONCE ONE Administration Ondansetron HCl 4 mg 05/07/24 19:25 05/07/24 20:07 Ondansetron Hcl 4 Mg/2 Ml Vial IVPUSH 05/07/24 19:26 4 mg ONCE ONE Administration Medical Decision Making Medical Decision Making MDM Narrative: - my interpretation of labs: Normal white blood cell count,, chemistry within normal limits, lactic acid 1.4, magnesium 1.4, LFTs elevated, more than 2 weeks ago. Lipase 105 - I reviewed patient's past medical records and imaging, patient had a CT scan less than 2 weeks ago, unremarkable rectosigmoid anastomosis,\ - patient has been having diarrhea and vomiting for over a month, patient received 2 L of fluid. Patient's LFTs elevated, has significant abdominal pain. Before we got all the labs and imaging results, patient was empirically treated with IV fluids, patient received 2 L, patient received levofloxacin and metronidazole IV, total of approximately 2300 mL of fluid. Patient's LFTs elevated, possible choledocholithiasis. However, patient's white blood cell count is normal, lactic acid normal, this is secondary to the above-mentioned, sepsis is not suspected. - ultrasound from today: Mild intrahepatic biliary duct dilation and somewhat bulbous course of the common bile duct, patient is status post cholecystectomy - I discussed the patient with Dr. Posey from Gastroenterology, patient will likely need an MRCP, patient to be admitted - I discussed the patient with Dr. Altamirano from the Medicine team, patient being admitted Differential Diagnosis Differential Diagnoses: The differential diagnosis associated with the presentation includes Admission/Observation Consideration of admission/observation: Escalation of care including admission/observation considered Consult Healthcare Provider Management of the patient was discussed with: Hospitalist and Stringed Instrument Assembler Lab Data MDM Lab Attestation statement: I reviewed the patient's lab results. 05/07/24 17:50 05/07/24 17:50 Labs: Lab Results 05/07/24 05/07/24 05/07/24 Range/Units 17:50 18:00 20:03 WBC 9.4 (4.8-10.8) X10*3/uL RBC 4.38 (4.20-5.50) X10*6/uL Hgb 10.9 L (12.0-16.0) g/dl Hct 34.5 L (37.0-47.0) % MCV 78.8 L (80.0-98.0) fL MCH 24.9 L (27.0-33.0) pg MCHC 31.6 (31.0-35.0) g/dl RDW 15.9 (11.0-16.0) % Plt Count 322 D (160-400) X10*3/uL MPV 10.5 (9.4-12.3) fL Immature Gran % (Auto) 0.5 H (0.0-0.4) % Neut % (Auto) 77.1 H (45-73) % Lymph % (Auto) 11.1 L (20-40) % [place] % (Auto) 9.0 (2-11) % Eos % (Auto) 2.0 (0-4) % Baso % (Auto) 0.3 (0-2) % Lymph # (Auto) 1.1 L (1.2-4.9) X10*3/uL [place] # (Auto) 0.9 (0.1-1.2) X10*3/uL Eos # (Auto) 0.2 (0.0-0.4) X10*3/uL Baso # (Auto) 0.0 (0.0-0.2) X10*3/uL Abs Immat Gran (auto) 0.05 H (0.00-0.03) X10*3/uL Absolute Neuts (auto) 7.3 (2.0-8.3) x10*3/uL Absolute Nucleated RBC 0.000 (0.0-0.012) X10*3/uL Nucleated RBC % (auto) 0.0 (0.0-0.2) /100WBC Sodium 138 (135-145) mmol/L Potassium 3.8 (3.3-5.1) mmol/L Chloride 106 (96-108) mmol/L Carbon Dioxide 22 (22-29) mmol/L Anion Gap 14 (12-20) BUN 14 (9-16) mg/dL Creatinine 0.91 (0.5-1.4) mg/dL Estim Creat Clear Calc 42.0 Estimated GFR 59 Random Glucose 157 H (60-115) mg/dL Lactic Acid 1.4 (0.5-2.0) mmol/L Calcium 9.7 (8.4-10.2) mg/dL Magnesium 1.4 L* (1.6-2.6) mg/dL Total Bilirubin 2.2 H (0.0-1.0) mg/dL Direct Bilirubin 1.6 H (0.0-0.5) mg/dL AST 535 H (5-31) U/L ALT 287 H (0-31) U/L Alkaline Phosphatase 705 H (39-117) U/L Total Protein 6.6 (6.5-8.0) g/dL Albumin 3.4 L (3.5-5.0) g/dL Lipase 105 H (8-78) U/L Urine Color Dark Yellow Urine Appearance Clear Urine pH >= 9.0 (5.0-9.0) Ur Specific Sullivan 1.015 (1.005-1.025) Urine Protein Negative (Neg-Trace) mg/dL Urine Glucose (UA) Negative (Negative) mg/dL Urine Ketones Negative (Negative) mg/dL Urine Blood Negative (Negative) Urine Nitrite Negative (Negative) Ur Leukocyte Esterase Negative (Negative) Influenza Type A (PCR) NEGATIVE (Negative) Influenza Type B (PCR) NEGATIVE (Negative) RSV RNA Qual (PCR) NEGATIVE (Negative) SARS-CoV-2 RNA (RT-PCR) NEGATIVE (Negative) Independent Interpretation I performed an independent interpretation of an: Ultrasound Radiology Impression Discussion of test interpretation with radiology: I have reviewed the radiologist's reading. Radiologist Impression: EXAMINATION: US ABDOMEN LIMITED CLINICAL INFORMATION: Right upper quadrant pain and elevated LFTs. COMPARISON: 04/24/2024 CT scan TECHNIQUE: Real-time imaging of the right upper quadrant abdominal viscera. FINDINGS: PANCREAS: Portions of the pancreas are obscured overlying gas. The visualized body the pancreas is grossly unremarkable LIVER: Normal. The liver is normal in size. The liver contour is normal. Parenchymal echogenicity is normal. No focal hepatic lesion. There is mild intrahepatic biliary duct dilatation seen. GALLBLADDER: Surgically absent COMMON BILE DUCT: The common bile duct measures up to 1.1 cm maximally although does have a relatively bulbous course measuring 0.3 cm distally where seen. The duct is not able to be visualized in its entirety however due to overlying gas. RIGHT KIDNEY: 0.7 cm upper pole cyst. No hydronephrosis. No renal calculi or focal parenchymal lesions. The kidney measures 7.3 cm in maximum dimension. FREE FLUID: None. US/US abdomen limited IMPRESSION: Mild intrahepatic biliary duct dilatation and a somewhat bulbous course of the common bile duct. The distal common bile duct is not able to be visualized in its entirety however. The patient is status post cholecystectomy. Critical Care Time Critical Care Time Critical Care Time: Yes Total Critical Care Time: 75 Attestation: I have personally provided critical care time. Time includes review of lab data, radiology results, discussion with consultants, and monitoring for potential decompensation. Intervention performed as documented. Discharge Plan Discharge Clinical Impression: Abdominal pain, Nausea vomiting and diarrhea, Hypomagnesemia, Elevated LFTs Patient Disposition: Admitted As Inpatient Prescriptions: No Action docusate sodium [Colace] 100 mg capsule 100 mg PO DAILY PRN (Reason: constipation) 90 Days Qty: 90 1RF (DME) FreeStyle Jessica 2 Sensor Kit See Rx Instructions .Route Qty: 7 5RF Rx Instructions: As directed change every 14 days (DME) Accu-Chek Guide test strips Strip See Rx Instructions .ROUTE .COMPLEX Qty: 400 2RF Dose Instruction: USE 1 STRIP 4 TIMES DAILY DIRECTED Rx Instructions: USE 1 STRIP 4 TIMES DAILY DIRECTED atorvastatin 80 mg tablet 80 mg PO DAILY Qty: 30 11RF lisinopril 40 mg tablet 40 mg PO DAILY Qty: 90 3RF (DME) blood pressure monitor Kit See Rx Instructions .Route Qty: 1 0RF Rx Instructions: As directed (DME) blood-glucose meter [Accu-Chek Guide Glucose Meter[place] [facility] [place]ructions .Route Qty: 1 0RF Rx Instructions: As directed montelukast 10 mg tablet 10 mg PO DAILY PRN (Reason: for allergies) 30 Days Qty: 30 11RF Jentadueto 2.5-1,000 mg tablet 1 tab PO BID Qty: 60 11RF pantoprazole 40 mg tablet,delayed release (DR/EC) 40 mg PO DAILY Qty: 30 0RF (DME) pen needle, diabetic [BD Ultra-Fine Pam Pen Needle] 32 gauge x 5/32 needle See Rx Instructions .ROUTE .COMPLEX Qty: 400 11RF Dose Instruction: Use as directed 5 times daily Rx Instructions: Use as directed 5 times daily (DME) blood pressure monitor Kit See Rx Instructions .Route Qty: 1 0RF Rx Instructions: As directed atenolol 100 mg tablet 100 mg PO DAILY Qty: 30 11RF amlodipine 5 mg tablet 5 mg PO DAILY Qty: 30 11RF insulin lispro 100 unit/mL insulin pen 12 unit SUBCUT DAILY@1130 Qty: 15 3RF insulin lispro [Humalog KwikPen Insulin] 100 unit/mL insulin pen 10 unit subcut BID@0730,1630 Qty: 15 3RF Rx Instructions: 10 units in AM before breakfast, 12 units before lunch and 10 units before dinner venlafaxine [Effexor XR] 37.5 mg capsule,extended release 24hr 37.5 mg PO DAILY@1400 folic acid 1 mg Tablet 1 mg PO DAILY@1400 prednisone 20 mg tablet 40 mg PO DAILY Qty: 10 0RF albuterol sulfate [ProAir HFA] 90 mcg/actuation HFA aerosol inhaler 2 puff inhalation Q4H PRN (Reason: bronchospasm) 30 Days Qty: 18 0RF insulin degludec [Tresiba FlexTouch U-200] 200 unit/mL (3 mL) insulin pen 20 unit subcut BEDTIME aspirin 81 mg tablet,delayed release (DR/EC) 81 mg PO DAILY Hold Instructions: Resume on 01/02/22. restart after repeating blood work in 1 week (DME) lancets [TRUEplus Lancets] 33 gauge misc See Rx Instructions .ROUTE .MEDSUPPLY Qty: 400 3RF Rx Instructions: four times a day mecobalamin (vitamin B12) 1,000 mcg tablet,disintegrating 1,000 mcg sublingual DAILY@1400 cholecalciferol (vitamin D3) 50 mcg (2,000 unit) capsule 50 mcg PO DAILY nitroglycerin 0.4 mg tablet, sublingual 0.4 mg sublingual Q5M PRN (Reason: chest pain) Qty: 30 6RF Rx Instructions: do not exceed 3 doses per episode (DME) FreeStyle Precision Vu Strips Strip See Rx Instructions .Route Qty: 50 4RF Rx Instructions: As directed tests 4 X/day Print Language: Azeri
[2024-05-07 17:57] LABS: MANUAL DIFF FLAG NO
[2024-05-07 18:09] LABS: Appearance Urine Clear; Color Urine Dark Yellow; Glucose Urine UA Negative (Negative); Leukocyte Esterase Urine Negative (Negative); Nitrite Urine Negative (Negative); PH >= 9.0 (5.0-9.0); Specific Gravity - Urine 1.015 (1.005-1.025); Urine Blood Negative (Negative); Urine Ketones Negative (Negative); Urine Protein Negative (Neg-Trace)
[2024-05-07 18:13] LABS: Basophils Percent Auto 0.3 % (0-2); Eosinophils Absolute Auto 0.2 X10*3/uL (0.0-0.4); Hematocrit 34.5 % (37.0-47.0); Hemoglobin 10.9 g/dl (12.0-16.0); Imm Gran Abs Auto 0.05 X10*3/uL (0.00-0.03); Imm Gran Pct Auto 0.5 % (0.0-0.4); Lymphocytes Absolute Auto 1.1 X10*3/uL (1.2-4.9); Lymphocytes Percent Auto 11.1 % (20-40); Mean Corpuscular HGB Conc 31.6 g/dl (31.0-35.0); Mean Corpuscular Hemoglobin 24.9 pg (27.0-33.0); Mean Corpuscular Volume 78.8 fL (80.0-98.0); Mean Platelet Volume 10.5 fL (9.4-12.3); Monocytes Absolute Auto 0.9 X10*3/uL (0.1-1.2); Neutrophils Absolute Auto 7.3 x10*3/uL (2.0-8.3); Neutrophils Percent Auto 77.1 % (45-73); Platelet Count 322 X10*3/uL (160-400); Red Blood Count 4.38 X10*6/uL (4.20-5.50); Red Cell Distribution Width 15.9 % (11.0-16.0); White Blood Count 9.4 X10*3/uL (4.8-10.8)
[2024-05-07 18:20] LABS: Alanine Aminotransferase 287 U/L (0-31); Albumin Level 3.4 g/dL (3.5-5.0); Alkaline Phosphatase 705 U/L (39-117); Anion Gap 14 (12-20); Aspartate Amino Transferase 535 U/L (5-31); Bilirubin Total 2.2 mg/dL (0.0-1.0); Blood Urea Nitrogen 14 mg/dL (9-16); Calcium 9.7 mg/dL (8.4-10.2); Carbon Dioxide 22 mmol/L (22-29); Chloride 106 mmol/L (96-108); Estimated Glomerular Filt Rate 59; Glucose Random 157 mg/dL (60-115); Magnesium 1.4 mg/dL (1.6-2.6); Potassium 3.8 mmol/L (3.3-5.1); Sodium 138 mmol/L (135-145); Total Protein 6.6 g/dL (6.5-8.0)
[2024-05-07 18:48] LABS: Influenza A PCR NEGATIVE (Negative); Influenza B PCR NEGATIVE (Negative); Resp Syncy Virus RNA Qual PCR NEGATIVE (Negative); SARS COV2 PCR INHOUSE NEGATIVE (Negative)
[2024-05-07 19:07] VITALS: BP 193/62; PULSE 68; RESP 15; TEMP 36.5; O2SAT 99
[2024-05-07 19:11] LABS: Bilirubin Direct 1.6 mg/dL (0.0-0.5); Lipase 105 U/L (8-78)
[2024-05-07] MEDS: metroNIDAZOLE/NS 500 MG/100 ML PIGGYBACK 100 MG IV (20:06)
[2024-05-07] MEDS: ondansetron HCL 4 MG/2 ML VIAL IVPUSH (20:07)
[2024-05-07] MEDS: levoFLOXacin/D5W 750 MG/150 ML PIGGYBACK 100 MG IV (20:22)
[2024-05-07] MEDS: 0.9 % Sodium Chloride 2,000 ML 999 ML IVCONT (20:22)
--- NOTE | 2024-05-07 20:31 | PC.NURSE ---
Pt refusing pain medication at this time, endorsing relief with nausea medication given reviously. Holding until needed.
[2024-05-07 20:33] LABS: Lactic Acid 1.4 mmol/L (0.5-2.0)
[2024-05-07] MEDS: Morphine Sulfate 4 MG/ML CARTRIDGE IVPUSH (21:12)
[2024-05-07] MEDS: Magnesium Sulfate/H2O 2 GM/50 ML PIGGYBACK IV (21:13)
[2024-05-07 21:31] LABS: Prothrombin Time 12.7 SEC (11.1-13.3)
[2024-05-07 21:33] LABS: Partial Thromboplastin Time 26.6 SEC (26.0-36.8)
[2024-05-07 21:39] LABS: Acetaminophen LAB < 3 mcg/mL (<30); Salicylate < 5.0 mg/dL (15-30)
[2024-05-07 21:52] VITALS: BP 134/47; PULSE 60; RESP 16; TEMP 36.5; O2SAT 99
[2024-05-07] MEDS: Lactated Ringers 1,000 ML 125 ML IVCONT (22:24)
--- NOTE | 2024-05-07 22:28 | P.HPHOSP_ITS ---
History of Present Illness Date of Service: 05/07/24 Attending physician on admission: Eliot Chisholm Chief Complaint: Abdominal pain Jennifer Stoll is a very pleasant 79 years old woman with past medical history significant for s/p cholecystectomy and other abdominal surgeries, UC, diverticulosis, type 2 diabetes on insulin, hyperlipidemia, essential hypertension, chronic pancreatitis, asthma, depression, stroke and GERD presents to the emergency department complaining of 2 weeks history right upper quadrant pain associated with nausea, vomiting, diarrhea and jaundice. The pain is quite severe and does not radiate. Diarrhea was blurry 2 weeks ago but not anymore and has not had further episode lately. Denies fever, chills or confusion. She also denied any acute urinary symptoms however she noted that her urine is dark. Denied alcohol use, tobacco smoking or marijuana use. Recently (April 24) she was evaluated in the emergency department for the same symptoms and was considered to have ulcerative colitis flare and was discharged to take a course of prednisone. Abdominal pelvis CT scan with IV contrast (2023) - unremarkable sigmoid anastomosis, sigmoid diverticulosis without diverticulitis, no bowel obstructions and mild stool burden within the right colon. In the ED today, she was found to have stable vital signs. Blood workup is remarkable for elevated LFTs and hypomagnesemia. LFTs seems to be worsening when compared to dose obtained on April 24. Lipase now elevated. UA is normal. Abdominal ultrasound showed mild intrahepatic biliary ductal dilatation and somewhat bulbous course of the common bile duct (not able to be visualized in is entirely). ED tx: NS 2 L bolus, Zofran 4 mg IV, Levaquin 750 mg IV, Flagyl 500 mg IV, magnesium 2 g IV, morphine 4 mg IV. Review of Systems 2 Review of Systems: All 12 systems were reviewed and normal except as noted in HPI. 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 Type 2 diabetes mellitus with unspecified complications Atherosclerotic cardiovascular disease Family History Father Cardiovascular disease Cancer Mother Cardiovascular disease Sister Diabetes Brother Diabetes Other Mental health disorder Surgical History Hx of eye surgery Hx of colonoscopy History of esophagogastroduodenoscopy (EGD) History of colon resection History of appendectomy History of kidney surgery History of intestinal surgery Hx of cholecystectomy History of liver biopsy History of bladder surgery Hx of hysterectomy Social History Household Members: None Housing: Apartment Are you a primary healthcare liaison to a significant other at home: No Do you presently have visiting nurse or other home services: No Alcohol intake: never Patient Tobacco Use Status: Never used Tobacco Smoked in Last 30 Days: No e-Cigarette/Vaping Use: Never Used Second Hand Smoke Exposure: No Use of substances other than those prescribed or required for medical reasons: No Advance Directives: Yes Advance Directives Information Provided: No Advance Directives on File: Yes Advance Directives Date on File: 08/25/23 Do you have a plan to hurt others: No Plan service: No Current occupational status: retired Cognitive needs: Yes Hearing needs: No Vision needs: Yes Meds Allergies Allergy/AdvReac Type Severity Reaction Status Date / Time Penicillins [PENICILLINS] Allergy Severe ANAPHYLAXIS Verified 05/07/24 17:23 Sulfa (Sulfonamide Allergy Severe ANAPHYLAXIS Verified 05/07/24 17:23 Antibiotics) [SULFA (SULFONAMIDE ANTIBIOTICS)] codeine Allergy Intermediate headache/mood Verified 05/07/24 17:23 changes dulaglutide [From Trulicity] Allergy Intermediate Nausea and Verified 05/07/24 17:23 Vomiting latanoprost AdvReac Intermediate eye redness Verified 05/07/24 17:23 Active Medications: Current Medications Glucose (Glucose Gel 15 Gm Gel..Gram.) 15 gm PO Q15M PRN; Protocol PRN Reason: per Hypoglycemia Standing Ord. Heparin Sodium (Porcine) (Heparin Sodium,Porcine 5,000 Unit/Ml Vial) 5,000 unit SUBCUT Q8H SUMA Lactated Ringer's (Lr) 1,000 mls @ 125 mls/hr IVCONT .Q8H SUMA Last Admin: 05/07/24 22:24 Dose: 125 mls/hr Dextrose (D10) 250 mls @ 750 mls/hr IV Q15M PRN; Protocol PRN Reason: per Hypoglycemia Standing Ord. Insulin Human Lispro (Insulin Lispro 100 Unit/Ml 3 Ml Vial) 0 unit SUBCUT Q6H SUMA; Protocol Morphine Sulfate (Morphine Sulfate 4 Mg/Ml Cartridge) 4 mg IVPUSH Q4H PRN; Protocol PRN Reason: Pain, Severe (Pain Scale 7-10) Ondansetron HCl (Ondansetron Hcl 4 Mg/2 Ml Vial) 4 mg IVPUSH Q8H PRN PRN Reason: Nausea and Vomiting Sodium Chloride (0.9 % Sodium Chloride Flush 3 Ml Syringe) 3 ml IVFLUSH QSHIFT [facility] Home Medications ?Medication ?Instructions ?Recorded ?Confirmed ?Last Taken ?Type aspirin 81 mg tablet,delayed 81 mg PO DAILY 08/14/20 05/07/24 05/06/24 History release venlafaxine 37.5 mg 37.5 mg PO DAILY 12/22/21 05/07/24 05/06/24 History capsule,extended release 24 hr (Effexor XR) mecobalamin (vitamin B12) 1,000 1,000 mcg sublingual DAILY@1400 04/26/22 05/07/24 05/06/24 History mcg disintegrating tablet,sublingual cholecalciferol (vitamin D3) 50 50 mcg PO DAILY 05/28/22 05/07/24 05/06/24 History mcg (2,000 unit) capsule folic acid 1 mg tablet 1 mg PO DAILY@1400 08/22/23 05/07/24 05/06/24 History insulin degludec 200 unit/mL (3 12 unit subcut BEDTIME 01/07/24 05/07/24 05/06/24 History mL) subcutaneous pen (Tresiba FlexTouch U-200 insulin) albuterol sulfate 90 mcg/actuation 2 puff inhalation Q4H PRN 05/07/24 05/07/24 Unknown History aerosol inhaler SOB/Wheezing venlafaxine 150 mg 150 mg PO DAILY 05/07/24 05/07/24 05/06/24 History capsule,extended release 24 hr zonisamide 100 mg capsule 100 mg PO BEDTIME 05/07/24 05/07/24 05/06/24 History Physical Exam 2 Vital Signs and Narrative: Vital Signs: Last Vital Signs Temp 97.7 F 05/07/24 21:52 Pulse 60 05/07/24 21:52 Resp 16 05/07/24 21:52 BP 134/47 L 05/07/24 21:52 Pulse Ox 99 05/07/24 21:52 O2 Del Method Room Air 05/07/24 21:52 BMI result Body Mass Index 28.7 Constitutional - Awake and Alert, No apparent distress. Looks very tired and weak. Pleasant. Cooperative. HEENT - PERRL, EOMI. Dry oral mucosa. Heart - RRR. No murmur. Lungs - Normal lung expansion, Normal respiratory effort, No respiratory distress, CTA bilaterally Abdomen - Nondistended, increased bowel sounds, right upper quadrant pain without rebound or guarding. Extremities - no calf tenderness bilaterally, no swelling Musculoskeletal - Normal inspection, normal ROM Skin - Warm/Dry. Jaundice. Neurological - Alert & oriented x3. Facial droop. No focal weakness. Normal speech. Psychological - Appropriate affect Results Labs 05/07/24 17:50 05/07/24 17:50 Labs: Laboratory Results - last 24 hr 05/07/24 05/07/24 05/07/24 17:50 18:00 20:03 MCV 78.8 L MCH 24.9 L MCHC 31.6 RDW 15.9 Plt Count 322 D MPV 10.5 Immature Gran % (Auto) 0.5 H Neut % (Auto) 77.1 H Lymph % (Auto) 11.1 L [place] % (Auto) 9.0 Eos % (Auto) 2.0 Baso % (Auto) 0.3 Lymph # (Auto) 1.1 L [place] # (Auto) 0.9 Eos # (Auto) 0.2 Baso # (Auto) 0.0 Abs Immat Gran (auto) 0.05 H Absolute Neuts (auto) 7.3 Absolute Nucleated RBC 0.000 Nucleated RBC % (auto) 0.0 PT INR APTT Anion Gap 14 Estim Creat Clear Calc 42.0 Estimated GFR 59 Random Glucose 157 H Lactic Acid 1.4 Calcium 9.7 Magnesium 1.4 L* Total Bilirubin 2.2 H Direct Bilirubin 1.6 H AST 535 H ALT 287 H Alkaline Phosphatase 705 H Total Protein 6.6 Albumin 3.4 L Lipase 105 H Urine Color Dark Yellow Urine Appearance Clear Urine pH >= 9.0 Ur Specific [place] 1.015 Urine Protein Negative Urine Glucose (UA) Negative Urine Ketones Negative Urine Blood Negative Urine Nitrite Negative Ur Leukocyte Esterase Negative Salicylates Acetaminophen Influenza Type A (PCR) NEGATIVE Influenza Type B (PCR) NEGATIVE RSV RNA Qual (PCR) NEGATIVE SARS-CoV-2 RNA (RT-PCR) NEGATIVE 05/07/24 21:11 MCV MCH MCHC RDW Plt Count MPV Immature Gran % (Auto) Neut % (Auto) Lymph % (Auto) [place] % (Auto) Eos % (Auto) Baso % (Auto) Lymph # (Auto) [place] # (Auto) Eos # (Auto) Baso # (Auto) Abs Immat Gran (auto) Absolute Neuts (auto) Absolute Nucleated RBC Nucleated RBC % (auto) PT 12.7 INR 1.0 APTT 26.6 Anion Gap Estim Creat Clear Calc Estimated GFR Random Glucose Lactic Acid Calcium Magnesium Total Bilirubin Direct Bilirubin AST ALT Alkaline Phosphatase Total Protein Albumin Lipase Urine Color Urine Appearance Urine pH Ur Specific [place] Urine Protein Urine Glucose (UA) Urine Ketones Urine Blood Urine Nitrite Ur Leukocyte Esterase Salicylates < 5.0 L Acetaminophen < 3 Influenza Type A (PCR) Influenza Type B (PCR) RSV RNA Qual (PCR) SARS-CoV-2 RNA (RT-PCR) Imaging Radiologist's Impressions: Impressions Abdomen Ultrasound 05/07/24 19:27 IMPRESSION: Mild intrahepatic biliary duct dilatation and a somewhat bulbous course of the common bile duct. The distal common bile duct is not able to be visualized in its entirety however. The patient is status post cholecystectomy. Assessment and Plan (1) Elevated LFTs: Status: Acute (2) Abdominal pain: Qualifiers: Abdominal location: right upper quadrant Qualified Code(s): R10.11 - Right upper quadrant pain Status: Acute Plan Jennifer Stoll is a very pleasant 79 y/o woman with PMHx of significant for s/p cholecystectomy and other abdominal surgeries, UC, diverticulosis, chronic pancreatitis and GERD * Right upper quadrant pain, nausea, vomiting and diarrhea likely secondary to intrahepatic biliary duct dilation, CBD dilatation? Admit to hospitalist service. NPO. Continue IV fluids. Pain control with morphine as needed. Antiemetic therapy as needed. Continue empiric IV antibiotic therapy with Levaquin and Flagyl. Obtain MRCP. GI consult. * Hypomagnesemia. Replete as needed. Continue to monitor magnesium level. * Type 2 DM. BG q6h while NPO. Insulin sliding scale. Hold Tresiba and Jentadueto. * 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. Continue statin when able. * Ulcerative colitis. Doubt acute flare, watch for symptoms. * Asthma. Not exacerbation. Nebs as needed for wheezing. * Depression. Effexor when able. * Essential hypertension. Continue atenolol, lisinopril amlodipine when able. Currently, BP is soft. * History of stroke. Continue aspirin and statin when able. * Chronic anemia. Continue to monitor. DVT prophylaxis: Heparin Code status: Full Patient will need hospitalization for at least 2 midnights for right upper quadrant pain treatment with empiric IV antibiotic therapy, IV pain control, antiemetic therapy and hydration as well as evaluation by subspecialty. Quality Stroke Does the patient have a stroke diagnosis?: No VTE Prior VTE?: No VTE Risk Level:: Medical - moderate - high VTE Device Contraindication: Treatment Not Indicated VTE Drug Contraindication: N/A - Med Ordered
--- NOTE | 2024-05-07 22:41 | PHA.MEDREC ---
Pharmacy Consult ? Medication Reconciliation Pharmacy has completed the medication reconciliation. Confirmed medications with patient. She confirmed she is taking her Humalin 10-12 units three times a day 10un AM, 12un afternoon, 10un PM and in the AM if she eats a bigger meal she injects 12 units instead of 10. Patient also confirmed that she is taking Tresiba typically 12 units daily but if branden sugar levels go over 100 she will inject 16-18 units instead..
[2024-05-07 22:58] LABS: Glucose, Whole Blood 103 mg/dL (60-115)
[2024-05-07 23:39] VITALS: BP 134/47; PULSE 57; RESP 16; TEMP 36.5; O2SAT 97
[2024-05-08] VITALS (7 sets, daily range): BP systolic 112–163; BP diastolic 51–70; PULSE 50–67; RESP 12–18; TEMP 36.1–36.6; O2SAT 97–99; BMI 29.1
[2024-05-08] MEDS: 0.9 % Sodium Chloride Flush 3 ML SYRINGE IVFLUSH ×3 (01:14→22:31)
[2024-05-08 05:23] LABS: Glucose, Whole Blood 88 mg/dL (60-115)
[2024-05-08] MEDS: Pantoprazole Sodium 40 MG/10 ML VIAL IVPUSH (06:08)
[2024-05-08] MEDS: Lactated Ringers 1,000 ML 125 ML IVCONT (06:11)
[2024-05-08 06:29] LABS: MANUAL DIFF FLAG NO
[2024-05-08 06:42] LABS: Basophils Percent Auto 0.5 % (0-2); Eosinophils Absolute Auto 0.3 X10*3/uL (0.0-0.4); Eosinophils Percent Auto 4.4 % (0-4); Hematocrit 33.3 % (37.0-47.0); Hemoglobin 10.3 g/dl (12.0-16.0); Imm Gran Abs Auto 0.02 X10*3/uL (0.00-0.03); Imm Gran Pct Auto 0.3 % (0.0-0.4); Lymphocytes Absolute Auto 1.3 X10*3/uL (1.2-4.9); Lymphocytes Percent Auto 17.4 % (20-40); Mean Corpuscular HGB Conc 30.9 g/dl (31.0-35.0); Mean Corpuscular Hemoglobin 24.8 pg (27.0-33.0); Mean Platelet Volume 10.8 fL (9.4-12.3); Monocytes Absolute Auto 0.8 X10*3/uL (0.1-1.2); Neutrophils Absolute Auto 4.9 x10*3/uL (2.0-8.3); Neutrophils Percent Auto 66.4 % (45-73); Platelet Count 263 X10*3/uL (160-400); Red Blood Count 4.16 X10*6/uL (4.20-5.50); Red Cell Distribution Width 15.8 % (11.0-16.0); White Blood Count 7.4 X10*3/uL (4.8-10.8)
[2024-05-08 06:56] LABS: Alanine Aminotransferase 210 U/L (0-31); Alkaline Phosphatase 562 U/L (39-117); Anion Gap 11 (12-20); Aspartate Amino Transferase 250 U/L (5-31); Bilirubin Total 1.1 mg/dL (0.0-1.0); Blood Urea Nitrogen 10 mg/dL (9-16); Carbon Dioxide 20 mmol/L (22-29); Chloride 112 mmol/L (96-108); Creatinine Clr Calc Pharmacy 51.3; Estimated Glomerular Filt Rate > 60; Glucose Random 93 mg/dL (60-115); Magnesium 1.8 mg/dL (1.6-2.6); Potassium 3.7 mmol/L (3.3-5.1); Sodium 139 mmol/L (135-145); Total Protein 5.7 g/dL (6.5-8.0)
--- NOTE | 2024-05-08 07:31 | HO.PM.IMPN ---
Subjective Subjective Date of Service: 05/08/24 Interval History: Seen in follow up for RUQ pain Interval history NO tenderness except with palpation. Still c/o nausea but no vomiting. Remains NPO for MRCP Review of Systems Review of Systems: Yes all other systems are reviewed and are negative Physical Exam Vital Signs: Vital Signs: Last Vital Signs Temp 97.0 F 05/08/24 07:18 Pulse 67 05/08/24 07:18 Resp 12 05/08/24 07:18 BP 146/67 H 05/08/24 07:18 Pulse Ox 99 05/08/24 07:18 O2 Del Method Room Air 05/08/24 07:18 BMI result Body Mass Index 29.1 Constitutional - Awake and Alert, No apparent distress Eyes - PERRLA, EOMI Cardiovascular - S1S2, RRR, No edema Respiratory - Normal lung expansion, Normal respiratory effort, No respiratory distress, CTA bilaterally Gastrointestinal - RUQ ttp, negative rocha sign. ND; +BS; No rebound or guarding Extremities - no calf tenderness bilaterally, no swelling Skin - Warm/Dry Neurological - Alert & oriented x3 Psychological - Appropriate affect Objective Data Active Medications Albuterol Sulfate (Albuterol Sulfate (0.083%) 2.5 Mg/3 Ml Vial.Neb) 2.5 mg INHALE Q3H PRN PRN Reason: Shortness of Breath/Wheezing Glucose (Glucose Gel 15 Gm Gel..Gram.) 15 gm PO Q15M PRN; Protocol PRN Reason: per Hypoglycemia Standing Ord. Heparin Sodium (Porcine) (Heparin Sodium,Porcine 5,000 Unit/Ml Vial) 5,000 unit SUBCUT Q8H SUMA Lactated Ringer's (Lr) 1,000 mls @ 125 mls/hr IVCONT .Q8H SUMA Last Admin: 05/08/24 06:11 Dose: 125 mls/hr Documented By: SHELIA Dextrose (D10) 250 mls @ 750 mls/hr IV Q15M PRN; Protocol PRN Reason: per Hypoglycemia Standing Ord. Levofloxacin (Levaquin) 500 mg in 100 mls @ 100 mls/hr IV Q24H SUMA Metronidazole (Flagyl) 500 mg in 100 mls @ 100 mls/hr IV Q12H SUMA Insulin Human Lispro (Insulin Lispro 100 Unit/Ml 3 Ml Vial) 0 unit SUBCUT Q6H SUMA; Protocol Last Admin: 05/08/24 05:25 Dose: Not Given Documented By: SHELIA Non-Admin Reason: No Insulin Coverage Comments: poc 88 Morphine Sulfate (Morphine Sulfate 4 Mg/Ml Cartridge) 4 mg IVPUSH Q4H PRN; Protocol PRN Reason: Pain, Severe (Pain Scale 7-10) Pantoprazole Sodium (Pantoprazole Sodium 40 Mg/10 Ml Vial) 40 mg IVPUSH DAILY@0630 [facility] Last Admin: 05/08/24 06:08 Dose: 40 mg Documented By: SHELIA Prochlorperazine Edisylate (Prochlorperazine Edisylate 10 Mg/2 Ml Vial) 5 mg IVPUSH Q4H PRN PRN Reason: Nausea and Vomiting Sodium Chloride (0.9 % Sodium Chloride Flush 3 Ml Syringe) 3 ml IVFLUSH QSHIFT [facility] Last Admin: 05/08/24 01:14 Dose: 3 ml Documented By: JOVITA Labs 05/08/24 05:55 05/08/24 05:55 Labs: Laboratory Results - last 24 hr 05/07/24 05/07/24 05/07/24 17:50 18:00 20:03 MCV 78.8 L MCH 24.9 L MCHC 31.6 RDW 15.9 Plt Count 322 D MPV 10.5 Immature Gran % (Auto) 0.5 H Neut % (Auto) 77.1 H Lymph % (Auto) 11.1 L [place] % (Auto) 9.0 Eos % (Auto) 2.0 Baso % (Auto) 0.3 Lymph # (Auto) 1.1 L [place] # (Auto) 0.9 Eos # (Auto) 0.2 Baso # (Auto) 0.0 Abs Immat Gran (auto) 0.05 H Absolute Neuts (auto) 7.3 Absolute Nucleated RBC 0.000 Nucleated RBC % (auto) 0.0 PT INR APTT Anion Gap 14 Estim Creat Clear Calc 42.0 Estimated GFR 59 POC Glucose Random Glucose 157 H Lactic Acid 1.4 Calcium 9.7 Magnesium 1.4 L* Total Bilirubin 2.2 H Direct Bilirubin 1.6 H AST 535 H ALT 287 H Alkaline Phosphatase 705 H Total Protein 6.6 Albumin 3.4 L Lipase 105 H Urine Color Dark Yellow Urine Appearance Clear Urine pH >= 9.0 Ur Specific [place] 1.015 Urine Protein Negative Urine Glucose (UA) Negative Urine Ketones Negative Urine Blood Negative Urine Nitrite Negative Ur Leukocyte Esterase Negative Salicylates Acetaminophen Influenza Type A (PCR) NEGATIVE Influenza Type B (PCR) NEGATIVE RSV RNA Qual (PCR) NEGATIVE SARS-CoV-2 RNA (RT-PCR) NEGATIVE 05/07/24 05/07/24 05/08/24 21:11 22:55 05:19 MCV MCH MCHC RDW Plt Count MPV Immature Gran % (Auto) Neut % (Auto) Lymph % (Auto) [place] % (Auto) Eos % (Auto) Baso % (Auto) Lymph # (Auto) [place] # (Auto) Eos # (Auto) Baso # (Auto) Abs Immat Gran (auto) Absolute Neuts (auto) Absolute Nucleated RBC Nucleated RBC % (auto) PT 12.7 INR 1.0 APTT 26.6 Anion Gap Estim Creat Clear Calc Estimated GFR POC Glucose 103 88 Random Glucose Lactic Acid Calcium Magnesium Total Bilirubin Direct Bilirubin AST ALT Alkaline Phosphatase Total Protein Albumin Lipase Urine Color Urine Appearance Urine pH Ur Specific [place] Urine Protein Urine Glucose (UA) Urine Ketones Urine Blood Urine Nitrite Ur Leukocyte Esterase Salicylates < 5.0 L Acetaminophen < 3 Influenza Type A (PCR) Influenza Type B (PCR) RSV RNA Qual (PCR) SARS-CoV-2 RNA (RT-PCR) 05/08/24 05:55 MCV 80.0 MCH 24.8 L MCHC 30.9 L RDW 15.8 Plt Count 263 MPV 10.8 Immature Gran % (Auto) 0.3 Neut % (Auto) 66.4 Lymph % (Auto) 17.4 L [place] % (Auto) 11.0 Eos % (Auto) 4.4 H Baso % (Auto) 0.5 Lymph # (Auto) 1.3 [place] # (Auto) 0.8 Eos # (Auto) 0.3 Baso # (Auto) 0.0 Abs Immat Gran (auto) 0.02 Absolute Neuts (auto) 4.9 Absolute Nucleated RBC 0.000 Nucleated RBC % (auto) 0.0 PT INR APTT Anion Gap 11 L Estim Creat Clear Calc 51.3 Estimated GFR > 60 POC Glucose Random Glucose 93 Lactic Acid Calcium 9.0 D Magnesium 1.8 Total Bilirubin 1.1 H Direct Bilirubin AST 250 H ALT 210 H Alkaline Phosphatase 562 H Total Protein 5.7 L Albumin 3.0 L Lipase Urine Color Urine Appearance Urine pH Ur Specific [place] Urine Protein Urine Glucose (UA) Urine Ketones Urine Blood Urine Nitrite Ur Leukocyte Esterase Salicylates Acetaminophen Influenza Type A (PCR) Influenza Type B (PCR) RSV RNA Qual (PCR) SARS-CoV-2 RNA (RT-PCR) Assessment and Plan (1) Choledocholithiasis: Status: Acute Plan 79-year-old female with history of ulcerative colitis, diverticulosis, chronic pancreatitis, GERD with history of cholecystectomy admitted for management of choledocholithiasis #Acute choledocoliasis -no leukocytosis, fevers, sirs criteria. Doubt cholangitis. DC levaquin and flagyl -LFTs trending down, symptomatically improved, ?passed CBD stone -MRCP pending, npo for now -GI consult -antiemetrics/pain management prn -follow lfts # acute hypomagnesemia -repleted with IV Mag in the ED. Mag level 1.8, remains low normal -initiate p.o. magnesium oxide b.i.d. # insulin-dependent type 2 diabetes -holding Tresiba for now due to NPO status -POC glucose, advanced to diabetic diet post MRCP -Humalog on sliding scale # ulcerative colitis -no acute flare # mild intermittent asthma -no exacerbation, albuterol p.r.n. # mood disorder -continue home meds # hypertension -continue atenolol, lisinopril, amlodipine # history CVA -continue asa. hold statin due to elevated lfts #Chronic normocytic anema -above transfusion threshold dvt prophylaxis- heparin full code pt requires inpt stay at least 2 midnights for management of choledocolithiasis with ongoing nausea, intolerant of PO, awaiting advanced imaging, expert consultation Quality Stroke Does the patient have a stroke diagnosis?: No VTE Prior VTE?: No VTE Risk Level:: Medical - moderate - high VTE Device Contraindication: Treatment Not Indicated VTE Drug Contraindication: N/A - Med Ordered
[2024-05-08] MEDS: metroNIDAZOLE/NS 500 MG/100 ML PIGGYBACK 100 MG IV ×2 (08:13→18:07)
[2024-05-08] MEDS: Heparin Sodium,Porcine 5,000 UNIT/ML VIAL 5000 UNIT SUBCUT ×3 (08:13→23:41)
[2024-05-08] MEDS: levoFLOXacin/D5W 500 MG/100 ML PIGGYBACK 100 MG IV ×2 (09:34→20:11)
[2024-05-08] MEDS: Omeprazole 20 MG CAPSULE.DR PO (11:39)
[2024-05-08 11:40] LABS: Glucose, Whole Blood 85 mg/dL (60-115)
[2024-05-08] MEDS: Venlafaxine HCl ER 150 MG CAP.ER.24H PO (11:40)
[2024-05-08] MEDS: Magnesium Oxide 400 MG TABLET PO ×2 (11:40→17:29)
[2024-05-08] MEDS: Venlafaxine HCl ER 37.5 MG CAP.ER.24H PO (11:43)
[2024-05-08] MEDS: amLODIPine Besylate 5 MG TABLET PO (11:43)
[2024-05-08] MEDS: lisinopriL 40 MG TABLET PO (11:45)
[2024-05-08] MEDS: atenoloL 100 MG TABLET PO (11:45)
[2024-05-08] MEDS: Folic Acid 1 MG TABLET PO (13:48)
[2024-05-08] MEDS: Cyanocobalamin (Vitamin B-12) 1,000 MCG TABLET 1000 MCG PO (13:48)
[2024-05-08] MEDS: Prochlorperazine Edisylate 10 MG/2 ML VIAL 5 MG IVPUSH ×2 (15:01→19:42)
--- NOTE | 2024-05-08 15:54 | MHC.CM.PN ---
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
[2024-05-08 17:26] LABS: Glucose, Whole Blood 158 mg/dL (60-115)
--- NOTE | 2024-05-08 17:34 | PM.GICN ---
History of Present Illness Data of Consult Service Date: 05/08/24 Requesting physician: Nancy Clark Primary Care Provider: Martine Ding MD HPI Reason for consult: abn LFT 79 years old woman with hx of cholecystectomy and other abdominal surgeries, UC, diverticulosis, type 2 diabetes on insulin, hyperlipidemia, essential hypertension, chronic pancreatitis, asthma, depression, stroke and GERD who I am seeing for assessment for abdominal pain and abn LFT Patient had noted 2 weeks history of 10/10 radiating, colicky right upper quadrant pain going into the back and rght shoulder worse with food, no relieving factors associated with nausea, vomiting, diarrhea and jaundice. She denies fever, chills or confusion. and no urine sx. She came to ED few weeks ago with similar sx and had CT without acute pathology but note of sigmoid diverticulosis without diverticulitis, no bowel obstructions and mild stool burden within the right colon. she had mildly raised LFT at that time but worse now as well as elevated lipase. US this admission with mild intrahepatic biliary ductal dilatation and somewhat bulbous course of the common bile duct (not able to be visualized in is entirely). MRCP was done today with filling defects noted in CBD Review of Systems Review of Systems: Constitutional : No Weight loss, No Fever, No Chills ENT/Mouth : No sore throat, No Rhinorrhea Eyes: No Swelling, No Redness Cardiovascular : No Chest Pain, No SOB, No Edema Respiratory : No Cough, No Sputum, No Wheezing Gastrointestinal : see HPI Genitourinary : NO Dysuria, No Urinary Frequency, No Hematuria, No Urgency Musculoskeletal : + joint pain, No Myalgias, No Joint Swelling Skin : No Skin Lesions, No rash Neuro : No Weakness, No Numbness, No Dizziness, No Headache Psych : No Anxiety/Panic, No Depression Heme/Lymph: No Bruising, No Lymphadenopathy Endocrine : No Polyuria, No Polydipsia All other systems reviewed and are negative. 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 Type 2 diabetes mellitus with unspecified complications Atherosclerotic cardiovascular disease Family History Family History Father Cardiovascular disease Cancer Mother Cardiovascular disease Sister Diabetes Brother Diabetes Other Mental health disorder Surgical History Surgical History Hx of eye surgery Hx of colonoscopy History of esophagogastroduodenoscopy (EGD) History of colon resection History of appendectomy History of kidney surgery History of intestinal surgery Hx of cholecystectomy History of liver biopsy History of bladder surgery Hx of hysterectomy Social History Social History Household Members: None Housing: Apartment Are you a primary healthcare marketer to a significant other at home: No Do you presently have visiting nurse or other home services: Yes Alcohol intake: never Comment: SEIZURE PRECAUTIONS Patient Tobacco Use Status: Never used Tobacco e-Cigarette/Vaping Use: Never Used Second Hand Smoke Exposure: No Advance Directives Date on File: 08/25/23 service: No Current occupational status: retired Cognitive needs: Yes Hearing needs: No Vision needs: Yes Meds Allergies Allergy/AdvReac Type Severity Reaction Status Date / Time Penicillins [PENICILLINS] Allergy Severe ANAPHYLAXIS Verified 05/07/24 17:23 Sulfa (Sulfonamide Allergy Severe ANAPHYLAXIS Verified 05/07/24 17:23 Antibiotics) [SULFA (SULFONAMIDE ANTIBIOTICS)] codeine Allergy Intermediate headache/mood Verified 05/07/24 17:23 changes dulaglutide [From Trulicity] Allergy Intermediate Nausea and Verified 05/07/24 17:23 Vomiting latanoprost AdvReac Intermediate eye redness Verified 05/07/24 17:23 Active Medications: Current Medications Albuterol Sulfate (Albuterol Sulfate (0.083%) 2.5 Mg/3 Ml Vial.Neb) 2.5 mg INHALE Q3H PRN PRN Reason: Shortness of Breath/Wheezing Albuterol Sulfate (Albuterol Sulfate 90 Mcg 8 Gm Inhaler) 2 puff INHALE Q4H PRN PRN Reason: SOB/Wheezing Amlodipine Besylate (Amlodipine Besylate 5 Mg Tablet) 5 mg PO DAILY [facility]; Protocol Last Admin: 05/08/24 11:43 Dose: 5 mg Aspirin (Aspirin Enteric Coated 81 Mg Tablet.) 81 mg PO DAILY [facility] Atenolol (Atenolol 100 Mg Tablet) 100 mg PO DAILY [facility]; Protocol Last Admin: 05/08/24 11:45 Dose: 100 mg Cyanocobalamin (Cyanocobalamin (Vitamin B-12) 1,000 Mcg Tablet) 1,000 mcg PO DAILY@1400 [facility] Last Admin: 05/08/24 13:48 Dose: 1,000 mcg Docusate Sodium (Docusate Sodium 100 Mg Capsule) 100 mg PO DAILY PRN PRN Reason: constipation Folic Acid (Folic Acid 1 Mg Tablet) 1 mg PO DAILY@1400 [facility] Last Admin: 05/08/24 13:48 Dose: 1 mg Glucose (Glucose Gel 15 Gm Gel..Gram.) 15 gm PO Q15M PRN; Protocol PRN Reason: per Hypoglycemia Standing Ord. Heparin Sodium (Porcine) (Heparin Sodium,Porcine 5,000 Unit/Ml Vial) 5,000 unit SUBCUT Q8H [facility] Last Admin: 05/08/24 17:29 Dose: 5,000 unit Dextrose (D10) 250 mls @ 750 mls/hr IV Q15M PRN; Protocol PRN Reason: per Hypoglycemia Standing Ord. Insulin Human Lispro (Insulin Lispro 100 Unit/Ml 3 Ml Vial) 0 unit SUBCUT Q6H [facility]; Protocol Last Admin: 05/08/24 17:25 Dose: Not Given Lisinopril (Lisinopril 40 Mg Tablet) 40 mg PO DAILY [facility]; Protocol Last Admin: 05/08/24 11:45 Dose: 40 mg Magnesium Oxide (Magnesium Oxide 400 Mg Tablet) 400 mg PO BIDPC [facility] Last Admin: 05/08/24 17:29 Dose: 400 mg Montelukast Sodium (Montelukast Sodium 10 Mg Tablet) 10 mg PO DAILY PRN PRN Reason: for allergies Morphine Sulfate (Morphine Sulfate 4 Mg/Ml Cartridge) 4 mg IVPUSH Q4H PRN; Protocol PRN Reason: Pain, Severe (Pain Scale 7-10) Omeprazole (Omeprazole 20 Mg Capsule.) 20 mg PO DAILY@0630 [facility] Last Admin: 05/08/24 11:39 Dose: 20 mg Prochlorperazine Edisylate (Prochlorperazine Edisylate 10 Mg/2 Ml Vial) 5 mg IVPUSH Q4H PRN PRN Reason: Nausea and Vomiting Last Admin: 05/08/24 15:01 Dose: 5 mg Sodium Chloride (0.9 % Sodium Chloride Flush 3 Ml Syringe) 3 ml IVFLUSH QSHIFT [facility] Last Admin: 05/08/24 15:01 Dose: 3 ml Venlafaxine HCl (Venlafaxine Hcl Er 150 Mg Cap.Er.24h) 150 mg PO DAILY [facility] Last Admin: 05/08/24 11:40 Dose: 150 mg Venlafaxine HCl (Venlafaxine Hcl Er 37.5 Mg Cap.Er.24h) 37.5 mg PO DAILY [facility] Last Admin: 05/08/24 11:43 Dose: 37.5 mg Vitamin D (Cholecalciferol (Vitamin D3) 25 Mcg Tablet) 50 mcg PO DAILY [facility] Zonisamide (Zonisamide 100 Mg Capsule) 100 mg PO BEDTIME [facility] Home Medications ?Medication ?Instructions ?Recorded ?Confirmed ?Last Taken ?Type aspirin 81 mg tablet,delayed 81 mg PO DAILY 08/14/20 05/07/24 05/06/24 History release venlafaxine 37.5 mg 37.5 mg PO DAILY 12/22/21 05/07/24 05/06/24 History capsule,extended release 24 hr (Effexor XR) mecobalamin (vitamin B12) 1,000 1,000 mcg sublingual DAILY@1400 04/26/22 05/07/24 05/06/24 History mcg disintegrating tablet,sublingual cholecalciferol (vitamin D3) 50 50 mcg PO DAILY 05/28/22 05/07/24 05/06/24 History mcg (2,000 unit) capsule folic acid 1 mg tablet 1 mg PO DAILY@1400 08/22/23 05/07/24 05/06/24 History insulin degludec 200 unit/mL (3 12 unit subcut BEDTIME 01/07/24 05/07/24 05/06/24 History mL) subcutaneous pen (Tresiba FlexTouch U-200 insulin) albuterol sulfate 90 mcg/actuation 2 puff inhalation Q4H PRN 05/07/24 05/07/24 Unknown History aerosol inhaler SOB/Wheezing venlafaxine 150 mg 150 mg PO DAILY 05/07/24 05/07/24 05/06/24 History capsule,extended release 24 hr zonisamide 100 mg capsule 100 mg PO BEDTIME 05/07/24 05/07/24 05/06/24 History Physical Exam Vital Signs: Vital Signs: Last Vital Signs Temp 97.5 F 05/08/24 15:43 Pulse 50 05/08/24 15:43 Resp 18 05/08/24 15:43 BP 112/51 L 05/08/24 15:43 Pulse Ox 98 05/08/24 15:43 O2 Del Method Room Air 05/08/24 15:43 BMI result Body Mass Index 29.1 EXAM: GENERAL: The patient is well developed and nontoxic. VITAL SIGNS:see workflow HEENT: Nonicteric sclerae, PERRLA, EOMI. Oropharynx clear. Moist mucous membranes. Conjunctivae appear well perfused. No thyroid mass. CHEST: Chest wall is nontender. HEART: Regular rate and rhythm without murmurs. LUNGS: Clear to auscultation bilaterally. ABDOMEN: Soft, positive bowel sounds, nontender, no organomegaly.no flank tenderness SKIN: No rash, no excessive bruising, petechiae, or purpura. NEUROLOGIC: Cranial nerves II-XII intact without motor/sensory deficit. Psych: normal affect Results Labs 05/08/24 05:55 05/08/24 05:55 Labs: Short CBC 05/07/24 05/08/24 Range/Units 17:50 05:55 WBC 9.4 7.4 (4.8-10.8) X10*3/uL Hgb 10.9 L 10.3 L (12.0-16.0) g/dl Hct 34.5 L 33.3 L (37.0-47.0) % Plt Count 322 D 263 (160-400) X10*3/uL BMP 05/07/24 05/08/24 17:50 05:55 Sodium 138 139 Potassium 3.8 3.7 Chloride 106 112 H Carbon Dioxide 22 20 L BUN 14 10 Creatinine 0.91 0.75 Calcium 9.7 9.0 D Liver Function 05/07/24 05/08/24 Range/Units 17:50 05:55 Total Bilirubin 2.2 H 1.1 H (0.0-1.0) mg/dL Direct Bilirubin 1.6 H (0.0-0.5) mg/dL AST 535 H 250 H (5-31) U/L ALT 287 H 210 H (0-31) U/L Alkaline Phosphatase 705 H 562 H (39-117) U/L Albumin 3.4 L 3.0 L (3.5-5.0) g/dL Urine 05/07/24 Range/Units 18:00 Urine Color Dark Yellow Urine Appearance Clear Urine pH >= 9.0 (5.0-9.0) Ur Specific [place] 1.015 (1.005-1.025) Urine Protein Negative (Neg-Trace) mg/dL Urine Glucose (UA) Negative (Negative) mg/dL Assessment and Plan (1) Choledocholithiasis: Status: Acute (2) Elevated LFTs: Status: Acute Plan 1/ Choledocholithiasis with filling defects on imaging, LFT improving, no evidence of cholangitis PLAN: 1-allow clears and PO diet as tolerated 2- plan for ERCP wither Friday or Friday depending on OR schedule 3- cont abx for the moment Procedures Date of Service Date of Service: 05/09/24
[2024-05-08] MEDS: levoFLOXacin/D5W 250 MG/50 ML PIGGYBACK 50 MG IV (21:19)
[2024-05-08] MEDS: Zonisamide 100 MG CAPSULE PO (21:19)
[2024-05-08 22:10] LABS: Glucose, Whole Blood 153 mg/dL (60-115)
[2024-05-09] MEDS: metroNIDAZOLE/NS 500 MG/100 ML PIGGYBACK 100 MG IV ×3 (02:24→17:19)
[2024-05-09 03:29] VITALS: BP 115/53; PULSE 56; RESP 16; TEMP 36.5; O2SAT 98
[2024-05-09] MEDS: Omeprazole 20 MG CAPSULE.DR PO (06:29)
[2024-05-09 06:49] LABS: Alanine Aminotransferase 140 U/L (0-31); Albumin Level 2.9 g/dL (3.5-5.0); Alkaline Phosphatase 480 U/L (39-117); Aspartate Amino Transferase 115 U/L (5-31); Bilirubin Direct 0.3 mg/dL (0.0-0.5); Bilirubin Total 0.6 mg/dL (0.0-1.0); Total Protein 5.6 g/dL (6.5-8.0)
--- NOTE | 2024-05-09 07:15 | P.PNIM_ITS ---
Subjective Subjective Date of Service: 05/09/24 Interval History: Seen in follow up for RUQ pain/choledocolithiasis Interval history NO tenderness except with palpation. Still c/o nausea but no vomiting. LFTs continue to trend down but MRCP suggesting persisting choledocolithiasis. Plan for ERCP tomorrow Review of Systems Review of Systems: Yes all other systems are reviewed and are negative Physical Exam 2 Vital Signs: Vital Signs: Last Vital Signs Temp 97.7 F 05/09/24 03:29 Pulse 56 05/09/24 03:29 Resp 16 05/09/24 03:29 BP 115/53 L 05/09/24 03:29 Pulse Ox 98 05/09/24 03:29 O2 Del Method Room Air 05/09/24 03:29 BMI result Body Mass Index 29.1 Constitutional - Awake and Alert, No apparent distress Eyes - PERRLA, EOMI , no scrleral icterus Cardiovascular - S1S2, RRR, No edema Respiratory - Normal lung expansion, Normal respiratory effort, No respiratory distress, CTA bilaterally Gastrointestinal - RUQ ttp, negative rocha sign. ND; +BS; No rebound or guarding Extremities - no calf tenderness bilaterally, no swelling Skin - Warm/Dry, no jaundice Neurological - Alert & oriented x3 Psychological - Appropriate affect Objective Data Active Medications Albuterol Sulfate (Albuterol Sulfate (0.083%) 2.5 Mg/3 Ml Vial.Neb) 2.5 mg INHALE Q3H PRN PRN Reason: Shortness of Breath/Wheezing Albuterol Sulfate (Albuterol Sulfate 90 Mcg 8 Gm Inhaler) 2 puff INHALE Q4H PRN PRN Reason: SOB/Wheezing Amlodipine Besylate (Amlodipine Besylate 5 Mg Tablet) 5 mg PO DAILY [facility]; Protocol Last Admin: 05/08/24 11:43 Dose: 5 mg Documented By: PAYAL Aspirin (Aspirin Enteric Coated 81 Mg Tablet.) 81 mg PO DAILY [facility] Atenolol (Atenolol 100 Mg Tablet) 100 mg PO DAILY [facility]; Protocol Last Admin: 05/08/24 11:45 Dose: 100 mg Documented By: PAYAL Cyanocobalamin (Cyanocobalamin (Vitamin B-12) 1,000 Mcg Tablet) 1,000 mcg PO DAILY@1400 [facility] Last Admin: 05/08/24 13:48 Dose: 1,000 mcg Documented By: PAYAL Docusate Sodium (Docusate Sodium 100 Mg Capsule) 100 mg PO DAILY PRN PRN Reason: constipation Folic Acid (Folic Acid 1 Mg Tablet) 1 mg PO DAILY@1400 [facility] Last Admin: 05/08/24 13:48 Dose: 1 mg Documented By: PAYAL Glucose (Glucose Gel 15 Gm Gel..Gram.) 15 gm PO Q15M PRN; Protocol PRN Reason: per Hypoglycemia Standing Ord. Heparin Sodium (Porcine) (Heparin Sodium,Porcine 5,000 Unit/Ml Vial) 5,000 unit SUBCUT Q8H [facility] Last Admin: 05/08/24 23:41 Dose: 5,000 unit Documented By: SHELIA Metronidazole (Flagyl) 500 mg in 100 mls @ 100 mls/hr IV Q8H [facility] Last Infusion: 05/09/24 03:24 Dose: Infused Documented By: SHELIA Levofloxacin (Levaquin) 500 mg in 100 mls @ 100 mls/hr IV Q24H [facility] Last Infusion: 05/08/24 21:11 Dose: Infused Documented By: SHELIA Levofloxacin (Levaquin) 250 mg in 50 mls @ 50 mls/hr IV Q24H [facility] Last Infusion: 05/08/24 22:20 Dose: Infused Documented By: SHELIA Dextrose (D10) 250 mls @ 750 mls/hr IV Q15M PRN; Protocol PRN Reason: per Hypoglycemia Standing Ord. Insulin Human Lispro (Insulin Lispro 100 Unit/Ml 3 Ml Vial) 0 unit SUBCUT QIDACHS [facility]; Protocol Last Admin: 05/08/24 22:11 Dose: Not Given Documented By: SHELIA Non-Admin Reason: poc 153, clear liquid diet just started, no c Lisinopril (Lisinopril 40 Mg Tablet) 40 mg PO DAILY [facility]; Protocol Last Admin: 05/08/24 11:45 Dose: 40 mg Documented By: COTEMA Magnesium Oxide (Magnesium Oxide 400 Mg Tablet) 400 mg PO BIDPC [facility] Last Admin: 05/08/24 17:29 Dose: 400 mg Documented By: PRESTOS Montelukast Sodium (Montelukast Sodium 10 Mg Tablet) 10 mg PO DAILY PRN PRN Reason: for allergies Morphine Sulfate (Morphine Sulfate 4 Mg/Ml Cartridge) 4 mg IVPUSH Q4H PRN; Protocol PRN Reason: Pain, Severe (Pain Scale 7-10) Omeprazole (Omeprazole 20 Mg Capsule.) 20 mg PO DAILY@0630 [facility] Last Admin: 05/09/24 06:29 Dose: 20 mg Documented By: SHELIA Prochlorperazine Edisylate (Prochlorperazine Edisylate 10 Mg/2 Ml Vial) 5 mg IVPUSH Q4H PRN PRN Reason: Nausea and Vomiting Last Admin: 05/08/24 19:42 Dose: 5 mg Documented By: SHELIA Sodium Chloride (0.9 % Sodium Chloride Flush 3 Ml Syringe) 3 ml IVFLUSH QSHIFT [facility] Last Admin: 05/08/24 22:31 Dose: 3 ml Documented By: SHELIA Venlafaxine HCl (Venlafaxine Hcl Er 150 Mg Cap.Er.24h) 150 mg PO DAILY [facility] Last Admin: 05/08/24 11:40 Dose: 150 mg Documented By: PAYAL Venlafaxine HCl (Venlafaxine Hcl Er 37.5 Mg Cap.Er.24h) 37.5 mg PO DAILY [facility] Last Admin: 05/08/24 11:43 Dose: 37.5 mg Documented By: PAYAL Vitamin D (Cholecalciferol (Vitamin D3) 25 Mcg Tablet) 50 mcg PO DAILY [facility] Zonisamide (Zonisamide 100 Mg Capsule) 100 mg PO BEDTIME [facility] Last Admin: 05/08/24 21:19 Dose: 100 mg Documented By: SHELIA Labs 05/08/24 05:55 05/08/24 05:55 Labs: Laboratory Results - last 24 hr 05/08/24 05/08/24 05/08/24 11:33 17:21 22:06 Hold Purple Top POC Glucose 85 158 H 153 H Total Bilirubin Direct Bilirubin AST ALT Alkaline Phosphatase Total Protein Albumin 05/09/24 05:37 Hold Purple Top SEE NOTE POC Glucose Total Bilirubin 0.6 Direct Bilirubin 0.3 AST 115 H ALT 140 H Alkaline Phosphatase 480 H Total Protein 5.6 L Albumin 2.9 L Microbiology Microbiology Results: Microbiology 05/07/24 20:03 Blood Culture - Preliminary Blood - Venous No growth after 24 hours. 05/07/24 20:03 Blood Culture - Preliminary Blood - Venous No growth after 24 hours. Assessment and Plan (1) Choledocholithiasis: Status: Acute Plan 79-year-old female with history of ulcerative colitis, diverticulosis, chronic pancreatitis, GERD with history of cholecystectomy admitted for management of choledocholithiasis #Acute choledocoliasis -no leukocytosis, fevers, sirs criteria. Low suspicion for cholangitis, but continue levaquin and flagyl for now per GI -LFTs trending down, symptomatically improved but still with -MRCP shows filling defects suggestive of choledocolithiasis -GI consult, plan for possible ERCP tomorrow (pending OR availability), NPO after midnight -antiemetrics/pain management prn -follow lfts # acute hypomagnesemia -repleted with IV Mag in the ED. Mag level 1.8, remains low normal -initiate p.o. magnesium oxide b.i.d. # insulin-dependent type 2 diabetes -resume tresiba -POC glucose, advance to diabetic diet as tolerated -Humalog on sliding scale # ulcerative colitis -no acute flare # mild intermittent asthma -no exacerbation, albuterol p.r.n. # mood disorder -continue home meds # hypertension -continue atenolol, lisinopril, amlodipine # history CVA -continue asa. hold statin due to elevated lfts #Chronic normocytic anema -above transfusion threshold dvt prophylaxis- heparin full code pt requires inpt stay at least 2 midnights for management of choledocolithiasis with ongoing nausea and RUQ pain, awaiting ERCP tomorrow, expert consultation Quality Stroke Does the patient have a stroke diagnosis?: No VTE Prior VTE?: No VTE Risk Level:: Medical - moderate - high VTE Device Contraindication: Treatment Not Indicated VTE Drug Contraindication: N/A - Med Ordered
[2024-05-09 07:29] LABS: Glucose, Whole Blood 112 mg/dL (60-115)
[2024-05-09 08:15] VITALS: BP 132/61; PULSE 52; RESP 12; TEMP 36.1; O2SAT 97
[2024-05-09] MEDS: Cholecalciferol (Vitamin D3) 25 MCG TABLET 50 MCG PO (08:36)
[2024-05-09] MEDS: lisinopriL 40 MG TABLET PO (08:36)
[2024-05-09] MEDS: Aspirin Enteric Coated 81 MG TABLET.DR PO (08:36)
[2024-05-09] MEDS: Venlafaxine HCl ER 150 MG CAP.ER.24H PO (08:36)
[2024-05-09] MEDS: amLODIPine Besylate 5 MG TABLET PO (08:37)
[2024-05-09] MEDS: Heparin Sodium,Porcine 5,000 UNIT/ML VIAL 5000 UNIT SUBCUT (08:37)
[2024-05-09] MEDS: Venlafaxine HCl ER 37.5 MG CAP.ER.24H PO (08:37)
[2024-05-09] MEDS: Magnesium Oxide 400 MG TABLET PO ×2 (08:37→16:50)
[2024-05-09] MEDS: 0.9 % Sodium Chloride Flush 3 ML SYRINGE IVFLUSH ×2 (08:37→16:52)
[2024-05-09 11:25] LABS: Glucose, Whole Blood 199 mg/dL (60-115)
[2024-05-09] MEDS: Insulin Lispro 100 UNIT/ML 3 ML VIAL SUBCUT ×2 (12:25→16:50)
[2024-05-09] MEDS: Cyanocobalamin (Vitamin B-12) 1,000 MCG TABLET 1000 MCG PO (14:03)
[2024-05-09] MEDS: Folic Acid 1 MG TABLET PO (14:03)
[2024-05-09 16:06] VITALS: BP 111/88; PULSE 64; RESP 12; TEMP 36; O2SAT 100
[2024-05-09 16:20] LABS: Glucose, Whole Blood 159 mg/dL (60-115)
[2024-05-09 19:14] VITALS: BP 150/75; PULSE 55; RESP 16; TEMP 36.9; O2SAT 100
[2024-05-09 20:38] LABS: Glucose, Whole Blood 102 mg/dL (60-115)
[2024-05-09] MEDS: levoFLOXacin/D5W 500 MG/100 ML PIGGYBACK 100 MG IV (21:01)
[2024-05-09] MEDS: Zonisamide 100 MG CAPSULE PO (21:02)
[2024-05-09] MEDS: Acetaminophen 325 MG TABLET 975 MG PO (21:19)
[2024-05-09] MEDS: levoFLOXacin/D5W 250 MG/50 ML PIGGYBACK 50 MG IV (22:21)
[2024-05-10] MEDS: 0.9 % Sodium Chloride Flush 3 ML SYRINGE IVFLUSH ×4 (00:12→21:01)
[2024-05-10 03:05] VITALS: BP 116/55; PULSE 54; RESP 18; TEMP 36.3; O2SAT 96
[2024-05-10] MEDS: metroNIDAZOLE/NS 500 MG/100 ML PIGGYBACK 100 MG IV ×3 (03:17→17:01)
[2024-05-10 03:44] LABS: HBS Num1 2.58 mIU/mL (0-7.99); HBc Num1 0.16 S/CO (0.00-0.79); HBsAGNum1 0.74 S/CO (0.00-0.99); Hepatitis A Antibody IgM 0.13 Index (0-0.79); Hepatitis B Core Antibody Nonreactive (Nonreactive); Hepatitis B Surface Antigen Negative (Negative); ~Hepatitis A Antibody IgM Nonreactive (Nonreactive); ~Hepatitis B Surface Antibody NONREACTIVE (Nonreactive); ~Hepatitis C Antibody Nonreactive (Nonreactive)
[2024-05-10] MEDS: Omeprazole 20 MG CAPSULE.DR PO (05:46)
[2024-05-10 06:32] LABS: Alanine Aminotransferase 104 U/L (0-31); Alkaline Phosphatase 418 U/L (39-117); Anion Gap 9 (12-20); Aspartate Amino Transferase 67 U/L (5-31); Bilirubin Direct 0.3 mg/dL (0.0-0.5); Bilirubin Total 0.5 mg/dL (0.0-1.0); Blood Urea Nitrogen 6 mg/dL (9-16); Calcium 9.5 mg/dL (8.4-10.2); Carbon Dioxide 22 mmol/L (22-29); Chloride 113 mmol/L (96-108); Creatinine Clr Calc Pharmacy 44.7; Estimated Glomerular Filt Rate > 60; Glucose Random 116 mg/dL (60-115); Potassium 3.9 mmol/L (3.3-5.1); Sodium 140 mmol/L (135-145); Total Protein 5.7 g/dL (6.5-8.0)
[2024-05-10 07:49] VITALS: BP 136/61; PULSE 58; RESP 14; TEMP 36.6; O2SAT 98
[2024-05-10 07:56] LABS: Glucose, Whole Blood 113 mg/dL (60-115)
--- NOTE | 2024-05-10 09:31 | P.PNIM_ITS ---
Subjective Subjective Date of Service: 05/10/24 Interval History: Seen in follow up for RUQ pain/choledocolithiasis NO tenderness except with palpation. Still c/o nausea but no vomiting. LFTs continue to trend down but MRCP suggesting persisting choledocolithiasis. Plan for ERCP Review of Systems Review of Systems: Yes all other systems are reviewed and are negative Physical Exam 2 Vital Signs: Vital Signs: Last Vital Signs Temp 97.8 F 05/10/24 07:49 Pulse 58 05/10/24 07:49 Resp 14 05/10/24 07:49 BP 136/61 05/10/24 07:49 Pulse Ox 98 05/10/24 07:49 O2 Del Method Room Air 05/10/24 07:49 BMI result Body Mass Index 29.1 Appearing in no acute distress lung sounds are clear to auscultation heart regular rate rhythm, clear S1, S2 positive bowel sounds, abdomen is soft, nontender neuro patient is alert x3, no focal deficits Objective Data Active Medications Acetaminophen (Acetaminophen 325 Mg Tablet) 975 mg PO Q6H PRN PRN Reason: Pain, Mild (Pain Scale 1-3) Last Admin: 05/09/24 21:19 Dose: 975 mg Documented By: YARELIS Albuterol Sulfate (Albuterol Sulfate (0.083%) 2.5 Mg/3 Ml Vial.Neb) 2.5 mg INHALE Q3H PRN PRN Reason: Shortness of Breath/Wheezing Albuterol Sulfate (Albuterol Sulfate 90 Mcg 8 Gm Inhaler) 2 puff INHALE Q4H PRN PRN Reason: SOB/Wheezing Amlodipine Besylate (Amlodipine Besylate 5 Mg Tablet) 5 mg PO DAILY [facility]; Protocol Last Admin: 05/10/24 09:11 Dose: Not Given Documented By: BEKAH Non-Admin Reason: NPO Aspirin (Aspirin Enteric Coated 81 Mg Tablet.) 81 mg PO DAILY [facility] Last Admin: 05/10/24 09:11 Dose: Not Given Documented By: BEKAH Non-Admin Reason: NPO Atenolol (Atenolol 100 Mg Tablet) 100 mg PO DAILY [facility]; Protocol Last Admin: 05/10/24 09:11 Dose: Not Given Documented By: BEKAH Non-Admin Reason: NPO Cyanocobalamin (Cyanocobalamin (Vitamin B-12) 1,000 Mcg Tablet) 1,000 mcg PO DAILY@1400 [facility] Last Admin: 05/09/24 14:03 Dose: 1,000 mcg Documented By: FERMIN Docusate Sodium (Docusate Sodium 100 Mg Capsule) 100 mg PO DAILY PRN PRN Reason: constipation Folic Acid (Folic Acid 1 Mg Tablet) 1 mg PO DAILY@1400 [facility] Last Admin: 05/09/24 14:03 Dose: 1 mg Documented By: FERMIN Glucose (Glucose Gel 15 Gm Gel..Gram.) 15 gm PO Q15M PRN; Protocol PRN Reason: per Hypoglycemia Standing Ord. Heparin Sodium (Porcine) (Heparin Sodium,Porcine 5,000 Unit/Ml Vial) 5,000 unit SUBCUT Q12H [facility] Last Admin: 05/10/24 09:10 Dose: Not Given Documented By: BEKAH Non-Admin Reason: ERCP in am Metronidazole (Flagyl) 500 mg in 100 mls @ 100 mls/hr IV Q8H [facility] Last Admin: 05/10/24 09:12 Dose: 100 mls/hr Documented By: BEKAH Levofloxacin (Levaquin) 500 mg in 100 mls @ 100 mls/hr IV Q24H [facility] Last Infusion: 05/09/24 22:24 Dose: Infused Documented By: YARELIS Levofloxacin (Levaquin) 250 mg in 50 mls @ 50 mls/hr IV Q24H [facility] Last Infusion: 05/09/24 23:29 Dose: Infused Documented By: YARELIS Dextrose (D10) 250 mls @ 750 mls/hr IV Q15M PRN; Protocol PRN Reason: per Hypoglycemia Standing Ord. Insulin Glargine (Insulin Glargine,Hum.Rec.Anlog 100 Unit/Ml 10 Ml Vial) 6 unit SUBCUT BEDTIME [facility] Last Admin: 05/09/24 21:12 Dose: Not Given Documented By: YARELIS Non-Admin Reason: NPO Insulin Human Lispro (Insulin Lispro 100 Unit/Ml 3 Ml Vial) 0 unit SUBCUT QIDACHS [facility]; Protocol Last Admin: 05/10/24 08:00 Dose: Not Given Documented By: BEKAH Non-Admin Reason: No Insulin Coverage Lisinopril (Lisinopril 40 Mg Tablet) 40 mg PO DAILY [facility]; Protocol Last Admin: 05/10/24 09:11 Dose: Not Given Documented By: BEKAH Non-Admin Reason: NPO Magnesium Oxide (Magnesium Oxide 400 Mg Tablet) 400 mg PO BIDPC [facility] Last Admin: 05/10/24 09:11 Dose: Not Given Documented By: BEKAH Non-Admin Reason: NPO Montelukast Sodium (Montelukast Sodium 10 Mg Tablet) 10 mg PO DAILY PRN PRN Reason: for allergies Morphine Sulfate (Morphine Sulfate 4 Mg/Ml Cartridge) 4 mg IVPUSH Q4H PRN; Protocol PRN Reason: Pain, Severe (Pain Scale 7-10) Omeprazole (Omeprazole 20 Mg Capsule.Dr) 20 mg PO DAILY@0630 [facility] Last Admin: 05/10/24 05:46 Dose: 20 mg Documented By: YARELIS Prochlorperazine Edisylate (Prochlorperazine Edisylate 10 Mg/2 Ml Vial) 5 mg IVPUSH Q4H PRN PRN Reason: Nausea and Vomiting Last Admin: 05/08/24 19:42 Dose: 5 mg Documented By: SHELIA Sodium Chloride (0.9 % Sodium Chloride Flush 3 Ml Syringe) [facility] Last Admin: 05/10/24 09:13 Dose: 3 ml Documented By: BEKAH Venlafaxine HCl (Venlafaxine Hcl Er 150 Mg Cap.Er.24h) 150 mg PO DAILY [facility] Last Admin: 05/10/24 09:11 Dose: Not Given Documented By: BEKAH Non-Admin Reason: NPO Venlafaxine HCl (Venlafaxine Hcl Er 37.5 Mg Cap.Er.24h) 37.5 mg PO DAILY [facility] Last Admin: 05/10/24 09:12 Dose: Not Given Documented By: BEKAH Non-Admin Reason: NPO Vitamin D (Cholecalciferol (Vitamin D3) 25 Mcg Tablet) 50 mcg PO DAILY [facility] Last Admin: 05/10/24 09:11 Dose: Not Given Documented By: BEKAH Non-Admin Reason: NPO Zonisamide (Zonisamide 100 Mg Capsule) 100 mg PO BEDTIME [facility] Last Admin: 05/09/24 21:02 Dose: 100 mg Documented By: YARELIS Aj 05/08/24 05:55 05/10/24 05:56 Labs: Laboratory Results - last 24 hr 05/07/24 05/09/24 05/09/24 21:11 11:13 16:14 Hold Purple Top Anion Gap Estim Creat Clear Calc Estimated GFR POC Glucose 199 H 159 H Random Glucose Calcium Total Bilirubin Direct Bilirubin AST ALT Alkaline Phosphatase Total Protein Albumin Hepatitis A IgM Ab Nonreactive Hep Bs Antigen Negative Hep Bs Antibody NONREACTIVE Hep B Core Total Ab Nonreactive Hepatitis C Ab (EIA) Nonreactive 05/09/24 05/10/24 05/10/24 20:35 05:56 07:47 Hold Purple Top SEE NOTE Anion Gap 9 L Estim Creat Clear Calc 44.7 Estimated GFR > 60 POC Glucose 102 113 Random Glucose 116 H Calcium 9.5 Total Bilirubin 0.5 Direct Bilirubin 0.3 AST 67 H ALT 104 H Alkaline Phosphatase 418 H Total Protein 5.7 L Albumin 3.0 L Hepatitis A IgM Ab Hep Bs Antigen Hep Bs Antibody Hep B Core Total Ab Hepatitis C Ab (EIA) Microbiology Microbiology Results: Microbiology 05/07/24 20:03 Blood Culture - Preliminary Blood - Venous No growth after 48 hours. 05/07/24 20:03 Blood Culture - Preliminary Blood - Venous No growth after 48 hours. Assessment and Plan (1) Choledocholithiasis: Status: Acute Plan 79-year-old female with history of ulcerative colitis, diverticulosis, chronic pancreatitis, GERD with history of cholecystectomy admitted for management of choledocholithiasis Acute choledocoliasis no leukocytosis, fevers, sirs criteria. Low suspicion for cholangitis, but continue levaquin and flagyl for now per GI LFTs trending down, symptomatically improved MRCP shows filling defects suggestive of choledocolithiasis GI consult, plan for ERCP antiemetrics/pain management prn Acute hypomagnesemia repleted with IV Mag in the ED. Mag level 1.8, remains low normal initiate p.o. magnesium oxide b.i.d. insulin-dependent type 2 diabetes tresiba POC glucose Humalog on sliding scale ulcerative colitis no acute flare mild intermittent asthma no exacerbation, albuterol p.r.n. mood disorder continue home meds hypertension continue atenolol, lisinopril, amlodipine history CVA continue asa. hold statin due to elevated lfts Chronic normocytic anema above transfusion threshold dvt prophylaxis- heparin Attending Dr. Norris full code continue hospital stay for management of choledocolithiasis with ongoing nausea and RUQ pain, awaiting ERCP today Quality Stroke Does the patient have a stroke diagnosis?: No VTE Prior VTE?: No VTE Risk Level:: Medical - moderate - high VTE Device Contraindication: Treatment Not Indicated VTE Drug Contraindication: N/A - Med Ordered
[2024-05-10 11:47] LABS: Glucose, Whole Blood 125 mg/dL (60-115)
--- NOTE | 2024-05-10 12:07 | MHC.CM.PN ---
PER MD ROUNDS PATIENT IS NOT MEDICALLY CLEARED FOR DC AT THIS TIME. CM WILL CONTINUE TO FOLLOW.
[2024-05-10] MEDS: Prochlorperazine Edisylate 10 MG/2 ML VIAL 5 MG IVPUSH (15:25)
[2024-05-10 16:00] VITALS: BP 140/62; PULSE 57; RESP 20; TEMP 36.3; O2SAT 97
[2024-05-10] MEDS: Acetaminophen 325 MG TABLET 975 MG PO (16:23)
[2024-05-10] MEDS: Magnesium Oxide 400 MG TABLET PO (16:24)
--- NOTE | 2024-05-10 16:43 | P.PNGI_ITS ---
Subjective Subjective Date of Service: 05/10/24 Interval History: pain is better but having bouts of nausea appetite is fair no fever or chills Critical Care Time (minutes): 0 Physical Exam 2 Vital Signs: Vital Signs: Last Vital Signs Temp 97.3 F 05/10/24 16:00 Pulse 57 05/10/24 16:00 Resp 20 05/10/24 16:00 BP 140/62 H 05/10/24 16:00 Pulse Ox 97 05/10/24 16:00 O2 Del Method Room Air 05/10/24 16:00 BMI result Body Mass Index 29.1 EXAM: GENERAL: The patient is well developed and nontoxic. VITAL SIGNS:see workflow HEENT: Nonicteric sclerae, PERRLA, EOMI. Oropharynx clear. Moist mucous membranes. Conjunctivae appear well perfused. No thyroid mass. CHEST: Chest wall is nontender. HEART: Regular rate and rhythm without murmurs. LUNGS: Clear to auscultation bilaterally. ABDOMEN: Soft, positive bowel sounds, tender RUQ, no organomegaly.no flank tenderness SKIN: No rash, no excessive bruising, petechiae, or purpura. NEUROLOGIC: Cranial nerves II-XII intact without motor/sensory deficit. Psych: normal affect Objective Data Labs 05/08/24 05:55 05/10/24 05:56 Labs: Laboratory Results - last 24 hr 05/07/24 05/09/24 05/10/24 21:11 20:35 05:56 Hold Purple Top SEE NOTE Sodium 140 Potassium 3.9 Chloride 113 H Carbon Dioxide 22 Anion Gap 9 L BUN 6 L Creatinine 0.86 Estim Creat Clear Calc 44.7 Estimated GFR > 60 POC Glucose 102 Random Glucose 116 H Calcium 9.5 Total Bilirubin 0.5 Direct Bilirubin 0.3 AST 67 H ALT 104 H Alkaline Phosphatase 418 H Total Protein 5.7 L Albumin 3.0 L Hepatitis A IgM Ab Nonreactive Hep Bs Antigen Negative Hep Bs Antibody NONREACTIVE Hep B Core Total Ab Nonreactive Hepatitis C Ab (EIA) Nonreactive 05/10/24 05/10/24 07:47 11:41 Hold Purple Top Sodium Potassium Chloride Carbon Dioxide Anion Gap BUN Creatinine Estim Creat Clear Calc Estimated GFR POC Glucose 113 125 H Random Glucose Calcium Total Bilirubin Direct Bilirubin AST ALT Alkaline Phosphatase Total Protein Albumin Hepatitis A IgM Ab Hep Bs Antigen Hep Bs Antibody Hep B Core Total Ab Hepatitis C Ab (EIA) Microbiology Microbiology Results: Microbiology 05/07/24 20:03 Blood - Venous Blood Culture - Preliminary No growth after 48 hours. 05/07/24 20:03 Blood - Venous Blood Culture - Preliminary No growth after 48 hours. Procedures Date of Service Date of Service: 05/10/24 Progress Note: A&P Assessment and plan (1) Choledocholithiasis: Status: Acute Plan 1/ Choledocholithiasis, no evidence of cholangitis, LFt have improved, but still has nausea PLAN: 1/ Plan for ERCP was for today but due to OR scheduling deferred till tomorrow, can allow PO diet and clears as tolerated -lo fat and will hopefully be able to do Friday can cont AB xmeantime Time Spent With Patient Time: Total time managing care of this patient today ____ minutes. Quality Stroke Does the patient have a stroke diagnosis?: No VTE Prior VTE?: No VTE Risk Level:: Medical - moderate - high VTE Device Contraindication: Treatment Not Indicated VTE Drug Contraindication: N/A - Med Ordered
[2024-05-10 16:44] LABS: Glucose, Whole Blood 118 mg/dL (60-115)
[2024-05-10 19:37] VITALS: BP 131/59; PULSE 55; RESP 18; TEMP 36.2; O2SAT 97
[2024-05-10 20:28] LABS: Glucose, Whole Blood 135 mg/dL (60-115)
[2024-05-10] MEDS: Zonisamide 100 MG CAPSULE PO (21:00)
[2024-05-10] MEDS: levoFLOXacin/D5W 500 MG/100 ML PIGGYBACK 100 MG IV (21:00)
[2024-05-10] MEDS: Heparin Sodium,Porcine 5,000 UNIT/ML VIAL 5000 UNIT SUBCUT (21:01)
[2024-05-11] VITALS (11 sets, daily range): BP systolic 114–155; BP diastolic 37–70; PULSE 50–63; RESP 12–18; TEMP 36–37; O2SAT 94–100
[2024-05-11] MEDS: metroNIDAZOLE/NS 500 MG/100 ML PIGGYBACK 100 MG IV ×3 (01:21→18:08)
[2024-05-11 07:46] LABS: Glucose, Whole Blood 103 mg/dL (60-115)
--- NOTE | 2024-05-11 08:14 | P.PNIM_ITS ---
Subjective Subjective Date of Service: 05/11/24 Interval History: Seen in follow up for RUQ pain/choledocolithiasis NO tenderness except with palpation. Still c/o nausea but no vomiting. LFTs continue to trend down but MRCP suggesting persisting choledocolithiasis. Plan for ERCP Review of Systems Review of Systems: Yes all other systems are reviewed and are negative Physical Exam 2 Vital Signs: Vital Signs: Last Vital Signs Temp 97.2 F 05/11/24 08:00 Pulse 59 05/11/24 08:00 Resp 18 05/11/24 08:00 BP 134/64 05/11/24 08:00 Pulse Ox 96 05/11/24 08:00 O2 Del Method Room Air 05/11/24 08:00 BMI result Body Mass Index 29.1 Appearing in no acute distress lung sounds are clear to auscultation heart regular rate rhythm, clear S1, S2 positive bowel sounds, abdomen is soft, nontender neuro patient is alert x3, no focal deficits Objective Data Active Medications Acetaminophen (Acetaminophen 325 Mg Tablet) 975 mg PO Q6H PRN PRN Reason: Pain, Mild (Pain Scale 1-3) Last Admin: 05/10/24 16:23 Dose: 975 mg Documented By: DEL Albuterol Sulfate (Albuterol Sulfate (0.083%) 2.5 Mg/3 Ml Vial.Neb) 2.5 mg INHALE Q3H PRN PRN Reason: Shortness of Breath/Wheezing Albuterol Sulfate (Albuterol Sulfate 90 Mcg 8 Gm Inhaler) 2 puff INHALE Q4H PRN PRN Reason: SOB/Wheezing Amlodipine Besylate (Amlodipine Besylate 5 Mg Tablet) 5 mg PO DAILY [facility]; Protocol Last Admin: 05/10/24 09:11 Dose: Not Given Documented By: BEKAH Non-Admin Reason: NPO Aspirin (Aspirin Enteric Coated 81 Mg Tablet.) 81 mg PO DAILY [facility] Last Admin: 05/10/24 09:11 Dose: Not Given Documented By: BEKAH Non-Admin Reason: NPO Atenolol (Atenolol 100 Mg Tablet) 100 mg PO DAILY [facility]; Protocol Last Admin: 05/10/24 09:11 Dose: Not Given Documented By: BEKAH Non-Admin Reason: NPO Cyanocobalamin (Cyanocobalamin (Vitamin B-12) 1,000 Mcg Tablet) 1,000 mcg PO DAILY@1400 [facility] Last Admin: 05/10/24 14:57 Dose: Not Given Documented By: DEL Non-Admin Reason: NPO Docusate Sodium (Docusate Sodium 100 Mg Capsule) 100 mg PO DAILY PRN PRN Reason: constipation Folic Acid (Folic Acid 1 Mg Tablet) 1 mg PO DAILY@1400 [facility] Last Admin: 05/10/24 14:57 Dose: Not Given Documented By: DEL Non-Admin Reason: NPO Glucose (Glucose Gel 15 Gm Gel..Gram.) 15 gm PO Q15M PRN; Protocol PRN Reason: per Hypoglycemia Standing Ord. Heparin Sodium (Porcine) (Heparin Sodium,Porcine 5,000 Unit/Ml Vial) 5,000 unit SUBCUT Q12H [facility] Last Admin: 05/10/24 21:01 Dose: 5,000 unit Documented By: SHELIA Metronidazole (Flagyl) 500 mg in 100 mls @ 100 mls/hr IV Q8H [facility] Last Infusion: 05/11/24 02:21 Dose: Infused Documented By: SHELIA Levofloxacin (Levaquin) 500 mg in 100 mls @ 100 mls/hr IV Q24H [facility] Last Infusion: 05/10/24 22:01 Dose: Infused Documented By: SHELIA Dextrose (D10) 250 mls @ 750 mls/hr IV Q15M PRN; Protocol PRN Reason: per Hypoglycemia Standing Ord. Insulin Glargine (Insulin Glargine,Hum.Rec.Anlog 100 Unit/Ml 10 Ml Vial) 6 unit SUBCUT BEDTIME [facility] Last Admin: 05/10/24 21:11 Dose: Not Given Documented By: SHELIA Non-Admin Reason: npo all day and little po then npo again 3 ho Insulin Human Lispro (Insulin Lispro 100 Unit/Ml 3 Ml Vial) 0 unit SUBCUT QIDACHS [facility]; Protocol Last Admin: 05/11/24 07:52 Dose: Not Given Documented By: BRYSON Non-Admin Reason: No Insulin Coverage Lisinopril (Lisinopril 40 Mg Tablet) 40 mg PO DAILY [facility]; Protocol Last Admin: 05/10/24 09:11 Dose: Not Given Documented By: BEKAH Non-Admin Reason: NPO Magnesium Oxide (Magnesium Oxide 400 Mg Tablet) 400 mg PO BIDPC [facility] Last Admin: 05/10/24 16:24 Dose: 400 mg Documented By: DEL Montelukast Sodium (Montelukast Sodium 10 Mg Tablet) 10 mg PO DAILY PRN PRN Reason: for allergies Morphine Sulfate (Morphine Sulfate 4 Mg/Ml Cartridge) 4 mg IVPUSH Q4H PRN; Protocol PRN Reason: Pain, Severe (Pain Scale 7-10) Omeprazole (Omeprazole 20 Mg Capsule.Dr) 20 mg PO DAILY@0630 [facility] Last Admin: 05/11/24 06:33 Dose: Not Given Documented By: SHELIA Non-Admin Reason: NPO Prochlorperazine Edisylate (Prochlorperazine Edisylate 10 Mg/2 Ml Vial) 5 mg IVPUSH Q4H PRN PRN Reason: Nausea and Vomiting Last Admin: 05/10/24 15:25 Dose: 5 mg Documented By: DEL Sodium Chloride (0.9 % Sodium Chloride Flush 3 Ml Syringe) [address] [facility] Last Admin: 05/10/24 21:01 Dose: 3 ml Documented By: SHELIA Venlafaxine HCl (Venlafaxine Hcl Er 150 Mg Cap.Er.24h) 150 mg PO DAILY [facility] Last Admin: 05/10/24 09:11 Dose: Not Given Documented By: BEKAH Non-Admin Reason: NPO Venlafaxine HCl (Venlafaxine Hcl Er 37.5 Mg Cap.Er.24h) 37.5 mg PO DAILY [facility] Last Admin: 05/10/24 09:12 Dose: Not Given Documented By: BEKAH Non-Admin Reason: NPO Vitamin D (Cholecalciferol (Vitamin D3) 25 Mcg Tablet) 50 mcg PO DAILY [facility] Last Admin: 05/10/24 09:11 Dose: Not Given Documented By: BEKAH Non-Admin Reason: NPO Zonisamide (Zonisamide 100 Mg Capsule) 100 mg PO BEDTIME [facility] Last Admin: 05/10/24 21:00 Dose: 100 mg Documented By: SHELIA Labs 05/08/24 05:55 05/10/24 05:56 Labs: Laboratory Results - last 24 hr 05/10/24 05/10/24 05/10/24 11:41 16:40 20:17 POC Glucose 125 H 118 H 135 H 05/11/24 07:42 POC Glucose 103 Assessment and Plan (1) Choledocholithiasis: Status: Acute Plan 79-year-old female with history of ulcerative colitis, diverticulosis, chronic pancreatitis, GERD with history of cholecystectomy admitted for management of choledocholithiasis Acute choledocoliasis Low suspicion for cholangitis, but continue levaquin and flagyl for now per GI LFTs trending down, symptomatically improved MRCP shows filling defects suggestive of choledocolithiasis antiemetrics/pain management prn GI follwoing>plan for ERCP today Acute hypomagnesemia repleted with IV Mag in the ED. Mag level 1.8, remains low normal continue p.o. magnesium oxide b.i.d. Diabetes mellitus type 2 Sliding scale, ADA diet post ERCP Long-acting insulin ulcerative colitis no acute flare mild intermittent asthma no exacerbation, albuterol p.r.n. mood disorder continue home meds hypertension continue atenolol, lisinopril, amlodipine history CVA continue asa. hold statin due to elevated lfts Chronic normocytic anema above transfusion threshold dvt prophylaxis- heparin Attending Dr. Norris full code DISPO will likely need short-term rehab when medically clear continue hospital stay for management of choledocolithiasis with ongoing nausea and RUQ pain, awaiting ERCP today Quality Stroke Does the patient have a stroke diagnosis?: No VTE Prior VTE?: No VTE Risk Level:: Medical - moderate - high VTE Device Contraindication: Treatment Not Indicated VTE Drug Contraindication: N/A - Med Ordered
[2024-05-11] MEDS: Venlafaxine HCl ER 37.5 MG CAP.ER.24H PO (09:56)
[2024-05-11] MEDS: amLODIPine Besylate 5 MG TABLET PO (09:56)
[2024-05-11] MEDS: Venlafaxine HCl ER 150 MG CAP.ER.24H PO (09:56)
[2024-05-11] MEDS: Magnesium Oxide 400 MG TABLET PO (09:56)
[2024-05-11] MEDS: Cholecalciferol (Vitamin D3) 25 MCG TABLET 50 MCG PO (09:57)
[2024-05-11] MEDS: lisinopriL 40 MG TABLET PO (09:57)
[2024-05-11] MEDS: atenoloL 100 MG TABLET PO (09:57)
--- NOTE | 2024-05-11 11:00 | P.PNGI_ITS ---
Subjective Subjective Date of Service: 05/11/24 Interval History: minimal abdominal pain no nausea or vomiting no fever Critical Care Time (minutes): 0 Physical Exam 2 Vital Signs: Vital Signs: Last Vital Signs Temp 97.2 F 05/11/24 08:00 Pulse 59 05/11/24 08:00 Resp 18 05/11/24 08:00 BP 134/64 05/11/24 08:00 Pulse Ox 96 05/11/24 08:00 O2 Del Method Room Air 05/11/24 08:00 BMI result Body Mass Index 29.1 EXAM: GENERAL: The patient is well developed and nontoxic. VITAL SIGNS:see workflow HEENT: Nonicteric sclerae, PERRLA, EOMI. Oropharynx clear. Moist mucous membranes. Conjunctivae appear well perfused. No thyroid mass. CHEST: Chest wall is nontender. HEART: Regular rate and rhythm without murmurs. LUNGS: Clear to auscultation bilaterally. ABDOMEN: Soft, positive bowel sounds, nontender, no organomegaly.no flank tenderness SKIN: No rash, no excessive bruising, petechiae, or purpura. NEUROLOGIC: Cranial nerves II-XII intact without motor/sensory deficit. Psych: normal affect Objective Data Labs 05/08/24 05:55 05/10/24 05:56 Labs: Laboratory Results - last 24 hr 05/10/24 05/10/24 05/10/24 11:41 16:40 20:17 POC Glucose 125 H 118 H 135 H 05/11/24 07:42 POC Glucose 103 Microbiology Microbiology Results: Microbiology 05/07/24 20:03 Blood - Venous Blood Culture - Preliminary No growth after 48 hours. 05/07/24 20:03 Blood - Venous Blood Culture - Preliminary No growth after 48 hours. Procedures Date of Service Date of Service: 05/11/24 Progress Note: A&P Assessment and plan (1) Elevated LFTs: Status: Acute (2) Choledocholithiasis: Status: Acute Plan 1/ ERCP today for further assessment, possible spyglass as well Time Spent With Patient Time: Total time managing care of this patient today ____ minutes. Quality Stroke Does the patient have a stroke diagnosis?: No VTE Prior VTE?: No VTE Risk Level:: Medical - moderate - high VTE Device Contraindication: Treatment Not Indicated VTE Drug Contraindication: N/A - Med Ordered
[2024-05-11 11:47] LABS: Glucose, Whole Blood 107 mg/dL (60-115)
--- NOTE | 2024-05-11 12:56 | P.CONAN_ITS ---
HPI - Anesthesia Eval Consult details Narrative: for ERCP PMFSH Active Problems Active Problems: All Active Problems Choledocholithiasis (Acute) Elevated LFTs (Acute) Hypomagnesemia (Acute) Nausea vomiting and diarrhea (Acute) Abdominal pain (Acute) Altered bowel habits (Acute) Diabetes mellitus, with long-term current use of insulin (Acute) Murmur (Acute) Syncope (Acute) Skin lesion (Acute) Ulcerative colitis, acute (Acute) Ulcerative colitis (Acute) Obesity (BMI 30.0-34.9) (Acute) Cataract (Acute) Numerous skin moles (Acute) Preoperative clearance (Acute) Dry skin (Acute) Hair loss (Acute) Right hip pain (Acute) Left hip pain (Acute) Low back pain (Acute) Falls frequently (Acute) Uncontrolled hypertension (Acute) Pelvic pain (Acute) Infectious colitis (Acute) Acute blood loss anemia (Acute) Lower GI bleed (Acute) Left shoulder pain (Acute) Rash (Acute) Hospital discharge follow-up (Acute) Chronic pancreatitis (Acute) B12 deficiency anemia (Acute) Physical exam (Acute) Breast pain, left (Acute) Dizziness (Acute) Mild recurrent major depression (Acute) Epilepsy (Acute) Memory change (Acute) Type 2 diabetes mellitus with diabetic polyneuropathy (Acute) Type 2 diabetes mellitus with hyperglycemia (Acute) Essential hypertension (Acute) 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 LDL goal <70 (Acute) BMI 34.0-34.9,adult (Acute) 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, unspecified (Acute) longterm (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 (Acute) Type 2 diabetes mellitus with unspecified complications (Acute) Atherosclerotic cardiovascular disease (Acute) Past Medical History Medical History Dizziness Mild recurrent major depression Epilepsy Stroke Colitis Major depression, recurrent Memory change Neuropathy Seizures Glaucoma Myocardial infarction Acid reflux Type 2 diabetes mellitus with diabetic polyneuropathy Type 2 diabetes mellitus with hyperglycemia 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 LDL goal <70 Obesity due to excess calories BMI 34.0-34.9,adult 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, unspecified Essential hypertension longterm (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 Type 2 diabetes mellitus with unspecified complications Atherosclerotic cardiovascular disease Family History Family History Father Cardiovascular disease Cancer Mother Cardiovascular disease Sister Diabetes Brother Diabetes Other Mental health disorder Family history of problems with anesthesia: No Surgical History Surgical History Hx of eye surgery Hx of colonoscopy History of esophagogastroduodenoscopy (EGD) History of colon resection History of appendectomy History of kidney surgery History of intestinal surgery Hx of cholecystectomy History of liver biopsy History of bladder surgery Hx of hysterectomy History of Problems with Anesthesia: No Social History Social History Household Members: None Housing: Apartment Are you a primary care manager cna to a significant other at home: No Do you presently have visiting nurse or other home services: Yes Alcohol intake: never Comment: SEIZURE PRECAUTIONS Patient Tobacco Use Status: Never used Tobacco e-Cigarette/Vaping Use: Never Used Second Hand Smoke Exposure: No Advance Directives Date on File: 08/25/23 service: No Current occupational status: retired Cognitive needs: Yes Hearing needs: No Vision needs: Yes Meds Allergies Allergy/AdvReac Type Severity Reaction Status Date / Time Penicillins [PENICILLINS] Allergy Severe ANAPHYLAXIS Verified 05/07/24 17:23 Sulfa (Sulfonamide Allergy Severe ANAPHYLAXIS Verified 05/07/24 17:23 Antibiotics) [SULFA (SULFONAMIDE ANTIBIOTICS)] codeine Allergy Intermediate headache/mood Verified 05/07/24 17:23 changes dulaglutide [From Trulicity] Allergy Intermediate Nausea and Verified 05/07/24 17:23 Vomiting latanoprost AdvReac Intermediate eye redness Verified 05/07/24 17:23 Active Medications: Current Medications Acetaminophen (Acetaminophen 325 Mg Tablet) 975 mg PO Q6H PRN PRN Reason: Pain, Mild (Pain Scale 1-3) Last Admin: 05/10/24 16:23 Dose: 975 mg Albuterol Sulfate (Albuterol Sulfate (0.083%) 2.5 Mg/3 Ml Vial.Neb) 2.5 mg INHALE Q3H PRN PRN Reason: Shortness of Breath/Wheezing Albuterol Sulfate (Albuterol Sulfate 90 Mcg 8 Gm Inhaler) 2 puff INHALE Q4H PRN PRN Reason: SOB/Wheezing Amlodipine Besylate (Amlodipine Besylate 5 Mg Tablet) 5 mg PO DAILY [facility]MA; Protocol Last Admin: 05/11/24 09:56 Dose: 5 mg Aspirin (Aspirin Enteric Coated 81 Mg Tablet.) 81 mg PO DAILY [facility] Last Admin: 05/11/24 10:04 Dose: Not Given Atenolol (Atenolol 100 Mg Tablet) 100 mg PO DAILY [facility]; Protocol Last Admin: 05/11/24 09:57 Dose: 100 mg Cyanocobalamin (Cyanocobalamin (Vitamin B-12) 1,000 Mcg Tablet) 1,000 mcg PO DAILY@1400 [facility] Last Admin: 05/10/24 14:57 Dose: Not Given Docusate Sodium (Docusate Sodium 100 Mg Capsule) 100 mg PO DAILY PRN PRN Reason: constipation Folic Acid (Folic Acid 1 Mg Tablet) 1 mg PO DAILY@1400 [facility] Last Admin: 05/10/24 14:57 Dose: Not Given Glucose (Glucose Gel 15 Gm Gel..Gram.) 15 gm PO Q15M PRN; Protocol PRN Reason: per Hypoglycemia Standing Ord. Heparin Sodium (Porcine) (Heparin Sodium,Porcine 5,000 Unit/Ml Vial) 5,000 unit SUBCUT Q12H [facility] Last Admin: 05/11/24 10:03 Dose: Not Given Metronidazole (Flagyl) 500 mg in 100 mls @ 100 mls/hr IV Q8H [facility] Last Infusion: 05/11/24 12:34 Dose: Infused Levofloxacin (Levaquin) 500 mg in 100 mls @ 100 mls/hr IV Q24H [facility] Last Infusion: 05/10/24 22:01 Dose: Infused Dextrose (D10) 250 mls @ 750 mls/hr IV Q15M PRN; Protocol PRN Reason: per Hypoglycemia Standing Ord. Insulin Glargine (Insulin Glargine,Hum.Rec.Anlog 100 Unit/Ml 10 Ml Vial) 6 unit SUBCUT BEDTIME [facility] Last Admin: 05/10/24 21:11 Dose: Not Given Insulin Human Lispro (Insulin Lispro 100 Unit/Ml 3 Ml Vial) 0 unit SUBCUT QIDACHS [facility]; Protocol Last Admin: 05/11/24 11:46 Dose: Not Given Lisinopril (Lisinopril 40 Mg Tablet) 40 mg PO DAILY [facility]; Protocol Last Admin: 05/11/24 09:57 Dose: 40 mg Magnesium Oxide (Magnesium Oxide 400 Mg Tablet) 400 mg PO BIDPC [facility] Last Admin: 05/11/24 09:56 Dose: 400 mg Montelukast Sodium (Montelukast Sodium 10 Mg Tablet) 10 mg PO DAILY PRN PRN Reason: for allergies Morphine Sulfate (Morphine Sulfate 4 Mg/Ml Cartridge) 4 mg IVPUSH Q4H PRN; Protocol PRN Reason: Pain, Severe (Pain Scale 7-10) Omeprazole (Omeprazole 20 Mg Capsule.Dr) 20 mg PO DAILY@0630 [facility] Last Admin: 05/11/24 06:33 Dose: Not Given Prochlorperazine Edisylate (Prochlorperazine Edisylate 10 Mg/2 Ml Vial) 5 mg IVPUSH Q4H PRN PRN Reason: Nausea and Vomiting Last Admin: 05/10/24 15:25 Dose: 5 mg Sodium Chloride (0.9 % Sodium Chloride Flush 3 Ml Syringe) 3 ml IVFLUSH QSHIFT [facility] Last Admin: 05/11/24 10:03 Dose: Not Given Venlafaxine HCl (Venlafaxine Hcl Er 150 Mg Cap.Er.24h) 150 mg PO DAILY [facility] Last Admin: 05/11/24 09:56 Dose: 150 mg Venlafaxine HCl (Venlafaxine Hcl Er 37.5 Mg Cap.Er.24h) 37.5 mg PO DAILY [facility] Last Admin: 05/11/24 09:56 Dose: 37.5 mg Vitamin D (Cholecalciferol (Vitamin D3) 25 Mcg Tablet) 50 mcg PO DAILY [facility] Last Admin: 05/11/24 09:57 Dose: 50 mcg Zonisamide (Zonisamide 100 Mg Capsule) 100 mg PO BEDTIME [facility] Last Admin: 05/10/24 21:00 Dose: 100 mg Home Medications ?Medication ?Instructions ?Recorded ?Confirmed ?Last Taken ?Type aspirin 81 mg tablet,delayed 81 mg PO DAILY 08/14/20 05/07/24 05/06/24 History release venlafaxine 37.5 mg 37.5 mg PO DAILY 12/22/21 05/07/24 05/06/24 History capsule,extended release 24 hr (Effexor XR) mecobalamin (vitamin B12) 1,000 1,000 mcg sublingual DAILY@1400 04/26/22 05/07/24 05/06/24 History mcg disintegrating tablet,sublingual cholecalciferol (vitamin D3) 50 50 mcg PO DAILY 05/28/22 05/07/24 05/06/24 History mcg (2,000 unit) capsule folic acid 1 mg tablet 1 mg PO DAILY@1400 08/22/23 05/07/24 05/06/24 History insulin degludec 200 unit/mL (3 12 unit subcut BEDTIME 01/07/24 05/07/24 05/06/24 History mL) subcutaneous pen (Tresiba FlexTouch U-200 insulin) albuterol sulfate 90 mcg/actuation 2 puff inhalation Q4H PRN 05/07/24 05/07/24 Unknown History aerosol inhaler SOB/Wheezing venlafaxine 150 mg 150 mg PO DAILY 05/07/24 05/07/24 05/06/24 History capsule,extended release 24 hr zonisamide 100 mg capsule 100 mg PO BEDTIME 05/07/24 05/07/24 05/06/24 History Exam Height,Weight and Vital Signs: Height 5 ft Weight 67.6 kg Last Vital Signs Temp 97.2 F 05/11/24 08:00 Pulse 59 05/11/24 08:00 Resp 18 05/11/24 08:00 BP 134/64 05/11/24 08:00 Pulse Ox 96 05/11/24 08:00 O2 Del Method Room Air 05/11/24 08:00 Pertinent Lab Results Pertinent Lab Results: Laboratory Tests 05/07/24 05/07/24 05/07/24 17:50 18:00 20:03 WBC 9.4 RBC 4.38 Hgb 10.9 L Hct 34.5 L MCV 78.8 L MCH 24.9 L MCHC 31.6 RDW 15.9 Plt Count 322 D MPV 10.5 Immature Gran % (Auto) 0.5 H Neut % (Auto) 77.1 H Lymph % (Auto) 11.1 L [place] % (Auto) 9.0 Eos % (Auto) 2.0 Baso % (Auto) 0.3 Lymph # (Auto) 1.1 L [place] # (Auto) 0.9 Eos # (Auto) 0.2 Baso # (Auto) 0.0 Abs Immat Gran (auto) 0.05 H Absolute Neuts (auto) 7.3 Absolute Nucleated RBC 0.000 Nucleated RBC % (auto) 0.0 Hold Purple Top PT INR APTT Sodium 138 Potassium 3.8 Chloride 106 Carbon Dioxide 22 Anion Gap 14 BUN 14 Creatinine 0.91 Estim Creat Clear Calc 42.0 Estimated GFR 59 POC Glucose Random Glucose 157 H Lactic Acid 1.4 Calcium 9.7 Magnesium 1.4 L* Total Bilirubin 2.2 H Direct Bilirubin 1.6 H AST 535 H ALT 287 H Alkaline Phosphatase 705 H Total Protein 6.6 Albumin 3.4 L Lipase 105 H Urine Color Dark Yellow Urine Appearance Clear Urine pH >= 9.0 Ur Specific Sunshine 1.015 Urine Protein Negative Urine Glucose (UA) Negative Urine Ketones Negative Urine Blood Negative Urine Nitrite Negative Ur Leukocyte Esterase Negative Salicylates Acetaminophen Hepatitis A IgM Ab Hep Bs Antigen Hep Bs Antibody Hep B Core Total Ab Hepatitis C Ab (EIA) Influenza Type A (PCR) NEGATIVE Influenza Type B (PCR) NEGATIVE RSV RNA Qual (PCR) NEGATIVE SARS-CoV-2 RNA (RT-PCR) NEGATIVE 05/07/24 05/07/24 05/08/24 21:11 22:55 05:19 WBC RBC Hgb Hct MCV MCH MCHC RDW Plt Count MPV Immature Gran % (Auto) Neut % (Auto) Lymph % (Auto) [place] % (Auto) Eos % (Auto) Baso % (Auto) Lymph # (Auto) [place] # (Auto) Eos # (Auto) Baso # (Auto) Abs Immat Gran (auto) Absolute Neuts (auto) Absolute Nucleated RBC Nucleated RBC % (auto) Hold Purple Top PT 12.7 INR 1.0 APTT 26.6 Sodium Potassium Chloride Carbon Dioxide Anion Gap BUN Creatinine Estim Creat Clear Calc Estimated GFR POC Glucose 103 88 Random Glucose Lactic Acid Calcium Magnesium Total Bilirubin Direct Bilirubin AST ALT Alkaline Phosphatase Total Protein Albumin Lipase Urine Color Urine Appearance Urine pH Ur Specific Sunshine Urine Protein Urine Glucose (UA) Urine Ketones Urine Blood Urine Nitrite Ur Leukocyte Esterase Salicylates < 5.0 L Acetaminophen < 3 Hepatitis A IgM Ab Nonreactive Hep Bs Antigen Negative Hep Bs Antibody NONREACTIVE Hep B Core Total Ab Nonreactive Hepatitis C Ab (EIA) Nonreactive Influenza Type A (PCR) Influenza Type B (PCR) RSV RNA Qual (PCR) SARS-CoV-2 RNA (RT-PCR) 05/08/24 05/08/24 05/08/24 05:55 11:33 17:21 WBC 7.4 RBC 4.16 L Hgb 10.3 L Hct 33.3 L MCV 80.0 MCH 24.8 L MCHC 30.9 L RDW 15.8 Plt Count 263 MPV 10.8 Immature Gran % (Auto) 0.3 Neut % (Auto) 66.4 Lymph % (Auto) 17.4 L [place] % (Auto) 11.0 Eos % (Auto) 4.4 H Baso % (Auto) 0.5 Lymph # (Auto) 1.3 [place] # (Auto) 0.8 Eos # (Auto) 0.3 Baso # (Auto) 0.0 Abs Immat Gran (auto) 0.02 Absolute Neuts (auto) 4.9 Absolute Nucleated RBC 0.000 Nucleated RBC % (auto) 0.0 Hold Purple Top PT INR APTT Sodium 139 Potassium 3.7 Chloride 112 H Carbon Dioxide 20 L Anion Gap 11 L BUN 10 Creatinine 0.75 Estim Creat Clear Calc 51.3 Estimated GFR > 60 POC Glucose 85 158 H Random Glucose 93 Lactic Acid Calcium 9.0 D Magnesium 1.8 Total Bilirubin 1.1 H Direct Bilirubin AST 250 H ALT 210 H Alkaline Phosphatase 562 H Total Protein 5.7 L Albumin 3.0 L Lipase Urine Color Urine Appearance Urine pH Ur Specific Sunshine Urine Protein Urine Glucose (UA) Urine Ketones Urine Blood Urine Nitrite Ur Leukocyte Esterase Salicylates Acetaminophen Hepatitis A IgM Ab Hep Bs Antigen Hep Bs Antibody Hep B Core Total Ab Hepatitis C Ab (EIA) Influenza Type A (PCR) Influenza Type B (PCR) RSV RNA Qual (PCR) SARS-CoV-2 RNA (RT-PCR) 05/08/24 05/09/24 05/09/24 22:06 05:37 07:25 WBC RBC Hgb Hct MCV MCH MCHC RDW Plt Count MPV Immature Gran % (Auto) Neut % (Auto) Lymph % (Auto) [place] % (Auto) Eos % (Auto) Baso % (Auto) Lymph # (Auto) [place] # (Auto) Eos # (Auto) Baso # (Auto) Abs Immat Gran (auto) Absolute Neuts (auto) Absolute Nucleated RBC Nucleated RBC % (auto) Hold Purple Top SEE NOTE PT INR APTT Sodium Potassium Chloride Carbon Dioxide Anion Gap BUN Creatinine Estim Creat Clear Calc Estimated GFR POC Glucose 153 H 112 Random Glucose Lactic Acid Calcium Magnesium Total Bilirubin 0.6 Direct Bilirubin 0.3 AST 115 H ALT 140 H Alkaline Phosphatase 480 H Total Protein 5.6 L Albumin 2.9 L Lipase Urine Color Urine Appearance Urine pH Ur Specific Sunshine Urine Protein Urine Glucose (UA) Urine Ketones Urine Blood Urine Nitrite Ur Leukocyte Esterase Salicylates Acetaminophen Hepatitis A IgM Ab Hep Bs Antigen Hep Bs Antibody Hep B Core Total Ab Hepatitis C Ab (EIA) Influenza Type A (PCR) Influenza Type B (PCR) RSV RNA Qual (PCR) SARS-CoV-2 RNA (RT-PCR) 05/09/24 05/09/24 05/09/24 11:13 16:14 20:35 WBC RBC Hgb Hct MCV MCH MCHC RDW Plt Count MPV Immature Gran % (Auto) Neut % (Auto) Lymph % (Auto) [place] % (Auto) Eos % (Auto) Baso % (Auto) Lymph # (Auto) [place] # (Auto) Eos # (Auto) Baso # (Auto) Abs Immat Gran (auto) Absolute Neuts (auto) Absolute Nucleated RBC Nucleated RBC % (auto) Hold Purple Top PT INR APTT Sodium Potassium Chloride Carbon Dioxide Anion Gap BUN Creatinine Estim Creat Clear Calc Estimated GFR POC Glucose 199 H 159 H 102 Random Glucose Lactic Acid Calcium Magnesium Total Bilirubin Direct Bilirubin AST ALT Alkaline Phosphatase Total Protein Albumin Lipase Urine Color Urine Appearance Urine pH Ur Specific Sunshine Urine Protein Urine Glucose (UA) Urine Ketones Urine Blood Urine Nitrite Ur Leukocyte Esterase Salicylates Acetaminophen Hepatitis A IgM Ab Hep Bs Antigen Hep Bs Antibody Hep B Core Total Ab Hepatitis C Ab (EIA) Influenza Type A (PCR) Influenza Type B (PCR) RSV RNA Qual (PCR) SARS-CoV-2 RNA (RT-PCR) 05/10/24 05/10/24 05/10/24 05:56 07:47 11:41 WBC RBC Hgb Hct MCV MCH MCHC RDW Plt Count MPV Immature Gran % (Auto) Neut % (Auto) Lymph % (Auto) [place] % (Auto) Eos % (Auto) Baso % (Auto) Lymph # (Auto) [place] # (Auto) Eos # (Auto) Baso # (Auto) Abs Immat Gran (auto) Absolute Neuts (auto) Absolute Nucleated RBC Nucleated RBC % (auto) Hold Purple Top SEE NOTE PT INR APTT Sodium 140 Potassium 3.9 Chloride 113 H Carbon Dioxide 22 Anion Gap 9 L BUN 6 L Creatinine 0.86 Estim Creat Clear Calc 44.7 Estimated GFR > 60 POC Glucose 113 125 H Random Glucose 116 H Lactic Acid Calcium 9.5 Magnesium Total Bilirubin 0.5 Direct Bilirubin 0.3 AST 67 H ALT 104 H Alkaline Phosphatase 418 H Total Protein 5.7 L Albumin 3.0 L Lipase Urine Color Urine Appearance Urine pH Ur Specific Sunshine Urine Protein Urine Glucose (UA) Urine Ketones Urine Blood Urine Nitrite Ur Leukocyte Esterase Salicylates Acetaminophen Hepatitis A IgM Ab Hep Bs Antigen Hep Bs Antibody Hep B Core Total Ab Hepatitis C Ab (EIA) Influenza Type A (PCR) Influenza Type B (PCR) RSV RNA Qual (PCR) SARS-CoV-2 RNA (RT-PCR) 05/10/24 05/10/24 05/11/24 16:40 20:17 07:42 WBC RBC Hgb Hct MCV MCH MCHC RDW Plt Count MPV Immature Gran % (Auto) Neut % (Auto) Lymph % (Auto) [place] % (Auto) Eos % (Auto) Baso % (Auto) Lymph # (Auto) [place] # (Auto) Eos # (Auto) Baso # (Auto) Abs Immat Gran (auto) Absolute Neuts (auto) Absolute Nucleated RBC Nucleated RBC % (auto) Hold Purple Top PT INR APTT Sodium Potassium Chloride Carbon Dioxide Anion Gap BUN Creatinine Estim Creat Clear Calc Estimated GFR POC Glucose 118 H 135 H 103 Random Glucose Lactic Acid Calcium Magnesium Total Bilirubin Direct Bilirubin AST ALT Alkaline Phosphatase Total Protein Albumin Lipase Urine Color Urine Appearance Urine pH Ur Specific Sunshine Urine Protein Urine Glucose (UA) Urine Ketones Urine Blood Urine Nitrite Ur Leukocyte Esterase Salicylates Acetaminophen Hepatitis A IgM Ab Hep Bs Antigen Hep Bs Antibody Hep B Core Total Ab Hepatitis C Ab (EIA) Influenza Type A (PCR) Influenza Type B (PCR) RSV RNA Qual (PCR) SARS-CoV-2 RNA (RT-PCR) 05/11/24 11:44 WBC RBC Hgb Hct MCV MCH MCHC RDW Plt Count MPV Immature Gran % (Auto) Neut % (Auto) Lymph % (Auto) [place] % (Auto) Eos % (Auto) Baso % (Auto) Lymph # (Auto) [place] # (Auto) Eos # (Auto) Baso # (Auto) Abs Immat Gran (auto) Absolute Neuts (auto) Absolute Nucleated RBC Nucleated RBC % (auto) Hold Purple Top PT INR APTT Sodium Potassium Chloride Carbon Dioxide Anion Gap BUN Creatinine Estim Creat Clear Calc Estimated GFR POC Glucose 107 Random Glucose Lactic Acid Calcium Magnesium Total Bilirubin Direct Bilirubin AST ALT Alkaline Phosphatase Total Protein Albumin Lipase Urine Color Urine Appearance Urine pH Ur Specific Sunshine Urine Protein Urine Glucose (UA) Urine Ketones Urine Blood Urine Nitrite Ur Leukocyte Esterase Salicylates Acetaminophen Hepatitis A IgM Ab Hep Bs Antigen Hep Bs Antibody Hep B Core Total Ab Hepatitis C Ab (EIA) Influenza Type A (PCR) Influenza Type B (PCR) RSV RNA Qual (PCR) SARS-CoV-2 RNA (RT-PCR) Airway Mallampati Class: II TM Dist: >3cm Neck ROM: Full Loose/Missing/Broken Teeth: Yes and Upper Heart: ok. essentially normal echo, normal ekg. Lungs: ok Assessment and Plan Assessment Anesthesia Assessment: Anesthesia Plan Discussed and Chart Reviewed Final Anesthetic Review Family History of Problems with Anesthesia: No History of Problems with Anesthesia: No NPO: Yes ASA Class: IV Final Preanesthetic Review: No Changes in Pt Med Stat, Meds/Allgs Chart Reviewed, Consent Obtained/Reviewed and Anes Risks/Benef Reviewed Patient Risk: High Procedure Risk: Intermediate Anesthetic Plan Anesthetic Plan: GA and Agree w/ Assess. and Plan Disposition: Standard PACU
--- NOTE | 2024-05-11 13:15 | PC.NURSE ---
Addendum entered by Emy Delcid, KHANH 05/11/24 19:43: Patient back in the room from testing at 1545, on arrival c/o nausea, Original Note: patient off unit for ERCP
--- NOTE | 2024-05-11 13:28 | PC.NURSE ---
22g right forearm and 20g left ac. asymptomatic. flushing patently.
--- NOTE | 2024-05-11 15:07 | W.PM.OPN ---
Operative Note Operative Note Date of Service: 05/11/24 Narrative: Description:?Endoscopic retrograde cholangiopancreatography (ERCP) PROCEDURE:?Endoscopic retrograde cholangiopancreatography with intra operative cholangiogram and interpretation with sphincterotomy, balloon extraction and cholangioscopy INDICATION FOR THE PROCEDURE:?Patient with a history of choledocholithiasis MEDICATIONS:?General anesthesia. The risks of the procedure were made aware to the patient and consisted of medication reaction, bleeding, perforation, aspiration, and post ERCP pancreatitis. DESCRIPTION OF PROCEDURE:?After informed consent and appropriate sedation, the duodenoscope was inserted into the oropharynx, down the esophagus, and into the stomach. The scope was then advanced through the pylorus to the ampulla. The tome was angled but with wire guided technique kept going into the PD. A jonathon precut was done and then the tome was re angled. The wire kept hitting what seemed to be a stone. with some gentle pressure the wire passed and the tome was guided up the CBD. a cholangiogram was performed and revealed a filling defect in the distal CBD measuring about 10-12 mm. An extraction balloon was exchanged and then pulled across the CBD with removal of a dark green stone note. An occlusion cholangiogram was negative. Spyglass was then used to directly visualize the CBD up to the CHD and no stones were seen. Bile was flowing nicely on withdrawal of the scope Some fundic gland polyps noted in the stomach FINDINGS: 1. choledocholithiasis RECOMMENDATIONS: 1. NPO except ice chips for next 6 hours, if ok then can advance to clears and then normal diet tomorrow 2. cont with LR
--- NOTE | 2024-05-11 15:24 | ECG_ITS ---
Test Reason : chest pain Blood Pressure : / mmHG Vent. Rate : 052 BPM Atrial Rate : 052 BPM P-R Int : 166 ms QRS Dur : 088 ms QT Int : 462 ms P-R-T Axes : 020 021 052 degrees QTc Int : 429 ms Sinus bradycardia Otherwise normal ECG When compared with ECG of 24-APR-2024 12:15, No significant change was found Referred By: Noemi Posey Electronically Signed By:TIMBO BARRETO
[2024-05-11 16:29] LABS: Glucose, Whole Blood 139 mg/dL (60-115)
[2024-05-11] MEDS: Prochlorperazine Edisylate 10 MG/2 ML VIAL 5 MG IVPUSH ×2 (16:47→20:53)
[2024-05-11] MEDS: 0.9 % Sodium Chloride Flush 3 ML SYRINGE IVFLUSH ×2 (16:47→22:58)
[2024-05-11 20:47] LABS: Glucose, Whole Blood 153 mg/dL (60-115)
[2024-05-11] MEDS: Insulin Glargine,Hum.rec.anlog 100 UNIT/ML 10 ML VIAL 6 UNIT SUBCUT (20:54)
[2024-05-11] MEDS: Insulin Lispro 100 UNIT/ML 3 ML VIAL SUBCUT (20:54)
[2024-05-11] MEDS: Heparin Sodium,Porcine 5,000 UNIT/ML VIAL 5000 UNIT SUBCUT (20:55)
[2024-05-11] MEDS: Zonisamide 100 MG CAPSULE PO (20:55)
[2024-05-11] MEDS: levoFLOXacin/D5W 500 MG/100 ML PIGGYBACK 100 MG IV (21:02)
[2024-05-11] MEDS: Calcium Carbonate 750 MG TAB.CHEW PO (22:55)
[2024-05-12] MEDS: metroNIDAZOLE/NS 500 MG/100 ML PIGGYBACK 100 MG IV (01:57)
[2024-05-12] MEDS: Omeprazole 20 MG CAPSULE.DR PO (06:04)
[2024-05-12 07:17] VITALS: BP 162/71; PULSE 57; RESP 12; TEMP 36.1; O2SAT 97
[2024-05-12] MEDS: 0.9 % Sodium Chloride Flush 3 ML SYRINGE IVFLUSH (07:18)
[2024-05-12 07:33] LABS: Glucose, Whole Blood 98 mg/dL (60-115)
[2024-05-12] MEDS: Cholecalciferol (Vitamin D3) 25 MCG TABLET 50 MCG PO (08:11)
[2024-05-12] MEDS: lisinopriL 40 MG TABLET PO (08:11)
[2024-05-12] MEDS: Heparin Sodium,Porcine 5,000 UNIT/ML VIAL 5000 UNIT SUBCUT (08:11)
[2024-05-12] MEDS: Aspirin Enteric Coated 81 MG TABLET.DR PO (08:11)
[2024-05-12] MEDS: Magnesium Oxide 400 MG TABLET PO (08:11)
[2024-05-12] MEDS: amLODIPine Besylate 5 MG TABLET PO (08:12)
[2024-05-12] MEDS: Venlafaxine HCl ER 150 MG CAP.ER.24H PO (08:12)
[2024-05-12] MEDS: atenoloL 100 MG TABLET PO (08:12)
[2024-05-12] MEDS: Venlafaxine HCl ER 37.5 MG CAP.ER.24H PO (08:12)
[2024-05-12] MEDS: metroNIDAZOLE 500 MG TABLET PO (09:02)
--- NOTE | 2024-05-12 10:39 | HO.PM.IMPN ---
Subjective Subjective Date of Service: 05/12/24 Interval History: tolerated solids Physical Exam Vital Signs: Vital Signs: Last Vital Signs Temp 96.9 F 05/12/24 07:17 Pulse 57 05/12/24 07:17 Resp 12 05/12/24 07:17 BP 162/71 H 05/12/24 07:17 Pulse Ox 97 05/12/24 07:17 O2 Del Method Room Air 05/12/24 07:17 BMI result Body Mass Index 29.1 General: AO X 3, no acute distress Resp: CTA bilateral, no accessory muscles used CVS: S1,S2,RRR GI: soft, non tender, non distended Neuro: motor grossly intact, alert Psych: appropriate affect, appropriate insight Objective Data Active Medications Acetaminophen (Acetaminophen 325 Mg Tablet) 975 mg PO Q6H PRN PRN Reason: Pain, Mild (Pain Scale 1-3) Last Admin: 05/10/24 16:23 Dose: 975 mg Documented By: DEL Albuterol Sulfate (Albuterol Sulfate (0.083%) 2.5 Mg/3 Ml Vial.Neb) 2.5 mg INHALE Q3H PRN PRN Reason: Shortness of Breath/Wheezing Albuterol Sulfate (Albuterol Sulfate 90 Mcg 8 Gm Inhaler) 2 puff INHALE Q4H PRN PRN Reason: SOB/Wheezing Amlodipine Besylate (Amlodipine Besylate 5 Mg Tablet) 5 mg PO DAILY [facility]; Protocol Last Admin: 05/12/24 08:12 Dose: 5 mg Documented By: JEANETTE Aspirin (Aspirin Enteric Coated 81 Mg Tablet.) 81 mg PO DAILY [facility] Last Admin: 05/12/24 08:11 Dose: 81 mg Documented By: JEANETTE Atenolol (Atenolol 100 Mg Tablet) 100 mg PO DAILY [facility]; Protocol Last Admin: 05/12/24 08:12 Dose: 100 mg Documented By: JEANETTE Cyanocobalamin (Cyanocobalamin (Vitamin B-12) 1,000 Mcg Tablet) 1,000 mcg PO DAILY@1400 [facility] Last Admin: 05/11/24 14:47 Dose: Not Given Documented By: DOBROB Non-Admin Reason: Off Unit: Surgery Docusate Sodium (Docusate Sodium 100 Mg Capsule) 100 mg PO DAILY PRN PRN Reason: constipation Folic Acid (Folic Acid 1 Mg Tablet) 1 mg PO DAILY@1400 [facility] Last Admin: 05/11/24 14:47 Dose: Not Given Documented By: BRYSON Non-Admin Reason: Off Unit: Surgery Glucose (Glucose Gel 15 Gm Gel..Gram.) 15 gm PO Q15M PRN; Protocol PRN Reason: per Hypoglycemia Standing Ord. Heparin Sodium (Porcine) (Heparin Sodium,Porcine 5,000 Unit/Ml Vial) 5,000 unit SUBCUT Q12H [facility] Last Admin: 05/12/24 08:11 Dose: 5,000 unit Documented By: JEANETTE Dextrose (D10) 250 mls @ 750 mls/hr IV Q15M PRN; Protocol PRN Reason: per Hypoglycemia Standing Ord. Insulin Glargine (Insulin Glargine,Hum.Rec.Anlog 100 Unit/Ml 10 Ml Vial) 6 unit SUBCUT BEDTIME [facility] Last Admin: 05/11/24 20:54 Dose: 6 unit Documented By: HENRRY Insulin Human Lispro (Insulin Lispro 100 Unit/Ml 3 Ml Vial) 0 unit SUBCUT QIDACHS [facility]; Protocol Last Admin: 05/12/24 07:18 Dose: Not Given Documented By: JEANETTE Non-Admin Reason: No Insulin Coverage Levofloxacin (Levofloxacin 500 Mg Tablet) 500 mg PO Q24H [facility] Lisinopril (Lisinopril 40 Mg Tablet) 40 mg PO DAILY [facility]; Protocol Last Admin: 05/12/24 08:11 Dose: 40 mg Documented By: JEANETTE Magnesium Oxide (Magnesium Oxide 400 Mg Tablet) 400 mg PO BIDPC [facility] Last Admin: 05/12/24 08:11 Dose: 400 mg Documented By: JEANETTE Metronidazole (Metronidazole 500 Mg Tablet) 500 mg PO Q8H [facility] Last Admin: 05/12/24 09:02 Dose: 500 mg Documented By: JEANETTE Montelukast Sodium (Montelukast Sodium 10 Mg Tablet) 10 mg PO DAILY PRN PRN Reason: for allergies Morphine Sulfate (Morphine Sulfate 4 Mg/Ml Cartridge) 4 mg IVPUSH Q4H PRN; Protocol PRN Reason: Pain, Severe (Pain Scale 7-10) Omeprazole (Omeprazole 20 Mg Madiha.) 20 mg PO DAILY@0630 [facility] Last Admin: 05/12/24 06:04 Dose: 20 mg Documented By: HENRRY Prochlorperazine Edisylate (Prochlorperazine Edisylate 10 Mg/2 Ml Vial) 5 mg IVPUSH Q4H PRN PRN Reason: Nausea and Vomiting Last Admin: 05/11/24 20:53 Dose: 5 mg Documented By: HENRRY Sodium Chloride (0.9 % Sodium Chloride Flush 3 Ml Syringe) 3 ml IVFLUSH QSHIFT [facility] Last Admin: 05/12/24 07:18 Dose: 3 ml Documented By: JEANETTE Venlafaxine HCl (Venlafaxine Hcl Er 150 Mg Cap.Er.24h) 150 mg PO DAILY [facility] Last Admin: 05/12/24 08:12 Dose: 150 mg Documented By: JEANETTE Venlafaxine HCl (Venlafaxine Hcl Er 37.5 Mg Cap.Er.24h) 37.5 mg PO DAILY [facility] Last Admin: 05/12/24 08:12 Dose: 37.5 mg Documented By: JEANETTE Vitamin D (Cholecalciferol (Vitamin D3) 25 Mcg Tablet) 50 mcg PO DAILY [facility] Last Admin: 05/12/24 08:11 Dose: 50 mcg Documented By: JEANETTE Zonisamide (Zonisamide 100 Mg Capsule) 100 mg PO BEDTIME [facility] Last Admin: 05/11/24 20:55 Dose: 100 mg Documented By: HENRRY Labs 05/08/24 05:55 05/10/24 05:56 Labs: Laboratory Results - last 24 hr 05/11/24 05/11/24 05/11/24 11:44 16:17 20:42 POC Glucose 107 139 H 153 H 05/12/24 07:15 POC Glucose 98 Assessment and Plan (1) Choledocholithiasis: Status: Acute Plan 79-year-old female with history of ulcerative colitis, diverticulosis, chronic pancreatitis, GERD with history of cholecystectomy admitted for management of choledocholithiasis Acute choledocoliasis Low suspicion for cholangitis, but continue levaquin and flagyl for now per GI LFTs trending down, symptomatically improved MRCP showed filling defects suggestive of choledocolithiasis underwent ERCP with successful stone extraction 05/11/24 now tolerating solids Acute hypomagnesemia repleted Diabetes mellitus type 2 Sliding scale, ADA diet post ERCP Long-acting insulin ulcerative colitis no acute flare mild intermittent asthma no exacerbation, albuterol p.r.n. mood disorder continue home meds hypertension continue atenolol, lisinopril, amlodipine history CVA continue asa. hold statin due to elevated lfts Chronic normocytic anema above transfusion threshold dvt prophylaxis- heparin full code DISPO will likely need short-term rehab when medically clear, pt eval pending reason for continued hospitalization:pt eval pending for possible str Quality Stroke Does the patient have a stroke diagnosis?: No VTE Prior VTE?: No VTE Risk Level:: Medical - moderate - high VTE Device Contraindication: Treatment Not Indicated VTE Drug Contraindication: N/A - Med Ordered
--- NOTE | 2024-05-12 10:46 | P.DS_ITS ---
DS: Providers Provider Date of Service: 05/12/24 Date of admission: 05/07/24 21:57 Primary care physician: Martine Ding MD Consults: 05/07/24 22:01 Consult to Gastroenterology Routine Consulting Provider: Noemi Posey Reason for consultation: Abdominal pain, elevated LFTs Has provider been notified: Yes DS: Diagnosis Discharge Diagnosis (1) Choledocholithiasis: Status: Acute DS: Summary Hospital Course Hospital Course: from initial hpi: 79 years old woman with past medical history significant for s/p cholecystectomy and other abdominal surgeries, UC, diverticulosis, type 2 diabetes on insulin, hyperlipidemia, essential hypertension, chronic pancreatitis, asthma, depression, stroke and GERD presents to the emergency department complaining of 2 weeks history right upper quadrant pain associated with nausea, vomiting, diarrhea and jaundice. The pain is quite severe and does not radiate. Diarrhea was blurry 2 weeks ago but not anymore and has not had further episode lately. Denies fever, chills or confusion. She also denied any acute urinary symptoms however she noted that her urine is dark. Denied alcohol use, tobacco smoking or marijuana use. Recently (April 24) she was evaluated in the emergency department for the same symptoms and was considered to have ulcerative colitis flare and was discharged to take a course of prednisone. Abdominal pelvis CT scan with IV contrast (2023) - unremarkable sigmoid anastomosis, sigmoid diverticulosis without diverticulitis, no bowel obstructions and mild stool burden within the right colon. In the ED today, she was found to have stable vital signs. Blood workup is remarkable for elevated LFTs and hypomagnesemia. LFTs seems to be worsening when compared to dose obtained on April 24. Lipase now elevated. UA is normal. Abdominal ultrasound showed mild intrahepatic biliary ductal dilatation and somewhat bulbous course of the common bile duct (not able to be visualized in is entirely). ED tx: NS 2 L bolus, Zofran 4 mg IV, Levaquin 750 mg IV, Flagyl 500 mg IV, magnesium 2 g IV, morphine 4 mg IV. hospital course: Patient was admitted for abdominal pain due to acute choledocholithiasis. No evidence of cholangitis but she was empirically treated with IV antibiotics. Her LFTs down trended but MRCP did show filling defects to suggest choledocholithiasis. Underwent ERCP with successful stone extraction, diet was advanced and patient tolerating solids. For acute hypomagnesemia she received replacement. For diabetes was continued on insulin. For ulcerative colitis she remained stable. For mild intermittent asthma she was stable. For mood disorder and continued on home meds. For hypertension was continued on atenolol, lisinopril, amlodipine. For history of CVA was continued on aspirin, statin can be restarted. Patient was evaluated by Physical therapy who recommended home with services. Time Attestation Discharge Coordination Time (in mins): 34 Quality: Safe Use of Opioids Does Pt have an Active Cancer Diagnosis on the Problem List?: No Quality: Stroke Does the patient have a stroke diagnosis?: No Physical Exam Vital Signs: Vital Signs: Last Vital Signs Temp 96.9 F 05/12/24 07:17 Pulse 57 05/12/24 07:17 Resp 12 05/12/24 07:17 BP 162/71 H 05/12/24 07:17 Pulse Ox 97 05/12/24 07:17 O2 Del Method Room Air 05/12/24 07:17 BMI result Body Mass Index 29.1 General: AO X 3, no acute distress Resp: CTA bilateral, no accessory muscles used CVS: S1,S2,RRR GI: soft, non tender, non distended Neuro: motor grossly intact, alert Psych: appropriate affect, appropriate insight DS: Data Data Completed and Pending Labs on day of discharge: Laboratory Results - last 24 hr 05/11/24 05/11/24 05/11/24 11:44 16:17 20:42 POC Glucose 107 139 H 153 H 05/12/24 07:15 POC Glucose 98 Preliminary micro results at discharge 05/07/24 20:03 Blood Culture - Preliminary Blood - Venous No growth after 48 hours. 05/07/24 20:03 Blood Culture - Preliminary Blood - Venous No growth after 48 hours. Discharge Plan Discharge Anticipated Discharge Date/Time: 05/12/24 10:42 Patient Disposition: Home Health Service Discharge Diagnosis: Choledocholithiasis Referrals: [facility] [Outside] - 3-5 Days ([facility] will call you to schedule nursing and physical therapy appoinments.) Martine Davila MD [Primary Care Provider] - 1 Week Discharge Medications: Continued docusate sodium [Colace] 100 mg capsule 100 mg PO DAILY PRN (Reason: constipation) 90 Days Qty: 90 1RF (DME) FreeStyle Jessica 2 Sensor Kit See Rx Instructions .Route Qty: 7 5RF Rx Instructions: As directed change every 14 days (DME) Accu-Chek Guide test strips Strip See Rx Instructions .ROUTE .COMPLEX Qty: 400 2RF Dose Instruction: USE 1 STRIP 4 TIMES DAILY DIRECTED Rx Instructions: USE 1 STRIP 4 TIMES DAILY DIRECTED atorvastatin 80 mg tablet 80 mg PO DAILY Qty: 30 11RF lisinopril 40 mg tablet 40 mg PO DAILY Qty: 90 3RF (DME) blood pressure monitor Kit See Rx Instructions .Route Qty: 1 0RF Rx Instructions: As directed (DME) blood-glucose meter [Accu-Chek Guide Glucose Meter] Misc See Rx Instructions .Route Qty: 1 0RF Rx Instructions: As directed montelukast 10 mg tablet 10 mg PO DAILY PRN (Reason: for allergies) 30 Days Qty: 30 11RF Jentadueto 2.5-1,000 mg tablet 1 tab PO BID Qty: 60 11RF pantoprazole 40 mg tablet,delayed release (DR/EC) 40 mg PO DAILY Qty: 30 0RF (DME) pen needle, diabetic [BD Ultra-Fine Pam Pen Needle] 32 gauge x 5/32 needle See Rx Instructions .ROUTE .COMPLEX Qty: 400 11RF Dose Instruction: Use as directed 5 times daily Rx Instructions: Use as directed 5 times daily (DME) blood pressure monitor Kit See Rx Instructions .Route Qty: 1 0RF Rx Instructions: As directed atenolol 100 mg tablet 100 mg PO DAILY Qty: 30 11RF amlodipine 5 mg tablet 5 mg PO DAILY Qty: 30 11RF insulin lispro [Humalog KwikPen Insulin] 100 unit/mL insulin pen 10 unit subcut BID@0730,1630 Qty: 15 3RF Rx Instructions: 10 units in AM before breakfast, 12 units before lunch and 10 units before dinner venlafaxine [Effexor XR] 37.5 mg capsule,extended release 24hr 37.5 mg PO DAILY Rx Instructions: Along side 150mg in AM. folic acid 1 mg Tablet 1 mg PO DAILY@1400 venlafaxine 150 mg capsule,extended release 24hr 150 mg PO DAILY Rx Instructions: Along side 37.5mg cap in AM zonisamide 100 mg capsule 100 mg PO BEDTIME albuterol sulfate 90 mcg/actuation Hfa Aerosol Inhaler 2 puff INHALATION Q4H PRN (Reason: SOB/Wheezing) insulin degludec [Tresiba FlexTouch U-200] 200 unit/mL (3 mL) insulin pen 12 unit subcut BEDTIME Rx Instructions: If Blood Sugars go over 100 units inject 16-18 units. aspirin 81 mg tablet,delayed release (DR/EC) 81 mg PO DAILY Hold Instructions: Resume on 01/02/22. restart after repeating blood work in 1 week (DME) lancets [TRUEplus Lancets] 33 gauge misc See Rx Instructions .ROUTE .MEDSUPPLY Qty: 400 3RF Rx Instructions: four times a day mecobalamin (vitamin B12) 1,000 mcg tablet,disintegrating 1,000 mcg sublingual DAILY@1400 cholecalciferol (vitamin D3) 50 mcg (2,000 unit) capsule 50 mcg PO DAILY nitroglycerin 0.4 mg tablet, sublingual 0.4 mg sublingual Q5M PRN (Reason: chest pain) Qty: 30 6RF Rx Instructions: do not exceed 3 doses per episode (DME) FreeStyle Precision Vu Strips Strip See Rx Instructions .Route Qty: 50 4RF Rx Instructions: As directed tests 4 X/day Discharge Orders: Discharge Order (Routine); Ordered 05/12/24 Ordered By: Shayan Morgan Diet: Advance to usual diet Activity on Discharge: As tolerated Stand Alone Forms: Patient Portal Discharge page Print Language: Dominican Care Plan Goals: recovery Health Concerns: cbd stones Plan of Treatment: follow up with gi Assessment: see above Patient Instructions: Gallstones (GEN)
[2024-05-12 11:36] VITALS: BP 162/71; PULSE 57; O2SAT 97
[2024-05-12 11:36] LABS: Glucose, Whole Blood 186 mg/dL (60-115)
[2024-05-12] MEDS: Insulin Lispro 100 UNIT/ML 3 ML VIAL SUBCUT (11:37)
[2024-05-12] MEDS: Cyanocobalamin (Vitamin B-12) 1,000 MCG TABLET 1000 MCG PO (12:58)
[2024-05-12] MEDS: Folic Acid 1 MG TABLET PO (12:58)
--- NOTE | 2024-05-12 12:58 | W.MHC.F2F ---
Service Date Service Date: 05/12/24 Encounter Date of encounter: 05/12/24 Reasons for Services Signs and symptoms assessed: Gross deconditioning, impaired bed mobility, gait pattern, safety, standing balance, and transfer ability Muscle weakness Reason for detention: diabetic teaching, medication management, medication treatment and teach disease management Reason for physical therapy: home safety and mobility, therapeutic exercises and gait/transfer training Homebound: Leaving the home is medically contraindicated at this time without the asist of a device and/or another person due th the listed conditions above and below. Reason homebound: unsteady gait / fall risk Certification: Based on the above findings, I certify that this patient is confined to the home and needs intermittent detention care, physical therapy and/or speech therapy, or continues to need occupational therapy. The patient is under my care, and I have initiated the establishment of the plan of care. The patient will be followed by a physician who will periodically review the plan of care. Time Spent With Patient Time: Total time managing care of this patient today ____ minutes.
--- NOTE | 2024-05-12 13:08 | MHC.CM.PN ---
Addendum entered by Kell Goldberg RN 05/12/24 14:05: [facility] has accepted. Patient is aware. Original Note: Per MD medically cleared for dc home. PT recommending home services. No preference. Referrals sent via [facility]. Patient's daughter will transport home after 4pm. RN aware. [facility] delivered.
--- NOTE | 2024-05-12 14:12 | HO.POSTANES ---
Post Anesthesia Evaluation Post Anesthesia Evaluation Date of Service: 05/12/24 Vital Signs: Vital Signs Temp Pulse Resp BP Pulse Ox O2 Del Method 05/12/24 11:36 57 162/71 H 97 05/12/24 07:17 96.9 F 57 12 162/71 H 97 Room Air Anesthesia: General Endotracheal-GETA Mental Status: Awake Pain Control: Satisfactory Nausea/Vomiting: None Hydration: Adequate Anesthesia-Related Issues: No Anes. Related Issues
[2024-05-12 15:34] VITALS: BP 131/60; PULSE 58; RESP 18; TEMP 36.4; O2SAT 98
--- NOTE | 2024-05-12 15:45 | P.PNGI_ITS ---
Subjective Subjective Date of Service: 05/12/24 Interval History: seen this morning no pain, managing clears mild nausea overnight no fever Critical Care Time (minutes): 0 Physical Exam 2 Vital Signs: Vital Signs: Last Vital Signs Temp 97.5 F 05/12/24 15:34 Pulse 58 05/12/24 15:34 Resp 18 05/12/24 15:34 BP 131/60 05/12/24 15:34 Pulse Ox 98 05/12/24 15:34 O2 Del Method Room Air 05/12/24 15:34 BMI result Body Mass Index 29.1 EXAM: GENERAL: The patient is well developed and nontoxic. VITAL SIGNS:see workflow HEENT: Nonicteric sclerae, PERRLA, EOMI. Oropharynx clear. Moist mucous membranes. Conjunctivae appear well perfused. No thyroid mass. CHEST: Chest wall is nontender. HEART: Regular rate and rhythm without murmurs. LUNGS: Clear to auscultation bilaterally. ABDOMEN: Soft, positive bowel sounds, nontender, no organomegaly.no flank tenderness SKIN: No rash, no excessive bruising, petechiae, or purpura. NEUROLOGIC: Cranial nerves II-XII intact without motor/sensory deficit. Psych: normal affect Objective Data Labs 05/08/24 05:55 05/10/24 05:56 Labs: Laboratory Results - last 24 hr 05/11/24 05/11/24 05/12/24 16:17 20:42 07:15 POC Glucose 139 H 153 H 98 05/12/24 11:28 POC Glucose 186 H Microbiology Microbiology Results: Microbiology 05/07/24 20:03 Blood - Venous Blood Culture - Preliminary No growth after 48 hours. 05/07/24 20:03 Blood - Venous Blood Culture - Preliminary No growth after 48 hours. Procedures Date of Service Date of Service: 05/12/24 Progress Note: A&P Assessment and plan (1) Choledocholithiasis: Status: Acute Plan 1/ Choledocholithiasis, s/p ERCP with stone extraction, no evidence of post ERCP pancreatitis PLAN; 1/ Advance diet, if no pain can go home today, if having abdo pain then recheck LFT and lipase Time Spent With Patient Time: Total time managing care of this patient today ____ minutes. Quality Stroke Does the patient have a stroke diagnosis?: No VTE Prior VTE?: No VTE Risk Level:: Medical - moderate - high VTE Device Contraindication: Treatment Not Indicated VTE Drug Contraindication: N/A - Med Ordered
[2024-05-12 16:23] LABS: Glucose, Whole Blood 149 mg/dL (60-115)
== END 2024-05-12 17:42 | disposition home health service (06) | DRG 446 ==
LOC: HO.ED 21:13 → HO.EDOVER 22:01 → HO.S3 05-08 00:47
PROVIDERS: Internal Medicine Gastroenterology; Nurse Practitioner Acute Care; Physician Assistant; Physician Assistant Medical; Admitting Provider Internal Medicine; Emergency Provider Emergency Medicine; PCP Internal Medicine; Visit Provider Internal Medicine
PROC: 0FC98ZZ Extirpation of Matter from Common Bile Duct, Via Natural or Artificial Opening Endoscopic (ICD-10-PCS; CPT 43260; principal; 2024-05-11 14:00)
DX: K80.50 Calculus of bile duct without cholangitis or cholecystitis without obstruction (principal); I25.10 Atherosclerotic heart disease of native coronary artery without angina pectoris; E83.42 Hypomagnesemia; I10 Essential (primary) hypertension; F39 Unspecified mood [affective] disorder; E11.9 Type 2 diabetes mellitus without complications; J45.20 Mild intermittent asthma, uncomplicated; Z20.822 Contact with and (suspected) exposure to COVID-19; Z86.73 Personal history of transient ischemic attack (TIA), and cerebral infarction without residual deficits; Z79.4 Long term (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; Z79.82 Long term (current) use of aspirin; Z79.899 Other long term (current) drug therapy; Z79.84 Long term (current) use of oral hypoglycemic drugs
CPT/HCPCS: 0241U; 36415; 74181; 76705; 80048; 80053; 80076; 80143; 80179; 81003; 82248; 82947; 83605; 83690; 83735; 85025; 85610; 85730; 86704; 86706; 86709; 86803; 87040; 87340; 93005; 97162; 99285; C1769; C1887; C9113; J0737; J1610; J1644; J1836; J1956; J2270; J2405; J2704; J3010; J3475; J7120; Q9967

== ENCOUNTER 2024-05-07 21:57 | Outpatient (BNV) | payer MEDICARE, SELFPAY | END 2024-05-11 15:24 | PROVIDERS: Admitting Provider Internal Medicine; Emergency Provider Emergency Medicine; PCP Internal Medicine; Visit Provider Internal Medicine | DX: R07.9 Chest pain, unspecified (principal) | CPT/HCPCS: 93010 ==

== ENCOUNTER → 2024-05-07 21:57 | Outpatient (BNV) | payer MEDICARE, SELFPAY | PROVIDERS: Admitting Provider Internal Medicine; Emergency Provider Emergency Medicine; PCP Internal Medicine; Visit Provider Internal Medicine | DX: K80.50 Calculus of bile duct without cholangitis or cholecystitis without obstruction (principal) | CPT/HCPCS: 99223; 99232; 99239; 99499; G0180 ==

== ENCOUNTER → 2024-05-07 21:57 | Outpatient (BNV) | payer MEDICARE, SELFPAY | PROVIDERS: Admitting Provider Internal Medicine; Emergency Provider Emergency Medicine; PCP Internal Medicine; Visit Provider Internal Medicine Gastroenterology | DX: R79.89 Other specified abnormal findings of blood chemistry (principal); K80.50 Calculus of bile duct without cholangitis or cholecystitis without obstruction | CPT/HCPCS: 43277; 99223; 99232 ==

== ENCOUNTER 2024-05-21 14:41 | Outpatient (AMB) | payer MEDICARE, SELFPAY ==
--- NOTE | 2024-05-21 14:45 | A.OFFPC_ITS ---
Vital Signs 05/21/24 14:47 Height 5 ft Weight 143 lb BMI 27.9 BP 112/64 Blood Pressure Location Lt brachial Position Sitting Pulse 67 Pulse Source Pulse Oximeter Pulse Oximetry (%) 100 Oxygen Delivery Method Room Air Intake Visit Reasons: [facility] [place] 05/14 Liver Surgery Intake Note: Patient is here for hospital discharge follow up. Patient was discharged from [facility] [place] on 05/14/24. Prospecting Driller Helper Required: No Distance Education Faculty Liaison: Not Required per policy Accompanied by: Self / Same As Patient Allergies Penicillins [PENICILLINS] Allergy (Severe, Verified 05/21/24 14:47) ANAPHYLAXIS Sulfa (Sulfonamide Antibiotics) [SULFA (SULFONAMIDE ANTIBIOTICS)] Allergy (Severe, Verified 05/21/24 14:47) ANAPHYLAXIS codeine Allergy (Intermediate, Verified 05/21/24 14:47) headache/mood changes dulaglutide [From Trulicity] Allergy (Intermediate, Verified 05/21/24 14:47) Nausea and Vomiting latanoprost Adverse Reaction (Intermediate, Verified 05/21/24 14:47) eye redness Oinion Allergy (Severe, Uncoded 05/21/24 14:52) Vomiting Tobacco use date assessed: 05/21/24 Fall risk assessment: No Falls in past year Last assessed Fall Risk: 05/21/24 Dental Screening Dental Screen Date: 01/07/24 HPI HPI Comments History of Present Illness Details 79 y/o female patient who presents to [facility] today for HDF. She was admitted at [facility] [place] for Abdominal pain, nausea and vomiting. DOS: 05/07/24 and DOD: 05/12/24. Diagnosis of Choledocholithiasis. Today reports feeling much better and continues f/u with GI specialists. Pt informs me that Dr. Salter (Endo) has discharged her from the practice, because her DM has been well controlled. Pt would like to discuss with PCP regarding DM medication changes. And she would also like to see Lpn Or Medical Assistant. 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 Type 2 diabetes mellitus with unspecified complications Atherosclerotic cardiovascular disease Surgical History Hx of eye surgery Hx of colonoscopy History of esophagogastroduodenoscopy (EGD) History of colon resection History of appendectomy History of kidney surgery History of intestinal surgery Hx of cholecystectomy History of liver biopsy History of bladder surgery Hx of hysterectomy Family History Father Cardiovascular disease Cancer Mother Cardiovascular disease Sister Diabetes Brother Diabetes Other Mental health disorder Social History Household Members: None Housing: Apartment Are you a primary day care attendant to a significant other at home: No Do you presently have visiting nurse or other home services: Yes Alcohol intake: never Comment: SEIZURE PRECAUTIONS Patient Tobacco Use Status: Never used Tobacco e-Cigarette/Vaping Use: Never Used Second Hand Smoke Exposure: No Advance Directives Date on File: 08/25/23 service: No Current occupational status: retired Cognitive needs: Yes Hearing needs: No Vision needs: Yes Questionnaire Thrive Questionnaire Date Thrive assessed: 05/08/24 PARVEEN-7 AMB Questionnaire PARVEEN-7 Date PARVEEN - 7 assessed: 01/07/24 Source: Developed by Drs. Osmar Hoyt, Jessie Vanessa, Gurmeet Frey and colleagues, with an educational pippa from [employer]. Review of Systems Const All systems reviewed & are unremarkable except as noted in HPI and below Physical exam (Primary Care) Vital Signs: Last Vital Signs Pulse 67 05/21/24 14:47 BP 112/64 05/21/24 14:47 Pulse Ox 100 05/21/24 14:47 Oxygen Delivery Method Room Air 05/21/24 14:47 BMI result Body Mass Index 27.9 Tobacco/Smoking Status: Tobacco use Status Tobacco use date assessed 05/21/24 05/21/24 14:54 Patient Tobacco Use Status Never used Tobacco 05/21/24 14:54 e-Cigarette/Vaping Use Never Used 05/21/24 14:54 Thrive Assessment: Date of Thrive Assessment Date Thrive assessed 05/08/24 05/21/24 14:54 Const General: comfortable and no acute distress Nutritional Appearance: obese Orientation/consciousness: patient oriented x3 Resp Effort & Inspection: normal respiratory effort Auscultation: clear to auscultation bilaterally Cardio Heart sounds: S1 normal heart sound present and S2 normal heart sound present GI Inspection: Yes obesity Palpation (GI): Soft to palpation, not firm, nontender, no guarding, not rigid and No hepatosplenomegaly present Auscultation: normal bowel sounds Neuro General: patient oriented x3, gait normal and moves all extremities Psych Speech and movement: Normal speech and movement present Vital Signs: Last Vital Signs Pulse 67 05/21/24 14:47 BP 112/64 05/21/24 14:47 Pulse Ox 100 05/21/24 14:47 Oxygen Delivery Method Room Air 05/21/24 14:47 BMI result Body Mass Index 27.9 Const General: comfortable and no acute distress Nutritional Appearance: obese Orientation/consciousness: patient oriented x3 Resp Effort & Inspection: normal respiratory effort Auscultation: clear to auscultation bilaterally Cardio Heart sounds: S1 normal heart sound present and S2 normal heart sound present GI Inspection: Yes obesity Palpation (GI): Soft to palpation, not firm, nontender, no guarding, not rigid a nd No hepatosplenomegaly present Auscultation: normal bowel sounds Neuro General: patient oriented x3, gait normal and moves all extremities Psych Speech and movement: Normal speech and movement present Assessment and Plan Assessment & Plan (1) Choledocholithiasis: Code(s): K80.50 - Calculus of bile duct without cholangitis or cholecystitis without obstruction Plan: Resolved after ERCP Stable and continues to recover at home (2) Nausea & vomiting: Code(s): R11.2 - Nausea with vomiting, unspecified Qualifiers: Vomiting type: unspecified Qualified Code(s): R11.2 - Nausea with vomiting, unspecified Plan: Improving, continues to use Zofran PRN Avoid Oily and greasy foods Plan Pt to make a f/u Appointment with PCP to discuss DM Care. Messaged PCP to place referral to Lpn Or Medical Assistant as requested by Patient. Medications: New ondansetron 8 mg PO Q8H 60 tabs 0RF R11.2 - Nausea with vomiting, unspecified Coding Level of Care Code Est Pt Level 4 (65629) Diagnoses Choledocholithiasis K80.50 Nausea and vomiting, unspecified vomiting type R11.2 Vomiting type: unspecified Comment Spent 20 minutes reviewing Hospital notes and labs.
[2024-05-21 14:47] VITALS: BP 112/64; PULSE 67; O2SAT 100; BMI 27.9
== END 2024-05-21 15:17 | disposition home or self-care (01) ==
LOC: HO.HMGH 14:41
PROVIDERS: PCP Internal Medicine; Visit Provider Nurse Practitioner Family
DX: K80.50 Calculus of bile duct without cholangitis or cholecystitis without obstruction (principal); R11.2 Nausea with vomiting, unspecified
CPT/HCPCS: 99214

== ENCOUNTER 2024-05-27 11:33 | Outpatient (AMB) | payer MEDICARE, SELFPAY ==
[2024-05-27 11:34] VITALS: BMI 28.1
--- NOTE | 2024-05-27 11:34 | A.OFFVIS_ITS ---
VS Expanded 05/27/24 11:34 06/02/24 09:37 Height 5 ft 5 ft Weight 143 lb 11.862 oz 144 lb BMI 28.1 28.1 Intake Visit Reasons: T2DM/CONFIRMED Allergies Penicillins [PENICILLINS] Allergy (Severe, Verified 05/21/24 14:47) ANAPHYLAXIS Sulfa (Sulfonamide Antibiotics) [SULFA (SULFONAMIDE ANTIBIOTICS)] Allergy (Severe, Verified 05/21/24 14:47) ANAPHYLAXIS codeine Allergy (Intermediate, Verified 05/21/24 14:47) headache/mood changes dulaglutide [From Trulicity] Allergy (Intermediate, Verified 05/21/24 14:47) Nausea and Vomiting latanoprost Adverse Reaction (Intermediate, Verified 05/21/24 14:47) eye redness Oinion Allergy (Severe, Uncoded 05/21/24 14:52) Vomiting Nutrition Presentation Details: Pt presents for MNT for T2DM Pt was referred by Dr. Villagomez, PCP Patient reports she prepares own meal Tried Meals on Smartpays program in the past but did not tolerate. Patient reports GI symptoms she since childhood Pt reports working on increasing protein via protein powder, reports blenderizing some protein (chicken) and adding to soups does ok with lactose free milk (tolerates almond milk ) reports having oatmeal - high protein fruit cup or smoothie with orgain protein powder 4pm : soup with chicken puree , blenderized corn ,carrots , 1/2 cup of chicken blenderized and toast and applesauce Physical activity: Daily life activities Alcohol/smoking: Denies BS Monitoring Most Recent Diabetes Results: Creatinine 0.86 mg/dL (0.5-1.4) 05/10/24 Blood Urea Nitrogen 6 mg/dL (9-16) L 05/10/24 Sodium 140 mmol/L (135-145) 05/10/24 Potassium 3.9 mmol/L (3.3-5.1) 05/10/24 Chloride 113 mmol/L (96-108) H 05/10/24 Carbon Dioxide 22 mmol/L (22-29) 05/10/24 Calcium 9.5 mg/dL (8.4-10.2) 05/10/24 AST 67 U/L (5-31) H 05/10/24 ALT 104 U/L (0-31) H 05/10/24 Total Protein 5.7 g/dL (6.5-8.0) L 05/10/24 Albumin 3.0 g/dL (3.5-5.0) L 05/10/24 KUQ-Bukqeng-OrGurinder Equation Height: 5 ft Weight: 144 lb Resting Metabolic Rate: 1050.42 Calculated Activity Level: Sedentary Calories Needed to Maintain Weight: 1260.50 Diagnosis Nutrition problem #1: food nutri know defi As related to (etiology) #1: diagnosis Nutrition problem #2: food nutri know defi [facility] Medical History Dizziness Mild recurrent major depression Epilepsy Stroke Colitis Major depression, recurrent Memory change Neuropathy Seizures Glaucoma Myocardial infarction Acid reflux Type 2 diabetes mellitus with diabetic polyneuropathy Type 2 diabetes mellitus with hyperglycemia 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 LDL goal <70 Obesity due to excess calories BMI 34.0-34.9,adult 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, unspecified 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 Type 2 diabetes mellitus with unspecified complications Atherosclerotic cardiovascular disease Surgical History Hx of eye surgery Hx of colonoscopy History of esophagogastroduodenoscopy (EGD) History of colon resection History of appendectomy History of kidney surgery History of intestinal surgery Hx of cholecystectomy History of liver biopsy History of bladder surgery Hx of hysterectomy Family History Father Cardiovascular disease Cancer Mother Cardiovascular disease Sister Diabetes Brother Diabetes Other Mental health disorder Social History Household Members: None Housing: Apartment Are you a primary vocational childcare teacher to a significant other at home: No Do you presently have visiting nurse or other home services: Yes Alcohol intake: never Comment: SEIZURE PRECAUTIONS Patient Tobacco Use Status: Never used Tobacco e-Cigarette/Vaping Use: Never Used Second Hand Smoke Exposure: No Advance Directives Date on File: 08/25/23 service: No Current occupational status: retired Cognitive needs: Yes Hearing needs: No Vision needs: Yes Assessment & Plan Assessment & Plan (1) Diabetes mellitus, with long-term current use of insulin: Code(s): E11.9 - Type 2 diabetes mellitus without complications; Z79.4 - 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 Category: Medical Plan: Wt: 65 Kg ( 05/2024 ) Est kcal needs as per MSJ: 5196-9262 (40% carb, 30% protein/fat) Est fluid needs as per 25-30 ml/d: 1963 Est prot per day as per 1 g/kg bw: 65 Recommend fiber intake : 8-10 g per day and gradually increase to 25-28 g per day for women and 35-38 g for men or as tolerated Recommend sodium intake per day : less than 2000 mg Educated patient on: ( R = reviewed V = verbalizes understanding N/R = needs review N/A = not applicable * Food sources of carbohydrate, adequate serving sizes and its role in various health conditions: R * Differences between complex carbohydrates a simple carbohydrates, role of fiber in diet: R V N/R * Lean protein sources of foods: R * Differences between types of fats and role in diet (mono on saturated fat fatty acids, saturated fatty acids, trans fats): R V N/R * Food sources of sodium in salt and healthy modifications for heart health in kidney health: R V R/V * Vitamins and minerals: R V N/R * Healthy plate method concept: R * Physical activity: Benefits a precaution: R Patient Instructions: Include 1-2 servings of protein to each meals (adding 21 g of protein per day ) by adding soft tofu to rice meals Add 1/2 scoop of protein powder to cereals Coding Level of Care Code Nutr Indiv Intake (32773) Diagnoses Diabetes mellitus, with long-term current use of insulin E11.9; Z79.4 Time Spent (min) 30
[2024-06-02 09:37] VITALS: BMI 28.1
== END 2024-05-27 12:16 | disposition home or self-care (01) ==
LOC: HO.ENCR 11:33
PROVIDERS: PCP Internal Medicine; Visit Provider Dietitian, Registered
DX: E11.9 Type 2 diabetes mellitus without complications (principal); Z79.4 Long term (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

== ENCOUNTER → 2024-05-27 11:33 | Outpatient (BNVA) | payer MEDICARE, SELFPAY | PROVIDERS: PCP Internal Medicine; Visit Provider Dietitian, Registered | DX: E11.9 Type 2 diabetes mellitus without complications (principal); Z71.3 Dietary counseling and surveillance | CPT/HCPCS: 97802 ==

== ENCOUNTER 2024-06-29 12:12 | Outpatient (AMB) | payer MEDICARE, SELFPAY ==
--- NOTE | 2024-06-29 12:36 | MHC.AMNUTRGE ---
VS Expanded 06/29/24 12:37 Height 5 ft Weight 139 lb 15.896 oz BMI 27.3 Intake Visit Reasons: T2DM/CONFIRMED Allergies Penicillins [PENICILLINS] Allergy (Severe, Verified 07/05/24 11:14) ANAPHYLAXIS Sulfa (Sulfonamide Antibiotics) [SULFA (SULFONAMIDE ANTIBIOTICS)] Allergy (Severe, Verified 07/05/24 11:14) ANAPHYLAXIS codeine Allergy (Intermediate, Verified 07/05/24 11:14) headache/mood changes dulaglutide [From Trulicity] Allergy (Intermediate, Verified 07/05/24 11:14) Nausea and Vomiting latanoprost Adverse Reaction (Intermediate, Verified 07/05/24 11:14) eye redness Oinion Allergy (Severe, Uncoded 07/05/24 11:14) Vomiting Nutrition Presentation Details: Pt presents for MNT f/u for T2DM Pt reports working on meal planning, following healthy plate method . No questions or concerns expressed at this time. BS Monitoring Most Recent Diabetes Results: Creatinine 0.86 mg/dL (0.5-1.4) 05/10/24 Blood Urea Nitrogen 6 mg/dL (9-16) L 05/10/24 Sodium 140 mmol/L (135-145) 05/10/24 Potassium 3.9 mmol/L (3.3-5.1) 05/10/24 Chloride 113 mmol/L (96-108) H 05/10/24 Carbon Dioxide 22 mmol/L (22-29) 05/10/24 Calcium 9.5 mg/dL (8.4-10.2) 05/10/24 AST 67 U/L (5-31) H 05/10/24 ALT 104 U/L (0-31) H 05/10/24 Total Protein 5.7 g/dL (6.5-8.0) L 05/10/24 Albumin 3.0 g/dL (3.5-5.0) L 05/10/24 [facility] Medical History Dizziness Mild recurrent major depression Epilepsy Stroke Colitis Major depression, recurrent Memory change Neuropathy Seizures Glaucoma Myocardial infarction Acid reflux Type 2 diabetes mellitus with diabetic polyneuropathy Type 2 diabetes mellitus with hyperglycemia 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 LDL goal <70 Obesity due to excess calories BMI 34.0-34.9,adult 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, unspecified Essential hypertension 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 Type 2 diabetes mellitus with unspecified complications Atherosclerotic cardiovascular disease Surgical History Hx of eye surgery Hx of colonoscopy History of esophagogastroduodenoscopy (EGD) History of colon resection History of appendectomy History of kidney surgery History of intestinal surgery Hx of cholecystectomy History of liver biopsy History of bladder surgery Hx of hysterectomy Family History Father Cardiovascular disease Cancer Mother Cardiovascular disease Sister Diabetes Brother Diabetes Other Mental health disorder Social History Household Members: None Housing: Apartment Are you a primary care manager to a significant other at home: No Do you presently have visiting nurse or other home services: Yes Alcohol intake: never Comment: SEIZURE PRECAUTIONS Patient Tobacco Use Status: Never used Tobacco e-Cigarette/Vaping Use: Never Used Second Hand Smoke Exposure: No Advance Directives Date on File: 08/25/23 service: No Current occupational status: retired Cognitive needs: Yes Hearing needs: No Vision needs: Yes Assessment & Plan Assessment & Plan (1) Diabetes mellitus, with long-term current use of insulin: Code(s): E11.9 - Type 2 diabetes mellitus without complications; Z79.4 - termination clerk (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 Category: Medical Plan: Wt: 65 Kg ( 05/2024 ), 64 kg (06/2024) Est kcal needs as per MSJ: 8670-1625 (40% carb, 30% protein/fat) Est fluid needs as per 25-30 ml/d: 1963 Est prot per day as per 1 g/kg bw: 65 Recommend fiber intake : 8-10 g per day and gradually increase to 25-28 g per day for women and 35-38 g for men or as tolerated Recommend sodium intake per day : less than 2000 mg Educated patient on: ( R = reviewed V = verbalizes understanding N/R = needs review N/A = not applicable Food sources of carbohydrate, adequate serving sizes and its role in various health conditions: R Differences between complex carbohydrates a simple carbohydrates, role of fiber in diet: R V N/R Lean protein sources of foods: R Differences between types of fats and role in diet (mono on saturated fat fatty acids, saturated fatty acids, trans fats): R V N/R Food sources of sodium in salt and healthy modifications for heart health in kidney health: R V R/V Vitamins and minerals: R V N/R Healthy plate method concept: R Physical activity: Benefits a precaution: R Patient Instructions: Keep hydrated by having water with meals , snacks Include omega 3 source of foods , 1-2 serving daily (plant oils, fish, nuts/seeds) Coding Level of Care Code Nutr Indiv Subseq (96615) Diagnoses Diabetes mellitus, with long-term current use of insulin E11.9; Z79.4 Time Spent (min) 30
[2024-06-29 12:37] VITALS: BMI 27.3
== END 2024-06-29 13:05 | disposition home or self-care (01) ==
PROVIDERS: PCP Internal Medicine; Visit Provider Dietitian, Registered
DX: E11.9 Type 2 diabetes mellitus without complications (principal); Z79.4 Long term (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

== ENCOUNTER → 2024-06-29 12:12 | Outpatient (BNVA) | payer MEDICARE, SELFPAY | PROVIDERS: PCP Internal Medicine; Visit Provider Dietitian, Registered | DX: E11.65 Type 2 diabetes mellitus with hyperglycemia (principal); E11.42 Type 2 diabetes mellitus with diabetic polyneuropathy; Z79.4 Long term (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; E78.5 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, unspecified; E66.01 Morbid (severe) obesity due to excess calories; Z68.27 Body mass index [BMI] 27.0-27.9, adult; Z71.3 Dietary counseling and surveillance | CPT/HCPCS: 97803 ==

== ENCOUNTER 2024-07-05 10:57 | Outpatient (AMB) | payer MEDICARE, SELFPAY ==
--- NOTE | 2024-07-05 10:58 | A.OFFVIS_ITS ---
Vital Signs 07/05/24 10:59 Height 5 ft Weight 141 lb 1.533 oz BMI 27.6 BP 152/47 H Blood Pressure Location Lt brachial Position Sitting Pulse 69 Intake Visit Reasons: 8 week f/u Intake Note: Jennifer presents in the office as a 8 week follow up. CC: She states that the she was in the ED - she states that her rectum had to be closed. She states that the Dr put his finger in the wrong hole and now there is two holes and it makes it hard for her to have a BM. She states that once she had her surgery her bowels have gotten a lot more normal. No more diarrhea. Chiller Tender Required: No Allergies Penicillins [PENICILLINS] Allergy (Severe, Verified 07/05/24 11:14) ANAPHYLAXIS Sulfa (Sulfonamide Antibiotics) [SULFA (SULFONAMIDE ANTIBIOTICS)] Allergy (Severe, Verified 07/05/24 11:14) ANAPHYLAXIS codeine Allergy (Intermediate, Verified 07/05/24 11:14) headache/mood changes dulaglutide [From Trulicity] Allergy (Intermediate, Verified 07/05/24 11:14) Nausea and Vomiting latanoprost Adverse Reaction (Intermediate, Verified 07/05/24 11:14) eye redness Oinion Allergy (Severe, Uncoded 07/05/24 11:14) Vomiting HPI HPI 8 week f/u: Details: 79 years old woman with hx of cholecystectomy and other abdominal surgeries, UC, diverticulosis, type 2 diabetes on insulin, hyperlipidemia, essential hypertension, chronic pancreatitis, asthma, depression, stroke and GERD who I am seeing for f/u RECAP: seen initially as in patient 12/2021 Patient had sudden onset lower abdominal pain for few days with nausea and non bloody emesis. She then developed bloody diarrhea. On day he sx had commenced she had dinner spinach and artichoke dip and chicken, and symptoms seem to have started shortly after eating this. she has never been a heavy drinker Labs revealed leukocytosis of 16.2. H/H was stable, lactive acid normal. Heme occult was positive. Imaging: CT scan of the abdomen/pelvis with inflammed bowel descending and transverse possibly suggestive of ischemic or infectious/inflammatory colitis, perisplenic varices and atrophic pancreas (never been a heavy drinker) She was started on IV levaquin and flagyl and symptoms improved I ordered repeat CT due to some ongoing sx 01/07/22 Multiple tyshawn splenic varices large vol stool in the large post cholecystectomy LABS: 2021--- neg celiac, neg intrinsic and parietal Ab EGD/colo: 11/2022 Endoscopy Findings: gastritis had dilation of esophagus as well Colonoscopy Findings: internal hemorrhoids diverticular disease bx with focal colitis and gastritis She had admission with choledocholithiasis and had ERCP with stone extraction 05/2024 INTERIM: she had a rectal exma during her stay last admission, she had hx of rectal surgery and something was reopened with lots of blood noted at the time-she has hx of rectosigmoid anastomosis and stool seems like its blocked, she feels something is wrong she feels better since her ERCP EXAM: GENERAL: The patient is well developed and nontoxic. VITAL SIGNS:see workflow HEENT: Nonicteric sclerae, PERRLA, EOMI. Oropharynx clear. Moist mucous membranes. Conjunctivae appear well perfused. No thyroid mass. CHEST: Chest wall is nontender. HEART: Regular rate and rhythm without murmurs. LUNGS: Clear to auscultation bilaterally. ABDOMEN: Soft, positive bowel sounds, nontender, no organomegaly.no flank tenderness SKIN: No rash, no excessive bruising, petechiae, or purpura. NEUROLOGIC: Cranial nerves II-XII intact without motor/sensory deficit. Psych: normal affect A/P: 1/ Abn bowel habit --I looked at the anal area, and it was hard for me to approeciate the anatomy, she also had fistual in the apst and thinks stool maight be coming out of the vagina PLAN: 1/ refer dr gillette for further work up and consult [facility] Medical History Dizziness Mild recurrent major depression Epilepsy Stroke Colitis Major depression, recurrent Memory change Neuropathy Seizures Glaucoma Myocardial infarction Acid reflux Type 2 diabetes mellitus with diabetic polyneuropathy Type 2 diabetes mellitus with hyperglycemia 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 LDL goal <70 Obesity due to excess calories BMI 34.0-34.9,adult 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, unspecified 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 Type 2 diabetes mellitus with unspecified complications Atherosclerotic cardiovascular disease Surgical History Hx of eye surgery Hx of colonoscopy History of esophagogastroduodenoscopy (EGD) History of colon resection History of appendectomy History of kidney surgery History of intestinal surgery Hx of cholecystectomy History of liver biopsy History of bladder surgery Hx of hysterectomy Family History Father Cardiovascular disease Cancer Mother Cardiovascular disease Sister Diabetes Brother Diabetes Other Mental health disorder Social History Household Members: None Housing: Apartment Are you a primary critical care unit manager to a significant other at home: No Do you presently have visiting nurse or other home services: Yes Alcohol intake: never Comment: SEIZURE PRECAUTIONS Patient Tobacco Use Status: Never used Tobacco e-Cigarette/Vaping Use: Never Used Second Hand Smoke Exposure: No Advance Directives Date on File: 08/25/23 service: No Current occupational status: retired Cognitive needs: Yes Hearing needs: No Vision needs: Yes Physical Exam Vital Signs: Last Vital Signs Pulse 69 07/05/24 10:59 BP 152/47 H 07/05/24 10:59 BMI result Body Mass Index 27.6 Assessment & Plan Assessment & Plan (1) Altered bowel habits: Code(s): R19.4 - Change in bowel habit Category: Medical Plan: see above Orders: Referrals General Surgery Referral R19.4 - Change in bowel habit Coding Level of Care Code Est Pt Level 3 (31485) Diagnoses Altered bowel habits R19.4
[2024-07-05 10:59] VITALS: BP 152/47; PULSE 69; BMI 27.6
== END 2024-07-05 15:52 | disposition home or self-care (01) ==
PROVIDERS: PCP Internal Medicine; Visit Provider Internal Medicine Gastroenterology
DX: R19.4 Change in bowel habit (principal)
CPT/HCPCS: 99213

== ENCOUNTER → 2024-07-05 10:57 | Outpatient (BNVA) | payer MEDICARE, SELFPAY | PROVIDERS: PCP Internal Medicine; Visit Provider Internal Medicine Gastroenterology | DX: R19.4 Change in bowel habit (principal) | CPT/HCPCS: 99212 ==

== ENCOUNTER 2024-07-21 08:23 | Outpatient (AMB) | payer MEDICARE, SELFPAY ==
--- NOTE | 2024-07-21 09:15 | A.OFFVIS_ITS ---
Vital Signs 07/21/24 09:16 Height 5 ft Weight 142 lb BMI 27.7 Intake Visit Reasons: colo vaginal fistula Intake Note: Patient presents for colovaginal fistula. Pt c/o; reports no complaints. 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 Segment Assembler Required: No Accompanied by: Isara-Care worker Allergies Penicillins [PENICILLINS] Allergy (Severe, Verified 07/26/24 09:54) ANAPHYLAXIS Sulfa (Sulfonamide Antibiotics) [SULFA (SULFONAMIDE ANTIBIOTICS)] Allergy (Severe, Verified 07/26/24 09:54) ANAPHYLAXIS codeine Allergy (Intermediate, Verified 07/26/24 09:54) headache/mood changes dulaglutide [From Trulicity] Allergy (Intermediate, Verified 07/26/24 09:54) Nausea and Vomiting latanoprost Adverse Reaction (Intermediate, Verified 07/26/24 09:54) eye redness Oinion Allergy (Severe, Uncoded 07/26/24 09:54) Vomiting Medication List - Last Reconciled 07/21/24 by Rudy Gibbons MD albuterol sulfate 90 mcg/actuation 2 puffs inhalation Q4H PRN 30 days amlodipine 5 mg PO DAILY aspirin 81 mg PO DAILY atenolol 100 mg PO DAILY atorvastatin 80 mg PO DAILY blood pressure monitor As directed blood pressure monitor As directed blood sugar diagnostic (Accu-Chek Guide test strips) USE 1 STRIP 4 TIMES DAILY DIRECTED blood sugar diagnostic (FreeStyle Precision Vu Strips) As directed tests 4 X/day blood-glucose meter (Accu-Chek Guide Glucose Meter) As directed cholecalciferol (vitamin D3) 50 mcg PO DAILY docusate sodium (Colace) 100 mg PO DAILY PRN 90 days flash glucose sensor (FreeStyle Jessica 2 Sensor kit) As directed change every 14 days folic acid 1 mg PO DAILY@1400 insulin degludec (Tresiba FlexTouch U-200 insulin) 12 units subcut BEDTIME insulin lispro (Humalog KwikPen (U-100) Insulin) 10 units (0.1 mL) subcut BID@0730,1630 lancets (TRUEplus Lancets) four times a day linagliptin-metformin 2.5-1,000 mg (Jentadueto) 1 tab PO BID lisinopril 40 mg PO DAILY mecobalamin (vitamin B12) 1,000 mcg sublingual DAILY@1400 montelukast 10 mg PO DAILY PRN 30 days nitroglycerin 0.4 mg sublingual Q5M PRN ondansetron 8 mg PO Q8H oxycodone 5 mg PO TID PRN pantoprazole 40 mg PO DAILY pen needle, diabetic (BD Ultra-Fine Pam Pen Needle) Use as directed 5 times daily venlafaxine ER (Effexor XR) 37.5 mg PO DAILY venlafaxine ER 150 mg PO DAILY zonisamide 100 mg PO BEDTIME HPI HPI colo vaginal fistula: Details: [age] year old female referred to me because of a question of a fistula. The patient has an extensive surgical history. She says that about 50 years ago, when she had childbirth, she developed a fistula along with incontinence after an episiotomy. She said since that time she probably has had 10 surgeries for this It appears that she also had a seton placed before. She says her last surgery was 2015 and Rachel. She says that part of her rectum was ?closed up?. She feels that this part of the rectum has opened up again and she sees stool coming from this ?old rectum?. She describes incontinence as well. She otherwise does not really know the details of her surgical history She had an ERCP last May, for a CBD stones. She also had a colonoscopy and EGD before that. 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 Type 2 diabetes mellitus with unspecified complications Atherosclerotic cardiovascular disease Surgical History Hx of eye surgery Hx of colonoscopy History of esophagogastroduodenoscopy (EGD) History of colon resection History of appendectomy History of kidney surgery History of intestinal surgery Hx of cholecystectomy History of liver biopsy History of bladder surgery Hx of hysterectomy Family History Father Cardiovascular disease Cancer Mother Cardiovascular disease Sister Diabetes Brother Diabetes Other Mental health disorder Social History Household Members: None Housing: Apartment Are you a primary housekeeper child care to a significant other at home: No Do you presently have visiting nurse or other home services: Yes Alcohol intake: never Comment: SEIZURE PRECAUTIONS Patient Tobacco Use Status: Never used Tobacco e-Cigarette/Vaping Use: Never Used Second Hand Smoke Exposure: No Advance Directives Date on File: 08/25/23 service: No Current occupational status: retired Cognitive needs: Yes Hearing needs: No Vision needs: Yes Review of Systems Const Denies chills and Denies fever(s) Card Denies chest pain, Denies dyspnea and Denies dyspnea on exertion Resp Denies cough, Denies dyspnea and Denies dyspnea on exertion GI Details: Fecal incontinence Denies hematochezia and Denies change in bowel habits Denies hematuria Musc Denies back pain and Denies limited range of motion Neuro Denies focal weakness and Denies convulsions Psych Denies depression and Denies mood swings Physical Exam Vital Signs: BMI result Body Mass Index 27.7 Const General: comfortable and no acute distress Orientation/consciousness: patient oriented x3 Neck Neck: Yes no lymphadenopathy Resp Auscultation: clear to auscultation bilaterally Cardio Rhythm: regular rhythm GI Other: Rectal exam shows no obvious induration or sinus or any suggestion of fistulous tract. Digital exam was unremarkable. There were no palpable masses. Palpation (GI): Soft to palpation, nontender and no guarding Neuro General: patient oriented x3 Assessment & Plan Assessment & Plan (1) History of fistula: Code(s): Z87.59 - Personal history of other complications of , childbirth and the puerperium Category: Medical Plan: She has complex and multiple surgeries for a fistula after childbirth. She says her last surgery was in 2016. She says part of her rectum was ?closed up? and she says that she would see stool coming out now from her ?all rectum?. However, examination reveals patent anus and rectum. There were no palpable masses, and there are no areas of obvious fistulous tracts or any sinus I told her that I am uncertain as to what exactly is going on with her rectum but I need to review her records from [place]. We will try to retrieve this. She also describes fecal incontinence but she has had multiple surgeries for this already. I will see her again in about 1 month and review her records. Coding Level of Care Code New Pt Level 3 (06487) Diagnoses History of fistula Z87.59
[2024-07-21 09:16] VITALS: BMI 27.7
== END 2024-07-21 10:21 | disposition home or self-care (01) ==
PROVIDERS: PCP Internal Medicine; Visit Provider Surgery
DX: Z87.59 Personal history of other complications of pregnancy, childbirth and the puerperium (principal)
CPT/HCPCS: 99203

== ENCOUNTER → 2024-07-21 08:23 | Outpatient (BNVA) | payer MEDICARE, SELFPAY | PROVIDERS: PCP Internal Medicine; Visit Provider Surgery | DX: Z87.59 Personal history of other complications of pregnancy, childbirth and the puerperium (principal) | CPT/HCPCS: 99202 ==

== ENCOUNTER 2024-07-26 09:25 | Outpatient (AMB) | payer MEDICARE, SELFPAY ==
--- NOTE | 2024-07-26 09:27 | MHC.PC.OV ---
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 Required: No Accompanied by: Self / Same As Patient Allergies Penicillins [PENICILLINS] Allergy (Severe, Verified 07/26/24 09:54) ANAPHYLAXIS Sulfa (Sulfonamide Antibiotics) [SULFA (SULFONAMIDE ANTIBIOTICS)] Allergy (Severe, Verified 07/26/24 09:54) ANAPHYLAXIS codeine Allergy (Intermediate, Verified 07/26/24 09:54) headache/mood changes dulaglutide [From Trulicity] Allergy (Intermediate, Verified 07/26/24 09:54) Nausea and Vomiting latanoprost Adverse Reaction (Intermediate, Verified 07/26/24 09:54) eye redness Oinion Allergy (Severe, Uncoded 07/26/24 09:54) Vomiting Medication List - Last Reconciled 07/26/24 by Martine Ding MD albuterol sulfate 90 mcg/actuation 2 puffs inhalation Q4H PRN 30 days amlodipine 5 mg PO DAILY aspirin 81 mg PO DAILY atenolol 100 mg PO DAILY atorvastatin 80 mg PO DAILY blood pressure monitor As directed blood pressure monitor As directed blood sugar diagnostic (Accu-Chek Guide test strips) USE 1 STRIP 4 TIMES DAILY DIRECTED blood sugar diagnostic (FreeStyle Precision Vu Strips) As directed tests 4 X/day blood-glucose meter (Accu-Chek Guide Glucose Meter) As directed cholecalciferol (vitamin D3) 50 mcg PO DAILY docusate sodium (Colace) 100 mg PO DAILY PRN 90 days flash glucose sensor (FreeStyle Jessica 2 Sensor kit) As directed change every 14 days folic acid 1 mg PO DAILY@1400 insulin degludec (Tresiba FlexTouch U-200 insulin) 12 units subcut BEDTIME insulin lispro (Humalog KwikPen (U-100) Insulin) 10 units (0.1 mL) subcut BID@0730,1630 lancets (TRUEplus Lancets) four times a day linagliptin-metformin 2.5-1,000 mg (Jentadueto) 1 tab PO BID lisinopril 40 mg PO DAILY mecobalamin (vitamin B12) 1,000 mcg sublingual DAILY@1400 montelukast 10 mg PO DAILY PRN 30 days nitroglycerin 0.4 mg sublingual Q5M PRN ondansetron 8 mg PO Q8H oxycodone 5 mg PO TID PRN pantoprazole 40 mg PO DAILY pen needle, diabetic (BD Ultra-Fine Pam Pen Needle) Use as directed 5 times daily prednisone 10 mg PO DIRECTED 8 days venlafaxine ER (Effexor XR) 37.5 mg PO DAILY venlafaxine ER 150 mg PO DAILY zonisamide 100 mg PO BEDTIME Tobacco use date assessed: 05/21/24 Fall risk assessment: No Falls in past year Last assessed Fall Risk: 07/26/24 Dental Screening Dental Screen Date: 07/26/24 Did you have a dental visit in the last 12 months?: Yes Did you have a dental problem in the last 6 months where you did not have access to dental care?: No Was dental information given to patient?: Patient has dentist HPI HPI Comments History of Present Illness Details This is an 79-year-old female with diabetes mellitus type 2 on long-term current use of insulin, hypertension and hyperlipidemia that complains of a rash in the neck and diffuse throughout that bothers her and started few weeks ago. She denies any new detergent, clothing, plans or food. Took [id number] sinus medication before the rash. She said her blood glucose is within normal limits as per patient. Blood pressure also stable at home. Her LDL should be less than 70. No chest pain or shortness on breath. Has occasional dizziness with nausea. 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 Type 2 diabetes mellitus with unspecified complications Atherosclerotic cardiovascular disease Surgical History Hx of eye surgery Hx of colonoscopy History of esophagogastroduodenoscopy (EGD) History of colon resection History of appendectomy History of kidney surgery History of intestinal surgery Hx of cholecystectomy History of liver biopsy History of bladder surgery Hx of hysterectomy Family History Father Cardiovascular disease Cancer Mother Cardiovascular disease Sister Diabetes Brother Diabetes Other Mental health disorder Social History Household Members: None Housing: Apartment Are you a primary inpatient care manager rn to a significant other at home: No Do you presently have visiting nurse or other home services: Yes Alcohol intake: never Comment: SEIZURE PRECAUTIONS Patient Tobacco Use Status: Never used Tobacco e-Cigarette/Vaping Use: Never Used Second Hand Smoke Exposure: No Advance Directives Date on File: 08/25/23 service: No Current occupational status: retired Cognitive needs: Yes Hearing needs: No Vision needs: Yes Questionnaire Thrive Questionnaire Date Thrive assessed: 05/08/24 PARVEEN-7 AMB Questionnaire PARVEEN-7 Date PARVEEN - 7 assessed: 01/07/24 Source: Developed by Drs. Osmar Hoyt, Jessie Vanessa, Gurmeet Frey and colleagues, with an educational pippa from [employer]. Review of Systems Const All systems reviewed & are unremarkable except as noted in HPI and below Card Denies chest pain at rest, Denies chest pain with activity, Denies edema, Denies irregular heart rhythm, Denies claudication, Denies dyspnea, Denies dyspnea on exertion, Denies orthopnea, Denies paroxysmal nocturnal dyspnea and Denies slow heart rate Resp Denies cough, Denies dyspnea and Denies dyspnea on exertion GI Denies abdominal pain, Denies change in bowel habits, Denies excessive flatus, Denies nausea and Denies vomiting Denies urinary incontinence, Denies urinary hesitancy and Denies urinary urgency Physical exam (Primary Care) Tobacco/Smoking Status: Tobacco use Status Tobacco use date assessed 05/21/24 07/26/24 09:29 Patient Tobacco Use Status Never used Tobacco 07/26/24 09:29 e-Cigarette/Vaping Use Never Used 07/26/24 09:29 Thrive Assessment: Date of Thrive Assessment Date Thrive assessed 05/08/24 07/26/24 09:29 Skin Rashes: rashes noted Telehealth Telehealth Telehealth Platform: Other (please specify) (Liqu[employer]/Iphone) Location of provider rendering services: practice address Location of patient: address on file Patient Identification confirmed using: Name, : Yes Telehealth method: video Patient verbally consented to treatment: Yes Patient verbally consented to billing insurance company: Yes Patient informed of any privacy concerns related to visit: Yes Minutes spent on Phone/Video with Pt.: 15 Assessment and Plan Assessment & Plan (1) Diabetes mellitus, with long-term current use of insulin: Code(s): E11.9 - Type 2 diabetes mellitus without complications; Z79.4 - nursing home (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 Plan: Continue insulin. A1c goal is equal or less than 7%. (2) Rash: Code(s): R21 - Rash and other nonspecific skin eruption Plan: Start prednisone. (3) Essential hypertension: Code(s): I10 - Essential (primary) hypertension Plan: Continue amlodipine and lisinopril. Blood pressure goal is equal or less than 130/80. (4) 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 LDL goal <70: Code(s): E78.5 - 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, unspecified Plan: Continue statins. LDL goal is less than 70. Orders: Orders Complete Blood Count Auto Diff Today L98.9 - Disorder of the skin and subcutaneous tissue, unspecified Medications: New prednisone Take 4 tabs for 2 days, then 3 tabs for 2 days, then 2 tabs for 2 days, then 1 tab for 2 days 10 mg PO DIRECTED 20 tabs 0RF 8 days Coding Level of Care Code Tele Est Pt Level 4 (22922) Complex EM visit Add On G2211 Diagnoses Diabetes mellitus, with long-term current use of insulin E11.9; Z79.4 Rash R21 Essential hypertension I10 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 LDL goal <70 E78.5 Time Spent (min) 15
== END 2024-07-26 12:41 | disposition home or self-care (01) ==
LOC: HO.HMCH 09:25
PROVIDERS: PCP Internal Medicine; Visit Provider Internal Medicine
DX: E11.9 Type 2 diabetes mellitus without complications (principal); Z79.4 Long term (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; R21 Rash and other nonspecific skin eruption; I10 Essential (primary) hypertension; E78.5 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, unspecified

== ENCOUNTER → 2024-07-26 09:25 | Outpatient (BNVA) | payer MEDICARE, SELFPAY | PROVIDERS: PCP Internal Medicine; Visit Provider Internal Medicine ==

== ENCOUNTER 2024-10-06 10:36 | Outpatient (AMB) | payer MEDICARE, SELFPAY ==
--- NOTE | 2024-10-06 10:40 | A.OFFPC_ITS ---
Vital Signs 10/06/24 10:47 Height 5 ft Weight 141 lb 1.533 oz BMI 27.6 BP 146/88 H Blood Pressure Location Lt brachial Position Sitting Intake Visit Reasons: rash on chest Intake Note: Patient here c/o rash on chest with small lump Economics Consultant Required: No Accompanied by: Friend Allergies Penicillins [PENICILLINS] Allergy (Severe, Verified 10/06/24 10:59) ANAPHYLAXIS Sulfa (Sulfonamide Antibiotics) [SULFA (SULFONAMIDE ANTIBIOTICS)] Allergy (Severe, Verified 10/06/24 10:59) ANAPHYLAXIS codeine Allergy (Intermediate, Verified 10/06/24 10:59) headache/mood changes dulaglutide [From Trulicity] Allergy (Intermediate, Verified 10/06/24 10:59) Nausea and Vomiting latanoprost Adverse Reaction (Intermediate, Verified 10/06/24 10:59) eye redness Oinion Allergy (Severe, Uncoded 10/06/24 10:59) Vomiting Medication List - Last Reconciled 10/06/24 by Martine Ding MD albuterol sulfate 90 mcg/actuation 2 puffs inhalation Q4H PRN 30 days amlodipine 5 mg PO DAILY aspirin 81 mg PO DAILY atenolol 100 mg PO DAILY atorvastatin 80 mg PO DAILY 90 days blood pressure monitor As directed blood pressure monitor As directed blood sugar diagnostic (Accu-Chek Guide test strips) USE 1 STRIP 4 TIMES DAILY DIRECTED blood sugar diagnostic (FreeStyle Precision Vu Strips) As directed tests 4 X/day blood-glucose meter (Accu-Chek Guide Glucose Meter) As directed cholecalciferol (vitamin D3) 50 mcg PO DAILY docusate sodium (Colace) 100 mg PO DAILY PRN 90 days flash glucose sensor (FreeStyle Jessica 2 Sensor kit) As directed change every 14 days folic acid 1 mg PO DAILY@1400 insulin degludec (Tresiba FlexTouch U-200 insulin) 12 units subcut BEDTIME insulin lispro (Humalog KwikPen (U-100) Insulin) 10 units (0.1 mL) subcut BID@0730,1630 lancets (TRUEplus Lancets) four times a day linagliptin-metformin 2.5-1,000 mg (Jentadueto) 1 tab PO BID lisinopril 40 mg PO DAILY mecobalamin (vitamin B12) 1,000 mcg sublingual DAILY@1400 montelukast 10 mg PO DAILY PRN 30 days nitroglycerin 0.4 mg sublingual Q5M PRN ondansetron 8 mg PO Q8H oxycodone 5 mg PO TID PRN pantoprazole 40 mg PO DAILY pen needle, diabetic (BD Ultra-Fine Pam Pen Needle) Use as directed 5 times daily venlafaxine ER (Effexor XR) 37.5 mg PO DAILY venlafaxine ER 150 mg PO DAILY zonisamide 100 mg PO BEDTIME Tobacco use date assessed: 05/21/24 Fall risk assessment: No Falls in past year Last assessed Fall Risk: 10/06/24 Dental Screening Dental Screen Date: 07/26/24 HPI HPI Comments History of Present Illness Details The patient is an 79-year-old female presenting with elevated blood glucose levels and a rash. The patient's Hemoglobin A1c is currently at 7.6%, which is elevated compared to previous levels of 6.9%. This elevation has been noted over the past few weeks, possibly influenced by dietary changes after a recent surgery. The patient has a history of Type 2 Diabetes Mellitus and is on multiple diabetic medications, including Atresives and Humalog. Additionally, the patient reports experiencing a generalized rash that is particularly bothersome on the chest and trunk. She indicates the rash causes pruritus and has been persistent despite previous attempts with prednisone. The rash tempor arily subsided for three to four days but subsequently reappeared. She discontinued Singulair to see if it was contributing to the rash. She has a known seizure disorder and experienced a seizure on the 12th of this month but is under the care of a neurologist. The patient manages hypertension with medications, including amlodipine and atenolol, and is on atorvastatin for dyslipidemia. Blood pressure will be recheck in 3 weeks by nurse navigator due to being borderline normal to elevated. Also has depression and take venlafaxine for it. [facility] Medical History (Updated 10/06/24 @ 11:15 by Martine Ding MD) History of fistula Dizziness Mild recurrent major depression Epilepsy Stroke Colitis Major depression, recurrent Memory change Neuropathy Seizures Glaucoma Myocardial infarction Acid reflux Type 2 diabetes mellitus with diabetic polyneuropathy Type 2 diabetes mellitus with hyperglycemia 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 LDL goal <70 Obesity due to excess calories BMI 34.0-34.9,adult 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, unspecified Essential hypertension skilled nursing (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 Type 2 diabetes mellitus with unspecified complications Atherosclerotic cardiovascular disease Surgical History Hx of eye surgery Hx of colonoscopy History of esophagogastroduodenoscopy (EGD) History of colon resection History of appendectomy History of kidney surgery History of intestinal surgery Hx of cholecystectomy History of liver biopsy History of bladder surgery Hx of hysterectomy Family History Father Cardiovascular disease Cancer Mother Cardiovascular disease Sister Diabetes Brother Diabetes Other Mental health disorder Social History Household Members: None Housing: Apartment Are you a primary care director rn to a significant other at home: No Do you presently have visiting nurse or other home services: Yes Alcohol intake: never Comment: SEIZURE PRECAUTIONS Patient Tobacco Use Status: Never used Tobacco e-Cigarette/Vaping Use: Never Used Second Hand Smoke Exposure: No Advance Directives Date on File: 08/25/23 service: No Current occupational status: retired Cognitive needs: Yes Hearing needs: No Vision needs: Yes Questionnaire Thrive Questionnaire Date Thrive assessed: 05/08/24 PARVEEN-7 AMB Questionnaire PARVEEN-7 Date PARVEEN - 7 assessed: 01/07/24 Source: Developed by Drs. Osmar Hoyt, Jessie Vanessa, Gurmeet Frey and colleagues, with an educational pippa from [employer]. Review of Systems Const All systems reviewed & are unremarkable except as noted in HPI and below Card Denies chest pain at rest, Denies chest pain with activity, Denies edema, Denies irregular heart rhythm, Denies claudication, Denies dyspnea, Denies dyspnea on exertion, Denies orthopnea, Denies paroxysmal nocturnal dyspnea and Denies slow heart rate Resp Denies cough, Denies dyspnea and Denies dyspnea on exertion Skin/Breast Reports rash Neuro Denies lack of coordination Physical exam (Primary Care) Vital Signs: Last Vital Signs BP 146/88 H 10/06/24 10:47 BMI result Body Mass Index 27.6 Tobacco/Smoking Status: Tobacco use Status Tobacco use date assessed 05/21/24 10/06/24 10:41 Patient Tobacco Use Status Never used Tobacco 11/27/24 10:41 e-Cigarette/Vaping Use Never Used 10/06/24 10:41 Thrive Assessment: Date of Thrive Assessment Date Thrive assessed 05/08/24 10/06/24 10:41 Resp Effort & Inspection: normal respiratory effort Auscultation: clear to auscultation bilaterally Cardio Jugular venous distension: no JVD Rate: regular rate Rhythm: regular rhythm Heart sounds: S1 normal heart sound present and S2 normal heart sound present Skin Rashes: rashes noted Office Procedures Flu Questionnaire Does the patient have a severe egg allergy?: No Results AMB Hemoglobin A1c AMB Hemoglobin A1c 7.6 % Last Edit by PURNIMA Yoo on 10/06/24 10:5 3 Immunizations Fluarix Triv [id number] (PF) 45 mcg (15 mcg x 3)/0.5 mL IM syringe Performing Provider: Martine Ding MD Performing Location: [facility] Documented (not given) by: PURNIMA Yoo on 10/06/24 10:52 Reason Not Given: Not Given Results Reviewed Results Reviewed: Laboratory Last Values Hgb A1c (Clinic) 7.6 % (4.0-6.0) H 10/06/24 10:40 Coding Level of Care Code Est Pt Level 4 (62932) Complex EM visit Add On G2211 Diagnoses Rash R21 Diabetes mellitus, with long-term current use of insulin E11.9; Z79.4 Mild recurrent major depression F33.0 Epilepsy G40.909 Essential hypertension I10 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 LDL goal <70 E78.5 Time Spent (min) 22 Assessment & Plan Assessment & Plan (1) Rash: Code(s): R21 - Rash and other nonspecific skin eruption Category: Medical (2) Diabetes mellitus, with long-term current use of insulin: Code(s): E11.9 - Type 2 diabetes mellitus without complications; Z79.4 - medical and scientific illustrator (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 Category: Medical (3) Mild recurrent major depression: Code(s): F33.0 - Major depressive disorder, recurrent, mild Category: Medical (4) Epilepsy: Code(s): G40.909 - Epilepsy, unspecified, not intractable, without status epilepticus Category: Medical (5) Essential hypertension: Code(s): I10 - Essential (primary) hypertension Category: Medical (6) 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 LDL goal <70: Code(s): E78.5 - 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, unspecified Category: Medical Plan - Type 2 Diabetes Mellitus: Adjust long acting insulin dosage to 15 units and Humalog to 10 units three times daily to better regulate blood glucose. Continue follow-up with curing press maintainer for ongoing diabetes management. - Rash: Initiate a short course of prednisone and refer to dermatology for further evaluation due to the persistence and recurrence of symptoms.I discussed with the patient the importance of controlling her blood glucose levels and the temporary adjustment in medication dosages. We reviewed the potential side effects and benefits of increasing her long acting insulin and Humalog dosage. Regarding the rash, I explained the temporary introduction of prednisone and the necessity of dermatologic evaluation to rule out other potential causes. We went over her recent seizure and the need for consultation with her neurologist to reassess her seizure management plan. I reiterated that she should continue current treatment for her depression, hypertension, and dyslipidemia. We discussed avoiding allergens causing adverse reactions. Follow-up and communication with appropriate specialists were recommended for ongoing care. - Seizure Disorder: Patient advised to update neurologist regarding recent seizure activity for potential adjustment of antiseizure medications. - Hypertension and Dyslipidemia: Continue current management with medications including amlodipine, atenolol, and atorvastatin. - Depression: Maintain current treatment with venlafaxine, as it's reported to be effective. - Allergies: Avoidance of known allergens including penicillin, sulfa, codeine, Dilantin, and Trulicity. Patient was informed and verbally consented to the use of an ambient scribe for clinic note documentation during this visit. Orders: Orders Influenza [id number] Immunization 10/06/24 Z23 - Encounter for immunization AMB Hemoglobin A1c 10/06/24 E11.9 - Type 2 diabetes mellitus without complications, Z79.4 - medical and scientific illustrator (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 Referrals Dermatology Referral R21 - Rash and other nonspecific skin eruption Medications: New walker As directed 1 ea 0RF M25.551 - Pain in right hip, M25.552 - Pain in left hip, M54.50 - Low back pain, unspecified, R29.6 - Repeated falls prednisone Take 4 tabs for 2 days, then 3 tabs for 2 days, then 2 tabs for 2 days, then 1 tab for 2 days 10 mg PO DIRECTED 20 tabs 0RF 8 days cetirizine (All Day Allergy (cetirizine)) 10 mg PO DAILY PRN 90 tabs 1RF allergy symptoms 90 days Changed From insulin degludec (Tresiba FlexTouch U-200 insulin) If Blood Sugars go over 100 units inject 16-18 units. 15 units subcut BEDTIME To insulin degludec (Tresiba FlexTouch U-200 insulin) If Blood Sugars go over 100 units inject 16-18 units. 15 units (0.075 mL) subcut BEDTIME 30 days 2.25 mL 1RF Refilled insulin degludec (Tresiba FlexTouch U-200 insulin) If Blood Sugars go over 100 units inject 16-18 units. 15 units (0.075 mL) subcut BEDTIME 2.25 mL 1RF 30 days Patient Instructions: - Monitor blood glucose levels closely following medication adjustments. - Take prednisone as prescribed and follow up with dermatology. - Notify neurologist about the recent seizure for assessment. - Continue with current antihypertensive and lipid management medications. - Avoid identified allergens and report any new adverse reactions. - Contact healthcare provider if symptoms worsen or do not improve.
[2024-10-06 10:47] VITALS: BP 146/88; BMI 27.6
== END 2024-10-06 11:13 | disposition home or self-care (01) ==
PROVIDERS: PCP Internal Medicine; Visit Provider Internal Medicine
DX: E11.69 Type 2 diabetes mellitus with other specified complication (principal); Z79.4 Long term (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; F33.0 Major depressive disorder, recurrent, mild; G40.909 Epilepsy, unspecified, not intractable, without status epilepticus; R21 Rash and other nonspecific skin eruption; I10 Essential (primary) hypertension; E78.5 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, unspecified

== ENCOUNTER → 2024-10-06 10:36 | Outpatient (BNVA) | payer MEDICARE, SELFPAY | PROVIDERS: PCP Internal Medicine; Visit Provider Internal Medicine | DX: R21 Rash and other nonspecific skin eruption (principal); E11.9 Type 2 diabetes mellitus without complications; F33.0 Major depressive disorder, recurrent, mild; E78.5 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, unspecified; I10 Essential (primary) hypertension; G40.909 Epilepsy, unspecified, not intractable, without status epilepticus; Z79.4 Long term (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 | CPT/HCPCS: 83036; 90471; 99212 ==

== ENCOUNTER 2025-02-17 13:35 | Outpatient (AMB) | payer MEDICARE, SELFPAY ==
--- NOTE | 2025-02-17 13:41 | A.OFFVIS_ITS ---
Vital Signs 02/17/25 13:42 Height 5 ft Weight 152 lb 8.958 oz BMI 29.8 BP 140/64 H Blood Pressure Location Lt brachial Position Sitting Pulse 61 Pulse Source Monitor Intake Visit Reasons: 1 yr f/up Staff Weapons Officer Required: No Accompanied by: Self / Same As Patient Allergies Penicillins [PENICILLINS] Allergy (Severe, Verified 10/06/24 10:59) ANAPHYLAXIS Sulfa (Sulfonamide Antibiotics) [SULFA (SULFONAMIDE ANTIBIOTICS)] Allergy (Severe, Verified 10/06/24 10:59) ANAPHYLAXIS codeine Allergy (Intermediate, Verified 10/06/24 10:59) headache/mood changes dulaglutide [From Trulicity] Allergy (Intermediate, Verified 10/06/24 10:59) Nausea and Vomiting latanoprost Adverse Reaction (Intermediate, Verified 10/06/24 10:59) eye redness Oinion Allergy (Severe, Uncoded 10/06/24 10:59) Vomiting Medication List - Last Reconciled 02/17/25 by Fredis Carmen MD albuterol sulfate 90 mcg/actuation 2 puffs inhalation Q4H PRN 30 days amlodipine 5 mg PO DAILY aspirin 81 mg PO DAILY atenolol 100 mg PO DAILY atorvastatin 80 mg PO DAILY 90 days blood pressure monitor As directed blood pressure monitor As directed blood sugar diagnostic (Accu-Chek Guide test strips) USE 1 STRIP 4 TIMES DAILY DIRECTED blood sugar diagnostic (FreeStyle Precision Vu Strips) As directed tests 4 X/day blood-glucose meter (Accu-Chek Guide Glucose Meter) As directed cetirizine (All Day Allergy (cetirizine)) 10 mg PO DAILY PRN 90 days cholecalciferol (vitamin D3) 50 mcg PO DAILY docusate sodium (Colace) 100 mg PO DAILY PRN 90 days flash glucose sensor (FreeStyle Jessica 2 Sensor kit) As directed change every 14 days folic acid 1 mg PO DAILY@1400 insulin degludec (Tresiba FlexTouch U-200 insulin) 15 units (0.075 mL) subcut BEDTIME 30 days insulin lispro (Humalog KwikPen (U-100) Insulin) 10 units (0.1 mL) subcut BID@0730,1630 lancets (TRUEplus Lancets) four times a day linagliptin-metformin 2.5-1,000 mg (Jentadueto) 1 tab PO BID lisinopril 40 mg PO DAILY mecobalamin (vitamin B12) 1,000 mcg sublingual DAILY@1400 montelukast 10 mg PO DAILY PRN 30 days nitroglycerin 0.4 mg sublingual Q5M PRN ondansetron 8 mg PO Q8H oxycodone 5 mg PO TID PRN pantoprazole 40 mg PO DAILY pen needle, diabetic Use as directed 5 times daily prednisone 10 mg PO DIRECTED 8 days venlafaxine ER (Effexor XR) 37.5 mg PO DAILY venlafaxine ER 150 mg PO DAILY walker (Ultra-Light Rollator misc) As directed zonisamide 100 mg PO BEDTIME HPI Comments Details: Jennifer returns for follow-up regarding coronary artery disease. She used to be living in [place]. Around 2013, she underwent cardiac testing due to chest pain. She had ostial diagonal disease for which she was recommended medical management. Otherwise, she has multiple comorbidities including diabetes on insulin, hypertension, dyslipidemia. She has also had a prior stroke. She has experienced episodes of intense anxiety linked to familial stress, par ticularly following the of her [id number] from cancer. During these episodes, she feels her heart racing but denies any concurrent chest pain. Additionally, she reports frequent falls due to balance problems, which she attributes to occasionally neglecting the use of her walker. The patient reports reduced physical activity primarily due to balance issues. She does not engage in a formal exercise program due to her fall risk and prefers to use a walker for mobility within her home. 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 Type 2 diabetes mellitus with unspecified complications Atherosclerotic cardiovascular disease Surgical History Hx of eye surgery Hx of colonoscopy History of esophagogastroduodenoscopy (EGD) History of colon resection History of appendectomy History of kidney surgery History of intestinal surgery Hx of cholecystectomy History of liver biopsy History of bladder surgery Hx of hysterectomy Family History Father Cardiovascular disease Cancer Mother Cardiovascular disease Sister Diabetes Brother Diabetes Other Mental health disorder Social History Household Members: None Housing: Apartment Are you a primary housekeeper caregiver to a significant other at home: No Do you presently have visiting nurse or other home services: Yes Alcohol intake: never Comment: SEIZURE PRECAUTIONS Patient Tobacco Use Status: Never used Tobacco e-Cigarette/Vaping Use: Never Used Second Hand Smoke Exposure: No Advance Directives Date on File: 08/25/23 service: No Current occupational status: retired Cognitive needs: Yes Hearing needs: No Vision needs: Yes Review of Systems Const Denies chills, Denies fatigue, Denies fever(s), Denies frequent falls, Denies weakness, Denies weight gain and Denies weight loss ENT Denies dizziness Card Denies chest pain, Reports leg edema, Denies lightheadedness, Reports palpitations, Denies dyspnea and Denies dyspnea on exertion Resp Denies cough, Denies dyspnea and Denies dyspnea on exertion GI Denies hematochezia Musc Denies abnormal gait, Denies muscle weakness, Denies numbness, Denies radiating pain into limb and Denies tingling Neuro Denies abnormal gait, Denies dizziness, Denies frequent falls, Denies numbness, Denies tingling and Denies weakness Endo Denies fatigue and Reports palpitations Physical Exam Vital Signs: Last Vital Signs Pulse 61 02/17/25 13:42 BP 140/64 H 02/17/25 13:42 BMI result Body Mass Index 29.8 Const General: comfortable and no acute distress Orientation/consciousness: patient oriented x3 HEENT Other: Unremarkable Head: Yes normal to inspection Neck Neck: Yes normal visual inspection Chest Chest palpation & inspection: normal inspection of the chest Resp Auscultation: clear to auscultation bilaterally Cardio Palpation: normal PMI Heart sounds: S1 normal heart sound present, S2 normal heart sound present, no gallops, no murmurs and no rubs GI Palpation (GI): Soft to palpation Back/Spine/Pelvis Other: unremarkable Skin General skin exam: no rashes or lesions noted Neuro General: patient oriented x3 Extrem General: Yes normal to inspection Psych Mental Status: mental status grossly normal Office Procedures EKG Details: EKG with underlying sinus rhythm at 61/Min; cannot exclude old septal infarct; nonspecific ST-[place] changes; [place] [id number], Complete Assessment & Plan Assessment & Plan (1) Atherosclerotic cardiovascular disease: Code(s): I25.10 - Atherosclerotic heart disease of [place] coronary artery without angina pectoris Category: Medical (2) Type 2 diabetes mellitus with unspecified complications: Code(s): E11.8 - Type 2 diabetes mellitus with unspecified complications Category: Medical (3) Essential hypertension: Code(s): I10 - Essential (primary) hypertension Category: Medical (4) 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, unspecified: Code(s): E78.5 - 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, unspecified Category: Medical Plan Cardiac studies reviewed. Last echocardiogram from last month with LVEF of 60-60%; asymmetric septal hypertrophy but otherwise unremarkable. Myocardial perfusion imaging study from 2018 shows small area of mild intensity distal anterolateral ischemia. Cardiac catheterization in 2013 from [place] shows 65% ostial diagonal disease but mild disease elsewhere. Clinically, she is fairly stable from cardiac standpoint. No changes the current regimen which includes aspirin, beta-blockers and statins. In the past, intolerance to long-acting nitrates. LDL most recently is 80 but prior to that 47. Blood pressure is slightly on the higher side but she already has fall risk and hence not making changes. For diabetes, she remains on Insulin and oral medications. Hemoglobin A1c is 7.6%. Patient was informed and verbally consented to the use of an ambient scribe for clinic note documentation during this visit. Patient Instructions: - Monitor and record episodes of anxiety and potential triggers. - Use a walker consistently to prevent falls. - Perform balance exercises and consider seeing a physical therapist. - Keep a close watch on blood pressure readings at home. - Seek improved communication channels with your primary healthcare provider for medication management. - Contact immediately if you experience new or worsening symptoms. Coding Level of Care Code Est Pt Level 4 (03849) Complex EM visit Add On G2211 Diagnoses Atherosclerotic cardiovascular disease I25.10 Type 2 diabetes mellitus with unspecified complications E11.8 Essential hypertension I10 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, unspecified E78.5 CPT Codes EKG - CPT: 86956-[id number], Complete ([id number])
[2025-02-17 13:42] VITALS: BP 140/64; PULSE 61; BMI 29.8
== END 2025-02-17 14:07 | disposition home or self-care (01) ==
LOC: HO.HCS 13:36
PROVIDERS: PCP Internal Medicine; Visit Provider Internal Medicine
DX: I25.10 Atherosclerotic heart disease of native coronary artery without angina pectoris (principal); E11.8 Type 2 diabetes mellitus with unspecified complications; I10 Essential (primary) hypertension; E78.5 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, unspecified
CPT/HCPCS: 93010; 99214; G2211

== ENCOUNTER → 2025-02-17 13:35 | Outpatient (BNVA) | payer MEDICARE, SELFPAY | PROVIDERS: PCP Internal Medicine; Visit Provider Internal Medicine | DX: I25.10 Atherosclerotic heart disease of native coronary artery without angina pectoris (principal); I10 Essential (primary) hypertension; E78.5 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, unspecified; E11.9 Type 2 diabetes mellitus without complications; Z86.73 Personal history of transient ischemic attack (TIA), and cerebral infarction without residual deficits | CPT/HCPCS: 93005; 99212 ==

== ENCOUNTER 2025-04-28 13:30 | Outpatient (AMB) | payer MEDICARE, SELFPAY ==
[2025-04-28 13:41] VITALS: BP 122/78; BMI 28.1
--- NOTE | 2025-04-28 13:41 | MHC.PC.OV ---
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 Required: No Accompanied by: Self / Same As Patient Allergies Penicillins (PENICILLINS) Allergy (Severe, Verified 04/28/25 13:55) ANAPHYLAXIS Sulfa (Sulfonamide Antibiotics) (SULFA (SULFONAMIDE ANTIBIOTICS)) Allergy (Severe, Verified 04/28/25 13:55) ANAPHYLAXIS codeine Allergy (Intermediate, Verified 04/28/25 13:55) headache/mood changes dulaglutide (From Trulicity) Allergy (Intermediate, Verified 04/28/25 13:55) Nausea and Vomiting latanoprost Adverse Reaction (Intermediate, Verified 04/28/25 13:55) eye redness Oinion Allergy (Severe, Uncoded 04/28/25 13:55) Vomiting Medication List - Last Reconciled 04/28/25 by Martine Ding MD albuterol sulfate 90 mcg/actuation 2 puffs inhalation Q4H PRN 30 days amlodipine 5 mg PO DAILY aspirin 81 mg PO DAILY atenolol 100 mg PO DAILY atorvastatin 80 mg PO DAILY 90 days blood pressure monitor As directed blood pressure monitor As directed blood sugar diagnostic (Accu-Chek Guide test strips) USE 1 STRIP 4 TIMES DAILY DIRECTED blood sugar diagnostic (FreeStyle Precision Vu Strips) As directed tests 4 X/day blood-glucose meter (Accu-Chek Guide Glucose Meter) As directed cetirizine (All Day Allergy (cetirizine)) 10 mg PO DAILY PRN 90 days cholecalciferol (vitamin D3) 50 mcg PO DAILY docusate sodium (Colace) 100 mg PO DAILY PRN 90 days flash glucose sensor (FreeStyle Jessica 2 Sensor kit) As directed change every 14 days folic acid 1 mg PO DAILY@1400 insulin degludec (Tresiba FlexTouch U-200 insulin) 15 units (0.075 mL) subcut BEDTIME 30 days insulin lispro (Humalog KwikPen (U-100) Insulin) 10 units (0.1 mL) subcut BID@0730,1630 lancets (TRUEplus Lancets) four times a day linagliptin-metformin 2.5-1,000 mg (Jentadueto) 1 tab PO BID lisinopril 40 mg PO DAILY mecobalamin (vitamin B12) 1,000 mcg sublingual DAILY@1400 montelukast 10 mg PO DAILY PRN 30 days nitroglycerin 0.4 mg sublingual Q5M PRN ondansetron 8 mg PO Q8H oxycodone 5 mg PO TID PRN pantoprazole 40 mg PO DAILY pen needle, diabetic Use as directed 5 times daily prednisone 10 mg PO DIRECTED 8 days venlafaxine ER (Effexor XR) 37.5 mg PO DAILY venlafaxine ER 150 mg PO DAILY walker (Ultra-Light Rollator misc) As directed zonisamide 100 mg PO BEDTIME Tobacco use date assessed: 04/28/25 Fall risk assessment: 2 + Falls in past year Last assessed Fall Risk: 04/28/25 Dental Screening Dental Screen Date: 04/28/25 Did you have a dental visit in the last 12 months?: No Did you have a dental problem in the last 6 months where you did not have access to dental care?: No Was dental information given to patient?: Patient has dentist HPI HPI Comments History of Present Illness Details The patient is an 80-year-old female presenting with management of Type 2 Diabetes Mellitus. Her hemoglobin A1c is currently at 8.3%, indicating suboptimal glycemic control. She has been consuming more bread to manage diarrhea, which has led to constipation and potentially contributed to elevated blood glucose levels. The patient also reports breast pain, which began approximately two weeks ago. The pain is localized from the nipple to the upper breast, with visible veins and tenderness under the rib area. There is no nipple discharge or retraction, and no palpable masses were noted. The patient has a history of hypertension, managed with amlodipine and atenolol. She also takes atorvastatin for hyperlipidemia and aspirin for cardiovascular protection. She also has chronic pancreatitis and ulcerative colitis follow by Gastroenterology. Her past medical history includes depression, for which she takes venlafaxine, and a seizure disorder, previously managed with zonisamide, but currently on an alternative medication due to allergies. Preventative care measures discussed include scheduling a mammogram and bone density screening, as these have not been performed recently. [facility] Medical History (Updated 04/28/25 @ 14:07 by Martine Ding MD) History of fistula Dizziness Mild recurrent major depression Epilepsy Stroke Colitis Major depression, recurrent Memory change Neuropathy Seizures Glaucoma Myocardial infarction Acid reflux Type 2 diabetes mellitus with diabetic polyneuropathy Type 2 diabetes mellitus with hyperglycemia 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 LDL goal <70 Obesity due to excess calories BMI 34.0-34.9,adult 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, unspecified Essential hypertension 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 Type 2 diabetes mellitus with unspecified complications Atherosclerotic cardiovascular disease Surgical History Hx of eye surgery Hx of colonoscopy (~12/10/22) History of esophagogastroduodenoscopy (EGD) History of colon resection History of appendectomy History of kidney surgery History of intestinal surgery Hx of cholecystectomy History of liver biopsy History of bladder surgery Hx of hysterectomy Family History Father Cardiovascular disease Cancer Mother Cardiovascular disease Sister Diabetes Brother Diabetes Other Mental health disorder Social History Household Members: None Housing: Apartment Are you a primary home care attendant to a significant other at home: No Do you presently have visiting nurse or other home services: Yes Alcohol intake: never Comment: SEIZURE PRECAUTIONS Patient Tobacco Use Status: Never used Tobacco e-Cigarette/Vaping Use: Never Used Second Hand Smoke Exposure: No Advance Directives Date on File: 08/25/23 service: No Current occupational status: retired Cognitive needs: Yes Hearing needs: No Vision needs: Yes Questionnaire PHQ-9 Over the last 2 weeks, how often have you been bothered by any of the following problems? 1. Little interest or pleasure in doing things: several days 2. Feeling down, depressed, or hopeless: several days 3. Trouble falling or staying asleep, or sleeping too much: several days 4. Feeling tired or having little energy: several days 5. Poor appetite or overeating: several days 6. Feeling bad about yourself - or that you are a failure or have let yourself or your family down: not at all 7. Trouble concentrating on things, such as reading the newspaper or watching television: several days 8. Moving or speaking so slowly that other people could have noticed. Or the opposite - being so fidgety or restless that you have been moving around a lot more than usual: not at all 9. Thoughts that you would be better off or of hurting yourself in some way: not at all Total score: 6 Depression Screening Interpretation: Positive Depression Screening Follow-up: Existing condition and Follow-up Visit Requested Depression Screening Done: Yes 01132 - PHQ-9 Billing: Yes Source: Developed by Drs. Osmar Hoyt, Gurmeet Burns and colleagues, with an educational pippa from [employer]. Thrive Questionnaire Date Thrive assessed: 05/08/24 PARVEEN-7 AMB Questionnaire PARVEEN-7 Date PARVEEN - 7 assessed: 04/28/25 Feeling nervous, anxious, or on edge: 1 = Several days Not being able to stop or control worryin = Not at all Worrying too much about different things: 1 = Several days Trouble relaxin = Not at all Being so restless that it is hard to sit still: 0 = Not at all Becoming easily annoyed or irritable: 0 = Not at all Feeling afraid as if something awful might happen: 0 = Not at all Total PARVEEN-7 score (0-4 normal; 5-9 mild; 10-14 moderate; 15-21 severe): 2 Source: Developed by Drs. Osmar Hoyt, Jessie Vanessa, Gurmeet Frey and colleagues, with an educational pippa from [employer]. PARVEEN-7 Assessment Billing PARVEEN-7 Assessment Tool: PARVEEN-7 Assessment 63227 Review of Systems Const All systems reviewed & are unremarkable except as noted in HPI and below ENT Denies change in voice, Denies nasal discharge and Denies sinus pain Card Denies chest pain at rest, Denies chest pain with activity, Denies edema, Denies irregular heart rhythm, Denies claudication, Denies dyspnea, Denies dyspnea on exertion, Denies orthopnea, Denies paroxysmal nocturnal dyspnea and Denies slow heart rate Resp Denies cough, Denies dyspnea and Denies dyspnea on exertion Musc Denies atrophy, Denies deformity and Denies limited range of motion Skin/Breast Reports breast pain Physical exam (Primary Care) Vital Signs: Last Vital Signs BP 122/78 04/28/25 13:41 BMI result Body Mass Index 28.1 Tobacco/Smoking Status: Tobacco use Status Tobacco use date assessed 04/28/25 04/28/25 13:51 Patient Tobacco Use Status Never used Tobacco 04/28/25 13:51 e-Cigarette/Vaping Use Never Used 04/28/25 13:51 PHQ-9: PHQ-9 Score PHQ-9: Total score 6 04/28/25 13:58 Depression Screening Interpretation: Positive Depression Screening Follow-up: Existing condition and Follow-up Visit Requested Thrive Assessment: Date of Thrive Assessment Date Thrive assessed 05/08/24 04/28/25 13:51 Const Limitations: ambulation with walker HENMT Head: Yes normal to inspection, Yes normocephalic and Yes atraumatic Ears: external ears normal Eyes General: appearance normal, both eyes and all related structures Eyelids: Yes eyelids normal Conjunctivae: conjunctivae normal Neck Neck: Yes normal visual inspection and Yes supple Chest Breast/axilla inspection: normal inspection of the breasts and normal inspection of the axillae Breast/axilla palpation: normal palpation of the axillae and abnormal palpation of the breast (Left breast pain at 12:00) Resp Effort & Inspection: normal respiratory effort Auscultation: clear to auscultation bilaterally Cardio Jugular venous distension: no JVD Rate: regular rate Rhythm: regular rhythm Heart sounds: S1 normal heart sound present and S2 normal heart sound present GI Inspection: Yes normal to inspection Palpation (GI): Soft to palpation and nontender Auscultation: normal bowel sounds Skin General skin exam: no rashes or lesions noted Neuro General: no focal motor deficits Extrem General: Yes full ROM Psych Appearance: grossly normal Results AMB Hemoglobin A1c AMB Hemoglobin A1c 8.3 % Last Edit by PURNIMA Yoo on 04/28/25 13:53 Results Reviewed Results Reviewed: Laboratory Last Values Hgb A1c (Clinic) 8.3 % (4.0-6.0) H 04/28/25 13:40 Coding Level of Care Code Est Pt Level 4 (82611) Complex EM visit Add On G2211 Diagnoses Breast pain, left N64.4 Essential hypertension I10 Mild recurrent major depression F33.0 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 LDL goal <70 E78.5 Diabetes mellitus, with long-term current use of insulin E11.9; Z79.4 Ulcerative colitis K51.90 Chronic pancreatitis K86.1 Epilepsy G40.909 Additional Codes PARVEEN-7 Assessment Billing - PARVEEN-7 Assessment Tool: PARVEEN-7 Assessment [id number] ([id number]) PHQ-9 - 23394 - PHQ-9 Billing: Yes ([id number]) Time Spent (min) 23 Assessment & Plan Assessment & Plan (1) Breast pain, left: Comment: At 12 o'clock Code(s): N64.4 - Mastodynia Category: Medical (2) Essential hypertension: Code(s): I10 - Essential (primary) hypertension Category: Medical (3) Mild recurrent major depression: Code(s): F33.0 - Major depressive disorder, recurrent, mild Category: Medical (4) 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 LDL goal <70: Code(s): E78.5 - 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, unspecified Category: Medical (5) Diabetes mellitus, with long-term current use of insulin: Code(s): E11.9 - Type 2 diabetes mellitus without complications; Z79.4 - 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 Category: Medical (6) Ulcerative colitis: Code(s): K51.90 - Ulcerative colitis, unspecified, without complications Category: Medical (7) Chronic pancreatitis: Code(s): K86.1 - Other chronic pancreatitis Category: Medical (8) Epilepsy: Code(s): G40.909 - Epilepsy, unspecified, not intractable, without status epilepticus Category: Medical Plan The management plan for Type 2 Diabetes Mellitus includes monitoring blood glucose levels and adjusting dietary habits to improve glycemic control. The patient is advised to reduce bread intake to manage constipation and prevent further elevation of blood glucose. For breast pain, a mammogram is recommended to rule out any underlying pathology, given the recent onset of symptoms and tenderness noted during the examination. Hypertension management will continue with current medications, including amlodipine and atenolol, with regular monitoring of blood pressure. Preventative care measures include scheduling a mammogram and bone density screening, as these have not been performed recently. Patient was informed and verbally consented to the use of an ambient scribe for clinic note documentation during this visit. Orders: Orders AMB Hemoglobin A1c Today E11.8 - Type 2 diabetes mellitus with unspecified complications MM diagnostic mammo BI Today N64.4 - Mastodynia US breast LT limited Today N64.4 - Mastodynia Lipid Panel Today E78.5 - 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, unspecified XR DEXA axial skeleton Today Z78.0 - Asymptomatic menopausal state Microalbumin, Random (w Creat) Today R80.9 - Proteinuria, unspecified Vitamin D 25-OH Total Today E55.9 - Vitamin D deficiency, unspecified Comprehensive [place]. Panel Fast Today E11.8 - Type 2 diabetes mellitus with unspecified complications Vitamin B12 and Folate Today E53.8 - Deficiency of other specified B group vitamins Medications: Changed From pantoprazole 40 mg PO DAILY 30 tabs 0RF To pantoprazole 40 mg PO DAILY 90 tabs 1RF 90 days From aspirin 81 mg PO DAILY To aspirin 81 mg PO DAILY 90 tabs 0RF 90 days Refilled atenolol 100 mg PO DAILY 30 tabs 11RF atorvastatin 80 mg PO DAILY 90 tabs 3RF 90 days I25.10 - Atherosclerotic heart disease of [place] coronary artery without angina pectoris lisinopril 40 mg PO DAILY 90 tabs 11RF amlodipine 5 mg PO DAILY 30 tabs 11RF
== END 2025-04-28 14:07 | disposition home or self-care (01) ==
LOC: HO.HMCH 13:30
PROVIDERS: PCP Internal Medicine; Visit Provider Internal Medicine
DX: E11.69 Type 2 diabetes mellitus with other specified complication (principal); E11.8 Type 2 diabetes mellitus with unspecified complications; Z79.4 Long term (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; K51.90 Ulcerative colitis, unspecified, without complications; K86.1 Other chronic pancreatitis; G40.909 Epilepsy, unspecified, not intractable, without status epilepticus; N64.4 Mastodynia; I10 Essential (primary) hypertension; F33.0 Major depressive disorder, recurrent, mild; E78.5 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, unspecified

== ENCOUNTER → 2025-04-28 13:30 | Outpatient (BNVA) | payer MEDICARE, SELFPAY | PROVIDERS: PCP Internal Medicine; Visit Provider Internal Medicine | DX: N64.4 Mastodynia (principal); I10 Essential (primary) hypertension; F33.0 Major depressive disorder, recurrent, mild; E78.5 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, unspecified; E11.9 Type 2 diabetes mellitus without complications; K51.90 Ulcerative colitis, unspecified, without complications; K86.1 Other chronic pancreatitis; G40.909 Epilepsy, unspecified, not intractable, without status epilepticus; Z79.4 Long term (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 | CPT/HCPCS: 83036; 96127; 99212 ==

== ENCOUNTER 2025-06-21 11:28 | Outpatient (REF) | payer MEDICARE, SELFPAY ==
--- NOTE | ~2025-06-21 | MM_ITS ---
EXAMINATIONS: 1. MM DIAGNOSTIC DIGITAL BREAST TOMOSYNTHESIS, BILATERAL 2. Targeted ultrasound of the left breast CLINICAL INFORMATION: Left breast pain at 12:00 position COMPARISON: November 14, 2022 TECHNIQUE: Digital breast tomosynthesis is performed in both the craniocaudal and mediolateral oblique views along with computer-aided detection (CAD). Synthesized 2D images are generated from the tomosynthesis. FINDINGS: BREAST COMPOSITION: There are scattered areas of fibroglandular density (ACR BI-RADS breast composition Category b). RIGHT BREAST: No significant masses, suspicious calcifications or other abnormalities are seen. LEFT BREAST: No significant masses, suspicious calcifications or other abnormalities are seen. In particular, no suspicious mammographic findings adjacent to the triangular skin marker placed at the location of the pain as indicated by the patient at approximately 12 o'clock position anterior depth. Targeted ultrasound of the left breast was performed at the location of pain as indicated by the patient. The survey performed along the 12 o'clock position, from 1 to 6 cm from the nipple did not reveal suspicious sonographic findings. MM/MM tomosynthesis diagnostic BI IMPRESSION: RIGHT BREAST: Negative, no mammographic evidence of malignancy. Normal interval follow-up is recommended in 12 months. LEFT BREAST: Negative, no evidence of malignancy. In particular, no suspicious findings to accounts for patient's focal pain. Clinical follow-up is recommended. Otherwise, normal interval follow-up mammogram is recommended in 12 months. ASSESSMENT: BI-RADS 1 - Negative RECOMMENDATION: 1. Patient should be managed based on the clinical impression. 2. Otherwise, routine annual screening mammography. Results were provided to the patient at time of visit by the technologist. This patient's information was entered into a reminder system with a target due date for their next mammogram. Electronically signed by: Brandon Powers MD 06/21/2025 01:20 PM EDT
--- OUTSIDE RECORDS SUMMARY | 2025-06-21 12:36 | XMS_ITS | Clinical Summary ---
Author Organization [facility] Address [address] [place] [phone] Phone Care Team Providers Care Marine Engineering Teacher Name Role Phone Unavailable Primary Care Provider Unavailabl e Social History Tobacco Use Types Packs/Day Years Used Date Smoking Tobacco: Never Assessed Education Answer Date Recorded Are you interested in more education? Not on batsheva e 05/12/2024 Are you concerned about learning? Not on file 05/12/2024 No 05/12/2024 No 05/12/2024 Digital Access Answer Date Recorded No 05/12/2024 No 05/12/2024 Reliable internet access at home? Not on file 05/12/2024 Device with a working camera? Not on file Comments Unknown Sex and Gender Information Value Date Recorded Sex Assigned at Not on file Legal Sex Female 1:09 PM EDT Gender Identity Not on file Sexual Orientation Not on file Plan of Treatment Not on file Medical Devices Not on file Additional Source Comments The information contained in this document represents components of the legal health record. It is not the complete legal health record.[facility]
== END 2025-06-21 11:29 | disposition home or self-care (01) ==
LOC: HO.MAMMO 11:28
PROVIDERS: PCP Internal Medicine; Visit Provider Internal Medicine
DX: Z12.31 Encounter for screening mammogram for malignant neoplasm of breast (principal); N64.4 Mastodynia
CPT/HCPCS: 76642; 77062; 77066

== ENCOUNTER → 2025-06-21 12:00 | Outpatient (BNV) | payer MEDICARE, SELFPAY | PROVIDERS: PCP Internal Medicine; Visit Provider Radiology Body Imaging | DX: N64.4 Mastodynia (principal) | CPT/HCPCS: 76642; 77066; G0279 ==

== ENCOUNTER 2025-07-04 09:36 | Outpatient (REF) | payer MEDICARE, SELFPAY ==
[2025-07-04 09:58] LABS: MANUAL DIFF FLAG NO
[2025-07-04 10:13] LABS: Hematocrit 36.0 % (37.0-47.0); Hemoglobin 11.0 g/dl (12.0-16.0); Imm Gran Abs Auto 0.01 X10*3/uL (0.00-0.03); Imm Gran Pct Auto 0.2 % (0.0-0.4); Lymphocytes Absolute Auto 1.6 X10*3/uL (1.2-4.9); Mean Corpuscular HGB Conc 30.6 g/dl (31.0-35.0); Mean Corpuscular Hemoglobin 25.6 pg (27.0-33.0); Mean Corpuscular Volume 83.9 fL (80.0-98.0); NRBC Abs Auto 0.000 X10*3/uL (0.0-0.012); NRBC Pct Auto 0.0 /100WBC (0.0-0.2); Platelet Count 220 X10*3/uL (160-400); Red Blood Count 4.29 X10*6/uL (4.20-5.50); White Blood Count 6.4 X10*3/uL (4.8-10.8)
--- OUTSIDE RECORDS SUMMARY | 2025-07-04 10:26 | XMS_ITS | Clinical Summary ---
Author Organization [facility] Address [address] [place] [phone] Phone Care Team Providers Care Mixing Tank Operator Name Role Phone Unavailable Primary Care Provider [...] It is not the complete legal health record.[facility]
[2025-07-04 11:06] LABS: Alanine Aminotransferase 10 U/L (0-31); Albumin Level 3.7 g/dL (3.5-5.0); Alkaline Phosphatase 76 U/L (39-117); Anion Gap 12 (12-20); Aspartate Amino Transferase 18 U/L (5-31); Blood Urea Nitrogen 24 mg/dL (9-16); Calcium 9.5 mg/dL (8.4-10.2); Carbon Dioxide 27 mmol/L (22-29); Chloride 106 mmol/L (96-108); Cholesterol 178 mg/dL (<200); Estimated Glomerular Filt Rate 44; HDL Cholesterol 54 mg/dL (>40); Potassium 5.2 mmol/L (3.3-5.1); Sodium 140 mmol/L (135-145); Total Protein 6.4 g/dL (6.5-8.0); Triglycerides 112 mg/dL (<150)
[2025-07-04 11:25] LABS: Folate 13.4 ng/mL (> or = 4.0); Vitamin B12 871 pg/mL (200-900)
== END 2025-07-04 09:37 | disposition home or self-care (01) ==
LOC: HO.LAB 09:36
PROVIDERS: PCP Internal Medicine; Visit Provider Internal Medicine
DX: E78.5 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, unspecified (principal); E55.9 Vitamin D deficiency, unspecified; E11.8 Type 2 diabetes mellitus with unspecified complications; L98.9 Disorder of the skin and subcutaneous tissue, unspecified; E53.8 Deficiency of other specified B group vitamins
CPT/HCPCS: 36415; 80053; 80061; 82306; 82607; 82746; 85025

== ENCOUNTER 2025-07-07 12:06 | Outpatient (REF) | payer MEDICARE, SELFPAY ==
[2025-07-07 12:50] LABS: Microalbum/Creatinine Ratio Ur 35.4 ug/mg cr (<30)
--- OUTSIDE RECORDS SUMMARY | 2025-07-07 13:06 | XMS_ITS | Clinical Summary ---
Author Organization [facility] Address [address] [place] [phone] Phone Care Team Providers Care Trust Administrative Assistant Name Role Phone Unavailable Primary Care Provider [...] It is not the complete legal health record.[facility]
== END 2025-07-07 12:07 | disposition home or self-care (01) ==
LOC: HO.LNP 12:06
PROVIDERS: Visit Provider Internal Medicine
DX: R80.9 Proteinuria, unspecified (principal)
CPT/HCPCS: 82043; 82570

== ENCOUNTER 2025-07-25 12:36 | Outpatient (AMB) | payer MEDICARE, SELFPAY ==
--- NOTE | 2025-07-25 12:38 | A.OFFPC_ITS ---
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: No Accompanied by: Self / Same As Patient Allergies Penicillins (PENICILLINS) Allergy (Severe, Verified 07/25/25 13:01) ANAPHYLAXIS Sulfa (Sulfonamide Antibiotics) (SULFA (SULFONAMIDE ANTIBIOTICS)) Allergy (Severe, Verified 07/25/25 13:01) ANAPHYLAXIS codeine Allergy (Intermediate, Verified 07/25/25 13:01) headache/mood changes dulaglutide (From Trulicity) Allergy (Intermediate, Verified 07/25/25 13:01) Nausea and Vomiting latanoprost Adverse Reaction (Intermediate, Verified 07/25/25 13:01) eye redness Oinion Allergy (Severe, Uncoded 07/25/25 13:01) Vomiting Medication List - Last Reconciled 07/25/25 by Martine Ding MD albuterol sulfate 90 mcg/actuation 2 puffs inhalation Q4H PRN 30 days amlodipine 5 mg PO DAILY aspirin 81 mg PO DAILY 90 days atenolol 100 mg PO DAILY atorvastatin 80 mg PO DAILY 90 days blood pressure monitor As directed blood pressure monitor As directed blood sugar diagnostic (Accu-Chek Guide test strips) USE 1 STRIP 4 TIMES DAILY DIRECTED blood sugar diagnostic (FreeStyle Precision Vu Strips) As directed tests 4 X/day blood-glucose meter (Accu-Chek Guide Glucose Meter) As directed cetirizine (All Day Allergy (cetirizine)) 10 mg PO DAILY PRN 90 days cholecalciferol (vitamin D3) 50 mcg PO DAILY docusate sodium (Colace) 100 mg PO DAILY PRN 90 days flash glucose sensor (FreeStyle Jessica 2 Sensor kit) As directed change every 14 days folic acid 1 mg PO DAILY@1400 insulin degludec (Tresiba FlexTouch U-200 insulin) 15 units (0.075 mL) subcut BEDTIME 30 days insulin lispro (Humalog KwikPen (U-100) Insulin) 10 units (0.1 mL) subcut BID@0730,1630 lancets (TRUEplus Lancets) four times a day linagliptin-metformin 2.5-1,000 mg (Jentadueto) 1 tab PO BID lisinopril 40 mg PO DAILY mecobalamin (vitamin B12) 1,000 mcg sublingual DAILY@1400 montelukast 10 mg PO DAILY PRN 30 days nitroglycerin 0.4 mg sublingual Q5M PRN ondansetron 8 mg PO Q8H oxycodone 5 mg PO TID PRN pantoprazole 40 mg PO DAILY 90 days pen needle, diabetic Use as directed 5 times daily venlafaxine ER (Effexor XR) 37.5 mg PO DAILY venlafaxine ER 150 mg PO DAILY walker (Ultra-Light Rollator misc) As directed Tobacco use date assessed: 07/25/25 Fall risk assessment: 2 + Falls in past year Last assessed Fall Risk: 07/25/25 Dental Screening Dental Screen Date: 07/25/25 Did you have a dental visit in the last 12 months?: No Did you have a dental problem in the last 6 months where you did not have access to dental care?: No Was dental information given to patient?: No HPI HPI Comments History of Present Illness Details The patient is an 80-year-old female presenting for an annual wellness examination and management of chronic conditions. The patient has a history of Diabetes Mellitus, with a recent HbA1c of 8.3%, indicating suboptimal control. She reports that her blood glucose levels have improved recently, as observed through home monitoring. She experiences episodes of hypoglycemia, particularly at night, which disrupt her sleep. The patient has Chronic Kidney Disease, with a Glomerular Filtration Rate (GFR) of 44, indicating moderate renal impairment. Her potassium levels are slightly elevated at 5.2 mmol/L. The patient has 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, with an LDL cholesterol level of 100 mg/dL, which has increased from a previous level of 80 mg/dL. The patient has a history of Hypertension, currently managed with Amlodipine, which has been reduced from 5 mg to 2.5 mg to address peripheral edema. The patient is being treated for Depression with Venlafaxine and is under the care of a psychiatrist and counselor. The patient has a family history of Alzheimer's Disease, with both parents having had heart disease and her mother also having Alzheimer's. In terms of preventative care, the patient is uncertain about her Pneumonia vaccination status but believes she received it in [place]. She has undergone a mammogram recently, which was normal, and a colonoscopy in 2022. Her bone density screening was postponed due to equipment issues, with a follow-up adalberto eduled for September 15. 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 Type 2 diabetes mellitus with unspecified complications Atherosclerotic cardiovascular disease Surgical History Hx of eye surgery Hx of colonoscopy (~12/10/22) History of esophagogastroduodenoscopy (EGD) History of colon resection History of appendectomy History of kidney surgery History of intestinal surgery Hx of cholecystectomy History of liver biopsy History of bladder surgery Hx of hysterectomy Family History Father Cardiovascular disease Cancer Mother Cardiovascular disease Sister Diabetes Brother Diabetes Other Mental health disorder Social History Household Members: None Housing: Apartment Are you a primary complex care nurse to a significant other at home: No Do you presently have visiting nurse or other home services: Yes Alcohol intake: never Comment: SEIZURE PRECAUTIONS Patient Tobacco Use Status: Never used Tobacco e-Cigarette/Vaping Use: Never Used Second Hand Smoke Exposure: No Advance Directives Date on File: 08/25/23 service: No Current occupational status: retired Cognitive needs: Yes Hearing needs: No Vision needs: Yes Questionnaire PHQ-9 Over the last 2 weeks, how often have you been bothered by any of the following problems? 1. Little interest or pleasure in doing things: several days 2. Feeling down, depressed, or hopeless: several days 3. Trouble falling or staying asleep, or sleeping too much: several days 4. Feeling tired or having little energy: several days 5. Poor appetite or overeating: several days 6. Feeling bad about yourself - or that you are a failure or have let yourself or your family down: not at all 7. Trouble concentrating on things, such as reading the newspaper or watching television: several days 8. Moving or speaking so slowly that other people could have noticed. Or the opposite - being so fidgety or restless that you have been moving around a lot more than usual: not at all 9. Thoughts that you would be better off or of hurting yourself in some way: not at all Total score: 6 Depression Screening Interpretation: Positive Depression Screening Follow-up: Existing condition, In treatment, Community Mental Health Worker F/U and Follow- up Visit Requested Depression Screening Done: Yes 83477 - PHQ-9 Billing: Yes Source: Developed by Drs. Osmar Hoyt, Jessie Vanessa, Gurmeet Frey and colleagues, with an educational pippa from [employer]. Thrive Questionnaire Date Thrive assessed: 07/25/25 I am a: Patient What is your living situation today?: I have a steady place to live Within the past 12 months, did the food you bought not last and you didn't have the money to get more?: Never true Within the past 12 months, did you worry whether your food would run out before you got money to buy more?: Never true Do you have trouble paying for medicines?: No Do you have trouble getting transportation to medical appointments?: Yes Do you have trouble paying your heating and electricity bill?: No Do you have trouble taking care of your child, family member or friend?: I choose not to answer this question Do you have trouble with day-to-day activities such as bathing, preparing meals, shopping, managing finances, etc.?: Yes Are you currently unemployed and looking for a job?: No Are you interested in more education?: No Please select the resources that you would like help with: None THRIVE Score: 1 AUDIT C Alcohol Use Questionnaire (AUDIT-C) 1. How often do you have a drink containing alcohol?: Monthly or less 2. How many drinks containing alcohol do you have on a typical day when you are drinking?: 1 or 2 3. How often do you have six or more drinks on one occasion?: Never Total Score: 1 Score Reviewed/Action Taken: No PARVEEN-7 AMB Questionnaire PARVEEN-7 Date PARVEEN - 7 assessed: 07/25/25 Feeling nervous, anxious, or on edge: 1 = Several days Not being able to stop or control worryin = Not at all Worrying too much about different things: 1 = Several days Trouble relaxin = Not at all Being so restless that it is hard to sit still: 0 = Not at all Becoming easily annoyed or irritable: 0 = Not at all Feeling afraid as if something awful might happen: 0 = Not at all Total PARVEEN-7 score (0-4 normal; 5-9 mild; 10-14 moderate; 15-21 severe): 2 Source: Developed by Drs. Osmar Hoyt, Jessie Vanessa, Gurmeet Frey and colleagues, with an educational pippa from [employer]. PARVEEN-7 Assessment Billing PARVEEN-7 Assessment Tool: PARVEEN-7 Assessment 49880 Review of Systems Const All systems reviewed & are unremarkable except as noted in HPI and below Card Denies chest pain at rest, Denies chest pain with activity, Denies edema, Denies irregular heart rhythm, Denies claudication, Denies dyspnea, Denies dyspnea on exertion, Denies orthopnea, Denies paroxysmal nocturnal dyspnea and Denies slow heart rate Resp Denies cough, Denies dyspnea and Denies dyspnea on exertion GI Denies abdominal pain, Denies change in bowel habits, Denies excessive flatus, Denies nausea and Denies vomiting Physical exam (Primary Care) Vital Signs: Last Vital Signs Temp 96.9 F 07/25/25 12:39 Pulse 58 07/25/25 12:39 Resp 18 07/25/25 12:39 BP 110/50 L 07/25/25 12:39 Pulse Ox 97 07/25/25 12:39 Oxygen Delivery Method Room Air 07/25/25 12:39 BMI result Body Mass Index 31.5 BMI Assessment/Plan discussion: High BMI High, discussed plan: lifestyle, weight reduction, dietary and physical activity Tobacco/Smoking Status: Tobacco use Status Tobacco use date assessed 07/25/25 07/25/25 12:44 Patient Tobacco Use Status Never used Tobacco 07/25/25 12:44 e-Cigarette/Vaping Use Never Used 07/25/25 12:44 PHQ-9: PHQ-9 Score PHQ-9: Total score 6 07/25/25 12:44 Depression Screening Interpretation: Positive Depression Screening Follow-up: Existing condition, In treatment, Community Mental Health Worker F/U and Follow- up Visit Requested Thrive Assessment: Date of Thrive Assessment Date Thrive assessed 07/25/25 07/25/25 12:44 HENMT Head: Yes normal to inspection, Yes normocephalic and Yes atraumatic Ears: external ears normal Eyes General: appearance normal, both eyes and all related structures Eyelids: Yes eyelids normal Conjunctivae: conjunctivae normal Neck Neck: Yes normal visual inspection and Yes supple Resp Effort & Inspection: normal respiratory effort Auscultation: clear to auscultation bilaterally Cardio Jugular venous distension: no JVD Rate: regular rate Rhythm: regular rhythm Heart sounds: S1 normal heart sound present and S2 normal heart sound present GI Inspection: Yes normal to inspection Palpation (GI): Soft to palpation and nontender Auscultation: normal bowel sounds Skin General skin exam: no rashes or lesions noted Neuro General: no focal motor deficits Extrem General: Yes full ROM Psych Appearance: grossly normal Coding Level of Care Code Est Pt Level 3 (36641) Est Pt Prev Care >65y(78793) Diagnoses Physical exam Z00.00 Type 2 diabetes mellitus with hyperglycemia, with long-term current use of insulin E11.65; Z79.4 Diabetes mellitus assisted insulin use: with assisted use Mild recurrent major depression F33.0 Epilepsy G40.909 Additional Codes PHQ-9 - 92184 - PHQ-9 Billing: Yes ([id number]) PARVEEN-7 Assessment Billing - PARVEEN-7 Assessment Tool: PARVEEN-7 Assessment 65082 ([id number]) Time Spent (min) 32 Assessment & Plan Assessment & Plan (1) Physical exam: Code(s): Z00.00 - Encounter for general adult medical examination without abnormal findings Category: Medical (2) Type 2 diabetes mellitus with hyperglycemia: Comment: glucose usually 100-135 at this time per patient 12/03/21 Code(s): E11.65 - Type 2 diabetes mellitus with hyperglycemia Category: Medical Qualifiers: 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 1. Diabetes Mellitus The patient's Diabetes Mellitus is currently suboptimally controlled with an HbA1c of 8.3%. She reports improved blood glucose levels at home, but experiences nocturnal hypoglycemia. A referral to endocrinology is planned to better manage her diabetes and address the hypoglycemic episodes. 2. Chronic Kidney Disease The patient has moderate Chronic Kidney Disease with a GFR of 44 and slightly elevated potassium levels at 5.2 mmol/L. Monitoring of renal function and electrolyte levels is recommended. 3. 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 The patient's LDL cholesterol has increased to 100 mg/dL from a previous level of 80 mg/dL. Continued monitoring and potential adjustment of lipid-lowering therapy may be necessary. 4. Hypertension The patient's Hypertension is managed with Amlodipine, which has been reduced to 2.5 mg to address peripheral edema. Blood pressure monitoring and adjustment of antihypertensive therapy will be continued as needed. 5. Depression The patient is being treated for Depression with Venlafaxine and is under psychiatric care. Regular follow-up with her psychiatrist and counselor is advised to monitor her mental health status. 6. Preventative Care The patient is uncertain about her Pneumonia vaccination status and believes it was administered in [place]. She has completed a mammogram and colonoscopy, with normal results, and has a bone density screening scheduled for September 15. Orders: Orders Lipid Panel 4 Months E78.5 - 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, unspecified Microalbumin, Random (w Creat) 4 Months R80.9 - Proteinuria, unspecified Vitamin D 25-OH Total 4 Months E55.9 - Vitamin D deficiency, unspecified Vitamin B12 and Folate 4 Months E53.8 - Deficiency of other specified B group vitamins Comprehensive [place]. 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
[2025-07-25 12:39] VITALS: BP 110/50; PULSE 58; RESP 18; TEMP 36.1; O2SAT 97; BMI 31.5
--- OUTSIDE RECORDS SUMMARY | 2025-07-25 17:16 | XMS_ITS | Clinical Summary ---
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
== END 2025-07-25 13:22 | disposition home or self-care (01) ==
LOC: HO.HMCH 12:36
PROVIDERS: PCP Internal Medicine; Visit Provider Internal Medicine
DX: Z00.00 Encounter for general adult medical examination without abnormal findings (principal); E11.65 Type 2 diabetes mellitus with hyperglycemia; Z79.4 Long term (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; G40.909 Epilepsy, unspecified, not intractable, without status epilepticus; F33.0 Major depressive disorder, recurrent, mild

== ENCOUNTER → 2025-07-25 12:36 | Outpatient (BNVA) | payer MEDICARE, SELFPAY | PROVIDERS: PCP Internal Medicine; Visit Provider Internal Medicine | DX: Z00.00 Encounter for general adult medical examination without abnormal findings (principal); E78.5 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, unspecified; I12.9 Hypertensive chronic kidney disease with stage 1 through stage 4 chronic kidney disease, or unspecified chronic kidney disease; E11.22 Type 2 diabetes mellitus with diabetic chronic kidney disease; E11.65 Type 2 diabetes mellitus with hyperglycemia; F33.0 Major depressive disorder, recurrent, mild; G40.909 Epilepsy, unspecified, not intractable, without status epilepticus; N18.9 Chronic kidney disease, unspecified; D63.1 Anemia in chronic kidney disease; Z79.4 Long term (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; Z79.899 Other long term (current) drug therapy | CPT/HCPCS: 96127; 99212; 99397 ==

== ENCOUNTER 2025-07-28 12:32 | Outpatient (AMB) | payer MEDICARE, SELFPAY ==
--- NOTE | 2025-07-28 12:35 | A.OFFVIS_ITS ---
Vital Signs 07/28/25 12:46 Height 5 ft Weight 163 lb 5.8 oz BMI 31.9 BP 130/52 L Blood Pressure Location Rt brachial Position Sitting Pulse 68 Pulse Source Pulse Oximeter Pulse Oximetry (%) 98 Oxygen Delivery Method Room Air Intake Visit Reasons: Diabetes Type 2 Intake Note: NEW Patient presents today to establish treatment for Type 2 Diabetes Mellitus: Patient states she is using Jessica 2 sensor to check blood sugar. Does not have additional glucometer to finger stick. Last Diabetic eye exam was on: DUE, has an appointment Sep 2025 Last Podiatry exam was on: Patient does not see a Bench Worker Helper Most recent HbA1c: 8.3% 07/28/2025 Random Glucose: 172 mg/dL Meteorologist Liaison Required: No Accompanied by: Self / Same As Patient Allergies Penicillins (PENICILLINS) Allergy (Severe, Verified 07/28/25 12:48) ANAPHYLAXIS Sulfa (Sulfonamide Antibiotics) (SULFA (SULFONAMIDE ANTIBIOTICS)) Allergy (Severe, Verified 07/28/25 12:48) ANAPHYLAXIS codeine Allergy (Intermediate, Verified 07/28/25 12:48) headache/mood changes dulaglutide (From Trulicity) Allergy (Intermediate, Verified 07/28/25 12:48) Nausea and Vomiting latanoprost Adverse Reaction (Intermediate, Verified 07/28/25 12:48) eye redness Oinion Allergy (Severe, Uncoded 07/28/25 12:48) Vomiting HPI Comments Details: Patient is an 80 yo female with DM type 2 presenting for follow up Medical history: HTN, HLD, GERD, [place], seizures Diagnosed at 34 years of age, who presents for continued management of her diabetes.? Micro and macrovascular complications:+ retinopathy? + neuropathy, + CAD, Diabetes medications: Tresiba u200 12 units Humalog?6-10 units breakfast, 10 units lunch, 10-12 units dinner. Jentadueto 2.03/1000 BID. intolerant of trulicity due to nausea and vomiting HbA1C 8.3% from 8.3% in April 2025 CGM-GMI 6.6% TGT 81%, high 15% Low 4% (these are essentially all overnight) Eating breakfast ~10 am, protein shake for lunch, eating dinner 430-6pm. Sometimes has a snack before bed banana or milk and cereal but this is often difficult on her stomach. She has significant GI issues and follows with GI Hypoglycemia frequent overnight Eye exam:?reports appt Sep 2025 hx of? mild retinopathy Exercise:? minimum ROS CONSTITUTIONAL: Denies weight loss, fever and chills. HEENT: Denies changes in vision and hearing. RESPIRATORY: Denies SOB and cough. CV: Denies palpitations and CP GI: see hpi : Denies dysuria and urinary frequency. MSK: Denies new myalgia and joint pain. SKIN: Denies rash and pruritus. NEUROLOGICAL: Denies headache PSYCHIATRIC: Denies recent changes in mood. PHYSICAL EXAM: GENERAL: Alert and oriented x 3. NAD EYES: EOMI. Anicteric. HENT: Moist mucous membranes. No scleral icterus. No cervical lymphadenopathy. LUNGS: Clear to auscultation bilaterally. CARDIOVASCULAR: Regular rate and rhythm. No murmur. No JVD. ABDOMEN: Soft, non-tender +bs EXTREMITIES: No edema. Non-tender. SKIN: No rashes or lesions. Warm. NEUROLOGIC: No focal neurological deficits. CN II-XII grossly intact PSYCHIATRIC: Cooperative. 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 Type 2 diabetes mellitus with unspecified complications Atherosclerotic cardiovascular disease Surgical History History of surgery Hx of eye surgery Hx of colonoscopy (~12/10/22) History of esophagogastroduodenoscopy (EGD) History of colon resection History of appendectomy History of kidney surgery History of intestinal surgery Hx of cholecystectomy History of liver biopsy History of bladder surgery Hx of hysterectomy Family History Father Cardiovascular disease Cancer Mother Cardiovascular disease Sister Diabetes Brother Diabetes Other Mental health disorder Social History Household Members: None Housing: Apartment Are you a primary care transitions manager to a significant other at home: No Do you presently have visiting nurse or other home services: Yes Alcohol intake: never Comment: SEIZURE PRECAUTIONS Patient Tobacco Use Status: Never used Tobacco e-Cigarette/Vaping Use: Never Used Second Hand Smoke Exposure: No Advance Directives Date on File: 08/25/23 service: No Current occupational status: retired Cognitive needs: Yes Hearing needs: No Vision needs: Yes Physical Exam Vital Signs: Last Vital Signs Pulse 68 07/28/25 12:46 BP 130/52 L 07/28/25 12:46 Pulse Ox 98 07/28/25 12:46 Oxygen Delivery Method Room Air 07/28/25 12:46 Results AMB Hemoglobin A1c AMB Hemoglobin A1c 8.3 % Last Edit by PURNIMA Melendez on 07/28/25 13:11 Results Reviewed Results Reviewed: Laboratory Last Values Glucose (Clinic) 172 mg/dL (60-115) H 07/28/25 13:00 Hgb A1c (Clinic) 8.3 % (4.0-6.0) H 07/28/25 13:04 Assessment & Plan Assessment & Plan (1) Type 2 diabetes mellitus with unspecified complications: Code(s): E11.8 - Type 2 diabetes mellitus with unspecified complications Category: Medical (2) Ulcerative colitis: Code(s): K51.90 - Ulcerative colitis, unspecified, without complications Category: Medical Qualifiers: Ulcerative colitis location: unspecified ulcerative colitis location Digestive disease complication type: unspecified complication Qualified Code(s): K51.919 - Ulcerative colitis, unspecified with unspecified comp lications Plan 80 year old female for diabetic follow up A1C remains at 8.3% with frequent hypoglycemia Decrease dinner humalog to 6 units. contine 6-10 with breakfast, 10 with lunch. Advised to take PRIOR to meal Add acarbose with dinner Increase tresiba to 15 units daily Orders: Orders AMB Hemoglobin A1c Today E11.8 - Type 2 diabetes mellitus with unspecified complications Medications: New acarbose with dinner 50 mg PO DAILY 90 tabs 3RF Changed From insulin lispro (Humalog KwikPen (U-100) Insulin) 10 units in AM before breakfast, 12 units before lunch and 10 units before dinner 10 units (0.1 mL) subcut BID@0730,1630 15 mL 3RF To insulin lispro (Humalog KwikPen (U-100) Insulin) 10 units with breakfast, 10 units with lunch and 6 units with dinner 10 units (0.1 mL) subcut TID 15 mL 3RF From insulin degludec (Tresiba FlexTouch U-200 insulin) If Blood Sugars go over 100 units inject 16-18 units. 15 units (0.075 mL) subcut BEDTIME 30 days 2.25 mL 1RF To Tresiba FlexTouch U-200 (insulin degludec) 15 units (0.075 mL) subcut BEDTIME 9 mL 1RF 30 days NS Coding Level of Care Code Est Pt Level 4 (13811) Diagnoses Type 2 diabetes mellitus with unspecified complications E11.8 Ulcerative colitis with complication, unspecified location K51.919 Ulcerative colitis location: unspecified ulcerative colitis location Digestive disease complication type: unspecified complication
[2025-07-28 12:46] VITALS: BP 130/52; PULSE 68; O2SAT 98; BMI 31.9
[2025-07-28 13:05] LABS: Glucose, Whole Blood 172 mg/dL (60-115)
--- OUTSIDE RECORDS SUMMARY | 2025-07-28 14:39 | XMS_ITS | Clinical Summary ---
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
== END 2025-07-28 13:38 | disposition home or self-care (01) ==
LOC: HO.ENCR 12:32
PROVIDERS: PCP Internal Medicine; Visit Provider Internal Medicine
DX: E11.8 Type 2 diabetes mellitus with unspecified complications (principal); K51.919 Ulcerative colitis, unspecified with unspecified complications

== ENCOUNTER → 2025-07-28 12:32 | Outpatient (BNVA) | payer MEDICARE, SELFPAY | PROVIDERS: PCP Internal Medicine; Visit Provider Internal Medicine | DX: E11.8 Type 2 diabetes mellitus with unspecified complications (principal); K51.919 Ulcerative colitis, unspecified with unspecified complications; Z79.4 Long term (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 | CPT/HCPCS: 82947; 83036; 99212 ==

== ENCOUNTER 2025-08-12 10:29 | Outpatient (REF) | payer MEDICARE, SELFPAY | END 2025-08-12 10:30 | disposition home or self-care (01) | LOC: HO.LAB 10:29 | PROVIDERS: PCP Internal Medicine; Visit Provider Registered Nurse | DX: G40.909 Epilepsy, unspecified, not intractable, without status epilepticus (principal) | CPT/HCPCS: 36415; 80164; 99212 ==

== ENCOUNTER 2025-08-12 10:29 | Outpatient (AMB) | payer MEDICARE, SELFPAY ==
--- NOTE | 2025-08-12 10:35 | A.OFFVIS_ITS ---
Intake Visit Reasons: Sz Allergies Penicillins (PENICILLINS) Allergy (Severe, Verified 08/12/25 10:40) ANAPHYLAXIS Sulfa (Sulfonamide Antibiotics) (SULFA (SULFONAMIDE ANTIBIOTICS)) Allergy (Severe, Verified 08/12/25 10:40) ANAPHYLAXIS codeine Allergy (Intermediate, Verified 08/12/25 10:40) headache/mood changes dulaglutide (From Trulicity) Allergy (Intermediate, Verified 08/12/25 10:40) Nausea and Vomiting latanoprost Adverse Reaction (Intermediate, Verified 08/12/25 10:40) eye redness Oinion Allergy (Severe, Uncoded 08/12/25 10:40) Vomiting Medication List - Last Reconciled 08/12/25 by Ela Aguilera, SANDWICH ARTIST acarbose 50 mg PO DAILY albuterol sulfate 90 mcg/actuation 2 puffs inhalation Q4H PRN 30 days amlodipine 2.5 mg PO DAILY 90 days aspirin 81 mg PO DAILY 90 days atenolol 100 mg PO DAILY atorvastatin 80 mg PO DAILY 90 days blood pressure monitor As directed blood pressure monitor As directed blood sugar diagnostic (Accu-Chek Guide test strips) USE 1 STRIP 4 TIMES DAILY DIRECTED blood sugar diagnostic (FreeStyle Precision Vu Strips) As directed tests 4 X/day blood-glucose meter (Accu-Chek Guide Glucose Meter) As directed cetirizine (All Day Allergy (cetirizine)) 10 mg PO DAILY PRN 90 days cholecalciferol (vitamin D3) 50 mcg PO DAILY divalproex 250 mg PO BID docusate sodium (Colace) 100 mg PO DAILY PRN 90 days flash glucose sensor (FreeStyle Jessica 2 Sensor kit) As directed change every 14 days folic acid 1 mg PO DAILY@1400 insulin lispro (Humalog KwikPen (U-100) Insulin) 10 units (0.1 mL) subcut TID lancets (TRUEplus Lancets) four times a day linagliptin-metformin 2.5-1,000 mg (Jentadueto) 1 tab PO BID lisinopril 40 mg PO DAILY mecobalamin (vitamin B12) 1,000 mcg sublingual DAILY@1400 montelukast 10 mg PO DAILY PRN 30 days nitroglycerin 0.4 mg sublingual Q5M PRN ondansetron 8 mg PO Q8H oxycodone 5 mg PO TID PRN pantoprazole 40 mg PO DAILY 90 days pen needle, diabetic Use as directed 5 times daily Tresiba FlexTouch U-200 (insulin degludec) 15 units (0.075 mL) subcut BEDTIME 30 days NS venlafaxine ER (Effexor XR) 37.5 mg PO DAILY venlafaxine ER 150 mg PO DAILY walker (Ultra-Light Rollator misc) As directed HPI Comments Details: 80-year-old woman who was 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 Seizures have always happened during sleep. She would find herself on the floor, disoriented, urinated, generalized shaking or involuntary movements. She was not entirely clear what happens to her. One seizure happened when she was on a rest stop. She woke up on the ground and was bleeding in her head and had urinated, and was disoriented. She was initially given Dilantin that she took for many years, until 2004 when it was stopped due to side effects, and changed to Keppra. In 2013, Keppra was changed to Zonegran, again due to side effects. She did not have any more spells for period of time. On 01/03/22, she had GI bleeding and in 09/2022 she had a seizure-like episode where she woke up, but it was different because she was scared she could not breathe and has previously been noted to stop breathing when she sleeps after her colon surgery a few years ago. She had not been taking any seizure medications that were restarted after hospitalization. * Per Dr. Santillan office note 04/13/2024: She is having more sz as she has been out of Zonegran for 1 year. The office records show 6 no shows which she denies. Says the Pharmacy did not send meds as we did not send it. Our last Pharmacy contact was in 2021 when 6 refills were authorized. Her niece is here today an dis witness to the sending of the prescription and that she is given a f/u appt in 6 months. She reports 4 nocturnal sz in 2023. Had seizure 09/21/2024 in sleep. She bit the inside of her cheek and was incontinent. It was unclear if she was taking Zonegran at that time. She got itchy rash over trunk that started around 08/2025. She stopped taking Zonegran for period of time and then restarted it. She thinks the rash got better when she was not taking medication. She ran out of Zonegran for about 2 weeks in 09/2025, itchiness was better. She has lichen planus. She says this is what happened with Dilantin and Keppra. In early 10/2025, she fell asleep around 5pm and woke shortly after 7pm. She was confused and thought it was the next day initially, before realizing only a few hours passed. She says seizures happen in her sleep and she sometimes wakes up shaking still. She has trouble coordinating movements afterward and feels confused. She bites her tongue and is incontinent at times. She has fallen out of bed many times because of seizures and now has bed railings. She has two nieces with seizures. She was taking Depakote 250mg twice a day, which was started in 10/2024, but says seizures are still happening during sleep. She denies any missed doses of medication. She reports having 3 episodes in one night in 06/2025 and woke with right arm bruised, which she believes was from hitting bed rail. Last episode was on 08/05/2025 during sleep. She woke with front tooth chipped and was incontinent of urine. She also had muscle aches and was more tired. She says she knows seizure happens during night as she wakes up more tired than usual and is sore all over, and sometimes bites tongue or lip, and is sometimes incontinent. No recent falls. She felt memory was not as sharp lately and more forgetful. Sleep was not so good, waking every few hours. [facility] Medical History (Updated 08/12/25 @ 10:39 by Ela Aguilera CNP) Uncontrolled hypertension History of fistula Dizziness Mild recurrent major depression Epilepsy Stroke Colitis Major depression, recurrent Memory change Neuropathy Seizures Glaucoma Myocardial infarction Acid reflux Type 2 diabetes mellitus with diabetic polyneuropathy Type 2 diabetes mellitus with hyperglycemia 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 LDL goal <70 Obesity due to excess calories BMI 34.0-34.9,adult 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, unspecified Essential hypertension jail (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 Type 2 diabetes mellitus with unspecified complications Atherosclerotic cardiovascular disease Surgical History History of surgery Hx of eye surgery Hx of colonoscopy (~12/10/22) History of esophagogastroduodenoscopy (EGD) History of colon resection History of appendectomy History of kidney surgery History of intestinal surgery Hx of cholecystectomy History of liver biopsy History of bladder surgery Hx of hysterectomy Family History (Updated 08/12/25 @ 12:33 by Ela Aguilera CNP) Father Cardiovascular disease Cancer Mother Cardiovascular disease Dementia Sister Diabetes Brother Diabetes Other Mental health disorder Social History Household Members: None Housing: Apartment Are you a primary medicare interviewer to a significant other at home: No Do you presently have visiting nurse or other home services: Yes Alcohol intake: never Comment: SEIZURE PRECAUTIONS Patient Tobacco Use Status: Never used Tobacco e-Cigarette/Vaping Use: Never Used Second Hand Smoke Exposure: No Advance Directives Date on File: 08/25/23 service: No Current occupational status: retired Cognitive needs: Yes Hearing needs: No Vision needs: Yes Review of Systems Const Denies chills, Denies daytime sleepiness, Reports difficulty sleeping, Denies fatigue, Denies fever(s), Denies frequent falls, Denies headache(s), Denies increased appetite, Denies poor appetite, Denies snoring, Denies weakness, Denies weight gain and Denies weight loss Eyes Denies loss of vision ENT Denies vertigo, Denies dizziness, Denies headache(s) and Denies neck pain Card Denies chest pain at rest, Denies chest pain with activity, Denies syncope, Denies leg edema, Denies palpitations, Denies dyspnea and Denies dyspnea on exertion Resp Denies cough, Denies dyspnea, Denies dyspnea on exertion and Denies snoring GI Denies abdominal pain, Denies constipation, Denies heartburn, Denies diarrhea and Denies nausea Denies urinary frequency, Denies urinary incontinence and Denies urinary urgency Musc Denies abnormal gait, Denies back pain, Denies myalgias, Denies arthralgias, Denies neck pain, Denies numbness and Denies tingling Neuro Denies abnormal gait, Denies vertigo, Denies dizziness, Denies syncope, Denies frequent falls, Denies headache(s), Denies lack of coordination, Denies loss of vision, Reports memory loss, Denies numbness, Denies Other visual disturbances, Denies restless legs, Reports seizure-like activity, Denies tingling, Denies paresthesias, Denies tremor(s) and Denies weakness Psych Denies anxiety, Denies depression, Denies auditory hallucinations, Reports memory loss and Denies visual hallucinations Endo Denies fatigue and Denies palpitations Physical Exam Const Other: General Appearance:? normal, in no acute distress. Chipped front tooth. Heart:? S1, S2 normal, no murmurs. Lungs:? clear anteriorly and posteriorly. Musculoskeletal:? normal. Extremities:? no edema. Psych:? alert, oriented, cognitive function intact, cooperative with exam. Neuro Other: Mental Status:?Normal attention, orientation, memory and affect.? Cranial Nerves:?Pupils are equal, round and reactive to light. External occular muscles are intact. Visual schuler are full. Face is symmetrical. Facial sensations are normal. Tongue is midline. Palate elevates symmetrically. Shoulder shrugging is normal. Hearing to bedside conversation is normal. Sensory Exam:?....? Coordination:?No ataxia,?no titubation.? Gait Exam: With walker. Extrapyramidal System:?No tremor, rigidity with normal facial expressions.? Pronator Drift:?Not present.? Involuntary Movements:?No tremors seen.? Speech:?Normal.? Results Reviewed Results Reviewed: 03/08/22 EEG- WNL 07/08/22 Polysom does not show TOOTIE, Snoring. Mild nocturnal hypoxemia. Assessment & Plan Assessment & Plan (1) Epilepsy: Code(s): G40.909 - Epilepsy, unspecified, not intractable, without status epilepticus Category: Medical Qualifiers: Epilepsy type: unspecified Intractability: not intractable Status epilepticus: without status epilepticus Qualified Code(s): G40.909 - Epilepsy, unspecified, not intractable, without status epilepticus Plan: EEG was ordered at her last appointment in 10/2024. She no showed EEG appointment on 11/16/2024 and follow up appointment on 12/02/2024, EEG was requested again. Increase Depakote DR 500mg 1 tablet twice a day, check level in 1 week. Plan Meds tried: Dilantin, Keppra, Zonegran Orders: Orders Valproate Today G40.909 - Epilepsy, unspecified, not intractable, without status epilepticus EEG electroencephalogram Today G40.909 - Epilepsy, unspecified, not intractable, without status epilepticus Medications: New divalproex (Depakote) 500 mg PO BID 180 tabs 1RF 90 days Coding Level of Care Code Est Pt Level 4 (90041) Diagnoses Nonintractable epilepsy without status epilepticus, unspecified epilepsy type G40.909 Epilepsy type: unspecified Intractability: not intractable Status epilepticus: without status epilepticus
--- OUTSIDE RECORDS SUMMARY | 2025-08-12 11:23 | XMS_ITS | Clinical Summary ---
Author Organization [facility] Address [address] [place] [id number] Phone Care Team Providers Care Cane Flume Watchman Name Role Phone Unavailable Primary Care Provider [...] It is not the complete legal health record.[facility]
== END 2025-08-12 11:00 | disposition home or self-care (01) ==
LOC: HO.HSM 10:30
PROVIDERS: PCP Internal Medicine; Visit Provider Registered Nurse
DX: G40.909 Epilepsy, unspecified, not intractable, without status epilepticus (principal)
CPT/HCPCS: 99214

== ENCOUNTER 2025-08-23 10:14 | Outpatient (REF) | payer MEDICARE, OTHER, SELFPAY ==
--- NOTE | 2025-08-23 11:34 | EEG_ITS ---
Reason for Exam: G40.909 Epilepsy Roomed Performed:?402 History: H/O nocturnal seizures - Patient reports ongoing night seizures. Last one was on 08/05/25, patient woke up with chipped front tooth, muscle soreness and extra tired. Medication: acarbose, albuterol sulfate, amlodipine, aspirin, atenolol, atorvastatin, cetirizine, cholecalciferol (vitamin D3), divalproex, docusate sodium, folic acid, linagliptin-metformin, lisinopril, mecobalamin (vitamin B12), montelukast, nitroglycerin, ondansetron, oxycodone, pantoprazole, venlafaxine ER Technical description Photic stimulation: completed Hyperventilation:?omitted Behavioral state: pleasant, cooperative State of Consciousness: awake Skull defect: none Sedation: none Handedness: right Duration of study:?31 min 24 sec Description: This is a 16 channel EEG with an EKG lead. Patient is reported awake during the tracing. Background EEG rhythm is mixed theta beta low to medium amplitude with no obvious asymmetry or paroxysmal tendency. Photic stimulation does not produce any significant abnormality. Hyperventilation is not performed. Cardiac lead does not reveal any significant abnormality. No sharp wave spikes or paroxysmal tendency noted. Impression: Mild slowing with no evidence of seizure disorder. MTDD
--- OUTSIDE RECORDS SUMMARY | 2025-08-23 12:00 | XMS_ITS | Clinical Summary ---
Author Organization [facility] Address [address] [place] [id number] Phone Care Team Providers Care Security Services Specialist Name Role Phone Unavailable Primary Care Provider [...] It is not the complete legal health record.[facility]
== END 2025-08-23 10:15 | disposition home or self-care (01) ==
LOC: HO.NEURO 10:14
PROVIDERS: PCP Internal Medicine; Visit Provider Registered Nurse
DX: G40.909 Epilepsy, unspecified, not intractable, without status epilepticus (principal)
CPT/HCPCS: 95816

== ENCOUNTER → 2025-08-23 11:34 | Outpatient (BNV) | payer MEDICARE, SELFPAY | PROVIDERS: PCP Internal Medicine; Visit Provider Psychiatry & Neurology Neurology | DX: G40.909 Epilepsy, unspecified, not intractable, without status epilepticus (principal) | CPT/HCPCS: 95816 ==

== ENCOUNTER 2025-09-09 08:45 | Outpatient (REF) | payer MEDICARE, SELFPAY ==
--- OUTSIDE RECORDS SUMMARY | 2025-09-09 09:07 | XMS_ITS | Clinical Summary ---
Author Organization [facility] Address [address] [place] [id number] Phone Care Team Providers Care Work Over Rig Operator Name Role Phone Unavailable Primary Care [...]
== END 2025-09-09 08:46 | disposition home or self-care (01) ==
LOC: HO.LAB 08:45
PROVIDERS: Absent Provider Registered Nurse; PCP Internal Medicine; Visit Provider Internal Medicine
DX: G40.909 Epilepsy, unspecified, not intractable, without status epilepticus (principal); Z79.899 Other long term (current) drug therapy
CPT/HCPCS: 36415; 80164; 99212

== ENCOUNTER 2025-09-09 09:11 | Outpatient (AMB) | payer MEDICARE, SELFPAY ==
--- NOTE | 2025-09-09 09:12 | MHC.OFFVIS ---
Intake Visit Reasons: results Allergies Penicillins (PENICILLINS) Allergy (Severe, Verified 09/09/25 09:45) ANAPHYLAXIS Sulfa (Sulfonamide Antibiotics) (SULFA (SULFONAMIDE ANTIBIOTICS)) Allergy (Severe, Verified 09/09/25 09:45) ANAPHYLAXIS codeine Allergy (Intermediate, Verified 09/09/25 09:45) headache/mood changes dulaglutide (From Trulicity) Allergy (Intermediate, Verified 09/09/25 09:45) Nausea and Vomiting latanoprost Adverse Reaction (Intermediate, Verified 09/09/25 09:45) eye redness Oinion Allergy (Severe, Uncoded 09/09/25 09:45) Vomiting Medication List - Last Reconciled 09/09/25 by Ela Aguilera, 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 acarbose 50 mg PO DAILY albuterol sulfate 90 mcg/actuation 2 puffs inhalation Q4H PRN 30 days amlodipine 2.5 mg PO DAILY 90 days aspirin 81 mg PO DAILY 90 days aspirin 81 mg PO DAILY atenolol 100 mg PO DAILY atorvastatin 80 mg PO DAILY 90 days blood pressure monitor As directed blood pressure monitor As directed blood sugar diagnostic (Accu-Chek Guide test strips) USE 1 STRIP 4 TIMES DAILY DIRECTED blood sugar diagnostic (FreeStyle Precision Vu Strips) As directed tests 4 X/day blood-glucose meter (Accu-Chek Guide Glucose Meter) As directed cetirizine (All Day Allergy (cetirizine)) 10 mg PO DAILY PRN 90 days cholecalciferol (vitamin D3) 50 mcg PO DAILY divalproex (Depakote) 500 mg PO BID 90 days docusate sodium (Colace) 100 mg PO DAILY PRN 90 days flash glucose sensor (FreeStyle Jessica 2 Sensor kit) As directed change every 14 days folic acid 1 mg PO DAILY@1400 insulin lispro (Humalog KwikPen (U-100) Insulin) 10 units (0.1 mL) subcut TID lancets (TRUEplus Lancets) four times a day linagliptin-metformin 2.5-1,000 mg (Jentadueto) 1 tab PO BID lisinopril 40 mg PO DAILY mecobalamin (vitamin B12) 1,000 mcg sublingual DAILY@1400 montelukast 10 mg PO DAILY PRN 30 days nitroglycerin 0.4 mg sublingual Q5M PRN ondansetron 8 mg PO Q8H oxycodone 5 mg PO TID PRN pantoprazole 40 mg PO DAILY 90 days pen needle, diabetic Use as directed 5 times daily Tresiba FlexTouch U-200 (insulin degludec) 15 units (0.075 mL) subcut BEDTIME 30 days NS venlafaxine ER (Effexor XR) 37.5 mg PO DAILY venlafaxine ER 150 mg PO DAILY walker (Ultra-Light Rollator misc) As directed HPI Comments Details: 80-year-old woman who was 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 Seizures have always happened during sleep. She would find herself on the floor, disoriented, urinated, generalized shaking or involuntary movements. She was not entirely clear what happens to her. One seizure happened when she was on a rest stop. She woke up on the ground and was bleeding in her head and had urinated, and was disoriented. She was initially given Dilantin that she took for many years, until 2004 when it was stopped due to side effects, and changed to Keppra. In 2013, Keppra was changed to Zonegran, again due to side effects. She did not have any more spells for period of time. On 01/03/22, she had GI bleeding and in 09/2022 she had a seizure-like episode where she woke up, but it was different because she was scared she could not breathe and has previously been noted to stop breathing when she sleeps after her colon surgery a few years ago. She had not been taking any seizure medications that were restarted after hospitalization. Per Dr. Santillan office note 04/13/2024: She is having more sz as she has been out of Zonegran for 1 year. The office records show 6 no shows which she denies. Says the Pharmacy did not send meds as we did not send it. Our last Pharmacy contact was in 2021 when 6 refills were authorized. Her niece is here today an dis witness to the sending of the prescription and that she is given a f/u appt in 6 months. She reports 4 nocturnal sz in 2023. Had seizure 09/21/2024 in sleep. She bit the inside of her cheek and was incontinent. It was unclear if she was taking Zonegran at that time. She got itchy rash over trunk that started around 08/2025. She stopped taking Zonegran for period of time and then restarted it. She thinks the rash got better when she was not taking medication. She ran out of Zonegran for about 2 weeks in 09/2025, itchiness was better. She has lichen planus. She says this is what happened with Dilantin and Keppra. In early 10/2025, she fell asleep around 5pm and woke shortly after 7pm. She was confused and thought it was the next day initially, before realizing only a few hours passed. She says seizures happen in her sleep and she sometimes wakes up shaking still. She has trouble coordinating movements afterward and feels confused. She bites her tongue and is incontinent at times. She has fallen out of bed many times because of seizures and now has bed railings. She has two nieces with seizures. She was started on Depakote 250mg twice a day in 10/2024. She reports having 3 seizure episodes in one night in 06/2025 and woke with right arm bruised, which she believes was from hitting bed rail. Last episode was on 08/05/2025 during sleep. She woke with front tooth chipped and was incontinent of urine. She also had muscle aches and was more tired. She says she knows seizure happens during night as she wakes up more tired than usual and is sore all over, and sometimes bites tongue or lip, and is sometimes incontinent. Depakote dose was increased to 500mg twice a day at last appointment on 08/12/2025. She had level checked before appointment, result pending. She reports taking medication as prescribed, no missed doses. No definite seizures since last appointment. For the last few weeks, she has been having episodes where her whole body will twitch or spasm and she makes a noise with her mouth at the same time. It happens most often when she is concentrating, like reading or sewing. It can also happen at night and may wake her. It happens a few times a day. No increased weakness, muscle aches or pain, confusion, incontinence, or tongue bite with these episodes. She was walking with walker, no falls. Sleep was generally okay. 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 Type 2 diabetes mellitus with unspecified complications Atherosclerotic cardiovascular disease Surgical History History of surgery Hx of eye surgery Hx of colonoscopy (~12/10/22) History of esophagogastroduodenoscopy (EGD) History of colon resection History of appendectomy History of kidney surgery History of intestinal surgery Hx of cholecystectomy History of liver biopsy History of bladder surgery Hx of hysterectomy Family History (Updated 08/12/25 @ 12:33 by Ela Aguilera CNP) Father Cardiovascular disease Cancer Mother Cardiovascular disease Dementia Sister Diabetes Brother Diabetes Other Mental health disorder Social History Household Members: None Housing: Apartment Are you a primary long term care pharmacist to a significant other at home: No Do you presently have visiting nurse or other home services: Yes Alcohol intake: never Comment: SEIZURE PRECAUTIONS Patient Tobacco Use Status: Never used Tobacco e-Cigarette/Vaping Use: Never Used Second Hand Smoke Exposure: No Advance Directives Date on File: 08/25/23 service: No Current occupational status: retired Cognitive needs: Yes Hearing needs: No Vision needs: Yes Review of Systems Const Denies chills, Denies daytime sleepiness, Reports difficulty sleeping, Denies fatigue, Denies fever(s), Denies frequent falls, Denies headache(s), Denies increased appetite, Denies poor appetite, Denies snoring, Denies weakness, Denies weight gain and Denies weight loss Eyes Denies loss of vision ENT Denies vertigo, Denies dizziness, Denies headache(s) and Denies neck pain Card Denies chest pain at rest, Denies chest pain with activity, Denies syncope, Denies leg edema, Denies palpitations, Denies dyspnea and Denies dyspnea on exertion Resp Denies cough, Denies dyspnea, Denies dyspnea on exertion and Denies snoring GI Denies abdominal pain, Denies constipation, Denies heartburn, Denies diarrhea and Denies nausea Denies urinary frequency, Denies urinary incontinence and Denies urinary urgency Musc Denies abnormal gait, Denies back pain, Denies myalgias, Denies arthralgias, Denies neck pain, Denies numbness and Denies tingling Neuro Denies abnormal gait, Denies vertigo, Denies dizziness, Denies syncope, Denies frequent falls, Denies headache(s), Denies lack of coordination, Denies loss of vision, Reports memory loss, Denies numbness, Denies Other visual disturbances, Denies restless legs, Reports seizure-like activity, Denies tingling, Denies paresthesias, Denies tremor(s) and Denies weakness Psych Denies anxiety, Denies depression, Denies auditory hallucinations, Reports memory loss and Denies visual hallucinations Endo Denies fatigue and Denies palpitations Physical Exam Const Other: General Appearance:? normal, in no acute distress. Chipped front tooth. Heart:? S1, S2 normal, no murmurs. Lungs:? clear anteriorly and posteriorly. Musculoskeletal:? normal. Extremities:? no edema. Psych:? alert, oriented, cognitive function intact, cooperative with exam. Neuro Other: Mental Status:?Normal attention, orientation, memory and affect.? Cranial Nerves:?Pupils are equal, round and reactive to light. External occular muscles are intact. Visual schuler are full. Face is symmetrical. Facial sensations are normal. Tongue is midline. Palate elevates symmetrically. Shoulder shrugging is normal. Hearing to bedside conversation is normal. Sensory Exam:?....? Coordination:?No ataxia,?no titubation.? Gait Exam: With walker. Extrapyramidal System:?No tremor, rigidity with normal facial expressions.? Pronator Drift:?Not present.? Involuntary Movements:?No tremors seen.? Speech:?Normal.? Results Reviewed Results Reviewed: [address] [address] Electroencephalogram Report Signed Patient: Jennifer Stoll MR#: [id number] : 1945 Acct:[id number] Age/Sex: 80 / F ADM Date: 08/23/25 Loc: [facility].NEURO Attending Dr: Ela Aguilera CNP Ordering Physician: Ela Aguilera CNP Date of Service: 08/23/25 Procedure(s): EEG Routine Accession Number(s): [id number] cc: Martine Davila MD~ Reason for Exam: G40.909 - Epilepsy, unspecified, not intractable, without status epilept... Reason for Exam: G40.909 Epilepsy Roomed Performed:?402 History: H/O nocturnal seizures - Patient reports ongoing night seizures. Last one was on 08/05/25, patient woke up with chipped front tooth, muscle soreness and extra tired. Medication: acarbose, albuterol sulfate, amlodipine, aspirin, atenolol, atorvastatin, cetirizine, cholecalciferol (vitamin D3), divalproex, docusate sodium, folic acid, linagliptin-metformin, lisinopril, mecobalamin (vitamin B12), montelukast, nitroglycerin, ondansetron, oxycodone, pantoprazole, venlafaxine ER Technical description Photic stimulation: completed Hyperventilation:?omitted Behavioral state: pleasant, cooperative State of Consciousness: awake Skull defect: none Sedation: none Handedness: right Duration of study:?31 min 24 sec Description: This is a 16 channel EEG with an EKG lead. Patient is reported awake during the tracing. Background EEG rhythm is mixed theta beta low to medium amplitude with no obvious asymmetry or paroxysmal tendency. Photic stimulation does not produce any significant abnormality. Hyperventilation is not performed. Cardiac lead does not reveal any significant abnormality. No sharp wave spikes or paroxysmal tendency noted. Impression: Mild slowing with no evidence of seizure disorder. Dictated By: Jaylen Meehan MD Signed By: <Electronically signed by Jaylen Meehan MD> 08/23/25 1538 Laboratory Tests 08/12/25 09/09/25 11:43 08:58 Valproic Acid 46.3 L Pending 03/08/22 EEG- WNL 07/08/22 Polysom does not show TOOTIE, Snoring. Mild nocturnal hypoxemia. Assessment & Plan Assessment & Plan (1) Epilepsy: Code(s): G40.909 - Epilepsy, unspecified, not intractable, without status epilepticus Category: Medical Qualifiers: Epilepsy type: unspecified Intractability: not intractable Status epilepticus: without status epilepticus Qualified Code(s): G40.909 - Epilepsy, unspecified, not intractable, without status epilepticus Plan: EEG results reviewed. She took dose of Depakote this morning and had lab done before this appointment, results pending at this time. Continue Depakote DR 500mg 1 tablet twice a day. 48 hr ambulatory EEG ordered. Plan Meds tried: TessieantinGhanshyam Zonegran Orders: Orders EEG 48hr Ambulatory Today G40.909 - Epilepsy, unspecified, not intractable, without status epilepticus Coding Level of Care Code Est Pt Level 4 (88933) Diagnoses Nonintractable epilepsy without status epilepticus, unspecified epilepsy type G40.909 Epilepsy type: unspecified Intractability: not intractable Status epilepticus: without status epilepticus
== END 2025-09-09 10:01 | disposition home or self-care (01) ==
LOC: HO.HSM 09:11
PROVIDERS: PCP Internal Medicine; Visit Provider Registered Nurse
DX: G40.909 Epilepsy, unspecified, not intractable, without status epilepticus (principal)
CPT/HCPCS: 99214

== ENCOUNTER → 2025-11-09 09:30 | Outpatient (REF) | payer MEDICARE, SELFPAY ==
[2025-11-09 10:59] LABS: MANUAL DIFF FLAG NO
--- NOTE | 2025-11-09 10:59 | ECG_ITS ---
Test Reason : preop Blood Pressure : */* mmHG Vent. Rate : 50 BPM Atrial Rate : 50 BPM P-R Int : 172 ms QRS Dur : 82 ms QT Int : 448 ms P-R-T Axes : 55 33 81 degrees QTcB Int : 408 ms Sinus bradycardia Otherwise normal ECG When compared with ECG of 11-May-2024 15:28, No significant change was found Referred By: Jennifer Monsivais Electronically Signed By: TIMBO BARRETO
[2025-11-09 11:20] LABS: Hematocrit 39.0 % (37.0-47.0); Hemoglobin 11.8 g/dl (12.0-16.0); Imm Gran Abs Auto 0.03 X10*3/uL (0.00-0.03); Imm Gran Pct Auto 0.4 % (0.0-0.4); Lymphocytes Absolute Auto 1.8 X10*3/uL (1.2-4.9); Mean Corpuscular HGB Conc 30.3 g/dl (31.0-35.0); Mean Corpuscular Hemoglobin 25.3 pg (27.0-33.0); Mean Corpuscular Volume 83.7 fL (80.0-98.0); NRBC Abs Auto 0.000 X10*3/uL (0.0-0.012); NRBC Pct Auto 0.0 /100WBC (0.0-0.2); Platelet Count 246 X10*3/uL (160-400); Red Blood Count 4.66 X10*6/uL (4.20-5.50); White Blood Count 7.4 X10*3/uL (4.8-10.8)
[2025-11-09 12:01] LABS: Anion Gap 13 (12-20); Blood Urea Nitrogen 14 mg/dL (9-16); Calcium 9.9 mg/dL (8.4-10.2); Carbon Dioxide 27 mmol/L (22-29); Chloride 105 mmol/L (96-108); Estimated Glomerular Filt Rate 50; Potassium 4.9 mmol/L (3.3-5.1); Sodium 140 mmol/L (135-145)
== END ==
LOC: HO.CARD 09:30
PROVIDERS: PCP Internal Medicine; Visit Provider Student in an Organized Health Care Education/Training Program
DX: Z00.00 Encounter for general adult medical examination without abnormal findings (principal); Z01.818 Encounter for other preprocedural examination; G40.909 Epilepsy, unspecified, not intractable, without status epilepticus; I10 Essential (primary) hypertension; E11.42 Type 2 diabetes mellitus with diabetic polyneuropathy; Z79.4 Long term (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
CPT/HCPCS: 36415; 80048; 85025; 93005; 99212

== ENCOUNTER → 2025-11-09 10:59 | Outpatient (BNV) | payer MEDICARE, SELFPAY | PROVIDERS: PCP Internal Medicine; Visit Provider Internal Medicine | DX: Z01.818 Encounter for other preprocedural examination (principal); R00.1 Bradycardia, unspecified | CPT/HCPCS: 93010 ==